=== PATIENT | male | born 1950 | race Caucasian/White ===

== ENCOUNTER 2018-05-26 14:29 | Inpatient (IN) | payer OTHER ==
[2018-05-26] VITALS (22 sets, daily range): BP systolic 69–114; BP diastolic 41–92; PULSE 39–124; RESP 13–34; Ht 180.3 cm; Wt 125.0 kg
[~2018-05-26] VITALS: Ht 180.3 cm; Wt 125.0 kg
[~2018-05-26 14:29] MED LIST: DEXTROSE 50% 50 ML SYRINGE ONE; DOPamine-D5W 1.6 MG/ML 250 ML ONE; EPINEPHrine 0.1 MG/ML SYG ONE; NA BICARBONATE 8.4% 50 ML SYG ONE; NALOXONE 2 MG SYG ONE
[2018-05-26] MEDS ORDERED: SOD CHLORIDE 0.9% 1,000 ML IV STA (15:15)
[2018-05-26] MEDS ORDERED: LIDOCAINE 1% (MDV) 20 ML INJ ONE (15:26)
[2018-05-26] MEDS ORDERED: MIDAZOLAM 1 MG/ML 2 ML INJ ONE ×2 (15:26→20:08)
[2018-05-26] MEDS ORDERED: IODIXANOL LOCM 100 ML BTL ONE ×2 (15:26→16:44)
[2018-05-26] MEDS ORDERED: IOHEXOL 350MG/ML 50 ML BTL ONE (15:26)
[2018-05-26] MEDS ORDERED: NITROGLYCERIN (IC) 100 MCG/ML INJ ONE (15:26)
[2018-05-26] MEDS ORDERED: FENTAnyl 50 MCG/ML VIAL ONE ×2 (15:26→20:08)
[2018-05-26] MEDS ORDERED: HEPARIN 1000 UNITS/ML 10 ML INJ ONE (15:28)
[2018-05-26] MEDS ORDERED: SOD CHLORIDE 0.9% 500 ML ONE (15:28)
[2018-05-26] MEDS ORDERED: NACL 0.9% 3 ML SYG IV SCH (15:30)
[2018-05-26] MEDS ORDERED: morphine 2 MG INJ IV PRN (15:30)
[2018-05-26] MEDS ORDERED: ASPIRIN 300 MG SUPP PR ONE ×2 (15:30→18:30)
[2018-05-26] MEDS ORDERED: POTASSIUM CHLORIDE 50 ML ONE (16:23)
--- NOTE | 2018-05-26 16:25 | ERD ---
ER Documentation Chief Complaint Chief Complaint BIB RA for cardiac arrest HPI This is a 68-year-old man brought in by EMS for initial respiratory arrest followed shortly by cardiac arrest after he laid down on EMSs gurney. EMS was called to his boarding care facility for not feeling well, patient initially stated he had some trouble breathing and when he laid down on the gurney he lost pulses. EMS began respiratory assistance with BVM and a high flow oxygen and began chest compressions. Further HPI could not be provided. ROS All systems reviewed and are negative except as per history of present illness. Allergies Allergies: Coded Allergies: Unknown: Unable to obtain (Unverified , 05/26/18) PMhx/Soc Obesity, COPD FmHx Family History: No diabetes Physical Exam Vitals Vital Signs Date Temp Pulse Resp B/P (MAP) Pulse Ox O2 O2 Flow FiO2 Time Delivery Rate 05/26/18 43 106/75 14:36 (85) 05/26/18 122 27 100 100 14:35 Physical Exam GENERAL: Elderly well-developed man, unresponsive, afebrile HEENT: Dry mucous membranes, pink conjunctival, full rey NEURO: Pupils minimally reactive bilaterally, patient nonverbal and unresponsive CARDIAC: Regular rate and rhythm, no murmurs rubs or gallops LUNGS: Clear bilaterally no wheezing crackles or stridor ABDOMEN: Soft nontender, no guarding, no rigidity, no masses, + umbilicoplasty SKIN: Cool to touch, no abrasions, contusions, or hematomas, no lacerations, no ecchymosis, no target lesions, and without ulcers EXTREMITIES: No clubbing cyanosis or edema, calves are bilaterally symmetrical, no Homans sign, no popliteal cord sign. Distal pulses equal and bilateral PSYCH: Unable to assess Result Diagram: 05/26/18 1531 05/26/18 1531 Results 24 hrs Laboratory Tests Test 05/26/18 14:39 05/26/18 15:31 Bedside Glucose 348 mg/dL White Blood Count 22.0 10^3/ul Red Blood Count 4.91 10^6/ul Hemoglobin 14.8 g/dl Hematocrit 45.7 % Mean Corpuscular Volume 93.1 fl Mean Corpuscular Hemoglobin 30.1 pg Mean Corpuscular Hemoglobin Concent 32.4 g/dl Red Cell Distribution Width 12.5 % Platelet Count 100 10^3/UL Mean Platelet Volume 10.9 fl Immature Granulocytes % 7.100 % Neutrophils % 51.4 % Segmented Neutrophils % (Manual) 45 % Band Neutrophils % (Manual) 7 % Lymphocytes % 36.3 % Lymphocytes % (Manual) 29 % Reactive Lymphocytes % (Manual) 12 % Monocytes % 3.7 % Monocytes % (Manual) 2 % Eosinophils % 0.6 % Eosinophils % (Manual) 2 % Basophils % 0.9 % Metamyelocytes % (manual) 3 % Nucleated Red Blood Cells % 0.1 /100WBC Immature Granulocytes # 1.560 10^3/ul Neutrophils # 11.3 10^3/ul Neutrophils # (Manual) 10.2 10^3/ul Band Neutrophils # 1.5 10^3/ul Lymphocytes (Manual) 6.3 10^3/ul Lymphocytes # 8.0 10^3/ul Reactive Lymphocytes # 2.6 10^3/ul Monocytes # 0.8 10^3/ul Monocytes # (Manual) 0.4 10^3/ul Eosinophils # 0.1 10^3/ul Basophils # 0.2 10^3/ul Metamyelocytes # 0.6 10^3/ul Nucleated Red Blood Cells # 0.0 10^3/ul Platelet Estimate DECREASED Polychromasia 1+ Poikilocytosis 1+ Anisocytosis 1+ Microcytosis 1+ Prothrombin Time 17.5 Sec Prothrombin Time Ratio 1.4 INR International Normalized Ratio 1.42 Activated Partial Thromboplast Time 49.6 Sec Sodium Level 139 mmol/L Potassium Level 3.3 mmol/L Chloride Level 99 mmol/L Carbon Dioxide Level 16 mmol/L Anion Gap 24 Blood Urea Nitrogen 7 mg/dl Creatinine 1.04 mg/dl Est Glomerular Filtrat Rate mL/min > 60 mL/min Glucose Level 559 mg/dl Calcium Level 10.6 mg/dl Total Bilirubin 0.2 mg/dl Direct Bilirubin 0.00 mg/dl Indirect Bilirubin 0.2 mg/dl Aspartate Amino Transf (AST/SGOT) 193 IU/L Alanine Aminotransferase (ALT/SGPT) 159 IU/L Alkaline Phosphatase 83 IU/L Troponin I 26.600 ng/ml Total Protein 5.7 g/dl Albumin 3.0 g/dl Globulin 2.70 g/dl Albumin/Globulin Ratio 1.11 Lipase 95 U/L Current Medications Medications Dose Sig/Benjamin Start Time Status Last (Trade) Ordered Route PRN Stop Time Admin Dose Reason Admin Sodium 1,000 ml @ Q1H STAT 05/26/18 DC Chloride 1,000 mls/hr IV 15:15 05/26/18 16:14 Aspirin 300 mg ONCE ONCE 05/26/18 DC (Aspirin) IA 15:30 05/26/18 15:31 Lidocaine 20 ml STK-MED 05/26/18 DC (Xylocaine ONCE .ROUTE 15:26 1% (Mdv) 20 05/26/18 15:27 ml) Iohexol 50 ml STK-MED 05/26/18 DC (Omnipaque ONCE .ROUTE 15:26 350mg/ ml) 05/26/18 15:27 Iodixanol 100 ml STK-MED 05/26/18 DC (Visipaque ONCE .ROUTE 15:26 Locm) 05/26/18 15:27 Fentanyl 100 mcg STK-MED 05/26/18 DC (Sublimaze) ONCE .ROUTE 15:26 05/26/18 15:27 Midazolam 2 mg STK-MED 05/26/18 DC HCl ONCE .ROUTE 15:26 (Versed) 05/26/18 15:27 1,000 mcg STK-MED 05/26/18 DC Nitroglycerin ONCE .ROUTE 15:26 05/26/18 15:27 (Nitroglyceri n (Intracoronar y)) Sodium 500 ml @ ud STK-MED 05/26/18 DC Chloride ONCE .ROUTE 15:28 05/26/18 15:29 Heparin 10,000 unit STK-MED 05/26/18 DC Sodium ONCE .ROUTE 15:28 (Porcine) 05/26/18 15:29 (Heparin (1000 Units/ml)) IV Flush 3 ml PER 05/26/18 (NS 3 ml) PROTOCOL IV 15:30 Morphine 2 mg Q4H PRN 05/26/18 Sulfate IV .SEVERE 15:30 (morphine) PAIN 7-10 Potassium 50 ml @ ud STK-MED 05/26/18 DC Chloride ONCE .ROUTE 16:23 05/26/18 16:24 Iodixanol 100 ml STK-MED 05/26/18 DC (Visipaque ONCE .ROUTE 16:44 Locm) 05/26/18 16:45 250 ml @ ud STK-MED 05/26/18 DC Phenylephrine ONCE .ROUTE 16:56 HCl 05/26/18 16:57 Propofol 100 ml @ ud STK-MED 05/26/18 DC ONCE .ROUTE 16:56 05/26/18 16:57 Eptifibatide 100 ml @ ud STK-MED 05/26/18 DC ONCE IV 16:57 05/26/18 16:58 Eptifibatide 20 ml @ ud STK-MED 05/26/18 DC ONCE .ROUTE 16:57 05/26/18 16:58 Sodium 1,000 ml @ STK-MED 05/26/18 DC Chloride ud ONCE .ROUTE 16:57 05/26/18 16:58 Nicardipine 25 mg STK-MED 05/26/18 DC HCl ONCE .ROUTE 17:09 (Cardene Iv) 05/26/18 17:10 Verapamil 5 mg STK-MED 05/26/18 DC HCl ONCE .ROUTE 17:09 (Verapamil) 05/26/18 17:10 Procedures/MDM IV line and intraosseous line were both immediately established. Endotracheal Intubation by me: Pre assessment performed. Pre-oxygenation performed with 100% oxygen RSI: Performed w/o complication or hypoxic events. Medications as ordered. Blade: 4.0 ET Tube: 7.5 cm Depth: 22 cm at the lip Intubation confirmed by colorimetric CO2, equal breath sounds, quiet over the stomach. Patient's initial rhythm in the emergency department was pulseless electrical activity so along with high quality chest compressions he was given multiple amps of IV epinephrine, sodium bicarbonate, and intravenous calcium. I also treated him with naloxone IV and dextrose. Advanced cardiac life support and chest compressions continued this way for about 40 minutes, patient did have multiple episodes of ventricular tachycardia and ventricular fibrillation requiring electrical defibrillation which we performed. Eventually the patient regained spontaneous circulation with palpable pulses and cardiac activity visualized on bedside ultrasound performed by me. I placed the patient on a dopamine drip Chest X-ray 1V Interpreted by me: 4.0 cm above the jo ET tube. Normal soft tissue, No pneumothorax. EKG performed, read by me revealed an atrial fibrillation rate controlled at 96 bpm, normal axis, narrow QRS complexes, ST elevations in inferior and lateral leads concerning for acute myocardial ischemia. Code STEMI was immediately called after we obtain the EKG and jewel sawyer agreed to take the patient for PCI emergently. Critical Care: Time: 55 minutes, this was time separate from other billable procedures. Treatments/Evaluations: Close monitoring and treatment of unstable vital signs, cardiorespiratory, and neurologic status, while maintaining tight balance of fluid, respiratory, and cardiac interventions. CBC revealed a leukocytosis of 22, electrolytes were fairly unremarkable given his current condition, liver function tests revealed transaminitis, troponin positive at 27. Patient admitted to the ICU under panel team Departure Diagnosis: Primary Impression: Cardiac arrest Additional Impressions: STEMI (ST elevation myocardial infarction) Involved coronary artery: left circumflex coronary artery Qualified Codes: I21.21 - ST elevation (STEMI) myocardial infarction involving left circumflex coronary artery Signs of return of spontaneous circulation Condition: Critical ALYSE KLEIN MD May 26, 2018 16:25
[2018-05-26] MEDS ORDERED: PROPOFOL 100 ML ONE (16:56)
[2018-05-26] MEDS ORDERED: PHENYLephrine 20MG IN 250 ML 250 ML ONE ×2 (16:56→18:36)
[2018-05-26] MEDS ORDERED: EPTIFIBATIDE 20 ML ONE (16:57)
[2018-05-26] MEDS ORDERED: SOD CHLORIDE 0.9% 1,000 ML ONE (16:57)
[2018-05-26] MEDS ORDERED: EPTIFIBATIDE 100 ML IV ONE (16:57)
[2018-05-26] MEDS ORDERED: VERAPAMIL 5 MG INJ ONE (17:09)
[2018-05-26] MEDS ORDERED: niCARdipine 25 MG INJ ONE (17:09)
[2018-05-26] MEDS ORDERED: EPTIFIBATIDE 100 ML IV SCH (18:04)
[2018-05-26] MEDS ORDERED: SOD CHLORIDE 0.9% 1,000 ML IV SCH (18:04)
--- NOTE | 2018-05-26 18:04 | CONS ---
Assessment/Plan Assessment/Plan Hospital Course (Demo Recall) 68 yo with witnessed cardiac arrest and STEMI inferior wall, with prolonged resuscitation, underwent angioplasty with stent to a codominant LCX with only CONNIE 2 flow at the end of the procedure. Patient is now on 3 pressors and an IABP. Impression: STEMI of the inferolateral wall, thrombus-filled codominant LCX, with angioplasty and only CONNIE 2 flow at the end of the procedure Cardiogenic shock Morbid obesity Recommendations: Integrilin and Cangrelor, no NG tube due to epistaxis. In spite of epistaxis, would continue Integrilin due to less than ideal flow at the end of the procedure Did not receive asa, will give rectal ASA as soon as arrives in the ICU Continue iabp, pressors Echo to be done Prognosis poor No family present at the current time to discuss care Consultation Date/Type/Reason Admit Date/Time May 26, 2018 at 15:31 Date of Consultation: May 26, 2018 Type of Consult Cardiology Reason for Consultation STEMI Requesting Provider: ALYSE KLEIN MD Date/Time of Note DATE: 05/26/18 TIME: 17:44 Hx of Present Illness 68 yo with unknown history, EMS summoned to his sober living facility due to c/o respiratory distress. Patient sustained cardiac arrest in ED, with prolonged resuscitation. Upon return of spontaneous circulation, EKG demonstrated afib at 96 bpm, ST elevations in II, III, AVF, V4-V6 with reciprocal depressions in V1- 2, consistent with inferolateral UT. Patient brought to cardiac catheterization laboratory, underwent a prolonged procedure with ultimate angioplasty of the left circumflex and resulting CONNIE 2 flow down a codominant LCX. Balloon pump placed at the end of the procedure, and patient left on integrilin and cangrelor, and three pressors. Subjective hx not possible: pt non-verbal, pt critical status Past Medical History Medical History: other (unknown ) Medications Current Medications IV Flush (NS 3 ml) 3 ml PER PROTOCOL IV ; Start 05/26/18 at 15:30 Morphine Sulfate (morphine) 2 mg Q4H PRN IV .SEVERE PAIN 7-10; Start 05/26/18 at 15:30 Allergies: Coded Allergies: Unknown: Unable to obtain (Unverified , 05/26/18) Past Surgical History Past Surgical Hx: other (unknown) Family History Significant Family History: other (unknown) Social History Alcohol Use: other (unknown) Smoking Status: Unknown if ever smoked Drug Use: other (unknown) Exam/Review of Systems Vital Signs Vitals Vital Signs Date Temp Pulse Resp B/P (MAP) Pulse Ox O2 O2 Flow FiO2 Time Delivery Rate 05/26/18 43 106/75 14:36 (85) 05/26/18 122 100 100 14:35 Exam Constitutional: non-verbal, other (intubated) Head: normocephalic, atraumatic ENMT: nl external ears & nose, intubated Neck: No jvd, No bruits Respiratory: clear to auscultation Cardiovascular: regular rate and rhythm; No jugular venous distention (JVD), No murmurs/extra sounds Gastrointestinal: soft, bowel sounds, other (obese) Genitourinary - Male: nl penis Extremities: No normal pulses (decreased but palpable femoral pulses), No edema Skin: nl turgor, other (discoloration of lower legs, overgrown darken toenails, dirt on bottom of feet) Labs Result Diagram: 05/26/18 1531 05/26/18 1531 Results 24hrs Laboratory Tests Test 05/26/18 14:39 05/26/18 15:31 Bedside Glucose 348 H White Blood Count 22.0 H Red Blood Count 4.91 Hemoglobin 14.8 Hematocrit 45.7 Mean Corpuscular Volume 93.1 Mean Corpuscular Hemoglobin 30.1 Mean Corpuscular Hemoglobin Concent 32.4 Red Cell Distribution Width 12.5 Platelet Count 100 L Mean Platelet Volume 10.9 H Immature Granulocytes % 7.100 H Neutrophils % 51.4 Segmented Neutrophils % (Manual) 45 Band Neutrophils % (Manual) 7 H Lymphocytes % 36.3 Lymphocytes % (Manual) 29 Reactive Lymphocytes % (Manual) 12 H Monocytes % 3.7 Monocytes % (Manual) 2 Eosinophils % 0.6 Eosinophils % (Manual) 2 Basophils % 0.9 Metamyelocytes % (manual) 3 H Nucleated Red Blood Cells % 0.1 H Immature Granulocytes # 1.560 H Neutrophils # 11.3 H Neutrophils # (Manual) 10.2 H Band Neutrophils # 1.5 H Lymphocytes (Manual) 6.3 H Lymphocytes # 8.0 H Reactive Lymphocytes # 2.6 H Monocytes # 0.8 Monocytes # (Manual) 0.4 Eosinophils # 0.1 Basophils # 0.2 H Metamyelocytes # 0.6 H Nucleated Red Blood Cells # 0.0 Platelet Estimate DECREASED Polychromasia 1+ Poikilocytosis 1+ Anisocytosis 1+ Microcytosis 1+ Prothrombin Time 17.5 H Prothrombin Time Ratio 1.4 INR International Normalized Ratio 1.42 Activated Partial Thromboplast Time 49.6 H Sodium Level 139 Potassium Level 3.3 L Chloride Level 99 Carbon Dioxide Level 16 L Anion Gap 24 H Blood Urea Nitrogen 7 Creatinine 1.04 Est Glomerular Filtrat Rate mL/min > 60 Glucose Level 559 *H Calcium Level 10.6 H Total Bilirubin 0.2 Direct Bilirubin 0.00 Indirect Bilirubin 0.2 Aspartate Amino Transf (AST/SGOT) 193 H Alanine Aminotransferase (ALT/SGPT) 159 H Alkaline Phosphatase 83 Troponin I 26.600 *H Total Protein 5.7 L Albumin 3.0 L Globulin 2.70 Albumin/Globulin Ratio 1.11 Lipase 95 Imaging Imaging EKG - afib at 96, ST elevations inferolateral with reciprocal changes Medications Medications Current Medications IV Flush (NS 3 ml) 3 ml PER PROTOCOL IV ; Start 05/26/18 at 15:30 Morphine Sulfate (morphine) 2 mg Q4H PRN IV .SEVERE PAIN 7-10; Start 05/26/18 at 15:30 MARIBEL MONTEZ May 26, 2018 17:55
--- NOTE | 2018-05-26 18:26 | OPR ---
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 Post arrest EKG consistent with STEMI of the inferolateral wall. Procedure Description No next of kin available, and patient critical, so we proceeded without consent. The right groin was prepped & draped, lidocaine used for local sedation, propofol for general, and fluoroscopy identified landmarks. Using micropuncture technique, the right common femoral artery and vein were accessed and 6 F sheath placed in both. A JL4 diagnostic catheter was advanced over wire and engaged the LM. Angiography revealed a completely occluded LCX which was felt to be the culprit, images performed in multiple projections Given critical status we did not immediately image the RCA. Heparin given and ACT checked. A JL3.5 guide engaged the LM, a Yang Blue wire advanced down the LCX. Several inflations performed with a 2.5x12 balloon, and two passes of a Pronto catheter, with minimal improvement of flow. Integrilin was started, two boluses and a drip. Due to lack of progress on the LCX, I felt it appropriate to assess the RCA. A JR4 guide was advanced over wire, engaged the RCA, angiography performed, confirming CONNIE 3 flow down the RCA and confirming that the LCX was culprit. The JR4 was removed over wire, and JL3.5 guide again engaged the LM. The vessel was re-wired, imaged and there was somewhat better flow. A larger Pronto catheter was advanced down the vessel and aspirated thrombus. Flow was improved. A 2.75x15 balloon was inflated in the vessel. At this point, there was CONNIE 2 flow and we decided to place a 2.5x32 mm Synergy stent in the vessel. Following this, IA nicardipine and verapamil were given. Angiography was performed in multiple projections, including a wire out demonstrating good apposition of the stent and CONNIE 2 flow distally. Given the need for pressors, an IABP was placed. The femoral sheath was changed to an IABP sheath, and the IABP advanced to the jo. There was some augmentation of pressures, but nonetheless, patient required three pressors in total. During the procedure, he sustained two arrests, shocked for one, and regained spontaneous circulation with the second, but nonetheless shocked. Patient did not receive aspirin due to critical situation and should receive rectal aspirin upon arrival in ICU. Further, as NGT could not be placed due to epistaxis, he was given cangrelor, which should be continued. Findings: LM - normal LAD - 70% proximal lesion, diffuse disease throughout the vessel LCX - 100% occlusion in mid portion, codominant vessel RCA - codominant vessel with moderate diffuse disease MARIBEL MONTEZ May 26, 2018 18:26
--- NOTE | 2018-05-26 19:09 | HP ---
Date/Time of Note Date/Time of Note DATE: 05/26/18 TIME: 18:54 Assessment/Plan VTE Prophylaxis SCD applied (from Nsg): Yes Pharmacological prophylaxis: NA/contraindicated Pharm contraindication: bleeding Lines/Catheters IV Catheter Type (from Nrsg): Saline Lock Assessment/Plan Assessment/Plan 68 yo man no known past medical history admitted with respiratory distress proceeding to cardiac arrest. #Cardiac arrest - Unknown etiology. - s/p cardiac cath with BELLA to circumflex. - Patient meets inclusion criteria for TTM. Will proceed with hypothermia protocol including sedation and neuromuscular blockade. - Continue balloon pump per cardiology. - Continue pressors to maintain MAP>65 - Antiplatelets per cardiology - Appreciate Dr. Gamboa's assistance #Respiratory failure - Post-intubation chest xray clear - Pulmonary consulted DVT: SCDs GI: protonix Result Diagram: 05/26/18 1531 05/26/18 1531 Results 24hrs Laboratory Tests Test 05/26/18 14:39 05/26/18 15:31 Bedside Glucose 348 H White Blood Count 22.0 H Red Blood Count 4.91 Hemoglobin 14.8 Hematocrit 45.7 Mean Corpuscular Volume 93.1 Mean Corpuscular Hemoglobin 30.1 Mean Corpuscular Hemoglobin Concent 32.4 Red Cell Distribution Width 12.5 Platelet Count 100 L Mean Platelet Volume 10.9 H Immature Granulocytes % 7.100 H Neutrophils % 51.4 Segmented Neutrophils % (Manual) 45 Band Neutrophils % (Manual) 7 H Lymphocytes % 36.3 Lymphocytes % (Manual) 29 Reactive Lymphocytes % (Manual) 12 H Monocytes % 3.7 Monocytes % (Manual) 2 Eosinophils % 0.6 Eosinophils % (Manual) 2 Basophils % 0.9 Metamyelocytes % (manual) 3 H Nucleated Red Blood Cells % 0.1 H Immature Granulocytes # 1.560 H Neutrophils # 11.3 H Neutrophils # (Manual) 10.2 H Band Neutrophils # 1.5 H Lymphocytes (Manual) 6.3 H Lymphocytes # 8.0 H Reactive Lymphocytes # 2.6 H Monocytes # 0.8 Monocytes # (Manual) 0.4 Eosinophils # 0.1 Basophils # 0.2 H Metamyelocytes # 0.6 H Nucleated Red Blood Cells # 0.0 Platelet Estimate DECREASED Polychromasia 1+ Poikilocytosis 1+ Anisocytosis 1+ Microcytosis 1+ Prothrombin Time 17.5 H Prothrombin Time Ratio 1.4 INR International Normalized Ratio 1.42 Activated Partial Thromboplast Time 49.6 H Sodium Level 139 Potassium Level 3.3 L Chloride Level 99 Carbon Dioxide Level 16 L Anion Gap 24 H Blood Urea Nitrogen 7 Creatinine 1.04 Est Glomerular Filtrat Rate mL/min > 60 Glucose Level 559 *H Calcium Level 10.6 H Total Bilirubin 0.2 Direct Bilirubin 0.00 Indirect Bilirubin 0.2 Aspartate Amino Transf (AST/SGOT) 193 H Alanine Aminotransferase (ALT/SGPT) 159 H Alkaline Phosphatase 83 Troponin I 26.600 *H Total Protein 5.7 L Albumin 3.0 L Globulin 2.70 Albumin/Globulin Ratio 1.11 Lipase 95 HPI/ROS Admit Date/Time Admit Date/Time May 26, 2018 at 15:31 Hx of Present Illness 68 yo man admitted after cardiac arrest. No collateral history, patient intubated and sedated. History per prior d ocumentation. Unknown past medical history. EMS summoned to his sober living facility due to c/o respiratory distress. Patient sustained cardiac arrest in ED, with prolonged resuscitation. Upon return of spontaneous circulation, EKG demonstrated afib at 96 bpm, ST elevations in II, III, AVF, V4-V6 with reciprocal depressions in V1-2, consistent with inferolateral [place]. Patient brought to cardiac catheterization laboratory, underwent a prolonged procedure with ultimate angioplasty of the left circumflex and resulting CONNIE 2 flow down a codominant LCX. Balloon pump placed at the end of the procedure, and patient left on integrilin and cangrelor, and three pressors. ROS Subjective hx not possible: pt critical PMH/Family/Social Past Medical History Unknown Medications Current Medications IV Flush (NS 3 ml) 3 ml PER PROTOCOL IV ; Start 05/26/18 at 15:30 Morphine Sulfate (morphine) 2 mg Q4H PRN IV .SEVERE PAIN 7-10; Start 05/26/18 at 15:30 Eptifibatide 100 ml @ 7.5 mls/hr [id number] IV ; Start 05/26/18 at 18:04; Stop 05/27/18 at 06:03 Atorvastatin Calcium (Lipitor) 80 mg DAILY@21 PO ; Start 05/26/18 at 21:00 Sodium Chloride 1,000 ml @ 75 mls/hr [id number] IV ; Start 05/26/18 at 18:04; Stop 05/27/18 at 07:23 Coded Allergies: Unknown: Unable to obtain (Unverified , 05/26/18) Past Surgical History Unknown Past Surgical Hx: other (unknown) Family History Significant Family History: other (unknown) Social History Alcohol Use: other (unknown) Smoking Status: Unknown if ever smoked Drug Use: other (unknown) Exam/Review of Systems Vital Signs Vitals Vital Signs Date Temp Pulse Resp B/P (MAP) Pulse Ox O2 O2 Flow FiO2 Time Delivery Rate 05/26/18 82 18:20 05/26/18 43 106/75 14:36 (85) 05/26/18 100 100 14:35 Exam Exam Gen: Obese man intubated, sedated. Eyes: Dilated nonreactive pupils bilaterally. HEENT: Mild epistaxis. ET tube in place. Card: Balloon pump audible. Cannot auscultate heart sounds. Pulm: Distant heart sounds bilaterally. Abd: Obese, soft, nondistended. no palpable hepatosplenomegaly. Ext: No cyanosis/clubbing/edema. R fem vascular sheath with balloon pump. Skin: cool, clammy. Neuro: No response to sternal rub. Pupil fixed and dilated. Periodic flailing myoclonic jerks. ELANA HARDWICK MD May 26, 2018 19:04
[2018-05-26] MEDS: DOPamine 1.6 MG/ML D5W 250 ML IV SCH (19:19)
[2018-05-26] MEDS: NORepinephrine 8MG/250 ML (PMX 250 ML IV SCH ×2 (19:23→23:17)
[2018-05-26] MEDS ORDERED: NORepinephrine 8MG/250 ML (PMX 250 ML IV SCH ×2 (19:30)
[2018-05-26] MEDS ORDERED: DOPamine-D5W 1.6 MG/ML 250 ML IV SCH (19:30)
[2018-05-26] MEDS: MIDAZOLAM (DRIP) 50 mg/50 mL 50 ML IV SCH ×2 (19:36→22:36)
[2018-05-26] MEDS ORDERED: VECURONIUM 100 MG in DEXTROSE 5% 100 ML IV SCH ×4 (20:00)
[2018-05-26] MEDS ORDERED: NA BICARBONATE 8.4% 50 ML SYG ONE (20:18)
[2018-05-26] MEDS ORDERED: NA BICARBONATE 8.4% 50 ML SYG IV STA ×2 (20:21)
[2018-05-26] MEDS ORDERED: DEXTROSE 50% 50 ML SYRINGE IV PRN ×2 (20:30)
[2018-05-26] MEDS: PROPOFOL 100 ML IV SCH (20:55)
[2018-05-26] MEDS ORDERED: LORAZEPAM 2 MG INJ IM PRN (21:00)
[2018-05-26] MEDS: ATORVASTATIN 80 MG TAB PO SCH (21:00)
[2018-05-26] MEDS: PHENYLephrine 20MG IN 250 ML 250 ML IV SCH ×2 (21:14→22:29)
[2018-05-26] MEDS: ACCU-CHEK XX SCH ×3 (21:51→23:00)
[2018-05-26] MEDS ORDERED: NA BICARBONATE 8.4% 50 ML SYG IV ONE ×2 (22:09→22:10)
[2018-05-26] MEDS: FENTAnyl (DRIP) 1000 mcg/100mL 100 ML IV SCH (22:34)
[2018-05-26] MEDS: VASOPRESSIN 60 UNIT in DEXTROSE 5% 57 ML IV SCH (23:20)
[2018-05-27] VITALS (92 sets, daily range): BP systolic 67–169; BP diastolic 27–106; PULSE 61–135; RESP 18–31
[2018-05-27] MEDS: NORepinephrine 32 MG in DEXTROSE 5% 218 ML IV SCH ×2 (00:04→15:55)
[2018-05-27] MEDS: PHENYLephrine 80 MG in DEXTROSE 5% 242 ML IV SCH ×4 (00:07→22:08)
[2018-05-27] MEDS ORDERED: SODIUM BICARBONATE (IV ADD) 150 MEQ in DEXTROSE 5% 850 ML IV SCH ×4 (00:30)
[2018-05-27] MEDS ORDERED: VANCOMYCIN IV PER PHARMACY XX SCH (00:30)
[2018-05-27] MEDS: ACCU-CHEK XX SCH ×24 (01:13→23:14)
--- NOTE | 2018-05-27 01:37 | EN ---
Date/Time of Note Date/Time of Note DATE: 05/27/18 TIME: 01:35 ER Progress Note I was called to the patient's bedside because of a CODE BLUE. In short: The patient is status post cardiac arrest on multiple pressors with balloon pump. Nursing is unsure if the patient actually lost pulses but noted low blood pressure started chest compressions and gave 1 mg of epinephrine. Upon my arrival the patient had pulses and a blood pressure. General: Unresponsive Head: Normocephalic, atraumatic ENT: ET tube in place Neck: Supple, no lymphadenopathy Respiratory: Mechanical breath sounds Cardiovascular: Limited exam, balloon pump active Abdominal: Soft, non-protuberant, no pulsatile mass : Deferred MSK: No spontaneous motor activity Neurologic: No spontaneous neurologic activity Skin: No evidence of trauma CODE BLUE events: The patient had pulses and her blood pressure upon my arrival I recommended possibly discontinuing propofol as the patient is on multiple pressors. Transition to fentanyl and Versed for sedation I recommended they contact the tint layer. It appears the patient has had multiple codes. Patient is critically ill with significant risk for mortality. Continue management per primary cardiology and primary managing team Disposition: The patient remains in the intensive care unit. Diagnostic impression: Status post cardiac arrest JULISA HALL MD May 27, 2018 01:37
[2018-05-27] MEDS ORDERED: VANCOMYCIN HCL 2 GM in SOD CHLORIDE 0.9% 500 ML IVPB ONE (02:00)
[2018-05-27] MEDS ORDERED: ARTIFICIAL TEARS 15 ML OPH BOTH EYES PRN (02:00)
[2018-05-27] MEDS ORDERED: MEPERIDINE 25 MG INJ IV PRN ×2 (02:30)
[2018-05-27] MEDS ORDERED: ACETAMINOPHEN 650 MG SUPP PR PRN (02:30)
[2018-05-27] MEDS ORDERED: ACETAMINOPHEN 650MG/20.3ML CUP PO PRN (02:30)
[2018-05-27] MEDS: INSULIN HUMAN REGULAR 100 UNIT in SOD CHLORIDE 0.9% 99 ML IV SCH ×3 (03:06→14:29)
[2018-05-27] MEDS: PIPER-TAZO 3.375 GM IV (PMX) 100 ML IVPB SCH ×4 (03:16→21:57)
[2018-05-27] MEDS: POTASSIUM CHLORIDE 50 ML IVPB SCH ×3 (04:02→08:49)
[2018-05-27] MEDS: MIDAZOLAM (DRIP) 50 mg/50 mL 50 ML IV SCH ×3 (04:07→20:12)
[2018-05-27] MEDS: DOPamine 1.6 MG/ML D5W 250 ML IV SCH ×2 (04:14→12:47)
[2018-05-27] MEDS: PANTOPRAZOLE 40 MG INJ IV SCH (05:43)
[2018-05-27] MEDS: OCULAR LUBRICANT 3.5 GM OPH OINT BOTH EYES SCH ×3 (05:43→18:07)
[2018-05-27] MEDS: ARTIFICIAL TEARS 15 ML OPH BOTH EYES SCH ×3 (05:43→18:07)
[2018-05-27] MEDS ORDERED: VECURONIUM 10 MG VIAL IV ONE (06:00)
[2018-05-27] MEDS ORDERED: OCULAR LUBRICANT 3.5 GM OPH OINT BOTH EYES SCH (06:00)
[2018-05-27] MEDS ORDERED: ALBUMIN HUMAN 25% 100 ML IV ONE (06:30)
[2018-05-27] MEDS: PROPOFOL 100 ML IV SCH ×3 (07:00→23:56)
[2018-05-27] MEDS: VASOPRESSIN 60 UNIT in DEXTROSE 5% 57 ML IV SCH ×2 (08:30→19:42)
--- NOTE | 2018-05-27 08:42 | CONS ---
Assessment/Plan Assessment/Plan Hospital Course (Demo Recall) 68 yo with witnessed cardiac arrest and STEMI inferior wall, with prolonged resuscitation, underwent angioplasty with stent to a codominant LCX with only CONNIE 2 flow at the end of the procedure. Patient remains on pressors and an IABP. Integrilin stopped prematurely for unclear reasons, and cangrelor was never started. Impression: STEMI of the inferolateral wall, thrombus-filled codominant LCX, with angioplasty and only CONNIE 2 flow at the end of the procedure Cardiogenic shock, on IABP and pressors Morbid obesity Acute respiratory failure, on ventilator Hypokalemia Recommendations: Cangrelor was never given, unfortunately, the order may have been lost during [employer] down time. It is being ordered from pharmacy STAT. Outside of the post pci orders there is no order for it and it has been phoned in to pharmacy. Once NGT can be placed can give ticagrelor 180 mg Continue IABP, wean pressors Needs daily asa, will order as rectal dose Echo pending Prognosis remains guarded Ventilator support Electrolyte repletion Consultation Date/Type/Reason Admit Date/Time May 26, 2018 at 15:31 Initial Consult Date 05/26/18 Type of Consult Cardiology Requesting Provider: ALYSE KLEIN MD Date/Time of Note DATE: 05/27/18 TIME: 08:33 24 HR Interval Summary Free Text/Dictation Overnight events noted, patient coded once. Patient remains on vasopressin, dopamine, phenylephrine, levophed, with dopamine running at 2 mcg/kg/min. IABP in place and augmenting. Cangrelor ordered, I told nursing as well last night just before 7 pm, but it does not appear on the JUN, and I do not see the order; [employer] was down for some time last night. Also, Integrilin was stopped at some point, unclear when, unclear ordered by whom, I was not notified. Exam/Review of Systems Vital Signs Vitals Vital Signs Date Temp Pulse Resp B/P (MAP) Pulse Ox O2 O2 Flow FiO2 Time Delivery Rate 05/27/18 92.7 22 100/69 100 06:00 (79) 05/27/18 95 Mechanical 05:45 Ventilator 05/27/18 60 05:40 Intake and Output 05/26/18 05/26/18 05/27/18 1515:00 23:00 07:00 IntakeIntake Total 1597.78 ml 1657.29 ml BalanceBalance 1597.78 ml 1657.29 ml Exam Constitutional: non-verbal Psych: other (sedated) Head: normocephalic ENMT: intubated, other (dried blood at nares) Neck: No jvd, No bruits Respiratory: clear to auscultation, normal air movement Cardiovascular: regular rate and rhythm; No murmurs/extra sounds Gastrointestinal: soft, non-tender, other (obese) Musculoskeletal: nl extremities to inspection Extremities: normal pulses (DP pulses palpable bilaterally) Neurological: other (sedated) Skin: nl turgor Labs Result Diagram: 05/27/18 0430 05/27/18 0220 Results 24hrs Laboratory Tests Test 05/26/18 14:39 05/26/18 15:31 05/26/18 19:50 05/26/18 20:11 Bedside Glucose 348 H White Blood 22.0 H 30.1 #H Count Red Blood Count 4.91 4.70 Hemoglobin 14.8 14.2 Hematocrit 45.7 43.1 Mean Corpuscular 93.1 91.7 Volume Mean Corpuscular 30.1 30.2 Hemoglobin Mean Corpuscular 32.4 32.9 Hemoglobin Meli nt Red Cell 12.5 12.6 Distribution Width Platelet Count 100 L 223 # Mean Platelet 10.9 H 11.1 H Volume Immature 7.100 H 1.700 H Granulocytes % Neutrophils % 51.4 Segmented 45 76 Neutrophils % (Manual) Band Neutrophils 7 H 16 H % (Manual) Lymphocytes % 36.3 Lymphocytes % 29 4 L (Manual) Reactive 12 H Lymphocytes % (Manual) Monocytes % 3.7 Monocytes % 2 4 (Manual) Eosinophils % 0.6 Eosinophils % 2 (Manual) Basophils % 0.9 Metamyelocytes % 3 H (manual) Nucleated Red 0.1 H 0.0 Blood Cells % Immature 1.560 H 0.500 H Granulocytes # Neutrophils # 11.3 H Neutrophils # 10.2 H 24.3 H (Manual) Band Neutrophils 1.5 H 4.8 H # Lymphocytes 6.3 H 1.2 (Manual) Lymphocytes # 8.0 H Reactive 2.6 H Lymphocytes # Monocytes # 0.8 Monocytes # 0.4 1.2 H (Manual) Eosinophils # 0.1 Basophils # 0.2 H Metamyelocytes # 0.6 H Nucleated Red 0.0 Blood Cells # Platelet DECREASED NORMAL Estimate Polychromasia 1+ Poikilocytosis 1+ 2+ Anisocytosis 1+ 2+ Microcytosis 1+ 2+ Prothrombin Time 17.5 H 19.6 H Prothrombin Time 1.4 1.5 Ratio INR 1.42 1.65 International Normalized Ratio Activated 49.6 H 120.2 *H Partial Thrombop last Time Sodium Level 139 134 L Potassium Level 3.3 L 4.2 Chloride Level 99 103 Carbon Dioxide 16 L 14 L Level Anion Gap 24 H 17 #H Blood Urea 7 11 Nitrogen Creatinine 1.04 1.37 H Est Glomerular > 60 52 L Filtrat Rate mL/min Glucose Level 559 *H 548 *H Calcium Level 10.6 H 9.1 Total Bilirubin 0.2 0.4 Direct Bilirubin 0.00 0.20 # Indirect 0.2 0.2 Bilirubin Aspartate Amino 193 H 283 H Transf (AST/SGOT ) Alanine 159 H 201 H Aminotransferase (ALT/SGPT) Alkaline 83 91 Phosphatase Troponin I 26.600 *H Total Protein 5.7 L 5.4 L Albumin 3.0 L 2.8 L Globulin 2.70 2.60 Albumin/Globulin 1.11 1.07 Ratio Lipase 95 119 Giant Platelets 1 H Platelet @See below Morphology Comment Fibrinogen 334.0 Amylase Level 367 H Blood Gas Blood arterial Specimen Source Arterial Blood 05/26/2018 9:40: Date Drawn 43 PM Arterial Blood 7.212 *L pH (Temp corrected) Arterial Blood 30.5 L pCO2 (Temp correct) Arterial Blood 259.6 H pO2 (Temp corrected) Arterial Blood 12.3 L HCO3 Arterial Blood -14.8 L Base Excess Arterial Blood 99.4 H Oxygen Saturatio n Srinivas Test N/A Arterial Blood A-Line Gas Puncture Site Arterial 0.2 Blood Carboxyhem oglobin Arterial Blood 0.4 Methemoglobin Blood Gas A-a O2 427.1 H Differential Oxyhemoglobin 98.8 Percent Blood Gas 35.3 Temperature Blood Gas 18.0 Respiration Rate Blood Gas Actual 21 Respiration Rate Blood Gas VENT - AC Modality FiO2 100.0 Blood Gas Tidal 600.0 Volume Blood Gas Low 5.0 PEEP Setting Blood Gas 23.0 Inspiratory Pressure Blood Gas Ruddy CESAR Critical Value Read Back Blood Gas S.H. Notified Whom Blood Gas 05/26/2018 9:51: Notified Time 23 PM Test 2/21/19 20:35 05/26/18 21:20 05/26/18 21:21 05/26/18 21:29 Bedside Glucose 552 *H 353 H Magnesium Level 2.2 Lactic Acid 9.7 *H Level Test 05/26/18 22:00 05/26/18 22:12 05/26/18 23:27 05/26/18 23:48 Blood Gas Blood arterial Specimen Source Arterial Blood 05/26/2018 7:46: Date Drawn 09 PM Arterial Blood 7.123 *L pH (Temp corrected) Arterial Blood 39.3 pCO2 (Temp correct) Arterial Blood 147.6 H pO2 (Temp corrected) Arterial Blood 12.6 L HCO3 Arterial Blood -16.1 L Base Excess Arterial Blood 98.3 H Oxygen Saturatio n Srinivas Test N/A Arterial Blood A-Line Gas Puncture Site Arterial 0.1 Blood Carboxyhem oglobin Arterial Blood 0.3 Methemoglobin Blood Gas A-a O2 526.1 H Differential Oxyhemoglobin 97.9 Percent Blood Gas 37.0 Temperature Blood Gas 18.0 Respiration Rate Blood Gas Actual 27 Respiration Rate Blood Gas VENT - AC Modality FiO2 100.0 Blood Gas Tidal 550.0 Volume Blood Gas Low 5.0 PEEP Setting Blood Gas 16.0 Inspiratory Pressure Blood Gas Ruddy CESAR Critical Value Read Back Blood Gas S.H> Notified Whom Blood Gas 05/26/2018 7:53: Notified Time 49 PM Bedside Glucose 426 *H 377 H 589 *H Test 05/26/18 23:50 05/27/18 00:36 05/27/18 02:20 05/27/18 03:00 Bedside Glucose 507 *H 371 H White Blood 27.4 H Count Red Blood Count 4.70 Hemoglobin 14.4 Hematocrit 42.5 Mean Corpuscular 90.4 Volume Mean Corpuscular 30.6 Hemoglobin Mean Corpuscular 33.9 Hemoglobin Meli nt Red Cell 12.7 Distribution Width Platelet Count 193 Mean Platelet 10.8 H Volume Immature 1.800 H Granulocytes % Neutrophils % 91.1 H Lymphocytes % 4.2 L Monocytes % 2.5 Eosinophils % 0.0 Basophils % 0.4 Nucleated Red 0.0 Blood Cells % Immature 0.480 H Granulocytes # Neutrophils # 24.9 H Lymphocytes # 1.2 Monocytes # 0.7 Eosinophils # 0.0 Basophils # 0.1 Nucleated Red 0.0 Blood Cells # Activated 36.6 H Partial Thrombop last Time Fibrinogen 353.0 Sodium Level 142 Potassium Level 2.4 *L Chloride Level 114 H Carbon Dioxide 16 L Level Anion Gap 12 Blood Urea 12 Nitrogen Creatinine 1.46 H Est Glomerular 48 L Filtrat Rate mL/min Glucose Level 360 #H Calcium Level 8.1 L Magnesium Level 2.2 Troponin I 39.400 *H Amylase Level 335 H Lipase 44 Blood Gas Blood arterial Specimen Source Arterial Blood 05/27/2018 3:15: Date Drawn 46 AM Arterial Blood 7.219 *L pH (Temp corrected) Arterial Blood 34.5 L pCO2 (Temp correct) Arterial Blood 100.4 H pO2 (Temp corrected) Arterial Blood 14.3 L HCO3 Arterial Blood -13.4 L Base Excess Arterial Blood 97.8 Oxygen Saturatio n Srinivas Test N/A Arterial Blood A-Line Gas Puncture Site Arterial 0.1 Blood Carboxyhem oglobin Arterial Blood 0.3 Methemoglobin Blood Gas A-a O2 330.2 H Differential Oxyhemoglobin 97.4 Percent Blood Gas 34.0 Temperature Blood Gas 18.0 Respiration Rate Blood Gas Actual 24 Respiration Rate Blood Gas VENT - AC Modality FiO2 65.0 Blood Gas Tidal 600.0 Volume Blood Gas Low 5.0 PEEP Setting Blood Gas 22.0 Inspiratory Pressure Blood Gas Ruddy CESAR Critical Value Read Back Blood Gas S.H. Notified Whom Blood Gas 05/27/2018 3:26: Notified Time 15 AM Test 05/27/18 03:23 05/27/18 04:19 05/27/18 04:30 05/27/18 04:32 Bedside Glucose 320 H 308 H Lactic Acid 7.5 *H Level White Blood 28.3 H Count Red Blood Count 4.68 L Hemoglobin 14.3 Hematocrit 42.5 Mean Corpuscular 90.8 Volume Mean Corpuscular 30.6 Hemoglobin Mean Corpuscular 33.6 Hemoglobin Meli nt Red Cell 12.7 Distribution Width Platelet Count 180 Mean Platelet 11.3 H Volume Immature 1.500 H Granulocytes % Neutrophils % Lymphocytes % Monocytes % Eosinophils % Basophils % Nucleated Red 0.0 Blood Cells % Immature 0.410 H Granulocytes # Neutrophils # Lymphocytes # Monocytes # Eosinophils # Basophils # Nucleated Red Blood Cells # Hemoglobin A1c 10.1 H Troponin I 26.100 *H Triglycerides Pending Level Cholesterol Pending Level LDL Cholesterol, Pending Calculated HDL Cholesterol Pending Cholesterol/HDL Pending Ratio Test 05/27/18 05:35 05/27/18 06:24 05/27/18 06:58 05/27/18 08:01 Bedside Glucose 280 H 291 H 258 H 280 H Imaging Imaging telemetry demonstrates NSR Medications Medications Current Medications IV Flush (NS 3 ml) 3 ml PER PROTOCOL IV ; Start 05/26/18 at 15:30 Morphine Sulfate (morphine) 2 mg Q4H PRN IV .SEVERE PAIN 7-10; Start 05/26/18 at 15:30 Atorvastatin Calcium (Lipitor) 80 mg DAILY@21 PO ; Start 05/26/18 at 21:00 Dopamine HCl/ Dextrose 250 ml @ 9.375 mls/ hr TITRATE IV Last administered on 05/27/18at 04:14; Admin Dose 23.4 MLS/HR; Start 05/26/18 at 19:30 Midazolam HCl 50 ml @ 1 mls/hr TITRATE IV Last administered on 05/27/18at 04:07; Admin Dose 10 MLS/HR; Start 05/26/18 at 19:30 Vecuronium [place] 100 mg/ Dextrose 100 ml @ 6.25 mls/hr TITRATE IV Last administered on 05/27/18 06:55; Admin Dose 6.25 MLS/HR; Start 05/26/18 at 20:00 Vasopressin 60 unit/Dextrose 60 ml @ 1.2 mls/hr Q12H IV Last administered on 05/26/18at 23:20; Admin Dose 1.2 MLS/HR; Start 05/26/18 at 20:30 Fentanyl 100 ml @ 2.5 mls/hr TITRATE IV Last administered on 05/26/18at 22:34; Admin Dose 5 MLS/HR; Start 05/26/18 at 21:00 Diagnostic Test (Pha) (Accu-Chek) 1 ea Q1H XX Last administered on 05/27/18 08:04; Admin Dose 1 EA; Start 05/26/18 at 21:00 Insulin Human Regular 100 unit/ Sodium Chloride 100 ml @ 0 mls/hr PER PROTOCOL IV Last administered on 05/27/18 07:09; Admin Dose 24 MLS/HR; Start 05/26/18 at 21:00 Miscellaneous Information (* Miscellaneous Pharmacy Order) Treatment of Hypoglycemia: 1.BG 51... Per protocol XX ; Start 05/26/18 at 20:30 Dextrose (D50w Syringe) 25 ml Q15M PRN IV .DECREASED GLUCOSE; Start 05/26/18 at 20:30 Dextrose (D50w Syringe) 50 ml Q15M PRN IV .DECREASED GLUCOSE; Start 05/26/18 at 20:30 Lorazepam (Ativan) 2 mg Q4 PRN IM SEIZURES; Start 05/26/18 at 21:00 Propofol 100 ml @ 3.75 mls/hr Q12H IV Last administered on 05/27/18at 07:00; Admin Dose 13.5 MLS/HR; Start 05/26/18 at 21:00 Phenylephrine HCl 80 mg/Dextrose 250 ml @ 18.75 mls/ hr TITRATE IV Last administered on 05/27/18at 00:07; Admin Dose 9.38 MLS/HR; Start 05/26/18 at 22:30 Norepinephrine 32 mg/Dextrose 250 ml @ 0.47 mls/hr TITRATE IV Last administered on 05/27/18at 00:04; Admin Dose 14.06 MLS/HR; Start 05/26/18 at 22:30 Vancomycin HCl (Vanco Iv Per Pharmacy) VANCOMYCIN PER PHARMACY PER PROTOCOL XX ; Start 05/27/18 at 00:30 Piperacillin Sod/ Tazobactam Sod 100 ml @ 200 mls/hr Q8 IVPB Last administered on 05/27/18at 05:43; Admin Dose 200 MLS/HR; Start 05/27/18 at 00:30 Sodium Bicarbonate 150 meq/Dextrose 1,000 ml @ 100 mls/hr Q10H IV Last administered on 05/27/18at 01:23; Admin Dose 100 MLS/HR; Start 05/27/18 at 00:30; Stop 05/27/18 at 10:29 Vancomycin HCl 1.5 gm/Sodium Chloride 250 ml @ 83.333 mls/ hr Q12H IVPB ; Sta rt 05/27/18 at 14:00 Acetaminophen (Tylenol Supp) 650 mg Q4H PRN [place] TEMP > 37C; Start 05/27/18 at 02 :30 Acetaminophen (Tylenol Liquid) 650 mg Q4H PRN PO TEMP > 37C; Start 05/27/18 at 02:30 Acetaminophen (Tylenol Supp) 500 mg Q6H [place] ; Start 05/28/18 at 02:30 Acetaminophen (Tylenol Liquid) 500 mg Q6H PO ; Start 05/28/18 at 02:30 Meperidine HCl (Demerol) 12.5 mg Q4H PRN IV POST OPERATIVE SHIVERING; Start 05/27/18 at 02:30 Meperidine HCl (Demerol) 25 mg Q4H PRN IV POST OPERATIVE SHIVERING Last ad ministered on 05/27/18at 03:09; Admin Dose 25 MG; Start 05/27/18 at 02:30 Eye Lubricant ([place] Oint) 1 applic Q6 BOTH EYES Last administered on 05/27/18at 05:43; Admin Dose 1 APPLIC; Start 05/27/18 at 06:00 Eye Lubricant (Artificial Tears Oph) 2 drop Q6 BOTH EYES Last administered on 05/27/18at 05:43; Admin Dose 2 DROP; Start 05/27/18 at 06:00 Potassium Chloride 50 ml @ 50 mls/hr K PROTOCOL PRN IVPB PENDING LAB VALUE; Start 05/27/18 at 04:00 Potassium Chloride 50 ml @ 25 mls/hr Q2H IVPB Last administered on 05/27/18at 06:20; Admin Dose 25 MLS/HR; Start 05/27/18 at 04:00; Stop 05/27/18 at 09:59 Pantoprazole (Protonix Iv) 40 mg DAILY@06 IV Last administered on 05/27/18at 05:43; Admin Dose 40 MG; Start 05/27/18 at 06:00 MARIBEL MONTEZ May 27, 2018 08:42
[2018-05-27] MEDS ORDERED: SODIUM CHLORIDE 0.9% IV SCH (09:00)
[2018-05-27] MEDS ORDERED: CANGRELOR 50MG / NS 250 BAG IV ONE ×2 (09:00)
[2018-05-27] MEDS ORDERED: [UNRECOGNIZED DRUG - OTHER] IV SCH (09:00)
[2018-05-27] MEDS ORDERED: TICAGRELOR 90 MG TABLET NGT SCH (10:15)
[2018-05-27] MEDS ORDERED: SOD CHLORIDE 0.9% 1,000 ML IV ONE (10:30)
[2018-05-27] MEDS ORDERED: SODIUM BICARBONATE (IV ADD) 100 MEQ in SOD CHLORIDE 0.45% 1,000 ML IV SCH (11:00)
[2018-05-27] MEDS: ASPIRIN 81 MG TAB NGT SCH (11:22)
[2018-05-27] MEDS: POTASSIUM CHLORIDE 50 ML IVPB PRN ×3 (12:02→15:25)
[2018-05-27] MEDS ORDERED: VANCOMYCIN HCL 1.5 GM in SOD CHLORIDE 0.9% 250 ML IVPB SCH (14:00)
--- NOTE | 2018-05-27 14:09 | PN ---
Date/Time of Note Date/Time of Note DATE: 05/27/18 TIME: 14:02 Assessment/Plan VTE Prophylaxis SCD applied (from Nsg): Yes Pharmacological prophylaxis: NA/contraindicated Pharm contraindication: bleeding Lines/Catheters IV Catheter Type (from Nrsg): Saline Lock Urinary Cath still in place: Yes (NEWLY INSERTED) Reason Cath still needed: other (indicate) (intubated) Assessment/Plan Assessment/Plan 68 yo man no known past medical history admitted with respiratory distress proceeding to cardiac arrest. #Cardiac arrest - Unknown etiology. - s/p cardiac cath with BELLA to circumflex 05/26. - On hypothermia protocol, currently cooled, with neuromuscular blockade and sedation. - BP maintained on 3 pressors. - Continue balloon pump per cardiology. - Continue pressors to maintain MAP>65 - Antiplatelets per cardiology - Appreciate Dr. Gamboa's assistance #Respiratory failure - Post-intubation chest xray clear - Pulmonary consulted #Renal failure - Patient is oliguric with rising creatinine. - However it sounds as if plan is to de-escalate care. Will not plan to consult renal for potential dialysis yet. DVT: SCDs GI: protonix Result Diagram: 05/27/18 0430 05/27/18 0844 Subjective 24 Hr Interval Summary Free Text/Dictation Patient started on hypothermia protocol and neuromuscular blockade yesterday ev ening. Around midnight bradyed down to 30s and went into PEA arrest. ROSC achieved after 5 minutes. This morning again bradyed down to 40s and went into brief PEA arrest, with rapid recovery of ROSC. Patient's friend spoke to Dr. Frederick today. Apprently the patient had a and daughter who are both , no living next of kin. According to friend he "wouldn't have wanted" aggressive measures. Made DNR with plans to discuss further de-escalation of care tomorrow. Exam/Review of Systems Exam Vitals Vital Signs Date Temp Pulse Resp B/P (MAP) Pulse Ox O2 O2 Flow FiO2 Time Delivery Rate 05/27/18 83 12:00 05/27/18 92.7 22 100/69 100 06:00 (79) 05/27/18 Mechanical 05:45 Ventilator 05/27/18 60 05:40 Intake and Output 05/26/18 05/26/18 05/27/18 1515:00 23:00 07:00 IntakeIntake Total 1597.78 ml 1657.29 ml BalanceBalance 1597.78 ml 1657.29 ml Exam Gen: Obese man intubated, sedated. Eyes: Normal pupils equal bilaterally nonreactive. HEENT: Mild epistaxis. ET tube in place, OG tube in place. Card: Balloon pump audible. Cannot auscultate heart sounds. Pulm: Distant mechanical breath sounds bilaterally. Abd: Obese, soft, nondistended. no palpable hepatosplenomegaly. Ext: No cyanosis/clubbing/edema. R fem vascular sheath with balloon pump. Skin: cool, dry. : Harrison in place with scant dark urine. Results Results 24hrs Laboratory Tests Test 05/26/18 14:39 05/26/18 15:31 05/26/18 19:50 05/26/18 20:11 Bedside Glucose 348 H White Blood 22.0 H 30.1 #H Count Red Blood Count 4.91 4.70 Hemoglobin 14.8 14.2 Hematocrit 45.7 43.1 Mean 93.1 91.7 Corpuscular Volume Mean 30.1 30.2 Corpuscular Hemoglobin Mean 32.4 32.9 Corpuscular Hemoglobin Conc ent Red Cell 12.5 12.6 Distribution Width Platelet Count 100 L 223 # Mean Platelet 10.9 H 11.1 H Volume Immature 7.100 H 1.700 H Granulocytes % Neutrophils % 51.4 Segmented 45 76 Neutrophils % (Manual) Band 7 H 16 H Neutrophils % (Manual) Lymphocytes % 36.3 Lymphocytes % 29 4 L (Manual) Reactive 12 H Lymphocytes % (Manual) Monocytes % 3.7 Monocytes % 2 4 (Manual) Eosinophils % 0.6 Eosinophils % 2 (Manual) Basophils % 0.9 Metamyelocytes 3 H % (manual) Nucleated Red 0.1 H 0.0 Blood Cells % Immature 1.560 H 0.500 H Granulocytes # Neutrophils # 11.3 H Neutrophils # 10.2 H 24.3 H (Manual) Band 1.5 H 4.8 H Neutrophils # Lymphocytes 6.3 H 1.2 (Manual) Lymphocytes # 8.0 H Reactive 2.6 H Lymphocytes # Monocytes # 0.8 Monocytes # 0.4 1.2 H (Manual) Eosinophils # 0.1 Basophils # 0.2 H Metamyelocytes 0.6 H # Nucleated Red 0.0 Blood Cells # Platelet DECREASED NORMAL Estimate Polychromasia 1+ Poikilocytosis 1+ 2+ Anisocytosis 1+ 2+ Microcytosis 1+ 2+ Prothrombin 17.5 H 19.6 H Time Prothrombin 1.4 1.5 Time Ratio INR 1.42 1.65 International Normalized Rati o Activated 49.6 H 120.2 *H Partial Thrombo plast Time Sodium Level 139 134 L Potassium Level 3.3 L 4.2 Chloride Level 99 103 Carbon Dioxide 16 L 14 L Level Anion Gap 24 H 17 #H Blood Urea 7 11 Nitrogen Creatinine 1.04 1.37 H Est Glomerular > 60 52 L Filtrat Rate mL/min Glucose Level 559 *H 548 *H Calcium Level 10.6 H 9.1 Total Bilirubin 0.2 0.4 Direct 0.00 0.20 # Bilirubin Indirect 0.2 0.2 Bilirubin Aspartate Amino 193 H 283 H Transf (AST/SGO T) Alanine 159 H 201 H Aminotransferas e (ALT/SGPT) Alkaline 83 91 Phosphatase Troponin I 26.600 *H Total Protein 5.7 L 5.4 L Albumin 3.0 L 2.8 L Globulin 2.70 2.60 Albumin/Globuli 1.11 1.07 n Ratio Lipase 95 119 Giant Platelets 1 H Platelet @See below Morphology Comment Fibrinogen 334.0 Amylase Level 367 H Blood Gas Blood Specimen arterial Source Arterial Blood 05/26/2018 9:40 Date Drawn :43 PM Arterial Blood 7.212 *L pH (Temp corrected ) Arterial Blood 30.5 L pCO2 (Temp correct) Arterial Blood 259.6 H pO2 (Temp corrected ) Arterial Blood 12.3 L HCO3 Arterial Blood -14.8 L Base Excess Arterial Blood 99.4 H Oxygen Saturati on Srinivas Test N/A Arterial Blood A-Line Gas Puncture Site Arterial 0.2 Blood Carboxyhe moglobin Arterial Blood 0.4 Methemoglobin Blood Gas A-a 427.1 H O2 Differential Oxyhemoglobin 98.8 Percent Blood Gas 35.3 Temperature Blood Gas 18.0 Respiration Rate Blood Gas 21 Actual Respiration Rat e Blood Gas VENT - AC Modality FiO2 100.0 Blood Gas Tidal 600.0 Volume Blood Gas Low 5.0 PEEP Setting Blood Gas 23.0 Inspiratory Pressure Blood Gas Ruddy CESAR Critical Value Read Back Blood Gas S.H. Notified Whom Blood Gas 05/26/2018 9:51 Notified Time :23 PM Test 05/26/18 20:35 05/26/18 21:20 05/26/18 21:21 05/26/18 21:29 Bedside Glucose 552 *H 353 H Magnesium Level 2.2 Lactic Acid 9.7 *H Level Test 05/26/18 22:00 05/26/18 22:12 05/26/18 23:27 05/26/18 23:48 Blood Gas Blood arterial Specimen Source Arterial Blood 05/26/2018 7:46: Date Drawn 09 PM Arterial Blood 7.123 *L pH (Temp corrected ) Arterial Blood 39.3 pCO2 (Temp correct) Arterial Blood 147.6 H pO2 (Temp corrected ) Arterial Blood 12.6 L HCO3 Arterial Blood -16.1 L Base Excess Arterial Blood 98.3 H Oxygen Saturati on Srinivas Test N/A Arterial Blood A-Line Gas Puncture Site Arterial 0.1 Blood Carboxyhe moglobin Arterial Blood 0.3 Methemoglobin Blood Gas A-a 526.1 H O2 Differential Oxyhemoglobin 97.9 Percent Blood Gas 37.0 Temperature Blood Gas 18.0 Respiration Rate Blood Gas 27 Actual Respiration Rat e Blood Gas VENT - AC Modality FiO2 100.0 Blood Gas Tidal 550.0 Volume Blood Gas Low 5.0 PEEP Setting Blood Gas 16.0 Inspiratory Pressure Blood Gas Ruddy CESAR Critical Value Read Back Blood Gas S.H> Notified Whom Blood Gas 05/26/2018 7:53: Notified Time 49 PM Bedside Glucose 426 *H 377 H 589 *H Test 05/26/18 23:50 05/27/18 00:36 05/27/18 02:20 05/27/18 03:00 Bedside Glucose 507 *H 371 H White Blood 27.4 H Count Red Blood Count 4.70 Hemoglobin 14.4 Hematocrit 42.5 Mean 90.4 Corpuscular Volume Mean 30.6 Corpuscular Hemoglobin Mean 33.9 Corpuscular Hemoglobin Conc ent Red Cell 12.7 Distribution Width Platelet Count 193 Mean Platelet 10.8 H Volume Immature 1.800 H Granulocytes % Neutrophils % 91.1 H Lymphocytes % 4.2 L Monocytes % 2.5 Eosinophils % 0.0 Basophils % 0.4 Nucleated Red 0.0 Blood Cells % Immature 0.480 H Granulocytes # Neutrophils # 24.9 H Lymphocytes # 1.2 Monocytes # 0.7 Eosinophils # 0.0 Basophils # 0.1 Nucleated Red 0.0 Blood Cells # Activated 36.6 H Partial Thrombo plast Time Fibrinogen 353.0 Sodium Level 142 Potassium Level 2.4 *L Chloride Level 114 H Carbon Dioxide 16 L Level Anion Gap 12 Blood Urea 12 Nitrogen Creatinine 1.46 H Est Glomerular 48 L Filtrat Rate mL/min Glucose Level 360 #H Calcium Level 8.1 L Magnesium Level 2.2 Troponin I 39.400 *H Amylase Level 335 H Lipase 44 Blood Gas Blood Specimen arterial Source Arterial Blood 05/27/2018 3:15 Date Drawn :46 AM Arterial Blood 7.219 *L pH (Temp corrected ) Arterial Blood 34.5 L pCO2 (Temp correct) Arterial Blood 100.4 H pO2 (Temp corrected ) Arterial Blood 14.3 L HCO3 Arterial Blood -13.4 L Base Excess Arterial Blood 97.8 Oxygen Saturati on Srinivas Test N/A Arterial Blood A-Line Gas Puncture Site Arterial 0.1 Blood Carboxyhe moglobin Arterial Blood 0.3 Methemoglobin Blood Gas A-a 330.2 H O2 Differential Oxyhemoglobin 97.4 Percent Blood Gas 34.0 Temperature Blood Gas 18.0 Respiration Rate Blood Gas 24 Actual Respiration Rat e Blood Gas VENT - AC Modality FiO2 65.0 Blood Gas Tidal 600.0 Volume Blood Gas Low 5.0 PEEP Setting Blood Gas 22.0 Inspiratory Pressure Blood Gas Ruddy CESAR Critical Value Read Back Blood Gas S.H. Notified Whom Blood Gas 05/27/2018 3:26 Notified Time :15 AM Test 05/27/18 03:23 05/27/18 04:19 05/27/18 04:30 05/27/18 04:32 Bedside Glucose 320 H 308 H Lactic Acid 7.5 *H Level White Blood 28.3 H Count Red Blood Count 4.68 L Hemoglobin 14.3 Hematocrit 42.5 Mean 90.8 Corpuscular Volume Mean 30.6 Corpuscular Hemoglobin Mean 33.6 Corpuscular Hemoglobin Conc ent Red Cell 12.7 Distribution Width Platelet Count 180 Mean Platelet 11.3 H Volume Immature 1.500 H Granulocytes % Neutrophils % Segmented 69 Neutrophils % (Manual) Band 22 H Neutrophils % (Manual) Lymphocytes % Lymphocytes % 4 L (Manual) Reactive 3 H Lymphocytes % (Manual) Monocytes % Monocytes % 2 (Manual) Eosinophils % Basophils % Nucleated Red 0.0 Blood Cells % Immature 0.410 H Granulocytes # Neutrophils # Neutrophils # 21.3 H (Manual) Band 6.2 H Neutrophils # Lymphocytes 1.1 (Manual) Lymphocytes # Reactive 0.8 H Lymphocytes # Monocytes # Monocytes # 0.5 (Manual) Eosinophils # Basophils # Nucleated Red Blood Cells # Platelet NORMAL Estimate Giant Platelets 2 H Spherocytes 1+ Hemoglobin A1c 10.1 H Troponin I 26.100 *H Triglycerides 105 Level Cholesterol < 50 L Level LDL Cholesterol, Calculated HDL Cholesterol 23 L Cholesterol/HDL Ratio Test 05/27/18 05:35 05/27/18 06:24 05/27/18 06:58 05/27/18 08:01 Bedside Glucose 280 H 291 H 258 H 280 H Test 05/27/18 08:06 05/27/18 08:44 05/27/18 08:47 05/27/18 08:49 Blood Gas Blood arterial Specimen Source Arterial Blood 05/27/2018 8:00: Date Drawn 00 AM Arterial Blood 7.209 *L pH (Temp corrected ) Arterial Blood 41.2 pCO2 (Temp correct) Arterial Blood 78.3 L pO2 (Temp corrected ) Arterial Blood 16.8 L HCO3 Arterial Blood -11.7 L Base Excess Arterial Blood 96.3 Oxygen Saturati on Srinivas Test N/A Arterial Blood A-Line Gas Puncture Site Arterial 0.3 Blood Carboxyhe moglobin Arterial Blood 0.2 Methemoglobin Blood Gas A-a 308.7 H O2 Differential Oxyhemoglobin 95.8 Percent Blood Gas 33.9 Temperature Blood Gas 18.0 Respiration Rate Blood Gas 18 Actual Respiration Rat e Blood Gas VENT - AC Modality FiO2 60.0 Blood Gas Tidal 600.0 Volume Blood Gas Low 5.0 PEEP Setting Blood Gas NAYLA CESAR Critical Value Read Back Blood Gas TM Notified Whom Blood Gas 05/27/2018 8:22: Notified Time 00 AM Sodium Level 142 Potassium Level 2.3 *L Chloride Level 113 H Carbon Dioxide 21 Level Anion Gap 8 Blood Urea 13 Nitrogen Creatinine 1.46 H Est Glomerular 48 L Filtrat Rate mL/min Glucose Level 282 H Calcium Level 8.1 L Phosphorus 1.8 L Level Magnesium Level 2.1 Total Bilirubin 0.0 L Direct 0.00 # Bilirubin Indirect 0.0 Bilirubin Aspartate Amino 257 H Transf (AST/SGO T) Alanine 202 H Aminotransferas e (ALT/SGPT) Alkaline 64 Phosphatase Total Protein 5.2 L Albumin 2.9 L Globulin 2.30 Albumin/Globuli 1.26 n Ratio Lactic Acid 5.1 *H Level Prothrombin 17.9 H Time Prothrombin 1.4 Time Ratio INR 1.47 International Normalized Rati o Activated 34.0 Partial Thrombo plast Time Test 05/27/18 08:51 05/27/18 10:12 05/27/18 10:25 05/27/18 11:10 Bedside Glucose 291 H 347 H 285 H Blood Gas Blood arterial Specimen Source Arterial Blood 05/27/2018 10:20 Date Drawn :23 AM Arterial Blood 7.279 *L pH (Temp corrected ) Arterial Blood 44.2 pCO2 (Temp correct) Arterial Blood 235.2 H pO2 (Temp corrected ) Arterial Blood 21.3 L HCO3 Arterial Blood -6.7 L Base Excess Arterial Blood 99.1 H Oxygen Saturati on Srinivas Test N/A Arterial Blood A-Line Gas Puncture Site Arterial 0.3 Blood Carboxyhe moglobin Arterial Blood 0.1 Methemoglobin Blood Gas A-a 443.4 H O2 Differential Oxyhemoglobin 98.7 Percent Blood Gas 32.8 Temperature Blood Gas 26.0 Respiration Rate Blood Gas 26 Actual Respiration Rat e Blood Gas VENT - AC Modality FiO2 100.0 Blood Gas Tidal 600.0 Volume Blood Gas Low 5.0 PEEP Setting Blood Gas IMACATANGAY RN Critical Value Read Back Blood Gas TM Notified Whom Blood Gas 05/27/2018 10:28 Notified Time :36 AM Test 05/27/18 12:10 05/27/18 13:24 Bedside Glucose 169 215 Medications Medication Current Medications IV Flush (NS 3 ml) 3 ml PER PROTOCOL IV ; Start 05/26/18 at 15:30 Morphine Sulfate (morphine) 2 mg Q4H PRN IV .SEVERE PAIN 7-10; Start 05/26/18 at 15:30 Atorvastatin Calcium (Lipitor) 80 mg DAILY@21 PO ; Start 05/26/18 at 21:00 Dopamine HCl/ Dextrose 250 ml @ 9.375 mls/ hr TITRATE IV Last administered on 05/27/18at 12:47; Admin Dose 70.313 MLS/HR; Start 05/26/18 at 19:30 Midazolam HCl 50 ml @ 1 mls/hr TITRATE IV Last administered on 05/27/18at 09:47; Admin Dose 10 MLS/HR; Start 05/26/18 at 19:30 Vecuronium [place] 100 mg/ Dextrose 100 ml @ 6.25 mls/hr TITRATE IV Last administered on 05/27/18 06:55; Admin Dose 6.25 MLS/HR; Start 05/26/18 at 20:00 Vasopressin 60 unit/Dextrose 60 ml @ 1.2 mls/hr Q12H IV Last administered on 05/26/18 23:20; Admin Dose 1.2 MLS/HR; Start 05/26/18 at 20:30 Fentanyl 100 ml @ 2.5 mls/hr TITRATE IV Last administered on 05/26/18 22:34; Admin Dose 5 MLS/HR; Start 05/26/18 at 21:00 Diagnostic Test (Pha) (Accu-Chek) 1 ea Q1H XX Last administered on 05/27/18 13:20; Admin Dose 1 EA; Start 05/26/18 at 21:00 Insulin Human Regular 100 unit/ Sodium Chloride 100 ml @ 0 mls/hr PER PROTOCOL IV Last administered on 05/27/18 07:09; Admin Dose 24 MLS/HR; Start 05/26/18 at 21:00 Miscellaneous Information (* Miscellaneous Pharmacy Order) Treatment of Hypoglycemia: 1.BG 51... Per protocol XX ; Start 05/26/18 at 20:30 Dextrose (D50w Syringe) 25 ml Q15M PRN IV .DECREASED GLUCOSE; Start 05/26/18 at 20:30 Dextrose (D50w Syringe) 50 ml Q15M PRN IV .DECREASED GLUCOSE; Start 05/26/18 at 20:30 Lorazepam (Ativan) 2 mg Q4 PRN IM SEIZURES; Start 05/26/18 at 21:00 Propofol 100 ml @ 3.75 mls/hr Q12H IV Last administered on 05/27/18at 07:00; Admin Dose 13.5 MLS/HR; Start 05/26/18 at 21:00 Phenylephrine HCl 80 mg/Dextrose 250 ml @ 18.75 mls/ hr TITRATE IV Last administered on 05/27/18at 11:35; Admin Dose 56.25 MLS/HR; Start 05/26/18 at 22:30 Norepinephrine 32 mg/Dextrose 250 ml @ 0.47 mls/hr TITRATE IV Last administered on 05/27/18 00:04; Admin Dose 14.06 MLS/HR; Start 05/26/18 at 22:30 Vancomycin HCl (Vanco Iv Per Pharmacy) VANCOMYCIN PER PHARMACY PER PROTOCOL XX ; Start 05/27/18 at 00:30 Piperacillin Sod/ Tazobactam Sod 100 ml @ 200 mls/hr Q8 IVPB Last administered on 05/27/18at 05:43; Admin Dose 200 MLS/HR; Start 05/27/18 at 00:30 Vancomycin HCl 1.5 gm/Sodium Chloride 250 ml @ 83.333 mls/ hr Q12H IVPB ; Star t 05/27/18 at 14:00; Status Hold Acetaminophen (Tylenol Supp) 650 mg Q4H PRN RI TEMP > 37C; Start 05/27/18 at 02:30 Acetaminophen (Tylenol Liquid) 650 mg Q4H PRN PO TEMP > 37C; Start 05/27/18 at 02:30 Acetaminophen (Tylenol Supp) 500 mg Q6H RI ; Start 05/28/18 at 02:30 Acetaminophen (Tylenol Liquid) 500 mg Q6H PO ; Start 05/28/18 at 02:30 Meperidine HCl (Demerol) 12.5 mg Q4H PRN IV POST OPERATIVE SHIVERING; Start 05/27/18 at 02:30 Meperidine HCl (Demerol) 25 mg Q4H PRN IV POST OPERATIVE SHIVERING Last administered on 05/27/18at 03:09; Admin Dose 25 MG; Start 05/27/18 at 02:30 Eye Lubricant (Akwa Oint) 1 applic Q6 BOTH EYES Last administered on 05/27/18at 12:12; Admin Dose 1 APPLIC; Start 05/27/18 at 06:00 Eye Lubricant (Artificial Tears Oph) 2 drop Q6 BOTH EYES Last administered on 05/27/18at 12:12; Admin Dose 2 DROP; Start 05/27/18 at 06:00 Potassium Chloride 50 ml @ 50 mls/hr K PROTOCOL PRN IVPB PENDING LAB VALUE Last administered on 05/27/18at 13:34; Admin Dose 50 MLS/HR; Start 05/27/18 at 04:00 Pantoprazole (Protonix Iv) 40 mg DAILY@06 IV Last administered on 05/27/18at 05:43; Admin Dose 40 MG; Start 05/27/18 at 06:00 Aspirin (Aspirin) 81 mg DAILY NGT Last administered on 05/27/18at 11:22; Admin Dose 81 MG; Start 05/27/18 at 10:00 Sodium Bicarbonate 100 meq/Sodium Chloride 1,100 ml @ 75 mls/hr [id number] IV Last administered on 05/27/18at 10:59; Admin Dose 75 MLS/HR; Start 05/27/18 at 11:00 Ticagrelor (Brilinta) 90 mg BID NGT ; Start 05/27/18 at 21:00 Miscellaneous Information (*Rx Drug Level Order Reminder*) RANDOM VANCO LEVEL... ONCE ONCE XX ; Start 05/28/18 at 05:00; Stop 05/28/18 at 05:01 ELANA HARDWICK MD May 27, 2018 14:09
[2018-05-27] MEDS: SOD CHLORIDE 0.9% 1,000 ML IV SCH (15:05)
--- NOTE | 2018-05-27 15:26 | CONS ---
DATE OF ADMISSION: 05/26/2018 DATE OF CONSULTATION: TYPE OF CONSULTATION: Pulmonary. REASON FOR CONSULTATION: Ventilator management. Thank you, Dr. Hardwick, for this consultation. HISTORY OF PRESENT ILLNESS: This is an unfortunate 68-year-old gentleman who is living [facility] complaining of respiratory distress, subsequently stopped breathing with cardiopulmonary arrest requiring resuscitation. He had ACLS protocol with return of circulation, brought to [facility] where he was taken emergently to clinical laboratory assistant secondary to ischemic changes on EKG. He was found to have significant coronary artery disease in the circumflex requiring stent placement, intra aortic balloon pump placement and vasopressor support. He was transferred to intensive care unit, so mnolent. In addition of note, the patient had cardiopulmonary arrest on cardiac catheterization tabl e and in the intensive care unit overnight. This morning, he had a further cardiopulmonary arrest re quiring ACLS protocol. He had subsequent return of circulation, now continues intraaortic balloon pu mp and vasopressor support on mechanical ventilation. PAST MEDICAL HISTORY: Unknown. MEDICATIONS: Per chart. ALLERGIES: NONE. SOCIAL HISTORY: Nonsmoker, no alcohol, no history of drug use. FAMILY HISTORY: Noncontributory. SYSTEMS REVIEW: A 12-point review of systems was negative other than that mentioned. PHYSICAL EXAMINATION: GENERAL: Chronically ill appearing gentleman on mechanical ventilation, orally intubated. VITAL SIGNS: Currently afebrile, temperature 98.2, pulse 96, blood pressure 100/69, O2 saturation 96 % on FiO2 of 60%, orally intubated. NECK: Supple. No JVD or lymphadenopathy. CARDIAC: S1, S2. No added sounds or murmurs. CHEST: Diminished air entry bilaterally. ABDOMEN: Soft, nontender. No guarding or rebound. EXTREMITIES: No cyanosis, clubbing. A 1+ edema. NEUROLOGIC: Unable to assess. LABORATORIES: White count 28.3, hemoglobin 14.3, platelets of 180. BUN 13, creatinine 1.46. Lactic acid 5.1. Potassium 2.3. DIAGNOSTIC STUDIES: Chest x-ray shows pulmonary edema. IMPRESSION: 1. Cardiopulmonary arrest. 2. Acute myocardial infarction with stent placement to circumflex. 3. Likely severe anoxic brain injury. 4. Acute renal failure. 5. Severe lactic acidosis. 6. Likely significant gastrointestinal bleed given coffee-ground nasogastric output. The patient continues all aggressive supportive measures including 3 vasopressors, intraaortic balloo n pump, bicarbonate drip and mechanical ventilation. His prognosis is very poor and he is unlikely t o survive this episode. I had an extensive discussion with the patient's friends as he has no family at bedside. He would not have wished aggressive measures and to be consistent with this, code statu s was changed to DNR. We will continue current supportive care; however not for escalation or CPR sh ould he coded or deteriorate more. Dictated By: MIGUEL CHOWDHURY MD SV/NTS Conf#: [id number] DID#: [id number] CC: ELANA HARDWICK MD; GUERO ISAAC DO;*End*
[2018-05-27] MEDS ORDERED: CANGRELOR TETRASODIUM/ NS 250 50 MG ONE (16:57)
[2018-05-27] MEDS ORDERED: POTASSIUM CHLORIDE 0 ML ONE (16:58)
[2018-05-27] MEDS ORDERED: POTASSIUM CHLORIDE 50 ML ONE (16:59)
[2018-05-27] MEDS: FENTAnyl (DRIP) 1000 mcg/100mL 100 ML IV SCH (17:17)
--- NOTE | 2018-05-27 17:20 | RADRPT ---
Echocardiogram Report Patient Name: JESSICA JIANG MPatient ID: [id number] : 1950 (68y 4m)Study Date: 05/27/2018 10:39:40 AM Gender: MAccession #: [id number] Tech: Benito Dsouza [facility] Location: [address] Ref.Physician: PATSY GAMBOA Height(Cm): BSA: Weight(Kg): Quality: AdequateAccount #: Procedures: Echocardiographic Report: Transthoracic echocardiogram with complete 2D, M-Mode, and doppler examination. Indications: MT. Measurements: 2D/M Mode Doppler Measurement Value Normal Range Measurement Value Normal Range LVIDd 2D 5.1 [ 4.2 - 5.8 ] cm AV Peak Luis Fernando 1.0 [ 100.0 - 170.0 ] cm/sec LVIDs 2D 3.2 [ 2.5 - 4.0 ] cm AV Peak PG 4.0 [ 2.0 - 9.0 ] mmHg LVPWd 2D 0.9 [ 0.6 - 1.0 ] cm LVOT Peak Luis Fernando 0.9 [ 70.0 - 110.0 ] cm/sec IVSd 2D 0.9 [ 0.6 - 1.0 ] cm LVOT Peak PG 3.0 [ 2.0 - 6.0 ] mmHg IVS/LVPW 2D 1.0 ratio MV E Peak Luis Fernando 0.6 [ 60.0 - 130.0 ] cm/sec AoR Diam 2D 3.2 [ 2.6 - 3.4 ] cm MV A Peak Luis Fernando 0.7 [ 100.0 - 120.0 ] cm/sec LA/Ao 2D 1 ratio MV E/A 0.8 [ 0.8 - 1.5 ] ratio LA Dimen 2D 3.2 [ 3.0 - 4.0 ] cm MV Decel Time 254 [ 104 - 258 ] msec Lat E` Luis Fernando 0.1 [ 10.0 - 15.0 ] cm/sec Med E` Luis Fernando 0.0 cm/sec MV E/A 0.8 [ 0.8 - 1.5 ] ratio TR Peak Luis Fernando 2.1 [ 100.0 - 280.0 ] cm/sec TR Peak PG 17.0 mmHg RVSP 32.0 [ 10.0 - 36.0 ] mmHg Findings: Left Ventricle: Normal left ventricular cavity size. Normal left ventricular wall thickness. Mild global left ventricular systolic dysfunction. Ejection fraction is visually estimated at 65 %. Tissue Doppler/Mitral Doppler indices are consistent with impaired relaxation (Stage I diastolic dysfunction). Right Ventricle: Normal right ventricular size. Normal right ventricular systolic function. Left Atrium: The left atrium is normal in size. Right Atrium: Not well visualized. Mitral Valve: Mitral valve is not well visualized. Aortic Valve: Aortic valve not well visualized. Tricuspid Valve: Tricuspid valve not well visualized. Estimated peak PA systolic pressure 32 mmHg. There is mild tricuspid regurgitation. Pulmonic Valve: Pulmonic valve not well visualized. Pericardium: There is an anterior echo free space consistent with epicardial fat pad. Aorta: Normal aortic root. IVC: Dilated IVC without respiratory collapse, however, patient on ventilator. Conclusions: Poor quality study due to patient condition and morbid obesity. Grossly normal left ventricular systolic function, unable to quantify wall motion. Grade 1 diastolic dysfunction. No obvious valvular abnormalities. Mild tricuspid regurgitation with mild estimated pulmonary hypertension. Epicardial fat pad. Recommend repeating the study when patient condition improves. Electronically Signed By: Patsy Gamboa 2018-05-27 17:19:39 PST
--- NOTE | 2018-05-27 20:12 | CONS ---
DATE OF ADMISSION: 05/26/2018 DATE OF CONSULTATION: REASON FOR CONSULTATION: Acute kidney injury. HISTORY OF PRESENT ILLNESS: This is a 68-year-old male with unknown past medical history who was bro ught in by EMS services to [facility] emergency Room after patient had a witnessed respirato ry arrest followed shortly after cardiac arrest. The patient was at his board and care facility, not feeling well. The patient initially stated he has uncontrolled breathing and had a cardiac arrest. The patient had chest compressions performed in the field. The patient was brought into the Emergen cy Room. The patient was then seen by computer science instructor and underwent cardiac catheterization with PCI to the ____ and placement of a drug-eluting stent. The patient had coded in the cardiac engineering laboratory technician. The patient eventually had spontaneous return of circulation. The patient had intraaortic balloon pump placed and was transferred to intensive care unit based on hypothermic protocol. In terms of patient's renal history, on admission, patient had a creatinine of 1.04 mg/dL. The patie nt's creatinine has increased to 1.5 mg/dL. The patient had a minimal urinary output during this francisco e. There have been no reports of any hemoptysis, hematemesis or hematochezia. PAST MEDICAL HISTORY: Unknown. ALLERGIES: UNKNOWN. FAMILY HISTORY: Unknown. SOCIAL HISTORY: Unable to obtain. The patient is intubated and obtunded. MEDICATIONS: The patient's current medications have been reviewed. REVIEW OF SYSTEMS: Unable to do adequate review of systems as patient is obtunded. Pertinent positi ves as obtained in the HPI, otherwise negative. PHYSICAL EXAMINATION: VITAL SIGNS: Blood pressure is 100/69, respiration 22, pulse 95, temperature is 92.7. HEENT: Head is normocephalic. Pupils are reactive to light. NECK: Supple. HEART: Regular rate. LUNGS: Show diminished breath sounds at the base. ABDOMEN: Soft, nontender to palpation. No rebound or guarding. EXTREMITIES: Negative for clubbing or cyanosis. No edema. DERMATOLOGIC: No rashes. MUSCULOSKELETAL: No joint effusions. NEUROLOGIC: Limited exam as patient is obtunded. LABORATORY DATA: Sodium 142, potassium 2.4, chloride 112, bicarbonate 20, BUN is 15, creatinine 1.52 , glucose 253. Lactic acid is 5.9, calcium 7.9. White count 23.1, hemoglobin 13.8, hematocrit of 40 .3, platelet count is 127. ABG shows pH 7.317, base excess is -6.6. IMAGING STUDIES: The patient's imaging studies have been reviewed. ASSESSMENT AND PLAN: This is a 68-year-old male who presents with: 1. Oligoanuric acute kidney injury with previously unknown baseline creatinine. Etiology of acute k idney injury is likely secondary to acute tubular necrosis due to ischemic hypoperfusion and shock. Plan at this point is to check UA with microanalysis and check urine electrolytes. We will check a r enal ultrasound to evaluate renal parenchyma. We will continue current medical management. Continue pressor support to maintain MAP of 65. Continue IV hydration. We will monitor renal function close ly. There is no immediate need for renal placement therapy; however, if renal function should not im prove or patient should develop dialysis criteria i.e. such as pulmonary congestion, volume overload or severe electrolyte abnormality, we would initiate renal replacement therapy. 2. Mixed acid base disorder. The patient has metabolic acidemia and respiratory acidosis. The ariana ent's ABG was reviewed. The patient is currently on bicarbonate drip, we will continue. Repeat an A BG, monitor closely. 3. Hyperkalemia. Etiology is multifactorial secondary to hypothermic protocol. Continue to monitor potassium levels. Continue repletion per protocol. 4. Anemia. Monitor hemoglobin and hematocrit levels. 5. Mineral bone disorder. Monitor calcium and phosphorus levels. 6. Atrial cardiac arrest secondary to [id number] myocardial infarction of the inferior lateral wall. The patient is status post cardiac catheterization with PCI to ____. Continue current medica l management. 7. Shock, etiology is cardiogenic. Continue pressor support. Continue Ensure aortic balloon pump. Monitor closely on IV fluids. 8. Ventilator-dependent respiratory failure. Vent settings and ABG were reviewed. Continue to scot tor. Follow up with pulmonary. 9. Morbid obesity. Continue dietary modification. 10. Leukocytosis systemic inflammatory response syndrome. We will continue to monitor. Consider em piric antibiotics. 11. Encephalopathy, etiology toxic metabolic, possible anoxic injury. Thank you, Dr. Scales, for this interesting consult. It will be a pleasure to follow the patient wi th you throughout the hospital course. Dictated By: GUERO NAVA/ARIELLE Conf#: [id number] DID#: [id number] CC: ELANA HARDWICK MD;*End*
[2018-05-27] MEDS: ATORVASTATIN 80 MG TAB PO SCH (21:15)
[2018-05-27] MEDS: TICAGRELOR 90 MG TABLET NGT SCH (21:16)
[2018-05-27] MEDS ORDERED: LORAZEPAM 2 MG INJ IV PRN (23:30)
[2018-05-28] VITALS (103 sets, daily range): BP systolic 76–139; BP diastolic 39–76; PULSE 68–112; RESP 13–31
[2018-05-28] MEDS: ACCU-CHEK XX SCH ×25 (00:04→23:59)
[2018-05-28] MEDS: ARTIFICIAL TEARS 15 ML OPH BOTH EYES SCH ×5 (01:09→23:46)
[2018-05-28] MEDS: OCULAR LUBRICANT 3.5 GM OPH OINT BOTH EYES SCH ×5 (01:09→23:46)
[2018-05-28] MEDS: LORAZEPAM 2 MG INJ IV PRN (01:33)
[2018-05-28] MEDS: MIDAZOLAM (DRIP) 50 mg/50 mL 50 ML IV SCH ×4 (02:20→19:02)
[2018-05-28] MEDS: DOPamine 1.6 MG/ML D5W 250 ML IV SCH (02:27)
[2018-05-28] MEDS ORDERED: ACETAMINOPHEN 650 MG SUPP PR SCH (02:30)
[2018-05-28] MEDS ORDERED: ACETAMINOPHEN 650MG/20.3ML CUP PO SCH (02:30)
[2018-05-28] MEDS: INSULIN HUMAN REGULAR 100 UNIT in SOD CHLORIDE 0.9% 99 ML IV SCH (02:53)
[2018-05-28] MEDS: ACETAMINOPHEN 650 MG SUPP PR SCH ×3 (03:00→15:00)
[2018-05-28] MEDS ORDERED: MAGNESIUM SULFATE 3 GM in SOD CHLORIDE 0.9% 100 ML IVPB ONE (03:00)
[2018-05-28] MEDS: ACETAMINOPHEN 650MG/20.3ML CUP NGT SCH ×3 (03:19→15:33)
[2018-05-28] MEDS: SOD CHLORIDE 0.9% 1,000 ML IV SCH ×2 (03:36→18:29)
[2018-05-28] MEDS: PROPOFOL 100 ML IV SCH ×7 (04:37→23:47)
[2018-05-28] MEDS: PANTOPRAZOLE 40 MG INJ IV SCH (05:42)
[2018-05-28] MEDS: PIPER-TAZO 3.375 GM IV (PMX) 100 ML IVPB SCH ×3 (05:43→22:10)
--- NOTE | 2018-05-28 08:18 | CONS ---
Assessment/Plan Assessment/Plan Hospital Course (Demo Recall) STEMI of the inferolateral wall, thrombus-filled codominant LCX, with angioplasty and only CONNIE 2 flow at the end of the procedure Cardiogenic shock, on IABP and pressors Morbid obesity Acute respiratory failure, on ventilator Hypokalemia Recommendations: Continue IABP, wean pressors continue cv meds Prognosis remains guarded Ventilator support Electrolyte repletion - hypokalemic, but rewarming underway Consultation Date/Type/Reason Admit Date/Time May 26, 2018 at 15:31 Initial Consult Date 05/26/18 Type of Consult Cardiology Requesting Provider: ALYSE KLEIN MD Date/Time of Note DATE: 05/28/18 TIME: 08:16 24 HR Interval Summary Free Text/Dictation The patint with no chage Exam/Review of Systems Vital Signs Vitals Vital Signs Date Temp Pulse Resp B/P (MAP) Pulse Ox O2 O2 Flow FiO2 Time Delivery Rate 05/28/18 71 24 120/52 100 Mechanical 07:15 (74) Ventilator 05/28/18 90.4 07:00 05/28/18 80 06:45 Intake and Output 05/27/18 05/27/18 05/28/18 1515:00 23:00 07:00 IntakeIntake Total 2657.681 ml 1322.739 ml 1361.394 ml OutputOutput Total 130 ml 86 ml 76 ml BalanceBalance 2527.681 ml 1236.739 ml 1285.394 ml Labs Result Diagram: 05/28/18 0557 05/28/18 0557 Results 24hrs Laboratory Tests Test 05/27/18 08:44 05/27/18 08:47 05/27/18 08:49 05/27/18 08:51 Sodium Level 142 Potassium Level 2.3 *L Chloride Level 113 H Carbon Dioxide 21 Level Anion Gap 8 Blood Urea 13 Nitrogen Creatinine 1.46 H Est Glomerular 48 L Filtrat Rate mL/min Glucose Level 282 H Calcium Level 8.1 L Phosphorus 1.8 L Level Magnesium Level 2.1 Total Bilirubin 0.0 L Direct 0.00 # Bilirubin Indirect 0.0 Bilirubin Aspartate Amino 257 H Transf (AST/SGO T) Alanine 202 H Aminotransferas e (ALT/SGPT) Alkaline 64 Phosphatase Total Protein 5.2 L Albumin 2.9 L Globulin 2.30 Albumin/Globuli 1.26 n Ratio Lactic Acid 5.1 *H Level Prothrombin 17.9 H Time Prothrombin 1.4 Time Ratio INR 1.47 International Normalized Rati o Activated 34.0 Partial Thrombo plast Time Bedside Glucose 291 H Test 05/27/18 10:12 05/27/18 10:25 05/27/18 11:10 05/27/18 12:10 Bedside Glucose 347 H 285 H 169 Blood Gas Blood Specimen arterial Source Arterial Blood 05/27/2018 10:2 Date Drawn 0:23 AM Arterial Blood 7.279 *L pH (Temp corrected ) Arterial Blood 44.2 pCO2 (Temp correct) Arterial Blood 235.2 H pO2 (Temp corrected ) Arterial Blood 21.3 L HCO3 Arterial Blood -6.7 L Base Excess Arterial Blood 99.1 H Oxygen Saturati on Srinivas Test N/A Arterial Blood A-Line Gas Puncture Site Arterial 0.3 Blood Carboxyhe moglobin Arterial Blood 0.1 Methemoglobin Blood Gas A-a 443.4 H O2 Differential Oxyhemoglobin 98.7 Percent Blood Gas 32.8 Temperature Blood Gas 26.0 Respiration Rate Blood Gas 26 Actual Respiration Rat e Blood Gas VENT - AC Modality FiO2 100.0 Blood Gas Tidal 600.0 Volume Blood Gas Low 5.0 PEEP Setting Blood Gas IMACATANGAY Critical Value RN Read Back Blood Gas TM Notified Whom Blood Gas 05/27/2018 10:2 Notified Time 8:36 AM Test 05/27/18 13:24 05/27/18 14:00 05/27/18 14:08 05/27/18 14:11 Bedside Glucose 215 268 H Blood Gas Blood Specimen arterial Source Arterial Blood 05/27/2018 2:10 Date Drawn :08 PM Arterial Blood 7.317 L pH (Temp corrected ) Arterial Blood 38.8 pCO2 (Temp correct) Arterial Blood 69.0 L pO2 (Temp corrected ) Arterial Blood 20.2 L HCO3 Arterial Blood -6.6 L Base Excess Arterial Blood 96.6 Oxygen Saturati on Srinivas Test N/A Arterial Blood A-Line Gas Puncture Site Arterial 0.1 Blood Carboxyhe moglobin Arterial Blood 0.1 Methemoglobin Blood Gas A-a 248.0 H O2 Differential Oxyhemoglobin 96.4 Percent Blood Gas 33.6 Temperature Blood Gas 26.0 Respiration Rate Blood Gas 26 Actual Respiration Rat e Blood Gas VENT - AC Modality FiO2 50.0 Blood Gas Tidal 600.0 Volume Blood Gas Low 5.0 PEEP Setting Blood Gas IMACANTANGAY R Critical Value N Read Back Blood Gas TM Notified Whom Blood Gas 05/27/2018 2:20 Notified Time :36 PM White Blood 23.1 H Count Red Blood Count 4.52 L Hemoglobin 13.8 L Hematocrit 40.3 L Mean 89.2 Corpuscular Volume Mean 30.5 Corpuscular Hemoglobin Mean 34.2 Corpuscular Hemoglobin Conc ent Red Cell 12.9 Distribution Width Platelet Count 127 #L Mean Platelet 10.7 H Volume Immature 0.800 H Granulocytes % Neutrophils % 84.5 H Lymphocytes % 7.8 L Monocytes % 6.5 Eosinophils % 0.0 Basophils % 0.4 Nucleated Red 0.0 Blood Cells % Immature 0.180 H Granulocytes # Neutrophils # 19.5 H Lymphocytes # 1.8 Monocytes # 1.5 H Eosinophils # 0.0 Basophils # 0.1 Nucleated Red 0.0 Blood Cells # Sodium Level 142 Potassium Level 2.4 *L Chloride Level 112 H Carbon Dioxide 20 L Level Anion Gap 10 Blood Urea 15 Nitrogen Creatinine 1.52 H Est Glomerular 46 L Filtrat Rate mL/min Glucose Level 253 H Lactic Acid 5.9 *H Level Calcium Level 7.9 L Phosphorus 1.8 L Level Magnesium Level 2.0 Troponin I 30.500 *H Amylase Level 238 H Lipase 24 Test 05/27/18 14:12 05/27/18 15:26 05/27/18 16:14 05/27/18 17:06 Prothrombin 17.5 H Time Prothrombin 1.4 Time Ratio INR 1.42 International Normalized Rati o Activated 32.5 Partial Thrombo plast Time Fibrinogen 391.0 # Bedside Glucose 173 96 216 Test 05/27/18 18:02 05/27/18 18:03 05/27/18 19:04 05/27/18 20:00 Bedside Glucose 180 164 191 White Blood 20.5 H Count Red Blood Count 4.60 L Hemoglobin 13.8 L Hematocrit 40.0 L Mean 87.0 Corpuscular Volume Mean 30.0 Corpuscular Hemoglobin Mean 34.5 Corpuscular Hemoglobin Conc ent Red Cell 13.0 Distribution Width Platelet Count 114 L Mean Platelet 11.2 H Volume Immature 0.600 H Granulocytes % Neutrophils % 86.3 H Lymphocytes % 8.4 L Monocytes % 4.4 Eosinophils % 0.0 Basophils % 0.3 Nucleated Red 0.0 Blood Cells % Immature 0.130 H Granulocytes # Neutrophils # 17.6 H Lymphocytes # 1.7 Monocytes # 0.9 Eosinophils # 0.0 Basophils # 0.1 Nucleated Red 0.0 Blood Cells # Sodium Level 145 H Potassium Level 2.8 *L Chloride Level 117 H Carbon Dioxide 16 L Level Anion Gap 12 Blood Urea 16 Nitrogen Creatinine 1.57 H Est Glomerular 44 L Filtrat Rate mL/min Glucose Level 236 H Lactic Acid 4.8 *H Level Calcium Level 8.2 L Phosphorus 2.0 L Level Magnesium Level 1.8 Troponin I 30.200 *H Test 05/27/18 20:20 05/27/18 20:30 05/27/18 21:22 05/27/18 22:00 Potassium Level 2.3 *L Urine Color RED Urine Clarity CLOUDY A Urine pH 6.0 Urine Specific > 1.060 H [place] Urine Ketones TRACE A Urine Nitrite NEGATIVE Urine Bilirubin NEGATIVE Urine NEGATIVE Urobilinogen Urine Leukocyte NEGATIVE Esterase Urine > 182 H Microscopic RBC Urine 2 Microscopic WBC Urine 3+ H Hemoglobin Urine Random 78.18 Creatinine Urine Random 16 L Sodium Urine Glucose 3+ H Urine Total 106.0 H Protein Bedside Glucose 177 Blood Gas Blood Specimen arterial Source Arterial Blood 05/27/2018 6:03 Date Drawn :29 PM Arterial Blood 7.391 pH (Temp corrected ) Arterial Blood 26.2 L pCO2 (Temp correct) Arterial Blood 93.5 pO2 (Temp corrected ) Arterial Blood 16.2 L HCO3 Arterial Blood -8.3 L Base Excess Arterial Blood 98.1 H Oxygen Saturati on Srinivas Test N/A Arterial Blood A-Line Gas Puncture Site Arterial 0.3 Blood Carboxyhe moglobin Arterial Blood 0.1 Methemoglobin Blood Gas A-a 311.0 H O2 Differential Oxyhemoglobin 97.7 Percent Blood Gas 33.1 Temperature Blood Gas 30.0 Respiration Rate Blood Gas 30 Actual Respiration Rat e Blood Gas VENT - AC Modality FiO2 60.0 Blood Gas Tidal 600.0 Volume Blood Gas Low 5.0 PEEP Setting Blood Gas [facility] Notified Whom Blood Gas 05/27/2018 6:13 Notified Time :31 PM Test 05/27/18 22:05 05/27/18 23:12 05/28/18 00:00 05/28/18 00:02 Bedside Glucose 151 138 126 Blood Gas Blood Specimen arterial Source Arterial Blood 05/28/2018 12:1 Date Drawn 5:40 AM Arterial Blood 7.417 pH (Temp corrected ) Arterial Blood 28.6 L pCO2 (Temp correct) Arterial Blood 143.3 H pO2 (Temp corrected ) Arterial Blood 18.6 L HCO3 Arterial Blood -5.6 L Base Excess Arterial Blood 98.7 H Oxygen Saturati on Srinivas Test N/A Arterial Blood A-Line Gas Puncture Site Arterial 0 Blood Carboxyhe moglobin Arterial Blood 0.1 Methemoglobin Blood Gas A-a 257.4 H O2 Differential Oxyhemoglobin 98.6 Percent Blood Gas 33.9 Temperature Blood Gas 30.0 Respiration Rate Blood Gas 30 Actual Respiration Rat e Blood Gas VENT - AC Modality FiO2 60.0 Blood Gas Tidal 600.0 Volume Blood Gas Low 5.0 PEEP Setting Blood Gas Notified Whom Blood Gas 05/28/2018 12:2 Notified Time 6:27 AM Test 05/28/18 00:25 05/28/18 02:00 05/28/18 03:57 05/28/18 05:57 White Blood 20.8 H 18.5 H Count Red Blood Count 4.38 L 4.19 L Hemoglobin 13.3 L 12.9 L Hematocrit 38.0 L 36.2 L Mean 86.8 86.4 Corpuscular Volume Mean 30.4 30.8 Corpuscular Hemoglobin Mean 35.0 35.6 Corpuscular Hemoglobin Conc ent Red Cell 13.0 12.7 Distribution Width Platelet Count 119 L 96 L Mean Platelet 11.3 H 11.3 H Volume Immature 0.400 0.700 H Granulocytes % Neutrophils % 84.4 H Lymphocytes % 9.4 L Monocytes % 5.3 Eosinophils % 0.2 Basophils % 0.3 Nucleated Red 0.0 0.0 Blood Cells % Immature 0.080 H 0.130 H Granulocytes # Neutrophils # 17.6 H Lymphocytes # 2.0 Monocytes # 1.1 H Eosinophils # 0.1 Basophils # 0.1 Nucleated Red 0.0 Blood Cells # Prothrombin 17.0 H Time Prothrombin 1.3 Time Ratio INR 1.37 International Normalized Rati o Activated 32.6 Partial Thrombo plast Time Fibrinogen 380.0 Sodium Level 139 140 Potassium Level 2.7 *L 2.6 *L Chloride Level 111 H 111 H Carbon Dioxide 21 20 L Level Anion Gap 7 9 Blood Urea 16 17 Nitrogen Creatinine 1.68 H 1.74 H Est Glomerular 41 L 39 L Filtrat Rate mL/min Glucose Level 141 # 137 Lactic Acid 3.4 *H 2.8 *H Level Calcium Level 7.8 L 7.8 L Phosphorus 3.1 3.0 Level Magnesium Level 1.7 2.9 #H Troponin I 27.200 *H 29.300 *H Amylase Level 182 H Lipase 26 Bedside Glucose 122 119 Random 9.5 Vancomycin Level Test 05/28/18 06:00 05/28/18 06:08 05/28/18 08:08 Blood Gas Blood arterial Specimen Source Arterial Blood 05/28/2018 5:55: Date Drawn 31 AM Arterial Blood 7.425 pH (Temp corrected ) Arterial Blood 27.2 L pCO2 (Temp correct) Arterial Blood 67.9 L pO2 (Temp corrected ) Arterial Blood 17.8 L HCO3 Arterial Blood -5.7 L Base Excess Arterial Blood 95.8 Oxygen Saturati on Srinivas Test N/A Arterial Blood A-Line Gas Puncture Site Arterial 0.2 Blood Carboxyhe moglobin Arterial Blood 0.1 Methemoglobin Blood Gas A-a 333.3 H O2 Differential Oxyhemoglobin 95.5 Percent Blood Gas 34.8 Temperature Blood Gas 30.0 Respiration Rate Blood Gas 30 Actual Respiration Rat e Blood Gas VENT - AC Modality FiO2 60.0 Blood Gas Tidal 600.0 Volume Blood Gas Low 5.0 PEEP Setting Blood Gas 36.0 Inspiratory Pressure Blood Gas [facility] Notified Whom Blood Gas 05/28/2018 6:16: Notified Time 33 AM Bedside Glucose 129 145 Medications Medications Current Medications IV Flush (NS 3 ml) 3 ml PER PROTOCOL IV ; Start 05/26/18 at 15:30 Morphine Sulfate (morphine) 2 mg Q4H PRN IV .SEVERE PAIN 7-10; Start 05/26/18 at 15:30 Atorvastatin Calcium (Lipitor) 80 mg DAILY@21 PO Last administered on 05/27/18at 21:15; Admin Dose 80 MG; Start 05/26/18 at 21:00 Dopamine HCl/ Dextrose 250 ml @ 9.375 mls/ hr TITRATE IV Last administered on 05/28/18at 02:27; Admin Dose 9.375 MLS/HR; Start 05/26/18 at 19:30 Midazolam HCl 50 ml @ 1 mls/hr TITRATE IV Last administered on 05/28/18at 02:20; Admin Dose 10 MLS/HR; Start 05/26/18 at 19:30 Vecuronium [place] 100 mg/ Dextrose 100 ml @ 6.25 mls/hr TITRATE IV Last administered on 05/27/18 06:55; Admin Dose 6.25 MLS/HR; Start 05/26/18 at 20:00 Vasopressin 60 unit/Dextrose 60 ml @ 1.2 mls/hr Q12H IV Last administered on 05/27/18 19:42; Admin Dose 2.4 MLS/HR; Start 05/26/18 at 20:30 Fentanyl 100 ml @ 2.5 mls/hr TITRATE IV Last administered on 05/27/18 17:17; Admin Dose 2.5 MLS/HR; Start 05/26/18 at 21:00 Diagnostic Test (Pha) (Accu-Chek) 1 ea Q1H XX Last administered on 05/28/18 08:05; Admin Dose 1 EA; Start 05/26/18 at 21:00 Insulin Human Regular 100 unit/ Sodium Chloride 100 ml @ 0 mls/hr PER PROTOCOL IV Last administered on 05/28/18 02:53; Admin Dose 5 MLS/HR; Start 05/26/18 at 21:00 Miscellaneous Information (* Miscellaneous Pharmacy Order) Treatment of Hypoglycemia: 1.BG 51... Per protocol XX ; Start 05/26/18 at 20:30 Dextrose (D50w Syringe) 25 ml Q15M PRN IV .DECREASED GLUCOSE; Start 05/26/18 at 20:30 Dextrose (D50w Syringe) 50 ml Q15M PRN IV .DECREASED GLUCOSE; Start 05/26/18 at 20:30 Propofol 100 ml @ 3.75 mls/hr Q12H IV Last administered on 05/28/18 07:59; Admin Dose 37.5 MLS/HR; Start 05/26/18 at 21:00 Phenylephrine HCl 80 mg/Dextrose 250 ml @ 18.75 mls/ hr TITRATE IV Last administered on 05/27/18 22:08; Admin Dose 18.75 MLS/HR; Start 05/26/18 at 22:30 Norepinephrine 32 mg/Dextrose 250 ml @ 0.47 mls/hr TITRATE IV Last administered on 05/27/18 15:55; Admin Dose 14.06 MLS/HR; Start 05/26/18 at 22:30 Vancomycin HCl (Vanco Iv Per Pharmacy) VANCOMYCIN PER PHARMACY PER PROTOCOL XX ; Start 05/27/18 at 00:30 Piperacillin Sod/ Tazobactam Sod 100 ml @ 200 mls/hr Q8 IVPB Last administered on 05/28/18 05:43; Admin Dose 200 MLS/HR; Start 05/27/18 at 00:30 Vancomycin HCl 1.5 gm/Sodium Chloride 250 ml @ 83.333 mls/ hr Q12H IVPB ; Start 05/27/18 at 14:00; Status Hold Acetaminophen (Tylenol Supp) 650 mg Q4H PRN NM TEMP > 37C; Start 05/27/18 at 02:30 Acetaminophen (Tylenol Liquid) 650 mg Q4H PRN PO TEMP > 37C; Start 05/27/18 at 02:30 Meperidine HCl (Demerol) 12.5 mg Q4H PRN IV POST OPERATIVE SHIVERING Last administered on 05/27/18at 22:49; Admin Dose 12.5 MG; Start 05/27/18 at 02:30 Meperidine HCl (Demerol) 25 mg Q4H PRN IV POST OPERATIVE SHIVERING Last administered on 05/27/18 03:09; Admin Dose 25 MG; Start 05/27/18 at 02:30 Eye Lubricant (Akwa Oint) 1 applic Q6 BOTH EYES Last administered on 05/28/18 05:42; Admin Dose 1 APPLIC; Start 05/27/18 at 06:00 Eye Lubricant (Artificial Tears Oph) 2 drop Q6 BOTH EYES Last administered on 05/28/18 05:42; Admin Dose 2 DROP; Start 05/27/18 at 06:00 Potassium Chloride 50 ml @ 50 mls/hr K PROTOCOL PRN IVPB PENDING LAB VALUE Last administered on 05/27/18 15:25; Admin Dose 50 MLS/HR; Start 05/27/18 at 04:00 Pantoprazole (Protonix Iv) 40 mg DAILY@06 IV Last administered on 05/28/18 05:42; Admin Dose 40 MG; Start 05/27/18 at 06:00 Aspirin (Aspirin) 81 mg DAILY NGT Last administered on 05/27/18 11:22; Admin Dose 81 MG; Start 05/27/18 at 10:00 Ticagrelor (Brilinta) 90 mg BID NGT Last administered on 05/27/18at 21:16; Admin Dose 90 MG; Start 05/27/18 at 21:00 Sodium Chloride 1,000 ml @ 75 mls/hr [id number] IV Last administered on 05/28/18at 03:36; Admin Dose 75 MLS/HR; Start 05/27/18 at 15:30 Lorazepam (Ativan) 2 mg Q2H PRN IV SEIZURES Last administered on 05/28/18at 01:33; Admin Dose 2 MG; Start 05/28/18 at 01:30 Acetaminophen (Tylenol Liquid) 650 mg Q6H PRN NGT MILD PAIN(1-3)OR ELEVATED TEMP; Start 05/28/18 at 03:00 Acetaminophen (Tylenol Supp) 650 mg Q6H NM ; Start 05/28/18 at 03:00 Acetaminophen (Tylenol Liquid) 650 mg Q6H NGT Last administered on 05/28/18at 03:19; Admin Dose 650 MG; Start 05/28/18 at 03:00 JEREMI RAMOS MD May 28, 2018 08:18
[2018-05-28] MEDS: VASOPRESSIN 60 UNIT in DEXTROSE 5% 57 ML IV SCH ×3 (08:30→20:30)
[2018-05-28] MEDS ORDERED: POTASSIUM CHLORIDE 20 MEQ POWDER FOR ORAL SOLN NGT ONE (09:30)
[2018-05-28] MEDS ORDERED: POTASSIUM CHLORIDE 50 ML IVPB SCH (09:30)
[2018-05-28] MEDS: FENTAnyl (DRIP) 1000 mcg/100mL 100 ML IV SCH ×2 (09:33→19:55)
[2018-05-28] MEDS: PHENYLephrine 80 MG in DEXTROSE 5% 242 ML IV SCH ×3 (09:38→19:05)
--- NOTE | 2018-05-28 09:50 | PN ---
Date/Time of Note Date/Time of Note DATE: 05/28/18 TIME: 09:43 Assessment/Plan VTE Prophylaxis Risk score (from [facility])>0 risk: 10 SCD applied (from [facility]): No SCD contraindicated: other (no) Pharmacological prophylaxis: NA/contraindicated Pharm contraindication: bleeding Lines/Catheters IV Catheter Type (from [facility]): A Line Urinary Cath still in place: Yes Reason Cath still needed: other (indicate) (intubated) Assessment/Plan Assessment/Plan 68 yo man no known past medical history admitted with respiratory distress proc eeding to cardiac arrest. #Cardiac arrest - Likely from NSTEMI - s/p cardiac cath with BELLA to circumflex 05/26. - On hypothermia protocol, starting rewarming phase, with neuromuscular blockade and sedation. - BP maintained on 3 pressors. - Continue balloon pump per cardiology. - Continue pressors to maintain MAP>65 - Antiplatelets per cardiology - Appreciate Dr. Gamboa's assistance #Hypokalemia - Will hold off on replacement; rewarming causes extracellular potassium shift. #Respiratory failure - Pulmonary following - Hypoxic, currently requiring 80% FiO2 - Pulmonary following. #Renal failure - Patient is oliguric with rising creatinine. - Dr. Esparza consulted from renal. DVT: SCDs GI: protonix Result Diagram: 05/28/18 0557 05/28/18 0557 Subjective 24 Hr Interval Summary Free Text/Dictation Patient's friend Sb at bedside today. He was updated and agreed with DNR status. He says patient did complain of chest pain earlier in the day prior to arrest. The patient was previously a heavy alcoholic, sober >20 years. No living next of kin. Also he was a heavy smoker, 1-2 packs per day. Exam/Review of Systems Exam Vitals Vital Signs Date Temp Pulse Resp B/P (MAP) Pulse Ox O2 O2 Flow FiO2 Time Delivery Rate 05/28/18 95 09:07 05/28/18 24 120/52 100 Mechanical 07:15 (74) Ventilator 05/28/18 90.4 07:00 05/28/18 80 06:45 Intake and Output 05/27/18 05/27/18 05/28/18 1515:00 23:00 07:00 IntakeIntake Total 2657.681 ml 1322.739 ml 1361.394 ml OutputOutput Total 130 ml 386 ml 76 ml BalanceBalance 2527.681 ml 936.739 ml 1285.394 ml Exam Gen: Obese man intubated, sedated. Eyes: Normal pupils equal bilaterally nonreactive. HEENT: Mild epistaxis. ET tube in place, OG tube in place clamped Card: Balloon pump audible. Cannot auscultate heart sounds. Pulm: Distant mechanical breath sounds bilaterally. Abd: Obese, soft, nondistended. Ext: No cyanosis/clubbing/edema. R fem vascular sheath with balloon pump. : Harrison in place with scant dark urine. Results Results 24hrs Laboratory Tests Test 05/27/18 10:12 05/27/18 10:25 05/27/18 11:10 05/27/18 12:10 Bedside Glucose 347 H 285 H 169 Blood Gas Blood Specimen arterial Source Arterial Blood 05/27/2018 10:2 Date Drawn 0:23 AM Arterial Blood 7.279 *L pH (Temp corrected ) Arterial Blood 44.2 pCO2 (Temp correct) Arterial Blood 235.2 H pO2 (Temp corrected ) Arterial Blood 21.3 L HCO3 Arterial Blood -6.7 L Base Excess Arterial Blood 99.1 H Oxygen Saturati on Srinivas Test N/A Arterial Blood A-Line Gas Puncture Site Arterial 0.3 Blood Carboxyhe moglobin Arterial Blood 0.1 Methemoglobin Blood Gas A-a 443.4 H O2 Differential Oxyhemoglobin 98.7 Percent Blood Gas 32.8 Temperature Blood Gas 26.0 Respiration Rate Blood Gas 26 Actual Respiration Rat e Blood Gas VENT - AC Modality FiO2 100.0 Blood Gas Tidal 600.0 Volume Blood Gas Low 5.0 PEEP Setting Blood Gas IMACATANGAY Critical Value RN Read Back Blood Gas TM Notified Whom Blood Gas 05/27/2018 10:2 Notified Time 8:36 AM Test 05/27/18 13:24 05/27/18 14:00 05/27/18 14:08 05/27/18 14:11 Bedside Glucose 215 268 H Blood Gas Blood Specimen arterial Source Arterial Blood 05/27/2018 2:10 Date Drawn :08 PM Arterial Blood 7.317 L pH (Temp corrected ) Arterial Blood 38.8 pCO2 (Temp correct) Arterial Blood 69.0 L pO2 (Temp corrected ) Arterial Blood 20.2 L HCO3 Arterial Blood -6.6 L Base Excess Arterial Blood 96.6 Oxygen Saturati on Srinivas Test N/A Arterial Blood A-Line Gas Puncture Site Arterial 0.1 Blood Carboxyhe moglobin Arterial Blood 0.1 Methemoglobin Blood Gas A-a 248.0 H O2 Differential Oxyhemoglobin 96.4 Percent Blood Gas 33.6 Temperature Blood Gas 26.0 Respiration Rate Blood Gas 26 Actual Respiration Rat e Blood Gas VENT - AC Modality FiO2 50.0 Blood Gas Tidal 600.0 Volume Blood Gas Low 5.0 PEEP Setting Blood Gas IMACANTANGAY R Critical Value N Read Back Blood Gas TM Notified Whom Blood Gas 05/27/2018 2:20 Notified Time :36 PM White Blood 23.1 H Count Red Blood Count 4.52 L Hemoglobin 13.8 L Hematocrit 40.3 L Mean 89.2 Corpuscular Volume Mean 30.5 Corpuscular Hemoglobin Mean 34.2 Corpuscular Hemoglobin Conc ent Red Cell 12.9 Distribution Width Platelet Count 127 #L Mean Platelet 10.7 H Volume Immature 0.800 H Granulocytes % Neutrophils % 84.5 H Lymphocytes % 7.8 L Monocytes % 6.5 Eosinophils % 0.0 Basophils % 0.4 Nucleated Red 0.0 Blood Cells % Immature 0.180 H Granulocytes # Neutrophils # 19.5 H Lymphocytes # 1.8 Monocytes # 1.5 H Eosinophils # 0.0 Basophils # 0.1 Nucleated Red 0.0 Blood Cells # Sodium Level 142 Potassium Level 2.4 *L Chloride Level 112 H Carbon Dioxide 20 L Level Anion Gap 10 Blood Urea 15 Nitrogen Creatinine 1.52 H Est Glomerular 46 L Filtrat Rate mL/min Glucose Level 253 H Lactic Acid 5.9 *H Level Calcium Level 7.9 L Phosphorus 1.8 L Level Magnesium Level 2.0 Troponin I 30.500 *H Amylase Level 238 H Lipase 24 Test 05/27/18 14:12 05/27/18 15:26 05/27/18 16:14 05/27/18 17:06 Prothrombin 17.5 H Time Prothrombin 1.4 Time Ratio INR 1.42 International Normalized Rati o Activated 32.5 Partial Thrombo plast Time Fibrinogen 391.0 # Bedside Glucose 173 96 216 Test 05/27/18 18:02 05/27/18 18:03 05/27/18 19:04 05/27/18 20:00 Bedside Glucose 180 164 191 White Blood 20.5 H Count Red Blood Count 4.60 L Hemoglobin 13.8 L Hematocrit 40.0 L Mean 87.0 Corpuscular Volume Mean 30.0 Corpuscular Hemoglobin Mean 34.5 Corpuscular Hemoglobin Conc ent Red Cell 13.0 Distribution Width Platelet Count 114 L Mean Platelet 11.2 H Volume Immature 0.600 H Granulocytes % Neutrophils % 86.3 H Lymphocytes % 8.4 L Monocytes % 4.4 Eosinophils % 0.0 Basophils % 0.3 Nucleated Red 0.0 Blood Cells % Immature 0.130 H Granulocytes # Neutrophils # 17.6 H Lymphocytes # 1.7 Monocytes # 0.9 Eosinophils # 0.0 Basophils # 0.1 Nucleated Red 0.0 Blood Cells # Sodium Level 145 H Potassium Level 2.8 *L Chloride Level 117 H Carbon Dioxide 16 L Level Anion Gap 12 Blood Urea 16 Nitrogen Creatinine 1.57 H Est Glomerular 44 L Filtrat Rate mL/min Glucose Level 236 H Lactic Acid 4.8 *H Level Calcium Level 8.2 L Phosphorus 2.0 L Level Magnesium Level 1.8 Troponin I 30.200 *H Test 05/27/18 20:20 05/27/18 20:30 05/27/18 21:22 05/27/18 22:00 Potassium Level 2.3 *L Urine Color RED Urine Clarity CLOUDY A Urine pH 6.0 Urine Specific > 1.060 H Lookout Urine Ketones TRACE A Urine Nitrite NEGATIVE Urine Bilirubin NEGATIVE Urine NEGATIVE Urobilinogen Urine Leukocyte NEGATIVE Esterase Urine > 182 H Microscopic RBC Urine 2 Microscopic WBC Urine 3+ H Hemoglobin Urine Random 78.18 Creatinine Urine Random 16 L Sodium Urine Glucose 3+ H Urine Total 106.0 H Protein Bedside Glucose 177 Blood Gas Blood Specimen arterial Source Arterial Blood 05/27/2018 6:03 Date Drawn :29 PM Arterial Blood 7.391 pH (Temp corrected ) Arterial Blood 26.2 L pCO2 (Temp correct) Arterial Blood 93.5 pO2 (Temp corrected ) Arterial Blood 16.2 L HCO3 Arterial Blood -8.3 L Base Excess Arterial Blood 98.1 H Oxygen Saturati on Srinivas Test N/A Arterial Blood A-Line Gas Puncture Site Arterial 0.3 Blood Carboxyhe moglobin Arterial Blood 0.1 Methemoglobin Blood Gas A-a 311.0 H O2 Differential Oxyhemoglobin 97.7 Percent Blood Gas 33.1 Temperature Blood Gas 30.0 Respiration Rate Blood Gas 30 Actual Respiration Rat e Blood Gas VENT - AC Modality FiO2 60.0 Blood Gas Tidal 600.0 Volume Blood Gas Low 5.0 PEEP Setting Blood Gas LCassi Lewis [facility] Notified Whom Blood Gas 05/27/2018 6:13 Notified Time :31 PM Test 05/27/18 22:05 05/27/18 23:12 05/28/18 00:00 05/28/18 00:02 Bedside Glucose 151 138 126 Blood Gas Blood Specimen arterial Source Arterial Blood 05/28/2018 12:1 Date Drawn 5:40 AM Arterial Blood 7.417 pH (Temp corrected ) Arterial Blood 28.6 L pCO2 (Temp correct) Arterial Blood 143.3 H pO2 (Temp corrected ) Arterial Blood 18.6 L HCO3 Arterial Blood -5.6 L Base Excess Arterial Blood 98.7 H Oxygen Saturati on Srinivas Test N/A Arterial Blood A-Line Gas Puncture Site Arterial 0 Blood Carboxyhe moglobin Arterial Blood 0.1 Methemoglobin Blood Gas A-a 257.4 H O2 Differential Oxyhemoglobin 98.6 Percent Blood Gas 33.9 Temperature Blood Gas 30.0 Respiration Rate Blood Gas 30 Actual Respiration Rat e Blood Gas VENT - AC Modality FiO2 60.0 Blood Gas Tidal 600.0 Volume Blood Gas Low 5.0 PEEP Setting Blood Gas Notified Whom Blood Gas 05/28/2018 12:2 Notified Time 6:27 AM Test 05/28/18 00:25 05/28/18 02:00 05/28/18 03:57 05/28/18 05:57 White Blood 20.8 H 18.5 H Count Red Blood Count 4.38 L 4.19 L Hemoglobin 13.3 L 12.9 L Hematocrit 38.0 L 36.2 L Mean 86.8 86.4 Corpuscular Volume Mean 30.4 30.8 Corpuscular Hemoglobin Mean 35.0 35.6 Corpuscular Hemoglobin Conc ent Red Cell 13.0 12.7 Distribution Width Platelet Count 119 L 96 L Mean Platelet 11.3 H 11.3 H Volume Immature 0.400 0.700 H Granulocytes % Neutrophils % 84.4 H Lymphocytes % 9.4 L Monocytes % 5.3 Eosinophils % 0.2 Basophils % 0.3 Nucleated Red 0.0 0.0 Blood Cells % Immature 0.080 H 0.130 H Granulocytes # Neutrophils # 17.6 H Lymphocytes # 2.0 Monocytes # 1.1 H Eosinophils # 0.1 Basophils # 0.1 Nucleated Red 0.0 Blood Cells # Prothrombin 17.0 H Time Prothrombin 1.3 Time Ratio INR 1.37 International Normalized Rati o Activated 32.6 Partial Thrombo plast Time Fibrinogen 380.0 Sodium Level 139 140 Potassium Level 2.7 *L 2.6 *L Chloride Level 111 H 111 H Carbon Dioxide 21 20 L Level Anion Gap 7 9 Blood Urea 16 17 Nitrogen Creatinine 1.68 H 1.74 H Est Glomerular 41 L 39 L Filtrat Rate mL/min Glucose Level 141 # 137 Lactic Acid 3.4 *H 2.8 *H Level Calcium Level 7.8 L 7.8 L Phosphorus 3.1 3.0 Level Magnesium Level 1.7 2.9 #H Troponin I 27.200 *H 29.300 *H Amylase Level 182 H Lipase 26 Bedside Glucose 122 119 Random 9.5 Vancomycin Level Test 05/28/18 06:00 05/28/18 06:08 05/28/18 08:06 05/28/18 08:08 Blood Gas Blood arterial Blood Specimen arterial Source Arterial Blood 05/28/2018 5:55: 05/28/2018 8:20 Date Drawn 31 AM :11 AM Arterial Blood 7.425 7.427 pH (Temp corrected ) Arterial Blood 27.2 L 28.0 L pCO2 (Temp correct) Arterial Blood 67.9 L 73.9 L pO2 (Temp corrected ) Arterial Blood 17.8 L 18.9 L HCO3 Arterial Blood -5.7 L -5.5 L Base Excess Arterial Blood 95.8 97.3 Oxygen Saturati on Srinivas Test N/A N/A Arterial Blood A-Line A-Line Gas Puncture Site Arterial 0.2 0.2 Blood Carboxyhe moglobin Arterial Blood 0.1 0.1 Methemoglobin Blood Gas A-a 333.3 H 475.1 H O2 Differential Oxyhemoglobin 95.5 97.0 Percent Blood Gas 34.8 32.7 Temperature Blood Gas 30.0 24.0 Respiration Rate Blood Gas 30 24 Actual Respiration Rat e Blood Gas VENT - AC VENT - AC Modality FiO2 60.0 80.0 Blood Gas Tidal 600.0 600.0 Volume Blood Gas Low 5.0 5.0 PEEP Setting Blood Gas 36.0 Inspiratory Pressure Blood Gas S.H. DT Notified Whom Blood Gas 05/28/2018 6:16: 05/28/2018 8:32 Notified Time 33 AM :08 AM Bedside Glucose 129 145 Medications Medication Current Medications IV Flush (NS 3 ml) 3 ml PER PROTOCOL IV ; Start 05/26/18 at 15:30 Morphine Sulfate (morphine) 2 mg Q4H PRN IV .SEVERE PAIN 7-10; Start 05/26/18 at 15:30 Atorvastatin Calcium (Lipitor) 80 mg DAILY@21 PO Last administered on 05/27/18 21:15; Admin Dose 80 MG; Start 05/26/18 at 21:00 Dopamine HCl/ Dextrose 250 ml @ 9.375 mls/ hr TITRATE IV Last administered on 05/28/18 02:27; Admin Dose 9.375 MLS/HR; Start 05/26/18 at 19:30 Midazolam HCl 50 ml @ 1 mls/hr TITRATE IV Last administered on 05/28/18 08:30; Admin Dose 10 MLS/HR; Start 05/26/18 at 19:30 Vecuronium [place] 100 mg/ Dextrose 100 ml @ 6.25 mls/hr TITRATE IV Last administered on 05/27/18 06:55; Admin Dose 6.25 MLS/HR; Start 05/26/18 at 20:00 Vasopressin 60 unit/Dextrose 60 ml @ 1.2 mls/hr Q12H IV Last administered on 05/27/18 19:42; Admin Dose 2.4 MLS/HR; Start 05/26/18 at 20:30 Fentanyl 100 ml @ 2.5 mls/hr TITRATE IV Last administered on 05/28/18 09:33; Admin Dose 10 MLS/HR; Start 05/26/18 at 21:00 Diagnostic Test (Pha) (Accu-Chek) 1 ea Q1H XX Last administered on 05/28/18 08:05; Admin Dose 1 EA; Start 05/26/18 at 21:00 Insulin Human Regular 100 unit/ Sodium Chloride 100 ml @ 0 mls/hr PER PROTOCOL IV Last administered on 05/28/18 02:53; Admin Dose 5 MLS/HR; Start 05/26/18 at 21:00 Miscellaneous Information (* Miscellaneous Pharmacy Order) Treatment of H ypoglycemia: 1.BG 51... Per protocol XX ; Start 05/26/18 at 20:30 Dextrose (D50w Syringe) 25 ml Q15M PRN IV .DECREASED GLUCOSE; Start 05/26/18 at 20:30 Dextrose (D50w Syringe) 50 ml Q15M PRN IV .DECREASED GLUCOSE; Start 05/26/18 at 20:30 Propofol 100 ml @ 3.75 mls/hr Q12H IV Last administered on 05/28/18 07:59; Admin Dose 37.5 MLS/HR; Start 05/26/18 at 21:00 Phenylephrine HCl 80 mg/Dextrose 250 ml @ 18.75 mls/ hr TITRATE IV Last administered on 05/28/18 09:38; Admin Dose 56.25 MLS/HR; Start 05/26/18 at 22:30 Norepinephrine 32 mg/Dextrose 250 ml @ 0.47 mls/hr TITRATE IV Last administe red on 05/27/18at 15:55; Admin Dose 14.06 MLS/HR; Start 05/26/18 at 22:30 Vancomycin HCl (Vanco Iv Per Pharmacy) VANCOMYCIN PER PHARMACY PER PROTOCOL XX ; Start 05/27/18 at 00:30 Piperacillin Sod/ Tazobactam Sod 100 ml @ 200 mls/hr Q8 IVPB Last administered on 05/28/18 05:43; Admin Dose 200 MLS/HR; Start 05/27/18 at 00:30 Acetaminophen (Tylenol Supp) 650 mg Q4H PRN NC TEMP > 37C; Start 05/27/18 at 02:30 Acetaminophen (Tylenol Liquid) 650 mg Q4H PRN PO TEMP > 37C; Start 05/27/18 at 02:30 Meperidine HCl (Demerol) 12.5 mg Q4H PRN IV POST OPERATIVE SHIVERING Last administered on 05/27/18at 22:49; Admin Dose 12.5 MG; Start 05/27/18 at 02:30 Meperidine HCl (Demerol) 25 mg Q4H PRN IV POST OPERATIVE SHIVERING Last administered on 05/27/18 03:09; Admin Dose 25 MG; Start 05/27/18 at 02:30 Eye Lubricant (Akwa Oint) 1 applic Q6 BOTH EYES Last administered on 05/28/18 05:42; Admin Dose 1 APPLIC; Start 05/27/18 at 06:00 Eye Lubricant (Artificial Tears Oph) 2 drop Q6 BOTH EYES Last administered on 05/28/18 05:42; Admin Dose 2 DROP; Start 05/27/18 at 06:00 Potassium Chloride 50 ml @ 50 mls/hr K PROTOCOL PRN IVPB PENDING LAB VALUE Last administered on 05/27/18 15:25; Admin Dose 50 MLS/HR; Start 05/27/18 at 04:00 Pantoprazole (Protonix Iv) 40 mg DAILY@06 IV Last administered on 05/28/18 05:42; Admin Dose 40 MG; Start 05/27/18 at 06:00 Aspirin (Aspirin) 81 mg DAILY NGT Last administered on 05/27/18 11:22; Admin Dose 81 MG; Start 05/27/18 at 10:00 Ticagrelor (Brilinta) 90 mg BID NGT Last administered on 05/27/18 21:16; Admin Dose 90 MG; Start 05/27/18 at 21:00 Sodium Chloride 1,000 ml @ 75 mls/hr [id number] IV Last administered on 05/28/18 03:36; Admin Dose 75 MLS/HR; Start 05/27/18 at 15:30 Lorazepam (Ativan) 2 mg Q2H PRN IV SEIZURES Last administered on 05/28/18 01:33; Admin Dose 2 MG; Start 05/28/18 at 01:30 Acetaminophen (Tylenol Liquid) 650 mg Q6H PRN NGT MILD PAIN(1-3)OR ELEVATED TEMP; Start 05/28/18 at 03:00 Acetaminophen (Tylenol Supp) 650 mg Q6H NC ; Start 05/28/18 at 03:00 Acetaminophen (Tylenol Liquid) 650 mg Q6H NGT Last administered on 05/28/18 03:19; Admin Dose 650 MG; Start 05/28/18 at 03:00 Potassium Chloride 50 ml @ 50 mls/hr Q1H IVPB ; Start 05/28/18 at 09:30; Stop 05/28/18 at 12:29 Vancomycin HCl 1.5 gm/Sodium Chloride 250 ml @ 83.333 mls/ hr Q24H IVPB ; Start 05/28/18 at 11:00 ELANA HARDWICK MD May 28, 2018 09:50
[2018-05-28] MEDS: ASPIRIN 81 MG TAB NGT SCH (09:51)
[2018-05-28] MEDS: TICAGRELOR 90 MG TABLET NGT SCH ×2 (09:51→21:18)
--- NOTE | 2018-05-28 10:11 | CONS ---
Consult Date/Type/Reason Admit Date/Time May 26, 2018 at 15:31 Initial Consult Date 05/26/18 Requesting Provider: ALYSE KLEIN MD Date/Time of Note DATE: 05/28/18 TIME: 09:58 Subjective 68-year-old male with unknown past medical history who was brought in by EMS services to [facility] emergency Room after patient had a witnessed respiratory arrest followed shortly after cardiac arrest. The patient was at his board and care facility, not feeling well. The patient initially stated he has uncontrolled breathing and had a cardiac arrest. The patient had chest comp ressions performed in the field. The patient was brought into the Emergency Room. The patient was then seen by refurbish technician and underwent cardiac catheterization with PCI. The patient had coded in the cardiac clinical genetics laboratory chief. The patient eventually had spontaneous return of circulation. The patient had intraaortic balloon pump placed and was transferred to intensive care unit based on hypothermic protocol. on multiple pressors In terms of patient's renal history, on admission, patient had a creatinine of 1.04 mg/dL. The patient's creatinine has increased. There have been no reports of any hemoptysis, hematemesis or hematochezia. has become oliguric. josefina yee and nurse josefina fitzpatrick reviewed with family at bedside PHYSICAL EXAMINATION: HEENT: Head is normocephalic. Pupils are reactive to light. NECK: Supple. HEART: Regular rate. LUNGS: Show diminished breath sounds at the base. ABDOMEN: Soft, nontender to palpation. No rebound or guarding. EXTREMITIES: Negative for clubbing or cyanosis. No edema. DERMATOLOGIC: No rashes. MUSCULOSKELETAL: No joint effusions. NEUROLOGIC: Limited exam as patient is obtunded. Objective Vitals Vital Signs Date Temp Pulse Resp B/P (MAP) Pulse Ox O2 O2 Flow FiO2 Time Delivery Rate 05/28/18 92.8 09:49 05/28/18 95 09:07 05/28/18 24 120/52 100 Mechanical 07:15 (74) Ventilator 05/28/18 80 06:45 Intake and Output 05/27/18 05/27/18 05/28/18 1515:00 23:00 07:00 IntakeIntake Total 2657.681 ml 1322.739 ml 1361.394 ml OutputOutput Total 130 ml 386 ml 76 ml BalanceBalance 2527.681 ml 936.739 ml 1285.394 ml Results/Medications Result Diagram: 05/28/18 0557 05/28/18 0557 Results 24 hrs Laboratory Tests Test 05/27/18 10:12 05/27/18 10:25 05/27/18 11:10 05/27/18 12:10 Bedside Glucose 347 H 285 H 169 Blood Gas Blood Specimen arterial Source Arterial Blood 05/27/2018 10:2 Date Drawn 0:23 AM Arterial Blood 7.279 *L pH (Temp corrected ) Arterial Blood 44.2 pCO2 (Temp correct) Arterial Blood 235.2 H pO2 (Temp corrected ) Arterial Blood 21.3 L HCO3 Arterial Blood -6.7 L Base Excess Arterial Blood 99.1 H Oxygen Saturati on Srinivas Test N/A Arterial Blood A-Line Gas Puncture Site Arterial 0.3 Blood Carboxyhe moglobin Arterial Blood 0.1 Methemoglobin Blood Gas A-a 443.4 H O2 Differential Oxyhemoglobin 98.7 Percent Blood Gas 32.8 Temperature Blood Gas 26.0 Respiration Rate Blood Gas 26 Actual Respiration Rat e Blood Gas VENT - AC Modality FiO2 100.0 Blood Gas Tidal 600.0 Volume Blood Gas Low 5.0 PEEP Setting Blood Gas IMACATANGAY Critical Value RN Read Back Blood Gas TM Notified Whom Blood Gas 05/27/2018 10:2 Notified Time 8:36 AM Test 05/27/18 13:24 05/27/18 14:00 05/27/18 14:08 05/27/18 14:11 Bedside Glucose 215 268 H Blood Gas Blood Specimen arterial Source Arterial Blood 05/27/2018 2:10 Date Drawn :08 PM Arterial Blood 7.317 L pH (Temp corrected ) Arterial Blood 38.8 pCO2 (Temp correct) Arterial Blood 69.0 L pO2 (Temp corrected ) Arterial Blood 20.2 L HCO3 Arterial Blood -6.6 L Base Excess Arterial Blood 96.6 Oxygen Saturati on Srinivas Test N/A Arterial Blood A-Line Gas Puncture Site Arterial 0.1 Blood Carboxyhe moglobin Arterial Blood 0.1 Methemoglobin Blood Gas A-a 248.0 H O2 Differential Oxyhemoglobin 96.4 Percent Blood Gas 33.6 Temperature Blood Gas 26.0 Respiration Rate Blood Gas 26 Actual Respiration Rat e Blood Gas VENT - AC Modality FiO2 50.0 Blood Gas Tidal 600.0 Volume Blood Gas Low 5.0 PEEP Setting Blood Gas IMACANTANGAY R Critical Value N Read Back Blood Gas TM Notified Whom Blood Gas 05/27/2018 2:20 Notified Time :36 PM White Blood 23.1 H Count Red Blood Count 4.52 L Hemoglobin 13.8 L Hematocrit 40.3 L Mean 89.2 Corpuscular Volume Mean 30.5 Corpuscular Hemoglobin Mean 34.2 Corpuscular Hemoglobin Conc ent Red Cell 12.9 Distribution Width Platelet Count 127 #L Mean Platelet 10.7 H Volume Immature 0.800 H Granulocytes % Neutrophils % 84.5 H Lymphocytes % 7.8 L Monocytes % 6.5 Eosinophils % 0.0 Basophils % 0.4 Nucleated Red 0.0 Blood Cells % Immature 0.180 H Granulocytes # Neutrophils # 19.5 H Lymphocytes # 1.8 Monocytes # 1.5 H Eosinophils # 0.0 Basophils # 0.1 Nucleated Red 0.0 Blood Cells # Sodium Level 142 Potassium Level 2.4 *L Chloride Level 112 H Carbon Dioxide 20 L Level Anion Gap 10 Blood Urea 15 Nitrogen Creatinine 1.52 H Est Glomerular 46 L Filtrat Rate mL/min Glucose Level 253 H Lactic Acid 5.9 *H Level Calcium Level 7.9 L Phosphorus 1.8 L Level Magnesium Level 2.0 Troponin I 30.500 *H Amylase Level 238 H Lipase 24 Test 05/27/18 14:12 05/27/18 15:26 05/27/18 16:14 05/27/18 17:06 Prothrombin 17.5 H Time Prothrombin 1.4 Time Ratio INR 1.42 International Normalized Rati o Activated 32.5 Partial Thrombo plast Time Fibrinogen 391.0 # Bedside Glucose 173 96 216 Test 05/27/18 18:02 05/27/18 18:03 05/27/18 19:04 05/27/18 20:00 Bedside Glucose 180 164 191 White Blood 20.5 H Count Red Blood Count 4.60 L Hemoglobin 13.8 L Hematocrit 40.0 L Mean 87.0 Corpuscular Volume Mean 30.0 Corpuscular Hemoglobin Mean 34.5 Corpuscular Hemoglobin Conc ent Red Cell 13.0 Distribution Width Platelet Count 114 L Mean Platelet 11.2 H Volume Immature 0.600 H Granulocytes % Neutrophils % 86.3 H Lymphocytes % 8.4 L Monocytes % 4.4 Eosinophils % 0.0 Basophils % 0.3 Nucleated Red 0.0 Blood Cells % Immature 0.130 H Granulocytes # Neutrophils # 17.6 H Lymphocytes # 1.7 Monocytes # 0.9 Eosinophils # 0.0 Basophils # 0.1 Nucleated Red 0.0 Blood Cells # Sodium Level 145 H Potassium Level 2.8 *L Chloride Level 117 H Carbon Dioxide 16 L Level Anion Gap 12 Blood Urea 16 Nitrogen Creatinine 1.57 H Est Glomerular 44 L Filtrat Rate mL/min Glucose Level 236 H Lactic Acid 4.8 *H Level Calcium Level 8.2 L Phosphorus 2.0 L Level Magnesium Level 1.8 Troponin I 30.200 *H Test 05/27/18 20:20 05/27/18 20:30 05/27/18 21:22 05/27/18 22:00 Potassium Level 2.3 *L Urine Color RED Urine Clarity CLOUDY A Urine pH 6.0 Urine Specific > 1.060 H [place] Urine Ketones TRACE A Urine Nitrite NEGATIVE Urine Bilirubin NEGATIVE Urine NEGATIVE Urobilinogen Urine Leukocyte NEGATIVE Esterase Urine > 182 H Microscopic RBC Urine 2 Microscopic WBC Urine 3+ H Hemoglobin Urine Random 78.18 Creatinine Urine Random 16 L Sodium Urine Glucose 3+ H Urine Total 106.0 H Protein Bedside Glucose 177 Blood Gas Blood Specimen arterial Source Arterial Blood 05/27/2018 6:03 Date Drawn :29 PM Arterial Blood 7.391 pH (Temp corrected ) Arterial Blood 26.2 L pCO2 (Temp correct) Arterial Blood 93.5 pO2 (Temp corrected ) Arterial Blood 16.2 L HCO3 Arterial Blood -8.3 L Base Excess Arterial Blood 98.1 H Oxygen Saturati on Srinivas Test N/A Arterial Blood A-Line Gas Puncture Site Arterial 0.3 Blood Carboxyhe moglobin Arterial Blood 0.1 Methemoglobin Blood Gas A-a 311.0 H O2 Differential Oxyhemoglobin 97.7 Percent Blood Gas 33.1 Temperature Blood Gas 30.0 Respiration Rate Blood Gas 30 Actual Respiration Rat e Blood Gas VENT - AC Modality FiO2 60.0 Blood Gas Tidal 600.0 Volume Blood Gas Low 5.0 PEEP Setting Blood Gas LCassi Lewis [facility] Notified Whom Blood Gas 05/27/2018 6:13 Notified Time :31 PM Test 05/27/18 22:05 05/27/18 23:12 05/28/18 00:00 05/28/18 00:02 Bedside Glucose 151 138 126 Blood Gas Blood Specimen arterial Source Arterial Blood 05/28/2018 12:1 Date Drawn 5:40 AM Arterial Blood 7.417 pH (Temp corrected ) Arterial Blood 28.6 L pCO2 (Temp correct) Arterial Blood 143.3 H pO2 (Temp corrected ) Arterial Blood 18.6 L HCO3 Arterial Blood -5.6 L Base Excess Arterial Blood 98.7 H Oxygen Saturati on Srinivas Test N/A Arterial Blood A-Line Gas Puncture Site Arterial 0 Blood Carboxyhe moglobin Arterial Blood 0.1 Methemoglobin Blood Gas A-a 257.4 H O2 Differential Oxyhemoglobin 98.6 Percent Blood Gas 33.9 Temperature Blood Gas 30.0 Respiration Rate Blood Gas 30 Actual Respiration Rat e Blood Gas VENT - AC Modality FiO2 60.0 Blood Gas Tidal 600.0 Volume Blood Gas Low 5.0 PEEP Setting Blood Gas Notified Whom Blood Gas 05/28/2018 12:2 Notified Time 6:27 AM Test 05/28/18 00:25 05/28/18 02:00 05/28/18 03:57 05/28/18 05:57 White Blood 20.8 H 18.5 H Count Red Blood Count 4.38 L 4.19 L Hemoglobin 13.3 L 12.9 L Hematocrit 38.0 L 36.2 L Mean 86.8 86.4 Corpuscular Volume Mean 30.4 30.8 Corpuscular Hemoglobin Mean 35.0 35.6 Corpuscular Hemoglobin Conc ent Red Cell 13.0 12.7 Distribution Width Platelet Count 119 L 96 L Mean Platelet 11.3 H 11.3 H Volume Immature 0.400 0.700 H Granulocytes % Neutrophils % 84.4 H Lymphocytes % 9.4 L Monocytes % 5.3 Eosinophils % 0.2 Basophils % 0.3 Nucleated Red 0.0 0.0 Blood Cells % Immature 0.080 H 0.130 H Granulocytes # Neutrophils # 17.6 H Lymphocytes # 2.0 Monocytes # 1.1 H Eosinophils # 0.1 Basophils # 0.1 Nucleated Red 0.0 Blood Cells # Prothrombin 17.0 H Time Prothrombin 1.3 Time Ratio INR 1.37 International Normalized Rati o Activated 32.6 Partial Thrombo plast Time Fibrinogen 380.0 Sodium Level 139 140 Potassium Level 2.7 *L 2.6 *L Chloride Level 111 H 111 H Carbon Dioxide 21 20 L Level Anion Gap 7 9 Blood Urea 16 17 Nitrogen Creatinine 1.68 H 1.74 H Est Glomerular 41 L 39 L Filtrat Rate mL/min Glucose Level 141 # 137 Lactic Acid 3.4 *H 2.8 *H Level Calcium Level 7.8 L 7.8 L Phosphorus 3.1 3.0 Level Magnesium Level 1.7 2.9 #H Troponin I 27.200 *H 29.300 *H Amylase Level 182 H Lipase 26 Bedside Glucose 122 119 Segmented 70 Neutrophils % (Manual) Band 13 H Neutrophils % (Manual) Lymphocytes % 10 L (Manual) Reactive 4 H Lymphocytes % (Manual) Monocytes % 2 (Manual) Basophils % 1 (Manual) Neutrophils # 13.4 H (Manual) Band 2.4 H Neutrophils # Lymphocytes 1.8 (Manual) Reactive 0.7 H Lymphocytes # Monocytes # 0.3 (Manual) Basophils # 0.1 H (Manual) Platelet INCREASED Estimate Giant Platelets 2 H Poikilocytosis 2+ Anisocytosis 1+ Ovalocytes 1+ Random 9.5 Vancomycin Level Test 05/28/18 06:00 05/28/18 06:08 05/28/18 08:06 05/28/18 08:08 Blood Gas Blood arterial Blood Specimen arterial Source Arterial Blood 05/28/2018 5:55: 05/28/2018 8:20 Date Drawn 31 AM :11 AM Arterial Blood 7.425 7.427 pH (Temp corrected ) Arterial Blood 27.2 L 28.0 L pCO2 (Temp correct) Arterial Blood 67.9 L 73.9 L pO2 (Temp corrected ) Arterial Blood 17.8 L 18.9 L HCO3 Arterial Blood -5.7 L -5.5 L Base Excess Arterial Blood 95.8 97.3 Oxygen Saturati on Srinivas Test N/A N/A Arterial Blood A-Line A-Line Gas Puncture Site Arterial 0.2 0.2 Blood Carboxyhe moglobin Arterial Blood 0.1 0.1 Methemoglobin Blood Gas A-a 333.3 H 475.1 H O2 Differential Oxyhemoglobin 95.5 97.0 Percent Blood Gas 34.8 32.7 Temperature Blood Gas 30.0 24.0 Respiration Rate Blood Gas 30 24 Actual Respiration Rat e Blood Gas VENT - AC VENT - AC Modality FiO2 60.0 80.0 Blood Gas Tidal 600.0 600.0 Volume Blood Gas Low 5.0 5.0 PEEP Setting Blood Gas 36.0 Inspiratory Pressure Blood Gas S.H. DT Notified Whom Blood Gas 05/28/2018 6:16: 05/28/2018 8:32 Notified Time 33 AM :08 AM Bedside Glucose 129 145 Medications Current Medications IV Flush (NS 3 ml) 3 ml PER PROTOCOL IV ; Start 05/26/18 at 15:30 Morphine Sulfate (morphine) 2 mg Q4H PRN IV .SEVERE PAIN 7-10; Start 05/26/18 at 15:30 Atorvastatin Calcium (Lipitor) 80 mg DAILY@21 PO Last administered on 05/27/18 21:15; Admin Dose 80 MG; Start 05/26/18 at 21:00 Dopamine HCl/ Dextrose 250 ml @ 9.375 mls/ hr TITRATE IV Last administered on 05/28/18 02:27; Admin Dose 9.375 MLS/HR; Start 05/26/18 at 19:30 Midazolam HCl 50 ml @ 1 mls/hr TITRATE IV Last administered on 05/28/18 08:30; Admin Dose 10 MLS/HR; Start 05/26/18 at 19:30 Vecuronium [place] 100 mg/ Dextrose 100 ml @ 6.25 mls/hr TITRATE IV Last a dministered on 05/27/18 06:55; Admin Dose 6.25 MLS/HR; Start 05/26/18 at 20:00 Vasopressin 60 unit/Dextrose 60 ml @ 1.2 mls/hr Q12H IV Last administered on 05/27/18 19:42; Admin Dose 2.4 MLS/HR; Start 05/26/18 at 20:30 Fentanyl 100 ml @ 2.5 mls/hr TITRATE IV Last administered on 05/28/18 09:33; Admin Dose 10 MLS/HR; Start 05/26/18 at 21:00 Diagnostic Test (Pha) (Accu-Chek) 1 ea Q1H XX Last administered on 05/28/18 08:05; Admin Dose 1 EA; Start 05/26/18 at 21:00 Insulin Human Regular 100 unit/ Sodium Chloride 100 ml @ 0 mls/hr PER PROTOCOL IV Last administered on 05/28/18 02:53; Admin Dose 5 MLS/HR; Start 05/26/18 at 21:00 Miscellaneous Information (* Miscellaneous Pharmacy Order) Treatment of Hypoglycemia: 1.BG 51... Per protocol XX ; Start 05/26/18 at 20:30 Dextrose (D50w Syringe) 25 ml Q15M PRN IV .DECREASED GLUCOSE; Start 05/26/18 at 20:30 Dextrose (D50w Syringe) 50 ml Q15M PRN IV .DECREASED GLUCOSE; Start 05/26/18 at 20:30 Propofol 100 ml @ 3.75 mls/hr Q12H IV Last administered on 05/28/18at 07:59; Admin Dose 37.5 MLS/HR; Start 05/26/18 at 21:00 Phenylephrine HCl 80 mg/Dextrose 250 ml @ 18.75 mls/ hr TITRATE IV Last administered on 05/28/18at 09:38; Admin Dose 56.25 MLS/HR; Start 05/26/18 at 22:30 Norepinephrine 32 mg/Dextrose 250 ml @ 0.47 mls/hr TITRATE IV Last administered on 05/27/18at 15:55; Admin Dose 14.06 MLS/HR; Start 05/26/18 at 22:30 Vancomycin HCl (Vanco Iv Per Pharmacy) VANCOMYCIN PER PHARMACY PER PROTOCOL XX ; Start 05/27/18 at 00:30 Piperacillin Sod/ Tazobactam Sod 100 ml @ 200 mls/hr Q8 IVPB Last administered on 05/28/18at 05:43; Admin Dose 200 MLS/HR; Start 05/27/18 at 00:30 Acetaminophen (Tylenol Supp) 650 mg Q4H PRN [place] TEMP > 37C; Start 05/27/18 at 02:30 Acetaminophen (Tylenol Liquid) 650 mg Q4H PRN PO TEMP > 37C; Start 05/27/18 at 02:30 Meperidine HCl (Demerol) 12.5 mg Q4H PRN IV POST OPERATIVE SHIVERING Last administered on 05/27/18at 22:49; Admin Dose 12.5 MG; Start 05/27/18 at 02:30 Meperidine HCl (Demerol) 25 mg Q4H PRN IV POST OPERATIVE SHIVERING Last administered on 05/27/18at 03:09; Admin Dose 25 MG; Start 05/27/18 at 02:30 Eye Lubricant (Akwa Oint) 1 applic Q6 BOTH EYES Last administered on 05/28/18at 05:42; Admin Dose 1 APPLIC; Start 05/27/18 at 06:00 Eye Lubricant (Artificial Tears Oph) 2 drop Q6 BOTH EYES Last administered on 05/28/18 05:42; Admin Dose 2 DROP; Start 05/27/18 at 06:00 Potassium Chloride 50 ml @ 50 mls/hr K PROTOCOL PRN IVPB PENDING LAB VALUE Last administered on 05/27/18 15:25; Admin Dose 50 MLS/HR; Start 05/27/18 at 04:00 Pantoprazole (Protonix Iv) 40 mg DAILY@06 IV Last administered on 05/28/18 05:42; Admin Dose 40 MG; Start 05/27/18 at 06:00 Aspirin (Aspirin) 81 mg DAILY NGT Last administered on 05/28/18 09:51; Admin Dose 81 MG; Start 05/27/18 at 10:00 Ticagrelor (Brilinta) 90 mg BID NGT Last administered on 05/28/18 09:51; Admin Dose 90 MG; Start 05/27/18 at 21:00 Sodium Chloride 1,000 ml @ 75 mls/hr [id number] IV Last administered on 05/28/18 03:36; Admin Dose 75 MLS/HR; Start 05/27/18 at 15:30 Lorazepam (Ativan) 2 mg Q2H PRN IV SEIZURES Last administered on 05/28/18 01:33; Admin Dose 2 MG; Start 05/28/18 at 01:30 Acetaminophen (Tylenol Liquid) 650 mg Q6H PRN NGT MILD PAIN(1-3)OR ELEVATED TEMP; Start 05/28/18 at 03:00 Acetaminophen (Tylenol Supp) 650 mg Q6H [place] ; Start 05/28/18 at 03:00 Acetaminophen (Tylenol Liquid) 650 mg Q6H NGT Last administered on 05/28/18 09:49; Admin Dose 650 MG; Start 05/28/18 at 03:00 Vancomycin HCl 1.5 gm/Sodium Chloride 250 ml @ 83.333 mls/ hr Q24H IVPB ; Start 05/28/18 at 11:00 Assessment/Plan Hospital Course (Demo Recall) 1. Oligoanuric acute kidney injury with previously unknown baseline creatinine. Etiology of acute kidney injury is likely secondary to acute tubular necrosis due to ischemic hypoperfusion and shock. -We will continue current medical management. Continue pressor support to maintain MAP of 65. Continue IV hydration at 75. - We will monitor renal function closely. There is no immediate need for renal placement therapy; however, if renal function should not improve or patient should develop dialysis criteria i.e. such as pulmonary congestion, volume ove rload or severe electrolyte abnormality, we would initiate renal replacement therapy. - careful replacement of potassium 2. Mixed acid base disorder. The patient has metabolic acidemia and respirato ry acidosis. The patient's ABG was reviewed. The patient is currently on bicarbonate drip, we will continue. Repeat an ABG, monitor closely. 3. Hypokalemia. Etiology is multifactorial secondary to hypothermic protocol. Continue to monitor potassium levels. Continue repletion per protocol. dw. dr. boyce 4. Anemia. Monitor hemoglobin and hematocrit levels. 5. Mineral bone disorder. Monitor calcium and phosphorus levels. 6. Atrial cardiac arrest secondary to [id number] myocardial infarction of the inferior lateral wall. The patient is status post cardiac catheterization with PCI. Continue current medical management. 7. Shock, etiology is cardiogenic. Continue pressor support. Continue Ensure aortic balloon pump. Monitor closely on IV fluids. 8. Ventilator-dependent respiratory failure. Vent settings and ABG were reviewed. Continue to monitor. Follow up with pulmonary. 9. Morbid obesity. Continue dietary modification. 10. Leukocytosis systemic inflammatory response syndrome. We will continue to monitor. Consider empiric antibiotics. 11. Encephalopathy, etiology toxic metabolic, possible anoxic injury. critical care time >40 min JOE TALBERT MD May 28, 2018 10:09
--- NOTE | 2018-05-28 10:37 | CONS ---
Consult Date/Type/Reason Admit Date/Time May 26, 2018 at 15:31 Initial Consult Date 05/26/18 Type of Consult Pulmonary Requesting Provider: ALYSE KLEIN MD Date/Time of Note DATE: 05/28/18 TIME: 10:34 Subjective Continues multiple pressors, IABP vent Currently in rewarming process. Objective Vital Signs Date Temp Pulse Resp B/P (MAP) Pulse Ox O2 O2 Flow FiO2 Time Delivery Rate 05/28/18 92.8 09:49 05/28/18 95 09:07 05/28/18 24 120/52 100 Mechanical 07:15 (74) Ventilator 05/28/18 80 06:45 Intake and Output 05/27/18 05/27/18 05/28/18 1515:00 23:00 07:00 IntakeIntake Total 2657.681 ml 1322.739 ml 1361.394 ml OutputOutput Total 130 ml 386 ml 76 ml BalanceBalance 2527.681 ml 936.739 ml 1285.394 ml Exam PHYSICAL EXAMINATION: GENERAL: Chronically ill appearing gentleman on mechanical ventilation, orally intubated. VITAL SIGNS: NECK: Supple. No JVD or lymphadenopathy. CARDIAC: S1, S2. No added sounds or murmurs. CHEST: Diminished air entry bilaterally. ABDOMEN: Soft, nontender. No guarding or rebound. EXTREMITIES: No cyanosis, clubbing. A 1+ edema. NEUROLOGIC: Unable to assess. Vent Setting Ventilator Support Mode: AC Fraction of Inspired Oxygen pe: 80 Positive End Expiratory Pressu: 5.0 Results/Medications Result Diagram: 05/28/18 0557 05/28/18 0557 Results 24 hrs Laboratory Tests Test 05/27/18 11:10 05/27/18 12:10 05/27/18 13:24 05/27/18 14:00 Bedside Glucose 285 H 169 215 Blood Gas Blood Specimen arterial Source Arterial Blood 05/27/2018 2:10 Date Drawn :08 PM Arterial Blood 7.317 L pH (Temp corrected ) Arterial Blood 38.8 pCO2 (Temp correct) Arterial Blood 69.0 L pO2 (Temp corrected ) Arterial Blood 20.2 L HCO3 Arterial Blood -6.6 L Base Excess Arterial Blood 96.6 Oxygen Saturati on Srinivas Test N/A Arterial Blood A-Line Gas Puncture Site Arterial 0.1 Blood Carboxyhe moglobin Arterial Blood 0.1 Methemoglobin Blood Gas A-a 248.0 H O2 Differential Oxyhemoglobin 96.4 Percent Blood Gas 33.6 Temperature Blood Gas 26.0 Respiration Rate Blood Gas 26 Actual Respiration Rat e Blood Gas VENT - AC Modality FiO2 50.0 Blood Gas Tidal 600.0 Volume Blood Gas Low 5.0 PEEP Setting Blood Gas IMACANTANGAY R Critical Value N Read Back Blood Gas TM Notified Whom Blood Gas 05/27/2018 2:20 Notified Time :36 PM Test 05/27/18 14:08 05/27/18 14:11 05/27/18 14:12 05/27/18 15:26 Bedside Glucose 268 H 173 White Blood 23.1 H Count Red Blood Count 4.52 L Hemoglobin 13.8 L Hematocrit 40.3 L Mean 89.2 Corpuscular Volume Mean 30.5 Corpuscular Hemoglobin Mean 34.2 Corpuscular Hemoglobin Conc ent Red Cell 12.9 Distribution Width Platelet Count 127 #L Mean Platelet 10.7 H Volume Immature 0.800 H Granulocytes % Neutrophils % 84.5 H Lymphocytes % 7.8 L Monocytes % 6.5 Eosinophils % 0.0 Basophils % 0.4 Nucleated Red 0.0 Blood Cells % Immature 0.180 H Granulocytes # Neutrophils # 19.5 H Lymphocytes # 1.8 Monocytes # 1.5 H Eosinophils # 0.0 Basophils # 0.1 Nucleated Red 0.0 Blood Cells # Sodium Level 142 Potassium Level 2.4 *L Chloride Level 112 H Carbon Dioxide 20 L Level Anion Gap 10 Blood Urea 15 Nitrogen Creatinine 1.52 H Est Glomerular 46 L Filtrat Rate mL/min Glucose Level 253 H Lactic Acid 5.9 *H Level Calcium Level 7.9 L Phosphorus 1.8 L Level Magnesium Level 2.0 Troponin I 30.500 *H Amylase Level 238 H Lipase 24 Prothrombin 17.5 H Time Prothrombin 1.4 Time Ratio INR 1.42 International Normalized Rati o Activated 32.5 Partial Thrombo plast Time Fibrinogen 391.0 # Test 05/27/18 16:14 05/27/18 17:06 05/27/18 18:02 05/27/18 18:03 Bedside Glucose 96 216 180 White Blood 20.5 H Count Red Blood Count 4.60 L Hemoglobin 13.8 L Hematocrit 40.0 L Mean 87.0 Corpuscular Volume Mean 30.0 Corpuscular Hemoglobin Mean 34.5 Corpuscular Hemoglobin Conc ent Red Cell 13.0 Distribution Width Platelet Count 114 L Mean Platelet 11.2 H Volume Immature 0.600 H Granulocytes % Neutrophils % 86.3 H Lymphocytes % 8.4 L Monocytes % 4.4 Eosinophils % 0.0 Basophils % 0.3 Nucleated Red 0.0 Blood Cells % Immature 0.130 H Granulocytes # Neutrophils # 17.6 H Lymphocytes # 1.7 Monocytes # 0.9 Eosinophils # 0.0 Basophils # 0.1 Nucleated Red 0.0 Blood Cells # Sodium Level 145 H Potassium Level 2.8 *L Chloride Level 117 H Carbon Dioxide 16 L Level Anion Gap 12 Blood Urea 16 Nitrogen Creatinine 1.57 H Est Glomerular 44 L Filtrat Rate mL/min Glucose Level 236 H Lactic Acid 4.8 *H Level Calcium Level 8.2 L Phosphorus 2.0 L Level Magnesium Level 1.8 Troponin I 30.200 *H Test 05/27/18 19:04 05/27/18 20:00 05/27/18 20:20 05/27/18 20:30 Bedside Glucose 164 191 Potassium Level 2.3 *L Urine Color RED Urine Clarity CLOUDY A Urine pH 6.0 Urine Specific > 1.060 H [place] Urine Ketones TRACE A Urine Nitrite NEGATIVE Urine Bilirubin NEGATIVE Urine NEGATIVE Urobilinogen Urine Leukocyte NEGATIVE Esterase Urine > 182 H Microscopic RBC Urine 2 Microscopic WBC Urine 3+ H Hemoglobin Urine Random 78.18 Creatinine Urine Random 16 L Sodium Urine Glucose 3+ H Urine Total 106.0 H Protein Test 05/27/18 21:22 05/27/18 22:00 05/27/18 22:05 05/27/18 23:12 Bedside Glucose 177 151 138 Blood Gas Blood Specimen arterial Source Arterial Blood 05/27/2018 6:03 Date Drawn :29 PM Arterial Blood 7.391 pH (Temp corrected ) Arterial Blood 26.2 L pCO2 (Temp correct) Arterial Blood 93.5 pO2 (Temp corrected ) Arterial Blood 16.2 L HCO3 Arterial Blood -8.3 L Base Excess Arterial Blood 98.1 H Oxygen Saturati on Srinivas Test N/A Arterial Blood A-Line Gas Puncture Site Arterial 0.3 Blood Carboxyhe moglobin Arterial Blood 0.1 Methemoglobin Blood Gas A-a 311.0 H O2 Differential Oxyhemoglobin 97.7 Percent Blood Gas 33.1 Temperature Blood Gas 30.0 Respiration Rate Blood Gas 30 Actual Respiration Rat e Blood Gas VENT - AC Modality FiO2 60.0 Blood Gas Tidal 600.0 Volume Blood Gas Low 5.0 PEEP Setting Blood Gas LCassi Lewis [facility] Notified Whom Blood Gas 05/27/2018 6:13 Notified Time :31 PM Test 05/28/18 00:00 05/28/18 00:02 05/28/18 00:25 05/28/18 02:00 Blood Gas Blood arterial Specimen Source Arterial Blood 05/28/2018 12:15 Date Drawn :40 AM Arterial Blood 7.417 pH (Temp corrected ) Arterial Blood 28.6 L pCO2 (Temp correct) Arterial Blood 143.3 H pO2 (Temp corrected ) Arterial Blood 18.6 L HCO3 Arterial Blood -5.6 L Base Excess Arterial Blood 98.7 H Oxygen Saturati on Srinvias Test N/A Arterial Blood A-Line Gas Puncture Site Arterial 0 Blood Carboxyhe moglobin Arterial Blood 0.1 Methemoglobin Blood Gas A-a 257.4 H O2 Differential Oxyhemoglobin 98.6 Percent Blood Gas 33.9 Temperature Blood Gas 30.0 Respiration Rate Blood Gas 30 Actual Respiration Rat e Blood Gas VENT - AC Modality FiO2 60.0 Blood Gas Tidal 600.0 Volume Blood Gas Low 5.0 PEEP Setting Blood Gas Notified Whom Blood Gas 05/28/2018 12:26 Notified Time :27 AM Bedside Glucose 126 122 White Blood 20.8 H Count Red Blood Count 4.38 L Hemoglobin 13.3 L Hematocrit 38.0 L Mean 86.8 Corpuscular Volume Mean 30.4 Corpuscular Hemoglobin Mean 35.0 Corpuscular Hemoglobin Conc ent Red Cell 13.0 Distribution Width Platelet Count 119 L Mean Platelet 11.3 H Volume Immature 0.400 Granulocytes % Neutrophils % 84.4 H Lymphocytes % 9.4 L Monocytes % 5.3 Eosinophils % 0.2 Basophils % 0.3 Nucleated Red 0.0 Blood Cells % Immature 0.080 H Granulocytes # Neutrophils # 17.6 H Lymphocytes # 2.0 Monocytes # 1.1 H Eosinophils # 0.1 Basophils # 0.1 Nucleated Red 0.0 Blood Cells # Prothrombin 17.0 H Time Prothrombin 1.3 Time Ratio INR 1.37 International Normalized Rati o Activated 32.6 Partial Thrombo plast Time Fibrinogen 380.0 Sodium Level 139 Potassium Level 2.7 *L Chloride Level 111 H Carbon Dioxide 21 Level Anion Gap 7 Blood Urea 16 Nitrogen Creatinine 1.68 H Est Glomerular 41 L Filtrat Rate mL/min Glucose Level 141 # Lactic Acid 3.4 *H Level Calcium Level 7.8 L Phosphorus 3.1 Level Magnesium Level 1.7 Troponin I 27.200 *H Amylase Level 182 H Lipase 26 Test 05/28/18 03:57 05/28/18 05:57 05/28/18 06:00 05/28/18 06:08 Bedside Glucose 119 129 White Blood 18.5 H Count Red Blood Count 4.19 L Hemoglobin 12.9 L Hematocrit 36.2 L Mean 86.4 Corpuscular Volume Mean 30.8 Corpuscular Hemoglobin Mean 35.6 Corpuscular Hemoglobin Conc ent Red Cell 12.7 Distribution Width Platelet Count 96 L Mean Platelet 11.3 H Volume Immature 0.700 H Granulocytes % Neutrophils % Segmented 70 Neutrophils % (Manual) Band 13 H Neutrophils % (Manual) Lymphocytes % Lymphocytes % 10 L (Manual) Reactive 4 H Lymphocytes % (Manual) Monocytes % Monocytes % 2 (Manual) Eosinophils % Basophils % Basophils % 1 (Manual) Nucleated Red 0.0 Blood Cells % Immature 0.130 H Granulocytes # Neutrophils # Neutrophils # 13.4 H (Manual) Band 2.4 H Neutrophils # Lymphocytes 1.8 (Manual) Lymphocytes # Reactive 0.7 H Lymphocytes # Monocytes # Monocytes # 0.3 (Manual) Eosinophils # Basophils # Basophils # 0.1 H (Manual) Nucleated Red Blood Cells # Platelet INCREASED Estimate Giant Platelets 2 H Poikilocytosis 2+ Anisocytosis 1+ Ovalocytes 1+ Sodium Level 140 Potassium Level 2.6 *L Chloride Level 111 H Carbon Dioxide 20 L Level Anion Gap 9 Blood Urea 17 Nitrogen Creatinine 1.74 H Est Glomerular 39 L Filtrat Rate mL/min Glucose Level 137 Lactic Acid 2.8 *H Level Calcium Level 7.8 L Phosphorus 3.0 Level Magnesium Level 2.9 #H Troponin I 29.300 *H Random 9.5 Vancomycin Level Blood Gas Blood Specimen arterial Source Arterial Blood 05/28/2018 5:55 Date Drawn :31 AM Arterial Blood 7.425 pH (Temp corrected ) Arterial Blood 27.2 L pCO2 (Temp correct) Arterial Blood 67.9 L pO2 (Temp corrected ) Arterial Blood 17.8 L HCO3 Arterial Blood -5.7 L Base Excess Arterial Blood 95.8 Oxygen Saturati on Srinivas Test N/A Arterial Blood A-Line Gas Puncture Site Arterial 0.2 Blood Carboxyhe moglobin Arterial Blood 0.1 Methemoglobin Blood Gas A-a 333.3 H O2 Differential Oxyhemoglobin 95.5 Percent Blood Gas 34.8 Temperature Blood Gas 30.0 Respiration Rate Blood Gas 30 Actual Respiration Rat e Blood Gas VENT - AC Modality FiO2 60.0 Blood Gas Tidal 600.0 Volume Blood Gas Low 5.0 PEEP Setting Blood Gas 36.0 Inspiratory Pressure Blood Gas S.H. Notified Whom Blood Gas 05/28/2018 6:16 Notified Time :33 AM Test 05/28/18 08:06 05/28/18 08:08 05/28/18 10:24 Blood Gas Blood arterial Specimen Source Arterial Blood 05/28/2018 8:20: Date Drawn 11 AM Arterial Blood 7.427 pH (Temp corrected ) Arterial Blood 28.0 L pCO2 (Temp correct) Arterial Blood 73.9 L pO2 (Temp corrected ) Arterial Blood 18.9 L HCO3 Arterial Blood -5.5 L Base Excess Arterial Blood 97.3 Oxygen Saturati on Srinivas Test N/A Arterial Blood A-Line Gas Puncture Site Arterial 0.2 Blood Carboxyhe moglobin Arterial Blood 0.1 Methemoglobin Blood Gas A-a 475.1 H O2 Differential Oxyhemoglobin 97.0 Percent Blood Gas 32.7 Temperature Blood Gas 24.0 Respiration Rate Blood Gas 24 Actual Respiration Rat e Blood Gas VENT - AC Modality FiO2 80.0 Blood Gas Tidal 600.0 Volume Blood Gas Low 5.0 PEEP Setting Blood Gas DT Notified Whom Blood Gas 05/28/2018 8:32: Notified Time 08 AM Bedside Glucose 145 154 Medications Current Medications IV Flush (NS 3 ml) 3 ml PER PROTOCOL IV ; Start 05/26/18 at 15:30 Morphine Sulfate (morphine) 2 mg Q4H PRN IV .SEVERE PAIN 7-10; Start 05/26/18 at 15:30 Atorvastatin Calcium (Lipitor) 80 mg DAILY@21 PO Last administered on 05/27/18at 21:15; Admin Dose 80 MG; Start 05/26/18 at 21:00 Dopamine HCl/ Dextrose 250 ml @ 9.375 mls/ hr TITRATE IV Last administered on 05/28/18at 02:27; Admin Dose 9.375 MLS/HR; Start 05/26/18 at 19:30 Midazolam HCl 50 ml @ 1 mls/hr TITRATE IV Last administered on 05/28/18 08:30; Admin Dose 10 MLS/HR; Start 05/26/18 at 19:30 Vecuronium [place] 100 mg/ Dextrose 100 ml @ 6.25 mls/hr TITRATE IV Last administered on 05/27/18 06:55; Admin Dose 6.25 MLS/HR; Start 05/26/18 at 20:00 Vasopressin 60 unit/Dextrose 60 ml @ 1.2 mls/hr Q12H IV Last administered on 05/27/18 19:42; Admin Dose 2.4 MLS/HR; Start 05/26/18 at 20:30 Fentanyl 100 ml @ 2.5 mls/hr TITRATE IV Last administered on 05/28/18 09:33; Admin Dose 10 MLS/HR; Start 05/26/18 at 21:00 Diagnostic Test (Pha) (Accu-Chek) 1 ea Q1H XX Last administered on 05/28/18 08:05; Admin Dose 1 EA; Start 05/26/18 at 21:00 Insulin Human Regular 100 unit/ Sodium Chloride 100 ml @ 0 mls/hr PER PROTOCOL IV Last administered on 05/28/18 02:53; Admin Dose 5 MLS/HR; Start 05/26/18 at 21:00 Miscellaneous Information (* Miscellaneous Pharmacy Order) Treatment of Hypoglycemia: 1.BG 51... Per protocol XX ; Start 05/26/18 at 20:30 Dextrose (D50w Syringe) 25 ml Q15M PRN IV .DECREASED GLUCOSE; Start 05/26/18 at 20:30 Dextrose (D50w Syringe) 50 ml Q15M PRN IV .DECREASED GLUCOSE; Start 05/26/18 at 20:30 Propofol 100 ml @ 3.75 mls/hr Q12H IV Last administered on 05/28/18 07:59; Admin Dose 37.5 MLS/HR; Start 05/26/18 at 21:00 Phenylephrine HCl 80 mg/Dextrose 250 ml @ 18.75 mls/ hr TITRATE IV Last administered on 05/28/18 09:38; Admin Dose 56.25 MLS/HR; Start 05/26/18 at 22:30 Norepinephrine 32 mg/Dextrose 250 ml @ 0.47 mls/hr TITRATE IV Last administered on 05/27/18 15:55; Admin Dose 14.06 MLS/HR; Start 05/26/18 at 22:30 Vancomycin HCl (Vanco Iv Per Pharmacy) VANCOMYCIN PER PHARMACY PER PROTOCOL XX ; Start 05/27/18 at 00:30 Piperacillin Sod/ Tazobactam Sod 100 ml @ 200 mls/hr Q8 IVPB Last administered on 05/28/18 05:43; Admin Dose 200 MLS/HR; Start 05/27/18 at 00:30 Acetaminophen (Tylenol Supp) 650 mg Q4H PRN MA TEMP > 37C; Start 05/27/18 at 02:30 Acetaminophen (Tylenol Liquid) 650 mg Q4H PRN PO TEMP > 37C; Start 05/27/18 at 02:30 Meperidine HCl (Demerol) 12.5 mg Q4H PRN IV POST OPERATIVE SHIVERING Last administered on 05/27/18 22:49; Admin Dose 12.5 MG; Start 05/27/18 at 02:30 Meperidine HCl (Demerol) 25 mg Q4H PRN IV POST OPERATIVE SHIVERING Last administered on 05/27/18 03:09; Admin Dose 25 MG; Start 05/27/18 at 02:30 Eye Lubricant (Akwa Oint) 1 applic Q6 BOTH EYES Last administered on 05/28/18 05:42; Admin Dose 1 APPLIC; Start 05/27/18 at 06:00 Eye Lubricant (Artificial Tears Oph) 2 drop Q6 BOTH EYES Last administered on 05/28/18 05:42; Admin Dose 2 DROP; Start 05/27/18 at 06:00 Potassium Chloride 50 ml @ 50 mls/hr K PROTOCOL PRN IVPB PENDING LAB VALUE Last administered on 05/27/18 15:25; Admin Dose 50 MLS/HR; Start 05/27/18 at 04:00 Pantoprazole (Protonix Iv) 40 mg DAILY@06 IV Last administered on 05/28/18 05:42; Admin Dose 40 MG; Start 05/27/18 at 06:00 Aspirin (Aspirin) 81 mg DAILY NGT Last administered on 05/28/18 09:51; Admin Dose 81 MG; Start 05/27/18 at 10:00 Ticagrelor (Brilinta) 90 mg BID NGT Last administered on 2/23/19at 09:51; Admin Dose 90 MG; Start 05/27/18 at 21:00 Sodium Chloride 1,000 ml @ 75 mls/hr [id number] IV Last administered on 05/28/18at 03:36; Admin Dose 75 MLS/HR; Start 05/27/18 at 15:30 Lorazepam (Ativan) 2 mg Q2H PRN IV SEIZURES Last administered on 05/28/18at 01:33; Admin Dose 2 MG; Start 05/28/18 at 01:30 Acetaminophen (Tylenol Liquid) 650 mg Q6H PRN NGT MILD PAIN(1-3)OR ELEVATED TEMP; Start 05/28/18 at 03:00 Acetaminophen (Tylenol Supp) 650 mg Q6H MA ; Start 05/28/18 at 03:00 Acetaminophen (Tylenol Liquid) 650 mg Q6H NGT Last administered on 05/28/18at 09:49; Admin Dose 650 MG; Start 05/28/18 at 03:00 Vancomycin HCl 1.5 gm/Sodium Chloride 250 ml @ 83.333 mls/ hr Q24H IVPB ; Start 05/28/18 at 11:00 Assessment/Plan Hospital Course (Demo Recall) IMPRESSION: 1. Cardiopulmonary arrest. 2. Acute myocardial infarction with stent placement to circumflex. 3. Likely severe anoxic brain injury. 4. Acute renal failure. 5. Severe lactic acidosis. 6. Likely significant gastrointestinal bleed given coffee-ground nasogastric output. Plan: Continue vent continue pressors and IABP Abx Renal recs Long discussion with DPOA, will continue current supportive care. No CPR and not for prolonged life support as c/w patient's wishes. cc 40 mins MIGUEL CHOWDHURY MD, [facility] May 28, 2018 10:37
[2018-05-28] MEDS ORDERED: VANCOMYCIN HCL 1.5 GM in SOD CHLORIDE 0.9% 250 ML IVPB SCH (11:00)
[2018-05-28] MEDS: POTASSIUM CHLORIDE 50 ML IVPB SCH ×4 (11:02→15:24)
[2018-05-28] MEDS: DOPamine 1,600 MG in DEXTROSE 5% 210 ML IV SCH (16:19)
[2018-05-28] MEDS: ATORVASTATIN 80 MG TAB PO SCH (21:17)
[2018-05-29] VITALS (105 sets, daily range): BP systolic 83–125; BP diastolic 43–86; PULSE 62–104; RESP 15–28
[2018-05-29] MEDS: PHENYLephrine 80 MG in DEXTROSE 5% 242 ML IV SCH ×5 (00:09→23:39)
[2018-05-29] MEDS: ACCU-CHEK XX SCH ×23 (01:04→23:03)
[2018-05-29] MEDS: DOPamine 1,600 MG in DEXTROSE 5% 210 ML IV SCH (01:48)
[2018-05-29] MEDS ORDERED: EPINEPHrine 4 MG in SOD CHLORIDE 0.9% 246 ML IV SCH (03:30)
[2018-05-29] MEDS: INSULIN HUMAN REGULAR 100 UNIT in SOD CHLORIDE 0.9% 99 ML IV SCH (04:43)
[2018-05-29] MEDS: ARTIFICIAL TEARS 15 ML OPH BOTH EYES SCH ×3 (05:27→17:11)
[2018-05-29] MEDS: OCULAR LUBRICANT 3.5 GM OPH OINT BOTH EYES SCH ×3 (05:27→17:11)
[2018-05-29] MEDS: PIPER-TAZO 3.375 GM IV (PMX) 100 ML IVPB SCH ×3 (05:27→22:16)
[2018-05-29] MEDS: NORepinephrine 32 MG in DEXTROSE 5% 218 ML IV SCH ×2 (05:29→22:36)
[2018-05-29] MEDS: PANTOPRAZOLE IV 80 MG in SOD CHLORIDE 0.9% 100 ML IV SCH ×4 (05:41→22:55)
[2018-05-29] MEDS: SOD CHLORIDE 0.9% 1,000 ML IV SCH ×2 (07:31→20:58)
[2018-05-29] MEDS: ASPIRIN 81 MG TAB NGT SCH (08:11)
[2018-05-29] MEDS: TICAGRELOR 90 MG TABLET NGT SCH ×2 (08:13→21:04)
[2018-05-29] MEDS: VASOPRESSIN 60 UNIT in DEXTROSE 5% 57 ML IV SCH ×3 (08:30→20:30)
--- NOTE | 2018-05-29 08:35 | CONS ---
Consult Date/Type/Reason Admit Date/Time May 26, 2018 at 15:31 Initial Consult Date 05/26/18 Requesting Provider: ALYSE KLEIN MD Date/Time of Note DATE: 05/29/18 TIME: 08:31 Subjective 68-year-old male with unknown past medical history who was brought in by EMS services to [facility] emergency Room after patient had a witnessed respiratory arrest followed shortly after cardiac arrest. The patient was at his board and care facility, not feeling well. The patient initially stated he has uncontrolled breathing and had a cardiac arrest. The patient had chest comp ressions performed in the field. The patient was brought into the Emergency Room. The patient was then seen by call center consultant and underwent cardiac catheterization with PCI. The patient had coded in the cardiac engineering laboratory technician. The patient eventually had spontaneous return of circulation. The patient had intraaortic balloon pump placed and was transferred to intensive care unit based on hypothermic protocol. remains on multiple pressors and iabp. remains oligoanuric. In terms of patient's renal history, on admission, patient had a creatinine of 1.04 mg/dL. The patient's creatinine has increased. There have been no reports of any hemoptysis, hematemesis or hematochezia. has become oliguric. dw dr. yee and nurse josefina boyce Objective Vitals Vital Signs Date Temp Pulse Resp B/P (MAP) Pulse Ox O2 O2 Flow FiO2 Time Delivery Rate 05/29/18 97 24 103/51 100 Mechanical 08:15 (68) Ventilator 05/29/18 80 08:00 05/29/18 98.6 07:00 Intake and Output 05/28/18 05/28/18 05/29/18 1515:00 23:00 07:00 IntakeIntake Total 1953.776 ml 2075.4193 ml 1559.44 ml OutputOutput Total 1 ml 306 ml 15 ml BalanceBalance 1952.776 ml 1769.4193 ml 1544.44 ml Results/Medications Result Diagram: 05/29/18 0448 05/29/18 0448 Results 24 hrs Laboratory Tests Test 05/28/18 10:24 05/28/18 12:00 05/28/18 12:13 05/28/18 12:16 Bedside Glucose 154 141 Blood Gas Blood arterial Specimen Source Arterial Blood 05/28/2018 12:25 Date Drawn :29 PM Arterial Blood 7.348 L pH (Temp corrected ) Arterial Blood 37.2 pCO2 (Temp correct) Arterial Blood 72.7 L pO2 (Temp corrected ) Arterial Blood 20.5 L HCO3 Arterial Blood -5.3 L Base Excess Arterial Blood 96.1 Oxygen Saturati on Srinivas Test N/A Arterial Blood A-Line Gas Puncture Site Arterial 0.3 Blood Carboxyhe moglobin Arterial Blood 0.2 Methemoglobin Blood Gas A-a 463.0 H O2 Differential Oxyhemoglobin 95.6 Percent Blood Gas 34.8 Temperature Blood Gas 24.0 Respiration Rate Blood Gas 24 Actual Respiration Rat e Blood Gas VENT - AC Modality FiO2 80.0 Blood Gas Tidal 600.0 Volume Blood Gas Low 5.0 PEEP Setting Blood Gas AT Notified Whom Blood Gas 05/28/2018 12:49 Notified Time :56 PM White Blood 19.8 H Count Red Blood Count 4.12 L Hemoglobin 12.7 L Hematocrit 35.6 L Mean 86.4 Corpuscular Volume Mean 30.8 Corpuscular Hemoglobin Mean 35.7 Corpuscular Hemoglobin Conc ent Red Cell 13.2 Distribution Width Platelet Count 96 L Mean Platelet 11.7 H Volume Immature 0.700 H Granulocytes % Neutrophils % 79.3 H Lymphocytes % 13.9 L Monocytes % 3.9 Eosinophils % 1.7 Basophils % 0.5 Nucleated Red 0.0 Blood Cells % Immature 0.140 H Granulocytes # Neutrophils # 15.8 H Lymphocytes # 2.8 Monocytes # 0.8 Eosinophils # 0.3 Basophils # 0.1 Nucleated Red 0.0 Blood Cells # Sodium Level 142 Potassium Level 3.1 L Chloride Level 112 H Carbon Dioxide 22 Level Anion Gap 8 Blood Urea 18 Nitrogen Creatinine 1.87 H Est Glomerular 36 L Filtrat Rate mL/min Glucose Level 134 Lactic Acid 2.3 *H Level Calcium Level 7.4 L Phosphorus 4.2 Level Magnesium Level 2.3 Troponin I 33.400 *H Test 05/28/18 13:59 05/28/18 15:53 05/28/18 17:58 05/28/18 17:59 Bedside Glucose 133 137 129 White Blood 20.0 H Count Red Blood Count 4.09 L Hemoglobin 12.5 L Hematocrit 36.2 L Mean 88.5 Corpuscular Volume Mean 30.6 Corpuscular Hemoglobin Mean 34.5 Corpuscular Hemoglobin Conc ent Red Cell 13.5 Distribution Width Platelet Count 99 L Mean Platelet 11.9 H Volume Immature 1.200 H Granulocytes % Neutrophils % 82.3 H Lymphocytes % 9.9 L Monocytes % 3.9 Eosinophils % 2.1 Basophils % 0.6 Nucleated Red 0.1 H Blood Cells % Immature 0.240 H Granulocytes # Neutrophils # 16.5 H Lymphocytes # 2.0 Monocytes # 0.8 Eosinophils # 0.4 Basophils # 0.1 Nucleated Red 0.0 Blood Cells # Prothrombin 16.8 H Time Prothrombin 1.3 Time Ratio INR 1.35 International Normalized Rati o Activated 33.6 Partial Thrombo plast Time Fibrinogen 436.0 # Sodium Level 137 Potassium Level 4.0 Chloride Level 107 Carbon Dioxide 22 Level Anion Gap 8 Blood Urea 18 Nitrogen Creatinine 2.08 H Est Glomerular 32 L Filtrat Rate mL/min Glucose Level 124 Lactic Acid 2.2 *H Level Calcium Level 7.4 L Phosphorus 4.4 Level Magnesium Level 2.2 Troponin I 31.200 *H Amylase Level 172 H Lipase 29 Test 05/28/18 18:00 05/28/18 20:04 05/28/18 21:03 05/28/18 22:09 Blood Gas Blood arterial Specimen Source Arterial Blood 05/28/2018 6:00: Date Drawn 25 PM Arterial Blood 7.331 L pH (Temp corrected ) Arterial Blood 38.7 pCO2 (Temp correct) Arterial Blood 66.7 L pO2 (Temp corrected ) Arterial Blood 20.1 L HCO3 Arterial Blood -5.5 L Base Excess Arterial Blood 93.5 L Oxygen Saturati on Srinivas Test N/A Arterial Blood A-Line Gas Puncture Site Arterial 0.2 Blood Carboxyhe moglobin Arterial Blood 0.3 Methemoglobin Blood Gas A-a 464.1 H O2 Differential Oxyhemoglobin 93.0 Percent Blood Gas 36.5 Temperature Blood Gas 24.0 Respiration Rate Blood Gas 24 Actual Respiration Rat e Blood Gas VENT - AC Modality FiO2 80.0 Blood Gas Tidal 600.0 Volume Blood Gas Low 5.0 PEEP Setting Blood Gas AT Notified Whom Blood Gas 05/28/2018 6:12: Notified Time 26 PM Bedside Glucose 94 103 101 Test 05/28/18 23:01 05/28/18 23:59 05/29/18 01:03 05/29/18 02:00 Bedside Glucose 111 135 165 133 Test 05/29/18 03:01 05/29/18 04:00 05/29/18 04:48 05/29/18 05:00 Bedside Glucose 165 163 White Blood 22.8 H Count Red Blood Count 4.01 L Hemoglobin 12.3 L Hematocrit 35.6 L Mean 88.8 Corpuscular Volume Mean 30.7 Corpuscular Hemoglobin Mean 34.6 Corpuscular Hemoglobin Conc ent Red Cell 13.6 Distribution Width Platelet Count 122 #L Mean Platelet 12.6 H Volume Immature 2.200 H Granulocytes % Neutrophils % Segmented 67 Neutrophils % (Manual) Band 14 H Neutrophils % (Manual) Lymphocytes % Lymphocytes % 11 L (Manual) Reactive 2 H Lymphocytes % (Manual) Monocytes % Monocytes % 5 (Manual) Eosinophils % Eosinophils % 1 (Manual) Basophils % Nucleated Red 0.2 H Blood Cells % Immature 0.490 H Granulocytes # Neutrophils # Neutrophils # 16.0 H (Manual) Band 3.1 H Neutrophils # Lymphocytes 2.5 (Manual) Lymphocytes # Reactive 0.4 H Lymphocytes # Monocytes # Monocytes # 1.1 H (Manual) Eosinophils # Basophils # Nucleated Red Blood Cells # Platelet DECREASED Estimate Giant Platelets 1 H Polychromasia 3+ Poikilocytosis 2+ Anisocytosis 2+ Microcytosis 1+ Sodium Level 138 Potassium Level 5.6 H Chloride Level 109 Carbon Dioxide 18 L Level Anion Gap 11 Blood Urea 22 H Nitrogen Creatinine 2.62 H Est Glomerular 25 L Filtrat Rate mL/min Glucose Level 182 Calcium Level 7.1 L Phosphorus 5.2 H Level Magnesium Level 2.2 Blood Gas Blood Specimen arterial Source Arterial Blood 05/29/2018 4:35 Date Drawn :23 AM Arterial Blood 7.296 *L pH (Temp corrected ) Arterial Blood 38.5 pCO2 (Temp correct) Arterial Blood 68.0 L pO2 (Temp corrected ) Arterial Blood 18.3 L HCO3 Arterial Blood -7.5 L Base Excess Arterial Blood 92.9 L Oxygen Saturati on Srinivas Test N/A Arterial Blood A-Line Gas Puncture Site Arterial 0.3 Blood Carboxyhe moglobin Arterial Blood 0.2 Methemoglobin Blood Gas A-a 389.7 H O2 Differential Oxyhemoglobin 92.4 L Percent Blood Gas 37.0 Temperature Blood Gas 24.0 Respiration Rate Blood Gas 24 Actual Respiration Rat e Blood Gas VENT - AC Modality FiO2 70.0 Blood Gas Tidal 600.0 Volume Blood Gas Low 5.0 PEEP Setting Blood Gas C Critical Value KOUYOUMDJIAN R Read Back N Blood Gas D [facility] Notified Whom Blood Gas 05/29/2018 4:41 Notified Time :07 AM Test 05/29/18 05:06 05/29/18 06:11 05/29/18 06:56 05/29/18 08:02 Bedside Glucose 195 179 160 229 H Medications Current Medications IV Flush (NS 3 ml) 3 ml PER PROTOCOL IV ; Start 05/26/18 at 15:30 Morphine Sulfate (morphine) 2 mg Q4H PRN IV .SEVERE PAIN 7-10; Start 05/26/18 at 15:30 Atorvastatin Calcium (Lipitor) 80 mg DAILY@21 PO Last administered on 05/28/18 21:17; Admin Dose 80 MG; Start 05/26/18 at 21:00 Midazolam HCl 50 ml @ 1 mls/hr TITRATE IV Last administered on 05/28/18 19:02; Admin Dose 10 MLS/HR; Start 05/26/18 at 19:30 Vecuronium [place] 100 mg/ Dextrose 100 ml @ 6.25 mls/hr TITRATE IV Last administered on 05/27/18 06:55; Admin Dose 6.25 MLS/HR; Start 05/26/18 at 20:00 Vasopressin 60 unit/Dextrose 60 ml @ 1.2 mls/hr Q12H IV Last administered on 05/28/18at 18:33; Admin Dose 2.4 MLS/HR; Start 05/26/18 at 20:30 Fentanyl 100 ml @ 2.5 mls/hr TITRATE IV Last administered on 05/28/18 19:55; Admin Dose 10 MLS/HR; Start 05/26/18 at 21:00 Diagnostic Test (Pha) (Accu-Chek) 1 ea Q1H XX Last administered on 05/29/18 08:15; Admin Dose 1 EA; Start 05/26/18 at 21:00 Insulin Human Regular 100 unit/ Sodium Chloride 100 ml @ 0 mls/hr PER PROTOCOL IV Last administered on 05/29/18 04:43; Admin Dose 4 MLS/HR; Start 05/26/18 at 21:00 Miscellaneous Information (* Miscellaneous Pharmacy Order) Treatment of Hypoglycemia: 1.BG 51... Per protocol XX ; Start 05/26/18 at 20:30 Dextrose (D50w Syringe) 25 ml Q15M PRN IV .DECREASED GLUCOSE; Start 05/26/18 at 20:30 Dextrose (D50w Syringe) 50 ml Q15M PRN IV .DECREASED GLUCOSE; Start 05/26/18 at 20:30 Propofol 100 ml @ 3.75 mls/hr Q12H IV Last administered on 05/28/18at 23:47; Admin Dose 22.5 MLS/HR; Start 05/26/18 at 21:00 Phenylephrine HCl 80 mg/Dextrose 250 ml @ 18.75 mls/ hr TITRATE IV Last administered on 05/29/18at 04:17; Admin Dose 56.25 MLS/HR; Start 05/26/18 at 22:30 Norepinephrine 32 mg/Dextrose 250 ml @ 0.47 mls/hr TITRATE IV Last administered on 05/29/18at 05:29; Admin Dose 14.06 MLS/HR; Start 05/26/18 at 22:30 Vancomycin HCl (Vanco Iv Per Pharmacy) VANCOMYCIN PER PHARMACY PER PROTOCOL XX ; Start 05/27/18 at 00:30 Piperacillin Sod/ Tazobactam Sod 100 ml @ 200 mls/hr Q8 IVPB Last administered on 05/29/18at 05:27; Admin Dose 200 MLS/HR; Start 05/27/18 at 00:30 Acetaminophen (Tylenol Supp) 650 mg Q4H PRN [place] TEMP > 37C; Start 05/27/18 at 02:30 Acetaminophen (Tylenol Liquid) 650 mg Q4H PRN PO TEMP > 37C; Start 05/27/18 at 02:30 Meperidine HCl (Demerol) 12.5 mg Q4H PRN IV POST OPERATIVE SHIVERING Last administered on 05/27/18at 22:49; Admin Dose 12.5 MG; Start 05/27/18 at 02:30 Meperidine HCl (Demerol) 25 mg Q4H PRN IV POST OPERATIVE SHIVERING Last administered on 05/27/18at 03:09; Admin Dose 25 MG; Start 05/27/18 at 02:30 Eye Lubricant (Akwa Oint) 1 applic Q6 BOTH EYES Last administered on 05/29/18at 05:27; Admin Dose 1 APPLIC; Start 05/27/18 at 06:00 Eye Lubricant (Artificial Tears Oph) 2 drop Q6 BOTH EYES Last administered on 05/29/18 05:27; Admin Dose 2 DROP; Start 05/27/18 at 06:00 Potassium Chloride 50 ml @ 50 mls/hr K PROTOCOL PRN IVPB PENDING LAB VALUE Last administered on 05/27/18 15:25; Admin Dose 50 MLS/HR; Start 05/27/18 at 04:00 Aspirin (Aspirin) 81 mg DAILY NGT Last administered on 05/29/18 08:11; Admin Dose 81 MG; Start 05/27/18 at 10:00 Ticagrelor (Brilinta) 90 mg BID NGT Last administered on 05/29/18 08:13; Admin Dose 90 MG; Start 05/27/18 at 21:00 Sodium Chloride 1,000 ml @ 75 mls/hr [id number] IV Last administered on 05/29/18 07:31; Admin Dose 75 MLS/HR; Start 05/27/18 at 15:30 Lorazepam (Ativan) 2 mg Q2H PRN IV SEIZURES Last administered on 05/28/18 01:33; Admin Dose 2 MG; Start 05/28/18 at 01:30 Acetaminophen (Tylenol Liquid) 650 mg Q6H PRN NGT MILD PAIN(1-3)OR ELEVATED TEMP; Start 05/28/18 at 03:00 Vancomycin HCl 1.5 gm/Sodium Chloride 250 ml @ 83.333 mls/ hr Q24H IVPB Last administered on 05/28/18 11:29; Admin Dose 83.333 MLS/HR; Start 05/28/18 at 11:00; Status Hold Epinephrine 4 mg/ Sodium Chloride 250 ml @ 3.75 mls/hr TITRATE IV Last administered on 05/29/18 03:52; Admin Dose 3.75 MLS/HR; Start 05/29/18 at 03:30 Pantoprazole 80 mg/Sodium Chloride 100 ml @ 10 mls/hr Q10H IV Last administered on 05/29/18 05:41; Admin Dose 10 MLS/HR; Start 05/29/18 at 05:00 Dopamine HCl 800 mg/Dextrose 250 ml @ 4.69 mls/hr TITRATE IV ; Start 05/29/18 at 07:00 Assessment/Plan Hospital Course (Demo Recall) 1. Oligoanuric acute kidney injury with previously unknown baseline creatinine. Etiology of acute kidney injury is likely secondary to acute tubular necrosis due to ischemic hypoperfusion and shock. -We will continue current medical management. Continue pressor support to maintain MAP of 65. Continue IV hydration at 75. - We will monitor renal function closely. There is no immediate need for renal placement therapy; however, if renal function should not improve or patient sh ould develop dialysis criteria i.e. such as pulmonary congestion, volume overload or severe electrolyte abnormality, we would initiate renal replacement therapy. - complicated by hyperkalemia. repeat labs. - will dw dr. cope re placing hd catheter. 2. Mixed acid base disorder. The patient has metabolic acidemia and respiratory acidosis. The patient's ABG was reviewed. The patient is currently on bicarbonate drip, we will continue. Repeat an ABG, monitor closely. 3. Hypokalemia. Etiology is multifactorial secondary to hypothermic protocol. Continue to monitor potassium levels. Continue repletion per protocol. dw. dr. boyce 4. Anemia. Monitor hemoglobin and hematocrit levels. 5. Mineral bone disorder. Monitor calcium and phosphorus levels. 6. Atrial cardiac arrest secondary to [id number] myocardial infarction of the inferior lateral wall. The patient is status post cardiac catheterization with PCI. Continue current medical management. 7. Shock, etiology is cardiogenic. Continue pressor support. Continue Ensure aortic balloon pump. Monitor closely on IV fluids. 8. Ventilator-dependent respiratory failure. Vent settings and ABG were reviewed. Continue to monitor. Follow up with pulmonary. 9. Morbid obesity. Continue dietary modification. 10. Leukocytosis systemic inflammatory response syndrome. We will continue to monitor. Consider empiric antibiotics. 11. Encephalopathy, etiology toxic metabolic, possible anoxic injury. critical care time >40 min JOE TALBERT MD May 29, 2018 08:35
--- NOTE | 2018-05-29 10:48 | CONS ---
Consult Date/Type/Reason Admit Date/Time May 26, 2018 at 15:31 Initial Consult Date 05/26/18 Type of Consult Pulmonary Requesting Provider: ALYSE KLEIN MD Date/Time of Note DATE: 05/29/18 TIME: 10:44 Subjective No significant changes. Continues multiple vasopressors and intra-aortic balloon pump. Decreased coffee-ground output from nasogastric tube. Objective Vital Signs Date Temp Pulse Resp B/P (MAP) Pulse Ox O2 O2 Flow FiO2 Time Delivery Rate 05/29/18 97 21 111/60 100 Mechanical 10:15 (77) Ventilator 05/29/18 80 08:00 05/29/18 98.6 07:00 Intake and Output 05/28/18 05/28/18 05/29/18 1515:00 23:00 07:00 IntakeIntake Total 1953.776 ml 2075.4193 ml 1559.44 ml OutputOutput Total 1 ml 306 ml 15 ml BalanceBalance 1952.776 ml 1769.4193 ml 1544.44 ml Exam PHYSICAL EXAMINATION: GENERAL: Chronically ill appearing gentleman on mechanical ventilation, orally intubated. VITAL SIGNS: NECK: Supple. No JVD or lymphadenopathy. CARDIAC: S1, S2. No added sounds or murmurs. CHEST: Diminished air entry bilaterally. ABDOMEN: Soft, nontender. No guarding or rebound. EXTREMITIES: No cyanosis, clubbing. A 1+ edema. NEUROLOGIC: Unable to assess. Vent Setting Ventilator Support Mode: AC Fraction of Inspired Oxygen pe: 80 Positive End Expiratory Pressu: 5.0 Results/Medications Result Diagram: 05/29/18 0448 05/29/18 0448 Results 24 hrs Laboratory Tests Test 05/28/18 12:00 05/28/18 12:13 05/28/18 12:16 05/28/18 13:59 Blood Gas Blood arterial Specimen Source Arterial Blood 05/28/2018 12:25 Date Drawn :29 PM Arterial Blood 7.348 L pH (Temp corrected ) Arterial Blood 37.2 pCO2 (Temp correct) Arterial Blood 72.7 L pO2 (Temp corrected ) Arterial Blood 20.5 L HCO3 Arterial Blood -5.3 L Base Excess Arterial Blood 96.1 Oxygen Saturati on Srinivas Test N/A Arterial Blood A-Line Gas Puncture Site Arterial 0.3 Blood Carboxyhe moglobin Arterial Blood 0.2 Methemoglobin Blood Gas A-a 463.0 H O2 Differential Oxyhemoglobin 95.6 Percent Blood Gas 34.8 Temperature Blood Gas 24.0 Respiration Rate Blood Gas 24 Actual Respiration Rat e Blood Gas VENT - AC Modality FiO2 80.0 Blood Gas Tidal 600.0 Volume Blood Gas Low 5.0 PEEP Setting Blood Gas AT Notified Whom Blood Gas 05/28/2018 12:49 Notified Time :56 PM White Blood 19.8 H Count Red Blood Count 4.12 L Hemoglobin 12.7 L Hematocrit 35.6 L Mean 86.4 Corpuscular Volume Mean 30.8 Corpuscular Hemoglobin Mean 35.7 Corpuscular Hemoglobin Conc ent Red Cell 13.2 Distribution Width Platelet Count 96 L Mean Platelet 11.7 H Volume Immature 0.700 H Granulocytes % Neutrophils % 79.3 H Lymphocytes % 13.9 L Monocytes % 3.9 Eosinophils % 1.7 Basophils % 0.5 Nucleated Red 0.0 Blood Cells % Immature 0.140 H Granulocytes # Neutrophils # 15.8 H Lymphocytes # 2.8 Monocytes # 0.8 Eosinophils # 0.3 Basophils # 0.1 Nucleated Red 0.0 Blood Cells # Sodium Level 142 Potassium Level 3.1 L Chloride Level 112 H Carbon Dioxide 22 Level Anion Gap 8 Blood Urea 18 Nitrogen Creatinine 1.87 H Est Glomerular 36 L Filtrat Rate mL/min Glucose Level 134 Lactic Acid 2.3 *H Level Calcium Level 7.4 L Phosphorus 4.2 Level Magnesium Level 2.3 Troponin I 33.400 *H Bedside Glucose 141 133 Test 05/28/18 15:53 05/28/18 17:58 05/28/18 17:59 05/28/18 18:00 Bedside Glucose 137 129 White Blood 20.0 H Count Red Blood Count 4.09 L Hemoglobin 12.5 L Hematocrit 36.2 L Mean 88.5 Corpuscular Volume Mean 30.6 Corpuscular Hemoglobin Mean 34.5 Corpuscular Hemoglobin Conc ent Red Cell 13.5 Distribution Width Platelet Count 99 L Mean Platelet 11.9 H Volume Immature 1.200 H Granulocytes % Neutrophils % 82.3 H Lymphocytes % 9.9 L Monocytes % 3.9 Eosinophils % 2.1 Basophils % 0.6 Nucleated Red 0.1 H Blood Cells % Immature 0.240 H Granulocytes # Neutrophils # 16.5 H Lymphocytes # 2.0 Monocytes # 0.8 Eosinophils # 0.4 Basophils # 0.1 Nucleated Red 0.0 Blood Cells # Prothrombin 16.8 H Time Prothrombin 1.3 Time Ratio INR 1.35 International Normalized Rati o Activated 33.6 Partial Thrombo plast Time Fibrinogen 436.0 # Sodium Level 137 Potassium Level 4.0 Chloride Level 107 Carbon Dioxide 22 Level Anion Gap 8 Blood Urea 18 Nitrogen Creatinine 2.08 H Est Glomerular 32 L Filtrat Rate mL/min Glucose Level 124 Lactic Acid 2.2 *H Level Calcium Level 7.4 L Phosphorus 4.4 Level Magnesium Level 2.2 Troponin I 31.200 *H Amylase Level 172 H Lipase 29 Blood Gas Blood Specimen arterial Source Arterial Blood 05/28/2018 6:00 Date Drawn :25 PM Arterial Blood 7.331 L pH (Temp corrected ) Arterial Blood 38.7 pCO2 (Temp correct) Arterial Blood 66.7 L pO2 (Temp corrected ) Arterial Blood 20.1 L HCO3 Arterial Blood -5.5 L Base Excess Arterial Blood 93.5 L Oxygen Saturati on Srinivas Test N/A Arterial Blood A-Line Gas Puncture Site Arterial 0.2 Blood Carboxyhe moglobin Arterial Blood 0.3 Methemoglobin Blood Gas A-a 464.1 H O2 Differential Oxyhemoglobin 93.0 Percent Blood Gas 36.5 Temperature Blood Gas 24.0 Respiration Rate Blood Gas 24 Actual Respiration Rat e Blood Gas VENT - AC Modality FiO2 80.0 Blood Gas Tidal 600.0 Volume Blood Gas Low 5.0 PEEP Setting Blood Gas AT Notified Whom Blood Gas 05/28/2018 6:12 Notified Time :26 PM Test 05/28/18 20:04 05/28/18 21:03 05/28/18 22:09 05/28/18 23:01 Bedside Glucose 94 103 101 111 Test 05/28/18 23:59 05/29/18 01:03 05/29/18 02:00 05/29/18 03:01 Bedside Glucose 135 165 133 165 Test 05/29/18 04:00 05/29/18 04:48 05/29/18 05:00 05/29/18 05:06 Bedside Glucose 163 195 White Blood 22.8 H Count Red Blood Count 4.01 L Hemoglobin 12.3 L Hematocrit 35.6 L Mean 88.8 Corpuscular Volume Mean 30.7 Corpuscular Hemoglobin Mean 34.6 Corpuscular Hemoglobin Conc ent Red Cell 13.6 Distribution Width Platelet Count 122 #L Mean Platelet 12.6 H Volume Immature 2.200 H Granulocytes % Neutrophils % Segmented 67 Neutrophils % (Manual) Band 14 H Neutrophils % (Manual) Lymphocytes % Lymphocytes % 11 L (Manual) Reactive 2 H Lymphocytes % (Manual) Monocytes % Monocytes % 5 (Manual) Eosinophils % Eosinophils % 1 (Manual) Basophils % Nucleated Red 0.2 H Blood Cells % Immature 0.490 H Granulocytes # Neutrophils # Neutrophils # 16.0 H (Manual) Band 3.1 H Neutrophils # Lymphocytes 2.5 (Manual) Lymphocytes # Reactive 0.4 H Lymphocytes # Monocytes # Monocytes # 1.1 H (Manual) Eosinophils # Basophils # Nucleated Red Blood Cells # Platelet DECREASED Estimate Giant Platelets 1 H Polychromasia 3+ Poikilocytosis 2+ Anisocytosis 2+ Microcytosis 1+ Sodium Level 138 Potassium Level 5.6 H Chloride Level 109 Carbon Dioxide 18 L Level Anion Gap 11 Blood Urea 22 H Nitrogen Creatinine 2.62 H Est Glomerular 25 L Filtrat Rate mL/min Glucose Level 182 Calcium Level 7.1 L Phosphorus 5.2 H Level Magnesium Level 2.2 Blood Gas Blood arterial Specimen Source Arterial Blood 05/29/2018 4:35: Date Drawn 23 AM Arterial Blood 7.296 *L pH (Temp corrected ) Arterial Blood 38.5 pCO2 (Temp correct) Arterial Blood 68.0 L pO2 (Temp corrected ) Arterial Blood 18.3 L HCO3 Arterial Blood -7.5 L Base Excess Arterial Blood 92.9 L Oxygen Saturati on Srinivas Test N/A Arterial Blood A-Line Gas Puncture Site Arterial 0.3 Blood Carboxyhe moglobin Arterial Blood 0.2 Methemoglobin Blood Gas A-a 389.7 H O2 Differential Oxyhemoglobin 92.4 L Percent Blood Gas 37.0 Temperature Blood Gas 24.0 Respiration Rate Blood Gas 24 Actual Respiration Rat e Blood Gas VENT - AC Modality FiO2 70.0 Blood Gas Tidal 600.0 Volume Blood Gas Low 5.0 PEEP Setting Blood Gas C Critical Value NEY CESAR Read Back Blood Gas Alana RODRIGUEZ RCP Notified Whom Blood Gas 05/29/2018 4:41: Notified Time 07 AM Test 05/29/18 06:11 05/29/18 06:56 05/29/18 08:02 05/29/18 08:51 Bedside Glucose 179 160 229 H 156 Test 05/29/18 10:03 Bedside Glucose 138 Medications Current Medications IV Flush (NS 3 ml) 3 ml PER PROTOCOL IV ; Start 05/26/18 at 15:30 Morphine Sulfate (morphine) 2 mg Q4H PRN IV .SEVERE PAIN 7-10; Start 05/26/18 at 15:30 Atorvastatin Calcium (Lipitor) 80 mg DAILY@21 PO Last administered on 05/28/18 21:17; Admin Dose 80 MG; Start 05/26/18 at 21:00 Midazolam HCl 50 ml @ 1 mls/hr TITRATE IV Last administered on 05/28/18 19:02; Admin Dose 10 MLS/HR; Start 05/26/18 at 19:30 Vecuronium [facility] 100 mg/ Dextrose 100 ml @ 6.25 mls/hr TITRATE IV Last administered on 05/27/18 06:55; Admin Dose 6.25 MLS/HR; Start 05/26/18 at 20:00 Vasopressin 60 unit/Dextrose 60 ml @ 1.2 mls/hr Q12H IV Last administered on 05/28/18 18:33; Admin Dose 2.4 MLS/HR; Start 05/26/18 at 20:30 Fentanyl 100 ml @ 2.5 mls/hr TITRATE IV Last administered on 05/28/18 19:55; Admin Dose 10 MLS/HR; Start 05/26/18 at 21:00 Diagnostic Test (Pha) (Accu-Chek) 1 ea Q1H XX Last administered on 05/29/18 10:04; Admin Dose 1 EA; Start 05/26/18 at 21:00 Insulin Human Regular 100 unit/ Sodium Chloride 100 ml @ 0 mls/hr PER PROTOCOL IV Last administered on 05/29/18 04:43; Admin Dose 4 MLS/HR; Start 05/26/18 at 21:00 Miscellaneous Information (* Miscellaneous Pharmacy Order) Treatment of Hypoglycemia: 1.BG 51... Per protocol XX ; Start 05/26/18 at 20:30 Dextrose (D50w Syringe) 25 ml Q15M PRN IV .DECREASED GLUCOSE; Start 05/26/18 at 20:30 Dextrose (D50w Syringe) 50 ml Q15M PRN IV .DECREASED GLUCOSE; Start 05/26/18 at 20:30 Propofol 100 ml @ 3.75 mls/hr Q12H IV Last administered on 05/28/18 23:47; Admin Dose 22.5 MLS/HR; Start 05/26/18 at 21:00 Phenylephrine HCl 80 mg/Dextrose 250 ml @ 18.75 mls/ hr TITRATE IV Last administered on 05/29/18 10:21; Admin Dose 31.88 MLS/HR; Start 05/26/18 at 22:30 Norepinephrine 32 mg/Dextrose 250 ml @ 0.47 mls/hr TITRATE IV Last administered on 05/29/18 05:29; Admin Dose 14.06 MLS/HR; Start 05/26/18 at 22:30 Vancomycin HCl (Vanco Iv Per Pharmacy) VANCOMYCIN PER PHARMACY PER PROTOCOL XX ; Start 05/27/18 at 00:30 Piperacillin Sod/ Tazobactam Sod 100 ml @ 200 mls/hr Q8 IVPB Last administered on 05/29/18 05:27; Admin Dose 200 MLS/HR; Start 05/27/18 at 00:30 Acetaminophen (Tylenol Supp) 650 mg Q4H PRN DC TEMP > 37C; Start 05/27/18 at 02:30 Acetaminophen (Tylenol Liquid) 650 mg Q4H PRN PO TEMP > 37C; Start 05/27/18 at 02:30 Meperidine HCl (Demerol) 12.5 mg Q4H PRN IV POST OPERATIVE SHIVERING Last administered on 05/27/18 22:49; Admin Dose 12.5 MG; Start 05/27/18 at 02:30 Meperidine HCl (Demerol) 25 mg Q4H PRN IV POST OPERATIVE SHIVERING Last administered on 05/27/18at 03:09; Admin Dose 25 MG; Start 05/27/18 at 02:30 Eye Lubricant (Akwa Oint) 1 applic Q6 BOTH EYES Last administered on 05/29/18 05:27; Admin Dose 1 APPLIC; Start 05/27/18 at 06:00 Eye Lubricant (Artificial Tears Oph) 2 drop Q6 BOTH EYES Last administered on 05/29/18 05:27; Admin Dose 2 DROP; Start 05/27/18 at 06:00 Potassium Chloride 50 ml @ 50 mls/hr K PROTOCOL PRN IVPB PENDING LAB VALUE Last administered on 05/27/18 15:25; Admin Dose 50 MLS/HR; Start 05/27/18 at 04:00 Aspirin (Aspirin) 81 mg DAILY NGT Last administered on 05/29/18 08:11; Admin Dose 81 MG; Start 05/27/18 at 10:00 Ticagrelor (Brilinta) 90 mg BID NGT Last administered on 05/29/18 08:13; Admin Dose 90 MG; Start 05/27/18 at 21:00 Sodium Chloride 1,000 ml @ 75 mls/hr [id number] IV Last administered on 05/29/18 07:31; Admin Dose 75 MLS/HR; Start 05/27/18 at 15:30 Lorazepam (Ativan) 2 mg Q2H PRN IV SEIZURES Last administered on 05/28/18 01:33; Admin Dose 2 MG; Start 05/28/18 at 01:30 Acetaminophen (Tylenol Liquid) 650 mg Q6H PRN NGT MILD PAIN(1-3)OR ELEVATED TEMP; Start 05/28/18 at 03:00 Vancomycin HCl 1.5 gm/Sodium Chloride 250 ml @ 83.333 mls/ hr Q24H IVPB Last administered on 05/28/18 11:29; Admin Dose 83.333 MLS/HR; Start 05/28/18 at 11:00; Status Hold Epinephrine 4 mg/ Sodium Chloride 250 ml @ 3.75 mls/hr TITRATE IV Last administered on 05/29/18 03:52; Admin Dose 3.75 MLS/HR; Start 05/29/18 at 03:30 Pantoprazole 80 mg/Sodium Chloride 100 ml @ 10 mls/hr Q10H IV Last administered on 05/29/18 05:41; Admin Dose 10 MLS/HR; Start 05/29/18 at 05:00 Dopamine HCl 800 mg/Dextrose 250 ml @ 4.69 mls/hr TITRATE IV ; Start 05/29/18 at 07:00 Assessment/Plan Hospital Course (Demo Recall) IMPRESSION: 1. Cardiopulmonary arrest. 2. Acute myocardial infarction with stent placement to circumflex. 3. Likely severe anoxic brain injury. 4. Acute renal failure. 5. Severe lactic acidosis. 6. Likely significant gastrointestinal bleed given coffee-ground nasogastric output. Plan: Continue vent continue pressors and IABP Abx Renal recs Prognosis extremely poor D POA do not want prolonged life support if patient is not going to recover his functional status. Critical care time 40 minutes. MIGUEL CHOWDHURY MD, [id number] May 29, 2018 10:48
[2018-05-29] MEDS: DOPamine 800 MG in DEXTROSE 5% 230 ML IV SCH ×3 (11:38→22:58)
--- NOTE | 2018-05-29 12:06 | CONS ---
Assessment/Plan Assessment/Plan Hospital Course (Demo Recall) ST elevation myocardial infarction status post PCI to circumflex Cardiogenic shock Vent dependent respiratory failure Acute kidney injury Encephalopathy -Patient currently on four IV pressors, titrate to maintain SBP greater than 90 and/or map above 60 -Vent management as per our pulmonary colleagues -Continue intra-aortic balloon pump at the current time given patient requires multiple IV pressors in the setting of myocardial infarction and shock -Continue dual antiplatelet therapy -Continue statin therapy -No beta-ambar given hypotension -No KIERAN inhibitor given acute kidney injury and hypotension -Dr. Gamboa to resume care 05/30/2018 -Greater than 33 minutes of critical care time taken in the care of this patient. Consultation Date/Type/Reason Admit Date/Time May 26, 2018 at 15:31 Initial Consult Date 05/26/18 Type of Consult Cardiology Requesting Provider: ALYSE KLEIN MD Date/Time of Note DATE: 05/29/18 TIME: 12:01 24 HR Interval Summary Free Text/Dictation Patient remains intubated. Off sedation and no purposeful movements. Discussion with nursing staff, was on 5 IV pressors, down to for IV pressors. Possible jerking-like movements observed by nurse Exam/Review of Systems Vital Signs Vitals Vital Signs Date Temp Pulse Resp B/P (MAP) Pulse Ox O2 O2 Flow FiO2 Time Delivery Rate 05/29/18 97 24 102/53 100 Mechanical 10:30 (69) Ventilator 05/29/18 80 09:10 05/29/18 98.6 07:00 Intake and Output 05/28/18 05/28/18 05/29/18 1515:00 23:00 07:00 IntakeIntake Total 1953.776 ml 2075.4193 ml 1559.44 ml OutputOutput Total 1 ml 306 ml 15 ml BalanceBalance 1952.776 ml 1769.4193 ml 1544.44 ml Exam Exam No response to verbal stimuli, movement with noxious stimuli but does not appear purposeful, intubated Head: normocephalic ENMT: intubated Respiratory: other (Coarse breath sounds bilaterally, no wheezing, mild scattered crackles) Cardiovascular: regular rate and rhythm (S1-S2 heard) Gastrointestinal: soft, bowel sounds (Decreased), other (No grimacing with palpation) Genitourinary - Male: other (Harrison present) Extremities: other (No significant edema) Neurological: other (No response to verbal stimuli, does move with noxious stimuli) Additional Comments Right groin sheath present, no bleeding seen around sheath site Labs Result Diagram: 05/29/188 05/29/18 0448 Results 24hrs Laboratory Tests Test 05/28/18 12:13 05/28/18 12:16 05/28/18 13:59 05/28/18 15:53 White Blood 19.8 H Count Red Blood Count 4.12 L Hemoglobin 12.7 L Hematocrit 35.6 L Mean Corpuscular 86.4 Volume Mean Corpuscular 30.8 Hemoglobin Mean Corpuscular 35.7 Hemoglobin Meli nt Red Cell 13.2 Distribution Width Platelet Count 96 L Mean Platelet 11.7 H Volume Immature 0.700 H Granulocytes % Neutrophils % 79.3 H Lymphocytes % 13.9 L Monocytes % 3.9 Eosinophils % 1.7 Basophils % 0.5 Nucleated Red 0.0 Blood Cells % Immature 0.140 H Granulocytes # Neutrophils # 15.8 H Lymphocytes # 2.8 Monocytes # 0.8 Eosinophils # 0.3 Basophils # 0.1 Nucleated Red 0.0 Blood Cells # Sodium Level 142 Potassium Level 3.1 L Chloride Level 112 H Carbon Dioxide 22 Level Anion Gap 8 Blood Urea 18 Nitrogen Creatinine 1.87 H Est Glomerular 36 L Filtrat Rate mL/min Glucose Level 134 Lactic Acid 2.3 *H Level Calcium Level 7.4 L Phosphorus Level 4.2 Magnesium Level 2.3 Troponin I 33.400 *H Bedside Glucose 141 133 137 Test 05/28/18 17:58 05/28/18 17:59 05/28/18 18:00 05/28/18 20:04 Bedside Glucose 129 94 White Blood 20.0 H Count Red Blood Count 4.09 L Hemoglobin 12.5 L Hematocrit 36.2 L Mean Corpuscular 88.5 Volume Mean Corpuscular 30.6 Hemoglobin Mean Corpuscular 34.5 Hemoglobin Meli nt Red Cell 13.5 Distribution Width Platelet Count 99 L Mean Platelet 11.9 H Volume Immature 1.200 H Granulocytes % Neutrophils % 82.3 H Lymphocytes % 9.9 L Monocytes % 3.9 Eosinophils % 2.1 Basophils % 0.6 Nucleated Red 0.1 H Blood Cells % Immature 0.240 H Granulocytes # Neutrophils # 16.5 H Lymphocytes # 2.0 Monocytes # 0.8 Eosinophils # 0.4 Basophils # 0.1 Nucleated Red 0.0 Blood Cells # Prothrombin Time 16.8 H Prothrombin Time 1.3 Ratio INR 1.35 International Normalized Ratio Activated 33.6 Partial Thrombop last Time Fibrinogen 436.0 # Sodium Level 137 Potassium Level 4.0 Chloride Level 107 Carbon Dioxide 22 Level Anion Gap 8 Blood Urea 18 Nitrogen Creatinine 2.08 H Est Glomerular 32 L Filtrat Rate mL/min Glucose Level 124 Lactic Acid 2.2 *H Level Calcium Level 7.4 L Phosphorus Level 4.4 Magnesium Level 2.2 Troponin I 31.200 *H Amylase Level 172 H Lipase 29 Blood Gas Blood arterial Specimen Source Arterial Blood 05/28/2018 6:00: Date Drawn 25 PM Arterial Blood 7.331 L pH (Temp corrected) Arterial Blood 38.7 pCO2 (Temp correct) Arterial Blood 66.7 L pO2 (Temp corrected) Arterial Blood 20.1 L HCO3 Arterial Blood -5.5 L Base Excess Arterial Blood 93.5 L Oxygen Saturatio n Srinivas Test N/A Arterial Blood A-Line Gas Puncture Site Arterial 0.2 Blood Carboxyhem oglobin Arterial Blood 0.3 Methemoglobin Blood Gas A-a O2 464.1 H Differential Oxyhemoglobin 93.0 Percent Blood Gas 36.5 Temperature Blood Gas 24.0 Respiration Rate Blood Gas Actual 24 Respiration Rate Blood Gas VENT - AC Modality FiO2 80.0 Blood Gas Tidal 600.0 Volume Blood Gas Low 5.0 PEEP Setting Blood Gas AT Notified Whom Blood Gas 05/28/2018 6:12: Notified Time 26 PM Test 05/28/18 21:03 05/28/18 22:09 05/28/18 23:01 05/28/18 23:59 Bedside Glucose 103 101 111 135 Test 05/29/18 01:03 05/29/18 02:00 05/29/18 03:01 05/29/18 04:00 Bedside Glucose 165 133 165 163 Test 05/29/18 04:48 05/29/18 05:00 05/29/18 05:06 05/29/18 06:11 White Blood 22.8 H Count Red Blood Count 4.01 L Hemoglobin 12.3 L Hematocrit 35.6 L Mean Corpuscular 88.8 Volume Mean Corpuscular 30.7 Hemoglobin Mean Corpuscular 34.6 Hemoglobin Meli nt Red Cell 13.6 Distribution Width Platelet Count 122 #L Mean Platelet 12.6 H Volume Immature 2.200 H Granulocytes % Neutrophils % Segmented 67 Neutrophils % (Manual) Band Neutrophils 14 H % (Manual) Lymphocytes % Lymphocytes % 11 L (Manual) Reactive 2 H Lymphocytes % (Manual) Monocytes % Monocytes % 5 (Manual) Eosinophils % Eosinophils % 1 (Manual) Basophils % Nucleated Red 0.2 H Blood Cells % Immature 0.490 H Granulocytes # Neutrophils # Neutrophils # 16.0 H (Manual) Band Neutrophils 3.1 H # Lymphocytes 2.5 (Manual) Lymphocytes # Reactive 0.4 H Lymphocytes # Monocytes # Monocytes # 1.1 H (Manual) Eosinophils # Basophils # Nucleated Red Blood Cells # Platelet DECREASED Estimate Giant Platelets 1 H Polychromasia 3+ Poikilocytosis 2+ Anisocytosis 2+ Microcytosis 1+ Sodium Level 138 Potassium Level 5.6 H Chloride Level 109 Carbon Dioxide 18 L Level Anion Gap 11 Blood Urea 22 H Nitrogen Creatinine 2.62 H Est Glomerular 25 L Filtrat Rate mL/min Glucose Level 182 Calcium Level 7.1 L Phosphorus Level 5.2 H Magnesium Level 2.2 Blood Gas Blood arterial Specimen Source Arterial Blood 05/29/2018 4:35: Date Drawn 23 AM Arterial Blood 7.296 *L pH (Temp corrected) Arterial Blood 38.5 pCO2 (Temp correct) Arterial Blood 68.0 L pO2 (Temp corrected) Arterial Blood 18.3 L HCO3 Arterial Blood -7.5 L Base Excess Arterial Blood 92.9 L Oxygen Saturatio n Srinivas Test N/A Arterial Blood A-Line Gas Puncture Site Arterial 0.3 Blood Carboxyhem oglobin Arterial Blood 0.2 Methemoglobin Blood Gas A-a O2 389.7 H Differential Oxyhemoglobin 92.4 L Percent Blood Gas 37.0 Temperature Blood Gas 24.0 Respiration Rate Blood Gas Actual 24 Respiration Rate Blood Gas VENT - AC Modality FiO2 70.0 Blood Gas Tidal 600.0 Volume Blood Gas Low 5.0 PEEP Setting Blood Gas C Critical Value NEY CESAR Read Back Blood Gas D JENNIFER PISANO Notified Whom Blood Gas 05/29/2018 4:41: Notified Time 07 AM Bedside Glucose 195 179 Test 05/29/18 06:56 05/29/18 08:02 05/29/18 08:51 05/29/18 10:03 Bedside Glucose 160 229 H 156 138 Test 05/29/18 10:56 Bedside Glucose 144 Medications Medications Current Medications IV Flush (NS 3 ml) 3 ml PER PROTOCOL IV ; Start 05/26/18 at 15:30 Morphine Sulfate (morphine) 2 mg Q4H PRN IV .SEVERE PAIN 7-10; Start 05/26/18 at 15:30 Atorvastatin Calcium (Lipitor) 80 mg DAILY@21 PO Last administered on 05/28/18at 21:17; Admin Dose 80 MG; Start 05/26/18 at 21:00 Midazolam HCl 50 ml @ 1 mls/hr TITRATE IV Last administered on 05/28/18at 19:02; Admin Dose 10 MLS/HR; Start 05/26/18 at 19:30 Vecuronium [place] 100 mg/ Dextrose 100 ml @ 6.25 mls/hr TITRATE IV Last administered on 05/27/18 06:55; Admin Dose 6.25 MLS/HR; Start 05/26/18 at 20:00 Vasopressin 60 unit/Dextrose 60 ml @ 1.2 mls/hr Q12H IV Last administered on 05/28/18at 18:33; Admin Dose 2.4 MLS/HR; Start 05/26/18 at 20:30 Fentanyl 100 ml @ 2.5 mls/hr TITRATE IV Last administered on 05/28/18 19:55; Admin Dose 10 MLS/HR; Start 05/26/18 at 21:00 Diagnostic Test (Pha) (Accu-Chek) 1 ea Q1H XX Last administered on 05/29/18at 11:58; Admin Dose 1 EA; Start 05/26/18 at 21:00 Insulin Human Regular 100 unit/ Sodium Chloride 100 ml @ 0 mls/hr PER PROTOCOL IV Last administered on 05/29/18at 04:43; Admin Dose 4 MLS/HR; Start 05/26/18 at 21:00 Miscellaneous Information (* Miscellaneous Pharmacy Order) Treatment of Hypoglycemia: 1.BG 51... Per protocol XX ; Start 05/26/18 at 20:30 Dextrose (D50w Syringe) 25 ml Q15M PRN IV .DECREASED GLUCOSE; Start 05/26/18 at 20:30 Dextrose (D50w Syringe) 50 ml Q15M PRN IV .DECREASED GLUCOSE; Start 05/26/18 at 20:30 Propofol 100 ml @ 3.75 mls/hr Q12H IV Last administered on 05/28/18 23:47; Admin Dose 22.5 MLS/HR; Start 05/26/18 at 21:00 Phenylephrine HCl 80 mg/Dextrose 250 ml @ 18.75 mls/ hr TITRATE IV Last ad ministered on 05/29/18 10:21; Admin Dose 31.88 MLS/HR; Start 05/26/18 at 22:30 Norepinephrine 32 mg/Dextrose 250 ml @ 0.47 mls/hr TITRATE IV Last administered on 05/29/18 05:29; Admin Dose 14.06 MLS/HR; Start 05/26/18 at 22:30 Vancomycin HCl (Vanco Iv Per Pharmacy) VANCOMYCIN PER PHARMACY PER PROTOCOL XX ; Start 05/27/18 at 00:30 Piperacillin Sod/ Tazobactam Sod 100 ml @ 200 mls/hr Q8 IVPB Last administered on 05/29/18 05:27; Admin Dose 200 MLS/HR; Start 05/27/18 at 00:30 Acetaminophen (Tylenol Supp) 650 mg Q4H PRN MS TEMP > 37C; Start 05/27/18 at 02:30 Acetaminophen (Tylenol Liquid) 650 mg Q4H PRN PO TEMP > 37C; Start 05/27/18 at 02:30 Meperidine HCl (Demerol) 12.5 mg Q4H PRN IV POST OPERATIVE SHIVERING Last administered on 05/27/18 22:49; Admin Dose 12.5 MG; Start 05/27/18 at 02:30 Meperidine HCl (Demerol) 25 mg Q4H PRN IV POST OPERATIVE SHIVERING Last administered on 05/27/18 03:09; Admin Dose 25 MG; Start 05/27/18 at 02:30 Eye Lubricant (Akwa Oint) 1 applic Q6 BOTH EYES Last administered on 05/29/18 11:34; Admin Dose 1 APPLIC; Start 05/27/18 at 06:00 Eye Lubricant (Artificial Tears Oph) 2 drop Q6 BOTH EYES Last administered on 05/29/18 11:34; Admin Dose 2 DROP; Start 05/27/18 at 06:00 Potassium Chloride 50 ml @ 50 mls/hr K PROTOCOL PRN IVPB PENDING LAB VALUE Last administered on 05/27/18 15:25; Admin Dose 50 MLS/HR; Start 05/27/18 at 04:00 Aspirin (Aspirin) 81 mg DAILY NGT Last administered on 05/29/18 08:11; Admin Dose 81 MG; Start 05/27/18 at 10:00 Ticagrelor (Brilinta) 90 mg BID NGT Last administered on 05/29/18 08:13; Admin Dose 90 MG; Start 05/27/18 at 21:00 Sodium Chloride 1,000 ml @ 75 mls/hr [id number] IV Last administered on 05/29/18 07:31; Admin Dose 75 MLS/HR; Start 05/27/18 at 15:30 Lorazepam (Ativan) 2 mg Q2H PRN IV SEIZURES Last administered on 05/28/18 01:33; Admin Dose 2 MG; Start 05/28/18 at 01:30 Acetaminophen (Tylenol Liquid) 650 mg Q6H PRN NGT MILD PAIN(1-3)OR ELEVATED TEMP; Start 05/28/18 at 03:00 Vancomycin HCl 1.5 gm/Sodium Chloride 250 ml @ 83.333 mls/ hr Q24H IVPB Last administered on 05/28/18 11:29; Admin Dose 83.333 MLS/HR; Start 05/28/18 at 11:00; Status Hold Epinephrine 4 mg/ Sodium Chloride 250 ml @ 3.75 mls/hr TITRATE IV Last administered on 05/29/18 03:52; Admin Dose 3.75 MLS/HR; Start 05/29/18 at 03:30 Pantoprazole 80 mg/Sodium Chloride 100 ml @ 10 mls/hr Q10H IV Last administered on 05/29/18 05:41; Admin Dose 10 MLS/HR; Start 05/29/18 at 05:00 Dopamine HCl 800 mg/Dextrose 250 ml @ 4.69 mls/hr TITRATE IV Last administered on 05/29/18 11:38; Admin Dose 46.88 MLS/HR; Start 05/29/18 at 07:00 Miscellaneous Information (*Rx Drug Level Order Reminder*) RANDOM VANCO LEVEL... ONCE ONCE XX ; Start 05/30/18 at 05:00; Stop 05/30/18 at 05:01 Jovani Marin DO May 29, 2018 12:06
[2018-05-29] MEDS ORDERED: HEPARIN 1000 UNITS/ML 10 ML INJ ONE (13:48)
--- NOTE | 2018-05-29 14:05 | CONS ---
Assessment/Plan Assessment/Plan Assessment/Plan (Daily) 68 yo with witnessed cardiac arrest and STEMI inferior wall, with prolonged resuscitation, underwent successful angioplasty with stent to a codominant LCX with only CONNIE 2 flow at the end of the procedure. Patient is now on 4 pressors and an IABP. Patient's creatinine has increased to 2.6 he is being treated for renal failure and will need dialysis We will proceed with dialysis catheter placement discussed with nephrology Consultation Date/Type/Reason Admit Date/Time May 26, 2018 at 15:31 Date of Consultation: May 29, 2018 Type of Consult Renal failure Reason for Consultation Evaluation for the dialysis catheter placement Date/Time of Note DATE: 05/29/18 TIME: 14:02 Past Medical History Medications Current Medications IV Flush (NS 3 ml) 3 ml PER PROTOCOL IV ; Start 05/26/18 at 15:30 Morphine Sulfate (morphine) 2 mg Q4H PRN IV .SEVERE PAIN 7-10; Start 05/26/18 at 15:30 Atorvastatin Calcium (Lipitor) 80 mg DAILY@21 PO Last administered on 05/28/18at 21:17; Admin Dose 80 MG; Start 05/26/18 at 21:00 Midazolam HCl 50 ml @ 1 mls/hr TITRATE IV Last administered on 05/28/18 19:02; Admin Dose 10 MLS/HR; Start 05/26/18 at 19:30 Vecuronium [place] 100 mg/ Dextrose 100 ml @ 6.25 mls/hr TITRATE IV Last administered on 05/27/18at 06:55; Admin Dose 6.25 MLS/HR; Start 05/26/18 at 20:00 Vasopressin 60 unit/Dextrose 60 ml @ 1.2 mls/hr Q12H IV Last administered on 05/28/18at 18:33; Admin Dose 2.4 MLS/HR; Start 05/26/18 at 20:30 Fentanyl 100 ml @ 2.5 mls/hr TITRATE IV Last administered on 05/28/18at 19:55; Admin Dose 10 MLS/HR; Start 05/26/18 at 21:00 Diagnostic Test (Pha) (Accu-Chek) 1 ea Q1H XX Last administered on 05/29/18at 12:56; Admin Dose 1 EA; Start 05/26/18 at 21:00 Insulin Human Regular 100 unit/ Sodium Chloride 100 ml @ 0 mls/hr PER PROTOCOL IV Last administered on 05/29/18at 04:43; Admin Dose 4 MLS/HR; Start 05/26/18 at 21:00 Miscellaneous Information (* Miscellaneous Pharmacy Order) Treatment of Hypoglycemia: 1.BG 51... Per protocol XX ; Start 05/26/18 at 20:30 Dextrose (D50w Syringe) 25 ml Q15M PRN IV .DECREASED GLUCOSE; Start 05/26/18 at 20:30 Dextrose (D50w Syringe) 50 ml Q15M PRN IV .DECREASED GLUCOSE; Start 05/26/18 at 20:30 Propofol 100 ml @ 3.75 mls/hr Q12H IV Last administered on 05/28/18at 23:47; Admin Dose 22.5 MLS/HR; Start 05/26/18 at 21:00 Phenylephrine HCl 80 mg/Dextrose 250 ml @ 18.75 mls/ hr TITRATE IV Last administered on 05/29/18at 10:21; Admin Dose 31.88 MLS/HR; Start 05/26/18 at 22:30 Norepinephrine 32 mg/Dextrose 250 ml @ 0.47 mls/hr TITRATE IV Last adm inistered on 05/29/18at 05:29; Admin Dose 14.06 MLS/HR; Start 05/26/18 at 22:30 Vancomycin HCl (Vanco Iv Per Pharmacy) VANCOMYCIN PER PHARMACY PER PROTOCOL XX ; Start 05/27/18 at 00:30 Piperacillin Sod/ Tazobactam Sod 100 ml @ 200 mls/hr Q8 IVPB Last administered on 05/29/18at 13:51; Admin Dose 200 MLS/HR; Start 05/27/18 at 00:30 Acetaminophen (Tylenol Supp) 650 mg Q4H PRN IN TEMP > 37C; Start 05/27/18 at 02:30 Acetaminophen (Tylenol Liquid) 650 mg Q4H PRN PO TEMP > 37C; Start 05/27/18 at 02:30 Meperidine HCl (Demerol) 12.5 mg Q4H PRN IV POST OPERATIVE SHIVERING Last administered on 05/27/18at 22:49; Admin Dose 12.5 MG; Start 05/27/18 at 02:30 Meperidine HCl (Demerol) 25 mg Q4H PRN IV POST OPERATIVE SHIVERING Last administered on 05/27/18 03:09; Admin Dose 25 MG; Start 05/27/18 at 02:30 Eye Lubricant (Akwa Oint) 1 applic Q6 BOTH EYES Last administered on 05/29/18 11:34; Admin Dose 1 APPLIC; Start 05/27/18 at 06:00 Eye Lubricant (Artificial Tears Oph) 2 drop Q6 BOTH EYES Last administered on 05/29/18 11:34; Admin Dose 2 DROP; Start 05/27/18 at 06:00 Potassium Chloride 50 ml @ 50 mls/hr K PROTOCOL PRN IVPB PENDING LAB VALUE Last administered on 05/27/18 15:25; Admin Dose 50 MLS/HR; Start 05/27/18 at 04:00 Aspirin (Aspirin) 81 mg DAILY NGT Last administered on 05/29/18 08:11; Admin Dose 81 MG; Start 05/27/18 at 10:00 Ticagrelor (Brilinta) 90 mg BID NGT Last administered on 05/29/18 08:13; Admin Dose 90 MG; Start 05/27/18 at 21:00 Sodium Chloride 1,000 ml @ 75 mls/hr [id number] IV Last administered on 05/29/18 07:31; Admin Dose 75 MLS/HR; Start 05/27/18 at 15:30 Lorazepam (Ativan) 2 mg Q2H PRN IV SEIZURES Last administered on 05/28/18 01:33; Admin Dose 2 MG; Start 05/28/18 at 01:30 Acetaminophen (Tylenol Liquid) 650 mg Q6H PRN NGT MILD PAIN(1-3)OR ELEVATED T EMP; Start 05/28/18 at 03:00 Vancomycin HCl 1.5 gm/Sodium Chloride 250 ml @ 83.333 mls/ hr Q24H IVPB Last administered on 05/28/18 11:29; Admin Dose 83.333 MLS/HR; Start 05/28/18 at 11:00; Status Hold Epinephrine 4 mg/ Sodium Chloride 250 ml @ 3.75 mls/hr TITRATE IV Last administered on 05/29/18 03:52; Admin Dose 3.75 MLS/HR; Start 05/29/18 at 03:30 Pantoprazole 80 mg/Sodium Chloride 100 ml @ 10 mls/hr Q10H IV Last administered on 05/29/18at 12:40; Admin Dose 10 MLS/HR; Start 05/29/18 at 05:00 Dopamine HCl 800 mg/Dextrose 250 ml @ 4.69 mls/hr TITRATE IV Last administered on 05/29/18at 11:38; Admin Dose 46.88 MLS/HR; Start 05/29/18 at 07:00 Miscellaneous Information (*Rx Drug Level Order Reminder*) RANDOM VANCO LEVEL... ONCE ONCE XX ; Start 05/30/18 at 05:00; Stop 05/30/18 at 05:01 Allergies: Coded Allergies: Unknown: Unable to obtain (Unverified , 05/26/18) Past Surgical History Past Surgical Hx: other (unknown) Social History Alcohol Use: other (unknown) Smoking Status: Unknown if ever smoked Drug Use: other (unknown) Exam/Review of Systems Exam Vitals Vital Signs Date Temp Pulse Resp B/P (MAP) Pulse Ox O2 O2 Flow FiO2 Time Delivery Rate 05/29/18 99 21 96/55 (69) 92 Mechanical 13:15 Ventilator 05/29/18 98.5 12:00 05/29/18 80 11:59 Intake and Output 05/28/18 05/28/18 05/29/18 1515:00 23:00 07:00 IntakeIntake Total 1953.776 ml 2075.4193 ml 1559.44 ml OutputOutput Total 1 ml 306 ml 15 ml BalanceBalance 1952.776 ml 1769.4193 ml 1544.44 ml Eyes: nl conjunctiva, EOMI, nl lids, nl sclera, PERRL ENMT: nl external ears & nose, nl lips & teeth, nl nasal mucosa & septum Neck: supple, non-tender Respiratory: clear to auscultation, normal air movement Cardiovascular: regular rate and rhythm, nl pulses Gastrointestinal: soft, nl liver, spleen, non-tender Musculoskeletal: nl extremities to inspection, nl gait and stance Extremities: normal pulses Results Result Diagram: 05/29/18 0448 05/29/188 Results 24hrs Laboratory Tests Test 05/28/18 15:53 05/28/18 17:58 05/28/18 17:59 05/28/18 18:00 Bedside Glucose 137 129 White Blood 20.0 H Count Red Blood Count 4.09 L Hemoglobin 12.5 L Hematocrit 36.2 L Mean Corpuscular 88.5 Volume Mean Corpuscular 30.6 Hemoglobin Mean Corpuscular 34.5 Hemoglobin Meli nt Red Cell 13.5 Distribution Width Platelet Count 99 L Mean Platelet 11.9 H Volume Immature 1.200 H Granulocytes % Neutrophils % 82.3 H Lymphocytes % 9.9 L Monocytes % 3.9 Eosinophils % 2.1 Basophils % 0.6 Nucleated Red 0.1 H Blood Cells % Immature 0.240 H Granulocytes # Neutrophils # 16.5 H Lymphocytes # 2.0 Monocytes # 0.8 Eosinophils # 0.4 Basophils # 0.1 Nucleated Red 0.0 Blood Cells # Prothrombin Time 16.8 H Prothrombin Time 1.3 Ratio INR 1.35 International Normalized Ratio Activated 33.6 Partial Thrombop last Time Fibrinogen 436.0 # Sodium Level 137 Potassium Level 4.0 Chloride Level 107 Carbon Dioxide 22 Level Anion Gap 8 Blood Urea 18 Nitrogen Creatinine 2.08 H Est Glomerular 32 L Filtrat Rate mL/min Glucose Level 124 Lactic Acid 2.2 *H Level Calcium Level 7.4 L Phosphorus Level 4.4 Magnesium Level 2.2 Troponin I 31.200 *H Amylase Level 172 H Lipase 29 Blood Gas Blood arterial Specimen Source Arterial Blood 05/28/2018 6:00: Date Drawn 25 PM Arterial Blood 7.331 L pH (Temp corrected) Arterial Blood 38.7 pCO2 (Temp correct) Arterial Blood 66.7 L pO2 (Temp corrected) Arterial Blood 20.1 L HCO3 Arterial Blood -5.5 L Base Excess Arterial Blood 93.5 L Oxygen Saturatio n Srinivas Test N/A Arterial Blood A-Line Gas Puncture Site Arterial 0.2 Blood Carboxyhem oglobin Arterial Blood 0.3 Methemoglobin Blood Gas A-a O2 464.1 H Differential Oxyhemoglobin 93.0 Percent Blood Gas 36.5 Temperature Blood Gas 24.0 Respiration Rate Blood Gas Actual 24 Respiration Rate Blood Gas VENT - AC Modality FiO2 80.0 Blood Gas Tidal 600.0 Volume Blood Gas Low 5.0 PEEP Setting Blood Gas AT Notified Whom Blood Gas 05/28/2018 6:12: Notified Time 26 PM Test 05/28/18 20:04 05/28/18 21:03 05/28/18 22:09 05/28/18 23:01 Bedside Glucose 94 103 101 111 Test 05/28/18 23:59 2/24/19 01:03 05/29/18 02:00 05/29/18 03:01 Bedside Glucose 135 165 133 165 Test 05/29/18 04:00 05/29/18 04:48 05/29/18 05:00 05/29/18 05:06 Bedside Glucose 163 195 White Blood 22.8 H Count Red Blood Count 4.01 L Hemoglobin 12.3 L Hematocrit 35.6 L Mean Corpuscular 88.8 Volume Mean Corpuscular 30.7 Hemoglobin Mean Corpuscular 34.6 Hemoglobin Meli nt Red Cell 13.6 Distribution Width Platelet Count 122 #L Mean Platelet 12.6 H Volume Immature 2.200 H Granulocytes % Neutrophils % Segmented 67 Neutrophils % (Manual) Band Neutrophils 14 H % (Manual) Lymphocytes % Lymphocytes % 11 L (Manual) Reactive 2 H Lymphocytes % (Manual) Monocytes % Monocytes % 5 (Manual) Eosinophils % Eosinophils % 1 (Manual) Basophils % Nucleated Red 0.2 H Blood Cells % Immature 0.490 H Granulocytes # Neutrophils # Neutrophils # 16.0 H (Manual) Band Neutrophils 3.1 H # Lymphocytes 2.5 (Manual) Lymphocytes # Reactive 0.4 H Lymphocytes # Monocytes # Monocytes # 1.1 H (Manual) Eosinophils # Basophils # Nucleated Red Blood Cells # Platelet DECREASED Estimate Giant Platelets 1 H Polychromasia 3+ Poikilocytosis 2+ Anisocytosis 2+ Microcytosis 1+ Sodium Level 138 Potassium Level 5.6 H Chloride Level 109 Carbon Dioxide 18 L Level Anion Gap 11 Blood Urea 22 H Nitrogen Creatinine 2.62 H Est Glomerular 25 L Filtrat Rate mL/min Glucose Level 182 Calcium Level 7.1 L Phosphorus Level 5.2 H Magnesium Level 2.2 Blood Gas Blood arterial Specimen Source Arterial Blood 05/29/2018 4:35: Date Drawn 23 AM Arterial Blood 7.296 *L pH (Temp corrected) Arterial Blood 38.5 pCO2 (Temp correct) Arterial Blood 68.0 L pO2 (Temp corrected) Arterial Blood 18.3 L HCO3 Arterial Blood -7.5 L Base Excess Arterial Blood 92.9 L Oxygen Saturatio n Srinivas Test N/A Arterial Blood A-Line Gas Puncture Site Arterial 0.3 Blood Carboxyhem oglobin Arterial Blood 0.2 Methemoglobin Blood Gas A-a O2 389.7 H Differential Oxyhemoglobin 92.4 L Percent Blood Gas 37.0 Temperature Blood Gas 24.0 Respiration Rate Blood Gas Actual 24 Respiration Rate Blood Gas VENT - AC Modality FiO2 70.0 Blood Gas Tidal 600.0 Volume Blood Gas Low 5.0 PEEP Setting Blood Gas C Critical Value NEY CESAR Read Back Blood Gas D JENNIFER [employer] Notified Whom Blood Gas 05/29/2018 4:41: Notified Time 07 AM Test 05/29/18 06:11 05/29/18 06:56 05/29/18 08:02 05/29/18 08:51 Bedside Glucose 179 160 229 H 156 Test 05/29/18 10:03 05/29/18 10:56 05/29/18 11:58 05/29/18 12:55 Bedside Glucose 138 144 146 138 Medications Medication Current Medications IV Flush (NS 3 ml) 3 ml PER PROTOCOL IV ; Start 05/26/18 at 15:30 Morphine Sulfate (morphine) 2 mg Q4H PRN IV .SEVERE PAIN 7-10; Start 05/26/18 at 15:30 Atorvastatin Calcium (Lipitor) 80 mg DAILY@21 PO Last administered on 05/28/18at 21:17; Admin Dose 80 MG; Start 05/26/18 at 21:00 Midazolam HCl 50 ml @ 1 mls/hr TITRATE IV Last administered on 05/28/18 19:02; Admin Dose 10 MLS/HR; Start 05/26/18 at 19:30 Vecuronium [place] 100 mg/ Dextrose 100 ml @ 6.25 mls/hr TITRATE IV Last administered on 05/27/18 06:55; Admin Dose 6.25 MLS/HR; Start 05/26/18 at 20:00 Vasopressin 60 unit/Dextrose 60 ml @ 1.2 mls/hr Q12H IV Last administered on 05/28/18 18:33; Admin Dose 2.4 MLS/HR; Start 05/26/18 at 20:30 Fentanyl 100 ml @ 2.5 mls/hr TITRATE IV Last administered on 05/28/18 19:55; Admin Dose 10 MLS/HR; Start 05/26/18 at 21:00 Diagnostic Test (Pha) (Accu-Chek) 1 ea Q1H XX Last administered on 05/29/18at 12:56; Admin Dose 1 EA; Start 05/26/18 at 21:00 Insulin Human Regular 100 unit/ Sodium Chloride 100 ml @ 0 mls/hr PER PROTOCOL IV Last administered on 05/29/18at 04:43; Admin Dose 4 MLS/HR; Start 05/26/18 at 21:00 Miscellaneous Information (* Miscellaneous Pharmacy Order) Treatment of Hypoglycemia: 1.BG 51... Per protocol XX ; Start 05/26/18 at 20:30 Dextrose (D50w Syringe) 25 ml Q15M PRN IV .DECREASED GLUCOSE; Start 05/26/18 at 20:30 Dextrose (D50w Syringe) 50 ml Q15M PRN IV .DECREASED GLUCOSE; Start 05/26/18 at 20:30 Propofol 100 ml @ 3.75 mls/hr Q12H IV Last administered on 05/28/18at 23:47; Admin Dose 22.5 MLS/HR; Start 05/26/18 at 21:00 Phenylephrine HCl 80 mg/Dextrose 250 ml @ 18.75 mls/ hr TITRATE IV Last administered on 05/29/18at 10:21; Admin Dose 31.88 MLS/HR; Start 05/26/18 at 22:30 Norepinephrine 32 mg/Dextrose 250 ml @ 0.47 mls/hr TITRATE IV Last administered on 05/29/18at 05:29; Admin Dose 14.06 MLS/HR; Start 05/26/18 at 22:30 Vancomycin HCl (Vanco Iv Per Pharmacy) VANCOMYCIN PER PHARMACY PER PROTOCOL XX ; Start 05/27/18 at 00:30 Piperacillin Sod/ Tazobactam Sod 100 ml @ 200 mls/hr Q8 IVPB Last administered on 05/29/18at 13:51; Admin Dose 200 MLS/HR; Start 05/27/18 at 00:30 Acetaminophen (Tylenol Supp) 650 mg Q4H PRN IN TEMP > 37C; Start 05/27/18 at 02:30 Acetaminophen (Tylenol Liquid) 650 mg Q4H PRN PO TEMP > 37C; Start 05/27/18 at 02:30 Meperidine HCl (Demerol) 12.5 mg Q4H PRN IV POST OPERATIVE SHIVERING Last administered on 05/27/18at 22:49; Admin Dose 12.5 MG; Start 05/27/18 at 02:30 Meperidine HCl (Demerol) 25 mg Q4H PRN IV POST OPERATIVE SHIVERING Last administered on 05/27/18 03:09; Admin Dose 25 MG; Start 05/27/18 at 02:30 Eye Lubricant (Akwa Oint) 1 applic Q6 BOTH EYES Last administered on 05/29/18 11:34; Admin Dose 1 APPLIC; Start 05/27/18 at 06:00 Eye Lubricant (Artificial Tears Oph) 2 drop Q6 BOTH EYES Last administered on 05/29/18 11:34; Admin Dose 2 DROP; Start 05/27/18 at 06:00 Potassium Chloride 50 ml @ 50 mls/hr K PROTOCOL PRN IVPB PENDING LAB VALUE Last administered on 05/27/18 15:25; Admin Dose 50 MLS/HR; Start 05/27/18 at 04:00 Aspirin (Aspirin) 81 mg DAILY NGT Last administered on 05/29/18 08:11; Admin Dose 81 MG; Start 05/27/18 at 10:00 Ticagrelor (Brilinta) 90 mg BID NGT Last administered on 05/29/18 08:13; Admin Dose 90 MG; Start 05/27/18 at 21:00 Sodium Chloride 1,000 ml @ 75 mls/hr [id number] IV Last administered on 05/29/18 07:31; Admin Dose 75 MLS/HR; Start 05/27/18 at 15:30 Lorazepam (Ativan) 2 mg Q2H PRN IV SEIZURES Last administered on 05/28/18 01:33; Admin Dose 2 MG; Start 05/28/18 at 01:30 Acetaminophen (Tylenol Liquid) 650 mg Q6H PRN NGT MILD PAIN(1-3)OR ELEVATED TEMP; Start 05/28/18 at 03:00 Vancomycin HCl 1.5 gm/Sodium Chloride 250 ml @ 83.333 mls/ hr Q24H IVPB Last administered on 05/28/18 11:29; Admin Dose 83.333 MLS/HR; Start 05/28/18 at 11:00; Status Hold Epinephrine 4 mg/ Sodium Chloride 250 ml @ 3.75 mls/hr TITRATE IV Last admin istered on 05/29/18 03:52; Admin Dose 3.75 MLS/HR; Start 05/29/18 at 03:30 Pantoprazole 80 mg/Sodium Chloride 100 ml @ 10 mls/hr Q10H IV Last administered on 05/29/18at 12:40; Admin Dose 10 MLS/HR; Start 05/29/18 at 05:00 Dopamine HCl 800 mg/Dextrose 250 ml @ 4.69 mls/hr TITRATE IV Last administered on 05/29/18at 11:38; Admin Dose 46.88 MLS/HR; Start 05/29/18 at 07:00 Miscellaneous Information (*Rx Drug Level Order Reminder*) RANDOM VANCO LEVEL... ONCE ONCE XX ; Start 05/30/18 at 05:00; Stop 05/30/18 at 05:01 MARICARMEN BUENO MD May 29, 2018 14:05
--- NOTE | 2018-05-29 14:12 | PN ---
Date/Time of Note Date/Time of Note DATE: 05/29/18 TIME: 14:08 Assessment/Plan VTE Prophylaxis Risk score (from Ns)>0 risk: 10 SCD applied (from [facility] [place]): Yes Pharmacological prophylaxis: NA/contraindicated Pharm contraindication: bleeding Lines/Catheters IV Catheter Type (from [facility] A Line Urinary Cath still in place: Yes Reason Cath still needed: other (indicate) (intubated) Assessment/Plan Assessment/Plan 68 yo man no known past medical history admitted with respiratory distress proceeding to cardiac arrest. #Cardiac arrest - Likely from NSTEMI - s/p cardiac cath with BELLA to circumflex 05/26. - On hypothermia protocol, starting rewarming phase, with neuromuscular blockade and sedation. - BP maintained on 3 pressors. - Continue balloon pump per cardiology. - Continue pressors to maintain MAP>65 - Antiplatelets per cardiology - Appreciate Dr. Gamboa's assistance #Hypoxia - Increasing pulmonary vascular congestion - Pulmonary to manage vent - May require dialysis for fluid #Respiratory failure - Pulmonary following - Hypoxic, currently requiring 80% FiO2 - Pulmonary following. #hyperkalemia #Renal failure - Patient is oliguric with rising creatinine. - Dr. Esparza consulted from renal. DVT: SCDs GI: protonix Result Diagram: 05/29/1844705/29/18447 Subjective 24 Hr Interval Summary Free Text/Dictation Patient rewarmed; reached normothermia this morning. Now maxed on norepi, vasopressin, and dopamine. Also on phenylephrine. Not requiring epi. Worsening hypoxia, FiO2 70% this AM now up to 100%. Continues to have myoclonic jerks off sedation. Exam/Review of Systems Exam Vitals Vital Signs Date Temp Pulse Resp B/P (MAP) Pulse Ox O2 O2 Flow FiO2 Time Delivery Rate 05/29/18 99 21 96/55 (69) 92 Mechanical 13:15 Ventilator 05/29/18 98.5 12:00 05/29/18 80 11:59 Intake and Output 05/28/18 05/28/18 05/29/18 1515:00 23:00 07:00 IntakeIntake Total 1953.776 ml 2075.4193 ml 1559.44 ml OutputOutput Total 1 ml 306 ml 15 ml BalanceBalance 1952.776 ml 1769.4193 ml 1544.44 ml Exam Gen: Obese man intubated, sedated. Eyes: Normal pupils equal bilaterally nonreactive. HEENT: Mild epistaxis. ET tube in place, OG tube in place clamped Card: Balloon pump audible. Cannot auscultate heart sounds. Pulm: Distant mechanical breath sounds bilaterally. Abd: Obese, soft, nondistended. Ext: No cyanosis/clubbing/edema. R fem vascular sheath with balloon pump. : Harrison in place with no urine Medications Medication Current Medications IV Flush (NS 3 ml) 3 ml PER PROTOCOL IV ; Start 05/26/18 at 15:30 Morphine Sulfate (morphine) 2 mg Q4H PRN IV .SEVERE PAIN 7-10; Start 05/26/18 at 15:30 Atorvastatin Calcium (Lipitor) 80 mg DAILY@21 PO Last administered on 05/28/18 21:17; Admin Dose 80 MG; Start 05/26/18 at 21:00 Midazolam HCl 50 ml @ 1 mls/hr TITRATE IV Last administered on 05/28/18 19:02; Admin Dose 10 MLS/HR; Start 05/26/18 at 19:30 Vecuronium [place] 100 mg/ Dextrose 100 ml @ 6.25 mls/hr TITRATE IV Last administered on 05/27/18 06:55; Admin Dose 6.25 MLS/HR; Start 05/26/18 at 20:00 Vasopressin 60 unit/Dextrose 60 ml @ 1.2 mls/hr Q12H IV Last administered on 05/28/18 18:33; Admin Dose 2.4 MLS/HR; Start 05/26/18 at 20:30 Fentanyl 100 ml @ 2.5 mls/hr TITRATE IV Last administered on 05/28/18 19:55; Admin Dose 10 MLS/HR; Start 05/26/18 at 21:00 Diagnostic Test (Pha) (Accu-Chek) 1 ea Q1H XX Last administered on 05/29/18 12:56; Admin Dose 1 EA; Start 05/26/18 at 21:00 Insulin Human Regular 100 unit/ Sodium Chloride 100 ml @ 0 mls/hr PER PROTOCOL I V Last administered on 05/29/18 04:43; Admin Dose 4 MLS/HR; Start 05/26/18 at 21:00 Miscellaneous Information (* Miscellaneous Pharmacy Order) Treatment of Hypoglycemia: 1.BG 51... Per protocol XX ; Start 05/26/18 at 20:30 Dextrose (D50w Syringe) 25 ml Q15M PRN IV .DECREASED GLUCOSE; Start 05/26/18 at 20:30 Dextrose (D50w Syringe) 50 ml Q15M PRN IV .DECREASED GLUCOSE; Start 05/26/18 at 20:30 Propofol 100 ml @ 3.75 mls/hr Q12H IV Last administered on 05/28/18at 23:47; Admin Dose 22.5 MLS/HR; Start 05/26/18 at 21:00 Phenylephrine HCl 80 mg/Dextrose 250 ml @ 18.75 mls/ hr TITRATE IV Last a dministered on 05/29/18at 10:21; Admin Dose 31.88 MLS/HR; Start 05/26/18 at 22:30 Norepinephrine 32 mg/Dextrose 250 ml @ 0.47 mls/hr TITRATE IV Last administered on 05/29/18 05:29; Admin Dose 14.06 MLS/HR; Start 05/26/18 at 22:30 Vancomycin HCl (Vanco Iv Per Pharmacy) VANCOMYCIN PER PHARMACY PER PROTOCOL XX ; Start 05/27/18 at 00:30 Piperacillin Sod/ Tazobactam Sod 100 ml @ 200 mls/hr Q8 IVPB Last administered on 05/29/18at 13:51; Admin Dose 200 MLS/HR; Start 05/27/18 at 00:30 Acetaminophen (Tylenol Supp) 650 mg Q4H PRN IN TEMP > 37C; Start 05/27/18 at 02:30 Acetaminophen (Tylenol Liquid) 650 mg Q4H PRN PO TEMP > 37C; Start 05/27/18 at 02:30 Meperidine HCl (Demerol) 12.5 mg Q4H PRN IV POST OPERATIVE SHIVERING Last administered on 05/27/18at 22:49; Admin Dose 12.5 MG; Start 05/27/18 at 02:30 Meperidine HCl (Demerol) 25 mg Q4H PRN IV POST OPERATIVE SHIVERING Last administered on 05/27/18 03:09; Admin Dose 25 MG; Start 05/27/18 at 02:30 Eye Lubricant (Akwa Oint) 1 applic Q6 BOTH EYES Last administered on 2/24/19at 11:34; Admin Dose 1 APPLIC; Start 05/27/18 at 06:00 Eye Lubricant (Artificial Tears Oph) 2 drop Q6 BOTH EYES Last administered on 05/29/18 11:34; Admin Dose 2 DROP; Start 05/27/18 at 06:00 Potassium Chloride 50 ml @ 50 mls/hr K PROTOCOL PRN IVPB PENDING LAB VALUE Last administered on 05/27/18 15:25; Admin Dose 50 MLS/HR; Start 05/27/18 at 04:00 Aspirin (Aspirin) 81 mg DAILY NGT Last administered on 05/29/18 08:11; Admin Dose 81 MG; Start 05/27/18 at 10:00 Ticagrelor (Brilinta) 90 mg BID NGT Last administered on 05/29/18 08:13; Admin Dose 90 MG; Start 05/27/18 at 21:00 Sodium Chloride 1,000 ml @ 75 mls/hr [id number] IV Last administered on 05/29/18 07:31; Admin Dose 75 MLS/HR; Start 05/27/18 at 15:30 Lorazepam (Ativan) 2 mg Q2H PRN IV SEIZURES Last administered on 05/28/18 01:33; Admin Dose 2 MG; Start 05/28/18 at 01:30 Acetaminophen (Tylenol Liquid) 650 mg Q6H PRN NGT MILD PAIN(1-3)OR ELEVATED TEMP; Start 05/28/18 at 03:00 Vancomycin HCl 1.5 gm/Sodium Chloride 250 ml @ 83.333 mls/ hr Q24H IVPB Last administered on 05/28/18 11:29; Admin Dose 83.333 MLS/HR; Start 05/28/18 at 11:00; Status Hold Epinephrine 4 mg/ Sodium Chloride 250 ml @ 3.75 mls/hr TITRATE IV Last administered on 05/29/18 03:52; Admin Dose 3.75 MLS/HR; Start 05/29/18 at 03:30 Pantoprazole 80 mg/Sodium Chloride 100 ml @ 10 mls/hr Q10H IV Last administered on 05/29/18 12:40; Admin Dose 10 MLS/HR; Start 05/29/18 at 05:00 Dopamine HCl 800 mg/Dextrose 250 ml @ 4.69 mls/hr TITRATE IV Last administered on 05/29/18at 11:38; Admin Dose 46.88 MLS/HR; Start 05/29/18 at 07:00 Miscellaneous Information (*Rx Drug Level Order Reminder*) RANDOM VANCO LEVEL... ONCE ONCE XX ; Start 05/30/18 at 05:00; Stop 05/30/18 at 05:01 ELANA HARDWICK MD May 29, 2018 14:12
--- NOTE | 2018-05-29 14:55 | OPR ---
DATE OF OPERATION: 05/29/2018 PREOPERATIVE DIAGNOSIS: Renal failure. POSTOPERATIVE DIAGNOSIS: Renal failure. OPERATION PERFORMED: Left femoral hemodialysis catheter placement. SURGEON: Darryl Donald MD ANESTHESIA: Local. CONSENT: Risks, benefits, complications, alternative therapies, risks and benefits could not be expl ained to the patient as this is an emergency procedure. The patient discussed with the nephrology se shae. The patient was admitted because of cardiac arrest, is now being treated for renal failure. We will need dialysis access emergently. Access was gained in the left common femoral vein. Guidewi re was advanced through without any difficulty. Subcutaneous tissues dilated; 20 cm dialysis cathete r advanced over guidewire, secured to skin using silk sutures. Both ports of the catheter were aspir ated and injected using saline solution. Patient tolerated procedure well. Dictated By: DARRYL DONALD MD FM/NTS Conf#: [id number] DID#: [id number] CC: ELANA HARDWICK MD;*EndCC*
[2018-05-29] MEDS: ATORVASTATIN 80 MG TAB PO SCH (21:01)
[2018-05-30] VITALS (106 sets, daily range): BP systolic 76–123; BP diastolic 30–86; PULSE 84–103; RESP 21–33
[2018-05-30] MEDS: ARTIFICIAL TEARS 15 ML OPH BOTH EYES SCH ×4 (00:15→18:19)
[2018-05-30] MEDS: OCULAR LUBRICANT 3.5 GM OPH OINT BOTH EYES SCH ×4 (00:15→18:19)
[2018-05-30] MEDS: ACCU-CHEK XX SCH ×24 (01:08→23:00)
[2018-05-30] MEDS: FENTAnyl (DRIP) 1000 mcg/100mL 100 ML IV SCH (01:27)
[2018-05-30] MEDS ORDERED: NA BICARBONATE 8.4% 50 ML SYG IV STA (03:43)
[2018-05-30] MEDS ORDERED: NA BICARBONATE 8.4% 50 ML SYG ONE (03:44)
[2018-05-30] MEDS: DOPamine 800 MG in DEXTROSE 5% 230 ML IV SCH ×4 (04:39→21:28)
[2018-05-30] MEDS: PIPER-TAZO 3.375 GM IV (PMX) 100 ML IVPB SCH ×3 (05:22→22:10)
[2018-05-30] MEDS: PHENYLephrine 80 MG in DEXTROSE 5% 242 ML IV SCH (05:36)
--- NOTE | 2018-05-30 07:39 | CONS ---
Assessment/Plan Assessment/Plan Hospital Course (Demo Recall) 68 yo with witnessed cardiac arrest and STEMI inferolateral wall, with PCI to a codominant LCX. Course significant for multi organ system failure including anoxic encephalopathy. Impression: STEMI of the inferolateral wall, thrombus-filled codominant LCX, with angioplasty and only CONNIE 2 flow at the end of the procedure Septic shock on multiple pressors and IABP Morbid obesity Acute respiratory failure, on ventilator Severe acidosis Anoxic encephalopathy Acute renal failure, due to shock and contrast-induced nephropathy, now making urine, but with dialysis catheter in place GI bleeding Recommendations: Continue ASA, ticagrelor Continue atorvastatin No beta blockade due to need for multiple pressors IABP to remain in place due to need for multiple pressors to maintain blood pressure, and possible need for dialysis which would further lower blood pressure Very poor prognosis given multi organ failure Supportive care as per nephrology and pulmonary, antibiotics Consultation Date/Type/Reason Admit Date/Time May 26, 2018 at 15:31 Initial Consult Date 05/26/18 Type of Consult Cardiology Requesting Provider: ALYSE KLEIN MD Date/Time of Note DATE: 05/30/18 TIME: 07:31 24 HR Interval Summary Free Text/Dictation Chart reviewed, events of weekend noted. He remains intubated and on 4 pressors, with some weaning of the neosynephrine, and the IABP is in place augmenting appropriately. Patient not responsive off sedation, is on fentanyl only for sedation due to twitching and possible seizure activity. He has just started making urine. Subjective hx not possible: pt non-verbal, pt critical status Exam/Review of Systems Vital Signs Vitals Vital Signs Date Temp Pulse Resp B/P (MAP) Pulse Ox O2 O2 Flow FiO2 Time Delivery Rate 05/30/18 87 23 115/56 98 Mechanical 06:30 (75) Ventilator 05/30/18 100 05:00 05/30/18 98.1 04:00 Intake and Output 05/29/18 05/29/18 05/30/18 1515:00 23:00 07:00 IntakeIntake Total 1663.68 ml 1571.74 ml 1556.51 ml OutputOutput Total 145 ml 359 ml 993 ml BalanceBalance 1518.68 ml 1212.74 ml 563.51 ml Exam Constitutional: non-verbal Head: normocephalic Eyes: other (pupils fixed, no blink reflex) ENMT: intubated Neck: No jvd, No bruits Respiratory: crackles/rales Cardiovascular: regular rate and rhythm; No nl pulses (DP pulses not palpable, but right DP pulse is detected via doppler), No murmurs/extra sounds Gastrointestinal: soft, non-tender, bowel sounds Extremities: edema (mild swelling of both arms and legs), other (right groin without hematoma or bleeding, triple lumen venous catheter and IABP remain in place) Neurological: unresponsive Skin: nl turgor Labs Result Diagram: 05/29/18 0448 05/30/18 0433 Results 24hrs Laboratory Tests Test 05/29/18 08:02 05/29/18 08:51 05/29/18 10:03 05/29/18 10:56 Bedside Glucose 229 H 156 138 144 Test 05/29/18 11:58 05/29/18 12:55 05/29/18 14:27 05/29/18 14:59 Bedside Glucose 146 138 196 166 Test 05/29/18 16:05 05/29/18 17:00 05/29/18 18:07 05/29/18 18:56 Bedside Glucose 138 148 205 135 Test 05/29/18 19:55 05/29/18 21:05 05/29/18 22:03 05/29/18 23:01 Bedside Glucose 144 146 156 173 Test 05/30/18 00:11 05/30/18 01:05 05/30/18 02:06 05/30/18 02:15 Bedside Glucose 155 125 183 Blood Gas Blood arterial Specimen Source Arterial Blood 05/30/2018 2:15:5 Date Drawn 8 AM Arterial Blood pH 7.042 *L (Temp corrected) Arterial Blood 80.5 *H pCO2 (Temp correct) Arterial Blood 53.7 *L pO2 (Temp corrected) Arterial Blood 21.4 L HCO3 Arterial Blood -10.5 L Base Excess Arterial Blood 77.2 L Oxygen Saturation Srinivas Test N/A Arterial Blood A-Line Gas Puncture Site Arterial 0.3 Blood Carboxyhemo globin Arterial Blood 0.3 Methemoglobin Blood Gas A-a O2 578.8 H Differential Oxyhemoglobin 76.7 L Percent Blood Gas 37.0 Temperature Blood Gas 24.0 Respiration Rate Blood Gas Actual 26 Respiration Rate Blood Gas VENT - PC Modality FiO2 100.0 Blood Gas High 38.0 PEEP Setting Blood Gas Low 8.0 PEEP Setting Blood Gas STEMPLE RN Critical Value Read Back Blood Gas MA Notified Whom Blood Gas 05/30/2018 2:27:5 Notified Time 7 AM Test 05/30/18 03:03 05/30/18 03:06 05/30/18 04:33 05/30/18 04:35 Bedside Glucose 132 148 Prothrombin Time 17.4 H Prothrombin Time 1.4 Ratio INR International 1.41 Normalized Ratio Sodium Level 137 Potassium Level 5.6 H Chloride Level 103 Carbon Dioxide 23 Level Anion Gap 11 Blood Urea 30 H Nitrogen Creatinine 2.99 H Est Glomerular 21 L Filtrat Rate mL/min Glucose Level 152 Calcium Level 6.8 L Phosphorus Level 7.8 #H Magnesium Level 2.3 Random Vancomycin 10.1 Level Test 05/30/18 04:59 05/30/18 06:11 05/30/18 06:59 Bedside Glucose 167 146 136 Imaging Imaging telemetry reveals NSR Medications Medications Current Medications IV Flush (NS 3 ml) 3 ml PER PROTOCOL IV ; Start 05/26/18 at 15:30 Morphine Sulfate (morphine) 2 mg Q4H PRN IV .SEVERE PAIN 7-10; Start 05/26/18 at 15:30 Atorvastatin Calcium (Lipitor) 80 mg DAILY@21 PO Last administered on 05/29/18at 21:01; Admin Dose 80 MG; Start 05/26/18 at 21:00 Midazolam HCl 50 ml @ 1 mls/hr TITRATE IV Last administered on 05/28/18at 19:02; Admin Dose 10 MLS/HR; Start 05/26/18 at 19:30 Vecuronium [place] 100 mg/ Dextrose 100 ml @ 6.25 mls/hr TITRATE IV Last adm inistered on 05/27/18at 06:55; Admin Dose 6.25 MLS/HR; Start 05/26/18 at 20:00 Vasopressin 60 unit/Dextrose 60 ml @ 1.2 mls/hr Q12H IV Last administered on 05/29/18at 20:30; Admin Dose 2.4 MLS/HR; Start 05/26/18 at 20:30 Fentanyl 100 ml @ 2.5 mls/hr TITRATE IV Last administered on 05/30/18at 01:27; Admin Dose 2.5 MLS/HR; Start 05/26/18 at 21:00 Diagnostic Test (Pha) (Accu-Chek) 1 ea Q1H XX Last administered on 05/30/18at 06:28; Admin Dose 1 EA; Start 05/26/18 at 21:00 Insulin Human Regular 100 unit/ Sodium Chloride 100 ml @ 0 mls/hr PER PROTOCOL IV Last administered on 05/29/18at 04:43; Admin Dose 4 MLS/HR; Start 05/26/18 at 21:00 Miscellaneous Information (* Miscellaneous Pharmacy Order) Treatment of Hypoglycemia: 1.BG 51... Per protocol XX ; Start 05/26/18 at 20:30 Dextrose (D50w Syringe) 25 ml Q15M PRN IV .DECREASED GLUCOSE; Start 05/26/18 at 20:30 Dextrose (D50w Syringe) 50 ml Q15M PRN IV .DECREASED GLUCOSE; Start 05/26/18 at 20:30 Propofol 100 ml @ 3.75 mls/hr Q12H IV Last administered on 05/28/18at 23:47; Admin Dose 22.5 MLS/HR; Start 05/26/18 at 21:00 Phenylephrine HCl 80 mg/Dextrose 250 ml @ 18.75 mls/ hr TITRATE IV Last administered on 05/30/18at 05:36; Admin Dose 28.13 MLS/HR; Start 05/26/18 at 22:30 Norepinephrine 32 mg/Dextrose 250 ml @ 0.47 mls/hr TITRATE IV Last administered on 05/29/18at 22:36; Admin Dose 14.06 MLS/HR; Start 05/26/18 at 22:30 Vancomycin HCl (Vanco Iv Per Pharmacy) VANCOMYCIN PER PHARMACY PER PROTOCOL XX ; Start 05/27/18 at 00:30 Piperacillin Sod/ Tazobactam Sod 100 ml @ 200 mls/hr Q8 IVPB Last administered on 05/30/18at 05:22; Admin Dose 200 MLS/HR; Start 05/27/18 at 00:30 Acetaminophen (Tylenol Supp) 650 mg Q4H PRN [place] TEMP > 37C; Start 05/27/18 at 02:30 Acetaminophen (Tylenol Liquid) 650 mg Q4H PRN PO TEMP > 37C; Start 05/27/18 at 02:30 Meperidine HCl (Demerol) 12.5 mg Q4H PRN IV POST OPERATIVE SHIVERING Last administered on 05/27/18 22:49; Admin Dose 12.5 MG; Start 05/27/18 at 02:30 Meperidine HCl (Demerol) 25 mg Q4H PRN IV POST OPERATIVE SHIVERING Last administered on 05/27/18 03:09; Admin Dose 25 MG; Start 05/27/18 at 02:30 Eye Lubricant (Akwa Oint) 1 applic Q6 BOTH EYES Last administered on 05/30/18 05:17; Admin Dose 1 APPLIC; Start 05/27/18 at 06:00 Eye Lubricant (Artificial Tears Oph) 2 drop Q6 BOTH EYES Last administered on 05/30/18 05:17; Admin Dose 2 DROP; Start 05/27/18 at 06:00 Potassium Chloride 50 ml @ 50 mls/hr K PROTOCOL PRN IVPB PENDING LAB VALUE Last administered on 05/27/18 15:25; Admin Dose 50 MLS/HR; Start 05/27/18 at 04:00 Aspirin (Aspirin) 81 mg DAILY NGT Last administered on 05/29/18 08:11; Admin Dose 81 MG; Start 05/27/18 at 10:00 Ticagrelor (Brilinta) 90 mg BID NGT Last administered on 05/29/18 21:04; Admin Dose 90 MG; Start 05/27/18 at 21:00 Sodium Chloride 1,000 ml @ 75 mls/hr [id number] IV Last administered on 05/29/18 20:58; Admin Dose 75 MLS/HR; Start 05/27/18 at 15:30 Lorazepam (Ativan) 2 mg Q2H PRN IV SEIZURES Last administered on 05/28/18 01:33; Admin Dose 2 MG; Start 05/28/18 at 01:30 Acetaminophen (Tylenol Liquid) 650 mg Q6H PRN NGT MILD PAIN(1-3)OR ELEVATED TEMP; Start 05/28/18 at 03:00 Vancomycin HCl 1.5 gm/Sodium Chloride 250 ml @ 83.333 mls/ hr Q24H IVPB Last administered on 05/28/18 11:29; Admin Dose 83.333 MLS/HR; Start 05/28/18 at 11:00; Status Hold Epinephrine 4 mg/ Sodium Chloride 250 ml @ 3.75 mls/hr TITRATE IV Last administered on 05/29/18at 03:52; Admin Dose 3.75 MLS/HR; Start 05/29/18 at 03:30 Pantoprazole 80 mg/Sodium Chloride 100 ml @ 10 mls/hr Q10H IV Last administered on 05/29/18at 22:55; Admin Dose 10 MLS/HR; Start 05/29/18 at 05:00 Dopamine HCl 800 mg/Dextrose 250 ml @ 4.69 mls/hr TITRATE IV Last administered on 05/30/18at 04:39; Admin Dose 46.88 MLS/HR; Start 05/29/18 at 07:00 MARIBLE MONTEZ May 30, 2018 07:39
[2018-05-30] MEDS: PROPOFOL 100 ML IV SCH ×2 (08:12→21:00)
[2018-05-30] MEDS: ASPIRIN 81 MG TAB NGT SCH (08:13)
[2018-05-30] MEDS: TICAGRELOR 90 MG TABLET NGT SCH ×2 (08:14→21:09)
[2018-05-30] MEDS: VASOPRESSIN 60 UNIT in DEXTROSE 5% 57 ML IV SCH ×2 (08:30→16:58)
[2018-05-30] MEDS: PANTOPRAZOLE IV 80 MG in SOD CHLORIDE 0.9% 100 ML IV SCH ×2 (08:32→18:24)
[2018-05-30] MEDS: INSULIN HUMAN REGULAR 100 UNIT in SOD CHLORIDE 0.9% 99 ML IV SCH (08:35)
--- NOTE | 2018-05-30 10:09 | PN ---
Date/Time of Note Date/Time of Note DATE: 05/30/18 TIME: 09:47 Assessment/Plan VTE Prophylaxis Risk score (from Ns)>0 risk: 11 SCD applied (from Ns): Yes Pharmacological prophylaxis: other Lines/Catheters IV [facility]ter [facility]from [facility]): SRIRAM CATH Urinary Cath still in place: Yes Reason Cath still needed: urinary retention Assessment/Plan Hospital Course S: Patient still intubated, still on intra-aortic balloon pump, and pressors. Seen by cardiology team this morning. O: VS - see below PE: Gen: Obese man intubated, sedated. Eyes: Normal pupils equal bilaterally nonreactive. HEENT: Mild epistaxis. ET tube in place, OG tube in place clamped Card: Balloon pump audible. Cannot auscultate heart sounds. Pulm: Distant mechanical breath sounds bilaterally. Abd: Obese, soft, nondistended. Ext: No cyanosis/clubbing/edema. R fem vascular sheath with balloon pump. : Harrison in place with no urine Date/Time of Note Date/Time of Note DATE: 05/26/18 TIME: 18:10 Operative Report Procedure Date: May 26, 2018 Preoperative Diagnosis Cardiac arrest, STEMI inferolateral wall Postoperative Diagnosis Same Operation/Procedure Performed Coronary angiography Percutaneous coronary intervention to the lcx, with placement of a drug-eluting stent IABP insertion Assessment/Plan: 68 yo man no known past medical history admitted with respiratory distress proceeding to cardiac arrest. #Cardiac arrest- Likely from STEMI- s/p cardiac cath with BELLA to circumflex 05/26- Was on hypothermia protocol, with neuromuscular blockade and sedation- BP still only maintained on multiple pressors. Patient appears nonresponsive. - Continue balloon pump per cardiology. - Continue pressors to maintain MAP>65 - Antiplatelets per cardiology Dr. Gamboa - Consider EEG and neurology consult given the possibility of anoxic encephalopathy #Respiratory failurew/Hypoxia-patient still intubated - Pulmonary managing vent -Monitor pulmonary vascular congestion, if worsens patient may require dialysis for fluid #hyperkalemia - was present on BMP yesterday - monitor, follow-up BMP from today #Renal failure- Patient is oliguric with rising creatinine. - Dr. Esparza consulted from renal, follow-up their recommendations, including possible need for dialysis Dispo: Very poor prognosis given multi organ failure, pt DNR DVT: SCDs GI: protonix Critical care time spent in patient care today equals 45 minutes. Result Diagram: 05/29/18 0448 05/30/18 0433 Results 24hrs Laboratory Tests Test 05/29/18 10:03 05/29/18 10:56 05/29/18 11:58 05/29/18 12:55 Bedside Glucose 138 144 146 138 Test 05/29/18 14:27 05/29/18 14:59 05/29/18 16:05 05/29/18 17:00 Bedside Glucose 196 166 138 148 Test 05/29/18 18:07 05/29/18 18:56 05/29/18 19:55 05/29/18 21:05 Bedside Glucose 205 135 144 146 Test 05/29/18 22:03 05/29/18 23:01 05/30/18 00:11 05/30/18 01:05 Bedside Glucose 156 173 155 125 Test 05/30/18 02:06 05/30/18 02:15 05/30/18 03:03 05/30/18 03:06 Bedside Glucose 183 132 148 Blood Gas Blood arterial Specimen Source Arterial Blood 05/30/2018 2:15:5 Date Drawn 8 AM Arterial Blood pH 7.042 *L (Temp corrected) Arterial Blood 80.5 *H pCO2 (Temp correct) Arterial Blood 53.7 *L pO2 (Temp corrected) Arterial Blood 21.4 L HCO3 Arterial Blood -10.5 L Base Excess Arterial Blood 77.2 L Oxygen Saturation Srinivas Test N/A Arterial Blood A-Line Gas Puncture Site Arterial 0.3 Blood Carboxyhemo globin Arterial Blood 0.3 Methemoglobin Blood Gas A-a O2 578.8 H Differential Oxyhemoglobin 76.7 L Percent Blood Gas 37.0 Temperature Blood Gas 24.0 Respiration Rate Blood Gas Actual 26 Respiration Rate Blood Gas VENT - PC Modality FiO2 100.0 Blood Gas High 38.0 PEEP Setting Blood Gas Low 8.0 PEEP Setting Blood Gas STEMPLE RN Critical Value Read Back Blood Gas LAURA Notified Whom Blood Gas 05/30/2018 2:27:5 Notified Time 7 AM Test 05/30/18 04:33 05/30/18 04:35 05/30/18 04:59 05/30/18 06:11 Prothrombin Time 17.4 H Prothrombin Time 1.4 Ratio INR International 1.41 Normalized Ratio Sodium Level 137 Potassium Level 5.6 H Chloride Level 103 Carbon Dioxide 23 Level Anion Gap 11 Blood Urea 30 H Nitrogen Creatinine 2.99 H Est Glomerular 21 L Filtrat Rate mL/min Glucose Level 152 Calcium Level 6.8 L Ionized Calcium 0.9 L (Measured) Phosphorus Level 7.8 #H Magnesium Level 2.3 Random Vancomycin 10.1 Level Bedside Glucose 167 146 Test 05/30/18 06:59 05/30/18 07:00 05/30/18 08:06 05/30/18 09:20 Bedside Glucose 136 157 136 Blood Gas Blood arterial Specimen Source Arterial Blood 05/30/2018 8:00:2 Date Drawn 2 AM Arterial Blood pH 7.181 *L (Temp corrected) Arterial Blood 47.4 H pCO2 (Temp correct) Arterial Blood 83.1 pO2 (Temp corrected) Arterial Blood 17.3 L HCO3 Arterial Blood -10.8 L Base Excess Arterial Blood 95.2 Oxygen Saturation Srinivas Test N/A Arterial Blood A-Line Gas Puncture Site Arterial 0.2 Blood Carboxyhemo globin Arterial Blood 0.2 Methemoglobin Blood Gas A-a O2 582.5 H Differential Oxyhemoglobin 94.8 Percent Blood Gas 37.0 Temperature Blood Gas 30.0 Respiration Rate Blood Gas Actual 30 Respiration Rate Blood Gas VENT - PC Modality FiO2 100.0 Blood Gas Low 8.0 PEEP Setting Blood Gas MNGO RN Critical Value Read Back Blood Gas TM Notified Whom Blood Gas 05/30/2018 8:18:3 Notified Time 3 AM Exam/Review of Systems Exam Vitals Vital Signs Date Temp Pulse Resp B/P (MAP) Pulse Ox O2 O2 Flow FiO2 Time Delivery Rate 05/30/18 90 30 110/53 98 Mechanical 09:00 (72) Ventilator 05/30/18 96.9 08:00 05/30/18 100 08:00 Intake and Output 05/29/18 05/29/18 05/30/18 1414:59 22:59 06:59 IntakeIntake Total 1620.55 ml 1577.37 ml 1742.60 ml OutputOutput Total 23 ml 378 ml 1055 ml BalanceBalance 1597.55 ml 1199.37 ml 687.60 ml Results Results 24hrs Laboratory Tests Test 05/29/18 10:03 05/29/18 10:56 05/29/18 11:58 05/29/18 12:55 Bedside Glucose 138 144 146 138 Test 05/29/18 14:27 05/29/18 14:59 05/29/18 16:05 05/29/18 17:00 Bedside Glucose 196 166 138 148 Test 05/29/18 18:07 05/29/18 18:56 05/29/18 19:55 05/29/18 21:05 Bedside Glucose 205 135 144 146 Test 05/29/18 22:03 05/29/18 23:01 05/30/18 00:11 05/30/18 01:05 Bedside Glucose 156 173 155 125 Test 05/30/18 02:06 05/30/18 02:15 05/30/18 03:03 05/30/18 03:06 Bedside Glucose 183 132 148 Blood Gas Blood arterial Specimen Source Arterial Blood 05/30/2018 2:15:5 Date Drawn 8 AM Arterial Blood pH 7.042 *L (Temp corrected) Arterial Blood 80.5 *H pCO2 (Temp correct) Arterial Blood 53.7 *L pO2 (Temp corrected) Arterial Blood 21.4 L HCO3 Arterial Blood -10.5 L Base Excess Arterial Blood 77.2 L Oxygen Saturation Srinivas Test N/A Arterial Blood A-Line Gas Puncture Site Arterial 0.3 Blood Carboxyhemo globin Arterial Blood 0.3 Methemoglobin Blood Gas A-a O2 578.8 H Differential Oxyhemoglobin 76.7 L Percent Blood Gas 37.0 Temperature Blood Gas 24.0 Respiration Rate Blood Gas Actual 26 Respiration Rate Blood Gas VENT - PC Modality FiO2 100.0 Blood Gas High 38.0 PEEP Setting Blood Gas Low 8.0 PEEP Setting Blood Gas STEMPLE RN Critical Value Read Back Blood Gas MA Notified Whom Blood Gas 05/30/2018 2:27:5 Notified Time 7 AM Test 05/30/18 04:33 05/30/18 04:35 05/30/18 04:59 05/30/18 06:11 Prothrombin Time 17.4 H Prothrombin Time 1.4 Ratio INR International 1.41 Normalized Ratio Sodium Level 137 Potassium Level 5.6 H Chloride Level 103 Carbon Dioxide 23 Level Anion Gap 11 Blood Urea 30 H Nitrogen Creatinine 2.99 H Est Glomerular 21 L Filtrat Rate mL/min Glucose Level 152 Calcium Level 6.8 L Ionized Calcium 0.9 L (Measured) Phosphorus Level 7.8 #H Magnesium Level 2.3 Random Vancomycin 10.1 Level Bedside Glucose 167 146 Test 05/30/18 06:59 05/30/18 07:00 05/30/18 08:06 05/30/18 09:20 Bedside Glucose 136 157 136 Blood Gas Blood arterial Specimen Source Arterial Blood 05/30/2018 8:00:2 Date Drawn 2 AM Arterial Blood pH 7.181 *L (Temp corrected) Arterial Blood 47.4 H pCO2 (Temp correct) Arterial Blood 83.1 pO2 (Temp corrected) Arterial Blood 17.3 L HCO3 Arterial Blood -10.8 L Base Excess Arterial Blood 95.2 Oxygen Saturation Srinivas Test N/A Arterial Blood A-Line Gas Puncture Site Arterial 0.2 Blood Carboxyhemo globin Arterial Blood 0.2 Methemoglobin Blood Gas A-a O2 582.5 H Differential Oxyhemoglobin 94.8 Percent Blood Gas 37.0 Temperature Blood Gas 30.0 Respiration Rate Blood Gas Actual 30 Respiration Rate Blood Gas VENT - PC Modality FiO2 100.0 Blood Gas Low 8.0 PEEP Setting Blood Gas MNGO RN Critical Value Read Back Blood Gas TM Notified Whom Blood Gas 05/30/2018 8:18:3 Notified Time 3 AM Medications Medication Current Medications IV Flush (NS 3 ml) 3 ml PER PROTOCOL IV ; Start 05/26/18 at 15:30 Morphine Sulfate (morphine) 2 mg Q4H PRN IV .SEVERE PAIN 7-10; Start 05/26/18 at 15:30 Atorvastatin Calcium (Lipitor) 80 mg DAILY@21 PO Last administered on 05/29/18at 21:01; Admin Dose 80 MG; Start 05/26/18 at 21:00 Midazolam HCl 50 ml @ 1 mls/hr TITRATE IV Last administered on 05/28/18 19:02; Admin Dose 10 MLS/HR; Start 05/26/18 at 19:30 Vecuronium [place] 100 mg/ Dextrose 100 ml @ 6.25 mls/hr TITRATE IV Last administered on 05/27/18 06:55; Admin Dose 6.25 MLS/HR; Start 05/26/18 at 20:00 Vasopressin 60 unit/Dextrose 60 ml @ 1.2 mls/hr Q12H IV Last administered on 05/29/18 20:30; Admin Dose 2.4 MLS/HR; Start 05/26/18 at 20:30 Fentanyl 100 ml @ 2.5 mls/hr TITRATE IV Last administered on 05/30/18 01:27; Admin Dose 2.5 MLS/HR; Start 05/26/18 at 21:00 Diagnostic Test (Pha) (Accu-Chek) 1 ea Q1H XX Last administered on 05/30/18 09:21; Admin Dose 1 EA; Start 05/26/18 at 21:00 Insulin Human Regular 100 unit/ Sodium Chloride 100 ml @ 0 mls/hr PER PROTOCOL IV Last administered on 05/30/18 08:35; Admin Dose 4 MLS/HR; Start 05/26/18 at 21:00 Miscellaneous Information (* Miscellaneous Pharmacy Order) Treatment of Hypoglycemia: 1.BG 51... Per protocol XX ; Start 05/26/18 at 20:30 Dextrose (D50w Syringe) 25 ml Q15M PRN IV .DECREASED GLUCOSE; Start 05/26/18 at 20:30 Dextrose (D50w Syringe) 50 ml Q15M PRN IV .DECREASED GLUCOSE; Start 05/26/18 at 20:30 Propofol 100 ml @ 3.75 mls/hr Q12H IV Last administered on 05/28/18at 23:47; Admin Dose 22.5 MLS/HR; Start 05/26/18 at 21:00 Phenylephrine HCl 80 mg/Dextrose 250 ml @ 18.75 mls/ hr TITRATE IV Last administered on 05/30/18 05:36; Admin Dose 28.13 MLS/HR; Start 05/26/18 at 22:30 Norepinephrine 32 mg/Dextrose 250 ml @ 0.47 mls/hr TITRATE IV Last administered on 05/29/18 22:36; Admin Dose 14.06 MLS/HR; Start 05/26/18 at 22:30 Vancomycin HCl (Vanco Iv Per Pharmacy) VANCOMYCIN PER PHARMACY PER PROTOCOL XX ; Start 05/27/18 at 00:30 Piperacillin Sod/ Tazobactam Sod 100 ml @ 200 mls/hr Q8 IVPB Last administered on 05/30/18 05:22; Admin Dose 200 MLS/HR; Start 05/27/18 at 00:30 Acetaminophen (Tylenol Supp) 650 mg Q4H PRN [place] TEMP > 37C; Start 05/27/18 at 02:30 Acetaminophen (Tylenol Liquid) 650 mg Q4H PRN PO TEMP > 37C; Start 05/27/18 at 02:30 Meperidine HCl (Demerol) 12.5 mg Q4H PRN IV POST OPERATIVE SHIVERING Last administered on 05/27/18 22:49; Admin Dose 12.5 MG; Start 05/27/18 at 02:30 Meperidine HCl (Demerol) 25 mg Q4H PRN IV POST OPERATIVE SHIVERING Last administered on 05/27/18 03:09; Admin Dose 25 MG; Start 05/27/18 at 02:30 Eye Lubricant (Akwa Oint) 1 applic Q6 BOTH EYES Last administered on 05/30/18 05:17; Admin Dose 1 APPLIC; Start 05/27/18 at 06:00 Eye Lubricant (Artificial Tears Oph) 2 drop Q6 BOTH EYES Last administered on 05/30/18 05:17; Admin Dose 2 DROP; Start 05/27/18 at 06:00 Potassium Chloride 50 ml @ 50 mls/hr K PROTOCOL PRN IVPB PENDING LAB VALUE Last administered on 05/27/18 15:25; Admin Dose 50 MLS/HR; Start 05/27/18 at 04:00 Aspirin (Aspirin) 81 mg DAILY NGT Last administered on 05/30/18 08:13; Admin Dose 81 MG; Start 05/27/18 at 10:00 Ticagrelor (Brilinta) 90 mg BID NGT Last administered on 05/30/18 08:14; Admin Dose 90 MG; Start 05/27/18 at 21:00 Sodium Chloride 1,000 ml @ 75 mls/hr [id number] IV Last administered on 05/29/18 20:58; Admin Dose 75 MLS/HR; Start 05/27/18 at 15:30 Lorazepam (Ativan) 2 mg Q2H PRN IV SEIZURES Last administered on 05/28/18 01:33; Admin Dose 2 MG; Start 05/28/18 at 01:30 Acetaminophen (Tylenol Liquid) 650 mg Q6H PRN NGT MILD PAIN(1-3)OR ELEVATED TEMP; Start 05/28/18 at 03:00 Vancomycin HCl 1.5 gm/Sodium Chloride 250 ml @ 83.333 mls/ hr Q24H IVPB Last administered on 05/28/18 11:29; Admin Dose 83.333 MLS/HR; Start 05/28/18 at 11:00; Status Hold Epinephrine 4 mg/ Sodium Chloride 250 ml @ 3.75 mls/hr TITRATE IV Last administered on 05/29/18at 03:52; Admin Dose 3.75 MLS/HR; Start 05/29/18 at 03:30 Pantoprazole 80 mg/Sodium Chloride 100 ml @ 10 mls/hr Q10H IV Last administered on 05/30/18at 08:32; Admin Dose 10 MLS/HR; Start 05/29/18 at 05:00 Dopamine HCl 800 mg/Dextrose 250 ml @ 4.69 mls/hr TITRATE IV Last administered on 05/30/18at 04:39; Admin Dose 46.88 MLS/HR; Start 05/29/18 at 07:00 VANDA EARL May 30, 2018 09:57
[2018-05-30] MEDS: SOD CHLORIDE 0.9% 1,000 ML IV SCH ×2 (10:33→23:30)
--- NOTE | 2018-05-30 11:33 | CONS ---
Consult Date/Type/Reason Admit Date/Time May 26, 2018 at 15:31 Initial Consult Date 05/26/18 Type of Consult Pulmonary Requesting Provider: ALYSE KLEIN MD Date/Time of Note DATE: 05/30/18 TIME: 11:32 Subjective Patient remains intubated on mechanical ventilation, continues multiple vasopressors and intra-aortic balloon pump one-to-one. Objective Vital Signs Date Temp Pulse Resp B/P (MAP) Pulse Ox O2 O2 Flow FiO2 Time Delivery Rate 05/30/18 90 30 110/53 98 Mechanical 09:00 (72) Ventilator 05/30/18 100 08:45 05/30/18 96.9 08:00 Intake and Output 05/29/18 05/29/18 05/30/18 1414:59 22:59 06:59 IntakeIntake Total 1620.55 ml 1577.37 ml 1742.60 ml OutputOutput Total 23 ml 378 ml 1055 ml BalanceBalance 1597.55 ml 1199.37 ml 687.60 ml Exam PHYSICAL EXAMINATION: GENERAL: Chronically ill appearing gentleman on mechanical ventilation, orally intubated. VITAL SIGNS: NECK: Supple. No JVD or lymphadenopathy. CARDIAC: S1, S2. No added sounds or murmurs. CHEST: Diminished air entry bilaterally. ABDOMEN: Soft, nontender. No guarding or rebound. EXTREMITIES: No cyanosis, clubbing. A 1+ edema. NEUROLOGIC: Unable to assess. Vent Setting Ventilator Support Mode: PC Fraction of Inspired Oxygen pe: 100 Positive End Expiratory Pressu: 8.0 Results/Medications Result Diagram: 05/30/18 1023 05/30/18 1023 Results 24 hrs Laboratory Tests Test 05/29/18 11:58 05/29/18 12:55 05/29/18 14:27 05/29/18 14:59 Bedside Glucose 146 138 196 166 Test 05/29/18 16:05 05/29/18 17:00 05/29/18 18:07 05/29/18 18:56 Bedside Glucose 138 148 205 135 Test 05/29/18 19:55 05/29/18 21:05 05/29/18 22:03 05/29/18 23:01 Bedside Glucose 144 146 156 173 Test 05/30/18 00:11 05/30/18 01:05 05/30/18 02:06 05/30/18 02:15 Bedside Glucose 155 125 183 Blood Gas Blood arterial Specimen Source Arterial Blood 05/30/2018 2:15:5 Date Drawn 8 AM Arterial Blood pH 7.042 *L (Temp corrected) Arterial Blood 80.5 *H pCO2 (Temp correct) Arterial Blood 53.7 *L pO2 (Temp corrected) Arterial Blood 21.4 L HCO3 Arterial Blood -10.5 L Base Excess Arterial Blood 77.2 L Oxygen Saturation Srinivas Test N/A Arterial Blood A-Line Gas Puncture Site Arterial 0.3 Blood Carboxyhemo globin Arterial Blood 0.3 Methemoglobin Blood Gas A-a O2 578.8 H Differential Oxyhemoglobin 76.7 L Percent Blood Gas 37.0 Temperature Blood Gas 24.0 Respiration Rate Blood Gas Actual 26 Respiration Rate Blood Gas VENT - PC Modality FiO2 100.0 Blood Gas High 38.0 PEEP Setting Blood Gas Low 8.0 PEEP Setting Blood Gas STEMPLE RN Critical Value Read Back Blood Gas MA Notified Whom Blood Gas 05/30/2018 2:27:5 Notified Time 7 AM Test 05/30/18 03:03 05/30/18 03:06 05/30/18 04:33 05/30/18 04:35 Bedside Glucose 132 148 Prothrombin Time 17.4 H Prothrombin Time 1.4 Ratio INR International 1.41 Normalized Ratio Sodium Level 137 Potassium Level 5.6 H Chloride Level 103 Carbon Dioxide 23 Level Anion Gap 11 Blood Urea 30 H Nitrogen Creatinine 2.99 H Est Glomerular 21 L Filtrat Rate mL/min Glucose Level 152 Calcium Level 6.8 L Ionized Calcium 0.9 L (Measured) Phosphorus Level 7.8 #H Magnesium Level 2.3 Random Vancomycin 10.1 Level Test 05/30/18 04:59 05/30/18 06:11 05/30/18 06:59 05/30/18 07:00 Bedside Glucose 167 146 136 Blood Gas Blood arterial Specimen Source Arterial Blood 05/30/2018 8:00:2 Date Drawn 2 AM Arterial Blood pH 7.181 *L (Temp corrected) Arterial Blood 47.4 H pCO2 (Temp correct) Arterial Blood 83.1 pO2 (Temp corrected) Arterial Blood 17.3 L HCO3 Arterial Blood -10.8 L Base Excess Arterial Blood 95.2 Oxygen Saturation Srinivas Test N/A Arterial Blood A-Line Gas Puncture Site Arterial 0.2 Blood Carboxyhemo globin Arterial Blood 0.2 Methemoglobin Blood Gas A-a O2 582.5 H Differential Oxyhemoglobin 94.8 Percent Blood Gas 37.0 Temperature Blood Gas 30.0 Respiration Rate Blood Gas Actual 30 Respiration Rate Blood Gas VENT - PC Modality FiO2 100.0 Blood Gas Low 8.0 PEEP Setting Blood Gas MNGO RN Critical Value Read Back Blood Gas TM Notified Whom Blood Gas 05/30/2018 8:18:3 Notified Time 3 AM Test 05/30/18 08:06 05/30/18 09:20 05/30/18 10:23 05/30/18 10:57 Bedside Glucose 157 136 112 White Blood Count 18.4 H Red Blood Count 3.83 L Hemoglobin 11.5 L Hematocrit 35.0 L Mean Corpuscular 91.4 Volume Mean Corpuscular 30.0 Hemoglobin Mean Corpuscular 32.9 Hemoglobin Concen t Red Cell 14.0 Distribution Width Platelet Count 90 #L Mean Platelet 11.3 H Volume Immature 1.000 H Granulocytes % Neutrophils % Segmented 69 Neutrophils % (Manual) Band Neutrophils 22 H % (Manual) Lymphocytes % Lymphocytes % 4 L (Manual) Monocytes % Monocytes % 1 (Manual) Eosinophils % Eosinophils % 1 (Manual) Basophils % Metamyelocytes % 1 H (manual) Myelocytes % 1 H (Manual) Promyelocytes % 1 H (Manual) Nucleated Red 1 H Blood Cells % Immature 0.180 H Granulocytes # Neutrophils # Neutrophils # 13.4 H (Manual) Band Neutrophils 4.0 H # Lymphocytes 0.7 L (Manual) Lymphocytes # Monocytes # Monocytes # 0.1 L (Manual) Eosinophils # Basophils # Metamyelocytes # 0.1 H Myelocytes # 0.1 H Promyelocytes # 0.1 H Nucleated Red Blood Cells # Platelet Estimate DECREASED Giant Platelets 1 H Polychromasia 1+ Poikilocytosis 1+ Anisocytosis 2+ Microcytosis 2+ Macrocytosis 1+ Sodium Level 135 Potassium Level 5.9 H Chloride Level 107 Carbon Dioxide 19 L Level Anion Gap 9 Blood Urea 34 H Nitrogen Creatinine 3.02 H Est Glomerular 21 L Filtrat Rate mL/min Glucose Level 139 Calcium Level 6.7 L Medications Current Medications IV Flush (NS 3 ml) 3 ml PER PROTOCOL IV ; Start 05/26/18 at 15:30 Morphine Sulfate (morphine) 2 mg Q4H PRN IV .SEVERE PAIN 7-10; Start 05/26/18 at 15:30 Atorvastatin Calcium (Lipitor) 80 mg DAILY@21 PO Last administered on 05/29/18at 21:01; Admin Dose 80 MG; Start 05/26/18 at 21:00 Midazolam HCl 50 ml @ 1 mls/hr TITRATE IV Last administered on 05/28/18at 19:02; Admin Dose 10 MLS/HR; Start 05/26/18 at 19:30 Vecuronium Refugio 100 mg/ Dextrose 100 ml @ 6.25 mls/hr TITRATE IV Last administered on 05/27/18 06:55; Admin Dose 6.25 MLS/HR; Start 05/26/18 at 20:00 Vasopressin 60 unit/Dextrose 60 ml @ 1.2 mls/hr Q12H IV Last administered on 05/29/18 20:30; Admin Dose 2.4 MLS/HR; Start 05/26/18 at 20:30 Fentanyl 100 ml @ 2.5 mls/hr TITRATE IV Last administered on 05/30/18 01:27; Admin Dose 2.5 MLS/HR; Start 05/26/18 at 21:00 Diagnostic Test (Pha) (Accu-Chek) 1 ea Q1H XX Last administered on 05/30/18 10:59; Admin Dose 1 EA; Start 05/26/18 at 21:00 Insulin Human Regular 100 unit/ Sodium Chloride 100 ml @ 0 mls/hr PER PROTOCOL IV Last administered on 05/30/18 08:35; Admin Dose 4 MLS/HR; Start 05/26/18 at 21:00 Miscellaneous Information (* Miscellaneous Pharmacy Order) Treatment of Hypoglycemia: 1.BG 51... Per protocol XX ; Start 05/26/18 at 20:30 Dextrose (D50w Syringe) 25 ml Q15M PRN IV .DECREASED GLUCOSE; Start 05/26/18 at 20:30 Dextrose (D50w Syringe) 50 ml Q15M PRN IV .DECREASED GLUCOSE; Start 05/26/18 at 20:30 Propofol 100 ml @ 3.75 mls/hr Q12H IV Last administered on 05/28/18at 23:47; Admin Dose 22.5 MLS/HR; Start 05/26/18 at 21:00 Phenylephrine HCl 80 mg/Dextrose 250 ml @ 18.75 mls/ hr TITRATE IV Last administered on 05/30/18 05:36; Admin Dose 28.13 MLS/HR; Start 05/26/18 at 22:30 Norepinephrine 32 mg/Dextrose 250 ml @ 0.47 mls/hr TITRATE IV Last administered on 05/29/18 22:36; Admin Dose 14.06 MLS/HR; Start 05/26/18 at 22:30 Vancomycin HCl (Vanco Iv Per Pharmacy) VANCOMYCIN PER PHARMACY PER PROTOCOL XX ; Start 05/27/18 at 00:30 Piperacillin Sod/ Tazobactam Sod 100 ml @ 200 mls/hr Q8 IVPB Last administered on 05/30/18 05:22; Admin Dose 200 MLS/HR; Start 05/27/18 at 00:30 Acetaminophen (Tylenol Supp) 650 mg Q4H PRN OK TEMP > 37C; Start 05/27/18 at 02:30 Acetaminophen (Tylenol Liquid) 650 mg Q4H PRN PO TEMP > 37C; Start 05/27/18 at 02:30 Meperidine HCl (Demerol) 12.5 mg Q4H PRN IV POST OPERATIVE SHIVERING Last administered on 05/27/18 22:49; Admin Dose 12.5 MG; Start 05/27/18 at 02:30 Meperidine HCl (Demerol) 25 mg Q4H PRN IV POST OPERATIVE SHIVERING Last administered on 05/27/18 03:09; Admin Dose 25 MG; Start 05/27/18 at 02:30 Eye Lubricant (Akwa Oint) 1 applic Q6 BOTH EYES Last administered on 05/30/18 05:17; Admin Dose 1 APPLIC; Start 05/27/18 at 06:00 Eye Lubricant (Artificial Tears Oph) 2 drop Q6 BOTH EYES Last administered on 05/30/18 05:17; Admin Dose 2 DROP; Start 05/27/18 at 06:00 Potassium Chloride 50 ml @ 50 mls/hr K PROTOCOL PRN IVPB PENDING LAB VALUE Last administered on 05/27/18 15:25; Admin Dose 50 MLS/HR; Start 05/27/18 at 04:00 Aspirin (Aspirin) 81 mg DAILY NGT Last administered on 05/30/18 08:13; Admin Dose 81 MG; Start 05/27/18 at 10:00 Ticagrelor (Brilinta) 90 mg BID NGT Last administered on 05/30/18 08:14; Admin Dose 90 MG; Start 05/27/18 at 21:00 Sodium Chloride 1,000 ml @ 75 mls/hr [id number] IV Last administered on 05/30/18 10:33; Admin Dose 75 MLS/HR; Start 05/27/18 at 15:30 Lorazepam (Ativan) 2 mg Q2H PRN IV SEIZURES Last administered on 05/28/18 01:33; Admin Dose 2 MG; Start 05/28/18 at 01:30 Acetaminophen (Tylenol Liquid) 650 mg Q6H PRN NGT MILD PAIN(1-3)OR ELEVATED TEMP; Start 05/28/18 at 03:00 Vancomycin HCl 1.5 gm/Sodium Chloride 250 ml @ 83.333 mls/ hr Q24H IVPB Last administered on 05/28/18 11:29; Admin Dose 83.333 MLS/HR; Start 05/28/18 at 11:00; Status Hold Epinephrine 4 mg/ Sodium Chloride 250 ml @ 3.75 mls/hr TITRATE IV Last administered on 05/29/18 03:52; Admin Dose 3.75 MLS/HR; Start 05/29/18 at 03:30 Pantoprazole 80 mg/Sodium Chloride 100 ml @ 10 mls/hr Q10H IV Last administered on 05/30/18 08:32; Admin Dose 10 MLS/HR; Start 05/29/18 at 05:00 Dopamine HCl 800 mg/Dextrose 250 ml @ 4.69 mls/hr TITRATE IV Last administered on 05/30/18 09:54; Admin Dose 46.88 MLS/HR; Start 05/29/18 at 07:00 Assessment/Plan Hospital Course (Demo Recall) IMPRESSION: 1. Cardiopulmonary arrest. 2. Acute myocardial infarction with stent placement to circumflex. 3. Likely severe anoxic brain injury. 4. Acute renal failure. 5. Severe lactic acidosis. 6. Likely significant gastrointestinal bleed given coffee-ground nasogastric output. Plan: Continue vent continue pressors and IABP Abx Renal recs neurology evaluation tomorrow. EEG and apnea testing if indicated. Prognosis extremely poor not for extended life support if patient is not improving. Critical care time 40 minutes. MIGUEL CHOWDHURY MD, [facility] May 30, 2018 11:33
--- NOTE | 2018-05-30 12:25 | PN ---
Date/Time of Note Date/Time of Note DATE: 05/30/18 TIME: 12:24 Assessment/Plan Lines/Catheters IV Catheter Type (from Nrsg): SRIRAM CATH [place] in Place (from Nrsg): Yes Assessment/Plan Assessment/Plan Renal failure Status post cardiopulmonary arrest Status post placement of dialysis catheter We will continue dialysis May need a permacath if renal failure does not improve Subjective 24 Hr Interval Summary Constitutional: improved Pain Control: mild Exam/Review of Systems Vital Signs Vitals Vital Signs Date Temp Pulse Resp B/P (MAP) Pulse Ox O2 O2 Flow FiO2 Time Delivery Rate 05/30/18 90 30 110/53 98 Mechanical 09:00 (72) Ventilator 05/30/18 100 08:45 05/30/18 96.9 08:00 Intake and Output 05/29/18 05/29/18 05/30/18 1515:00 23:00 07:00 IntakeIntake Total 1663.68 ml 1571.74 ml 1730.41 ml OutputOutput Total 145 ml 359 ml 993 ml BalanceBalance 1518.68 ml 1212.74 ml 737.41 ml Exam Eyes: nl conjunctiva, EOMI, nl lids, nl sclera ENMT: nl external ears & nose, nl lips & teeth, nl nasal mucosa & septum, mucosa pink and moist Neck: supple, non-tender Respiratory: clear to auscultation, normal air movement Cardiovascular: regular rate and rhythm, nl pulses Gastrointestinal: soft, nl liver, spleen, non-tender Musculoskeletal: nl extremities to inspection, nl gait and stance Results Result Diagram: 05/30/18 1023 05/30/18 1023 MARICARMEN BUENO MD May 30, 2018 12:25
[2018-05-30] MEDS ORDERED: VANCOMYCIN HCL 1.5 GM in SOD CHLORIDE 0.9% 250 ML IVPB SCH (13:00)
[2018-05-30] MEDS: SODIUM BICARBONATE (IV ADD) 100 MEQ in DEXTROSE 5%-0.45% NACL 1,000 ML IV SCH (14:27)
--- NOTE | 2018-05-30 14:41 | CONS ---
Assessment/Plan Assessment/Plan Hospital Course 68 M c/ uncertain PMHx, who initially presented w/ respiratory Sx... His hospital course is c/b cardiac arrest...with eventual ROSC.. s/p cardiac cath... s/p targeted temperature therapy The patient is persistently unresponsive, for which neurology is consulted. Of note, he is noted to have rhythmic twitching concerning for seizure.. P: Head CT for further characterization when medically able Start Keppra 1g, then 500mg bid for now Await EEG to evaluate for status Limit sedating medications Other management per primary Consultation Date/Type/Reason Admit Date/Time May 26, 2018 at 15:31 Type of Consult Neurology Reason for Consultation coma s/p cardiac arrest Requesting Provider: ALYSE KLEIN MD Date/Time of Note DATE: 05/30/18 TIME: 14:41 Hx of Present Illness 68 yo man admitted after cardiac arrest. No collateral history, patient intubated and sedated. History per prior documentation. Unknown past medical history. EMS summoned to his sober living facility due to c/o respiratory distress. Patient sustained cardiac arrest in ED, with prolo nged resuscitation. Upon return of spontaneous circulation, EKG demonstrated afib at 96 bpm, ST elevations in II, III, AVF, V4-V6 with reciprocal depressions in V1-2, consistent with inferolateral DE. Patient brought to cardiac catheterization laboratory, underwent a prolonged procedure with ultimate angioplasty of the left circumflex and resulting CONNIE 2 flow down a codominant LCX. Balloon pump placed at the end of the procedure, and patient left on integrilin and cangrelor, and three pressors. Subjective hx not possible: pt non-verbal, pt critical Exam/Review of Systems Exam Vitals Vital Signs Date Temp Pulse Resp B/P (MAP) Pulse Ox O2 O2 Flow FiO2 Time Delivery Rate 05/30/18 94 30 96 100 12:40 05/30/18 110/53 Mechanical 09:00 (72) Ventilator 05/30/18 96.9 08:00 Intake and Output 05/29/18 05/29/18 05/30/18 1515:00 23:00 07:00 IntakeIntake Total 1663.68 ml 1571.74 ml 1730.41 ml OutputOutput Total 145 ml 359 ml 993 ml BalanceBalance 1518.68 ml 1212.74 ml 737.41 ml Results Result Diagram: 05/30/18 1023 05/30/18 1023 Results 24hrs Laboratory Tests Test 05/29/18 14:59 05/29/18 16:05 05/29/18 17:00 05/29/18 18:07 Bedside Glucose 166 138 148 205 Test 05/29/18 18:56 05/29/18 19:55 05/29/18 21:05 05/29/18 22:03 Bedside Glucose 135 144 146 156 Test 05/29/18 23:01 05/30/18 00:11 05/30/18 01:05 05/30/18 02:06 Bedside Glucose 173 155 125 183 Test 05/30/18 02:15 05/30/18 03:03 05/30/18 03:06 05/30/18 04:33 Blood Gas Blood arterial Specimen Source Arterial Blood 05/30/2018 2:15:5 Date Drawn 8 AM Arterial Blood pH 7.042 *L (Temp corrected) Arterial Blood 80.5 *H pCO2 (Temp correct) Arterial Blood 53.7 *L pO2 (Temp corrected) Arterial Blood 21.4 L HCO3 Arterial Blood -10.5 L Base Excess Arterial Blood 77.2 L Oxygen Saturation Srinivas Test N/A Arterial Blood A-Line Gas Puncture Site Arterial 0.3 Blood Carboxyhemo globin Arterial Blood 0.3 Methemoglobin Blood Gas A-a O2 578.8 H Differential Oxyhemoglobin 76.7 L Percent Blood Gas 37.0 Temperature Blood Gas 24.0 Respiration Rate Blood Gas Actual 26 Respiration Rate Blood Gas VENT - PC Modality FiO2 100.0 Blood Gas High 38.0 PEEP Setting Blood Gas Low 8.0 PEEP Setting Blood Gas STEMPLE RN Critical Value Read Back Blood Gas MA Notified Whom Blood Gas 05/30/2018 2:27:5 Notified Time 7 AM Bedside Glucose 132 148 Prothrombin Time 17.4 H Prothrombin Time 1.4 Ratio INR International 1.41 Normalized Ratio Sodium Level 137 Potassium Level 5.6 H Chloride Level 103 Carbon Dioxide 23 Level Anion Gap 11 Blood Urea 30 H Nitrogen Creatinine 2.99 H Est Glomerular 21 L Filtrat Rate mL/min Glucose Level 152 Calcium Level 6.8 L Ionized Calcium 0.9 L (Measured) Phosphorus Level 7.8 #H Magnesium Level 2.3 Test 05/30/18 04:35 2/25/19 04:59 05/30/18 06:11 05/30/18 06:59 Random Vancomycin 10.1 Level Bedside Glucose 167 146 136 Test 05/30/18 07:00 05/30/18 08:06 05/30/18 09:20 05/30/18 10:23 Blood Gas Blood arterial Specimen Source Arterial Blood 05/30/2018 8:00:2 Date Drawn 2 AM Arterial Blood pH 7.181 *L (Temp corrected) Arterial Blood 47.4 H pCO2 (Temp correct) Arterial Blood 83.1 pO2 (Temp corrected) Arterial Blood 17.3 L HCO3 Arterial Blood -10.8 L Base Excess Arterial Blood 95.2 Oxygen Saturation Srinivas Test N/A Arterial Blood A-Line Gas Puncture Site Arterial 0.2 Blood Carboxyhemo globin Arterial Blood 0.2 Methemoglobin Blood Gas A-a O2 582.5 H Differential Oxyhemoglobin 94.8 Percent Blood Gas 37.0 Temperature Blood Gas 30.0 Respiration Rate Blood Gas Actual 30 Respiration Rate Blood Gas VENT - PC Modality FiO2 100.0 Blood Gas Low 8.0 PEEP Setting Blood Gas MNGO RN Critical Value Read Back Blood Gas TM Notified Whom Blood Gas 05/30/2018 8:18:3 Notified Time 3 AM Bedside Glucose 157 136 White Blood Count 18.4 H Red Blood Count 3.83 L Hemoglobin 11.5 L Hematocrit 35.0 L Mean Corpuscular 91.4 Volume Mean Corpuscular 30.0 Hemoglobin Mean Corpuscular 32.9 Hemoglobin Concen t Red Cell 14.0 Distribution Width Platelet Count 90 #L Mean Platelet 11.3 H Volume Immature 1.000 H Granulocytes % Neutrophils % Segmented 69 Neutrophils % (Manual) Band Neutrophils 22 H % (Manual) Lymphocytes % Lymphocytes % 4 L (Manual) Monocytes % Monocytes % 1 (Manual) Eosinophils % Eosinophils % 1 (Manual) Basophils % Metamyelocytes % 1 H (manual) Myelocytes % 1 H (Manual) Promyelocytes % 1 H (Manual) Nucleated Red 1 H Blood Cells % Immature 0.180 H Granulocytes # Neutrophils # Neutrophils # 13.4 H (Manual) Band Neutrophils 4.0 H # Lymphocytes 0.7 L (Manual) Lymphocytes # Monocytes # Monocytes # 0.1 L (Manual) Eosinophils # Basophils # Metamyelocytes # 0.1 H Myelocytes # 0.1 H Promyelocytes # 0.1 H Nucleated Red Blood Cells # Platelet Estimate DECREASED Giant Platelets 1 H Polychromasia 1+ Poikilocytosis 1+ Anisocytosis 2+ Microcytosis 2+ Macrocytosis 1+ Sodium Level 135 Potassium Level 5.9 H Chloride Level 107 Carbon Dioxide 19 L Level Anion Gap 9 Blood Urea 34 H Nitrogen Creatinine 3.02 H Est Glomerular 21 L Filtrat Rate mL/min Glucose Level 139 Calcium Level 6.7 L Test 05/30/18 10:57 05/30/18 12:25 Bedside Glucose 112 124 Medications Medication Current Medications IV Flush (NS 3 ml) 3 ml PER PROTOCOL IV ; Start 05/26/18 at 15:30 Morphine Sulfate (morphine) 2 mg Q4H PRN IV .SEVERE PAIN 7-10; Start 05/26/18 at 15:30 Atorvastatin Calcium (Lipitor) 80 mg DAILY@21 PO Last administered on 05/29/18at 21:01; Admin Dose 80 MG; Start 05/26/18 at 21:00 Midazolam HCl 50 ml @ 1 mls/hr TITRATE IV Last administered on 05/28/18 19:02; Admin Dose 10 MLS/HR; Start 05/26/18 at 19:30 Vecuronium [place] 100 mg/ Dextrose 100 ml @ 6.25 mls/hr TITRATE IV Last administered on 05/27/18 06:55; Admin Dose 6.25 MLS/HR; Start 05/26/18 at 20:00 Vasopressin 60 unit/Dextrose 60 ml @ 1.2 mls/hr Q12H IV Last administered on 05/29/18 20:30; Admin Dose 2.4 MLS/HR; Start 05/26/18 at 20:30 Fentanyl 100 ml @ 2.5 mls/hr TITRATE IV Last administered on 05/30/18 01:27; Admin Dose 2.5 MLS/HR; Start 05/26/18 at 21:00 Diagnostic Test (Pha) (Accu-Chek) 1 ea Q1H XX Last administered on 05/30/18 12:58; Admin Dose 1 EA; Start 05/26/18 at 21:00 Insulin Human Regular 100 unit/ Sodium Chloride 100 ml @ 0 mls/hr PER PROTOCOL IV Last administered on 05/30/18 08:35; Admin Dose 4 MLS/HR; Start 05/26/18 at 21:00 Miscellaneous Information (* Miscellaneous Pharmacy Order) Treatment of Hypoglycemia: 1.BG 51... Per protocol XX ; Start 05/26/18 at 20:30 Dextrose (D50w Syringe) 25 ml Q15M PRN IV .DECREASED GLUCOSE; Start 05/26/18 at 20:30 Dextrose (D50w Syringe) 50 ml Q15M PRN IV .DECREASED GLUCOSE; Start 05/26/18 at 20:30 Propofol 100 ml @ 3.75 mls/hr Q12H IV Last administered on 05/28/18at 23:47; Admin Dose 22.5 MLS/HR; Start 05/26/18 at 21:00 Phenylephrine HCl 80 mg/Dextrose 250 ml @ 18.75 mls/ hr TITRATE IV Last administered on 05/30/18at 05:36; Admin Dose 28.13 MLS/HR; Start 05/26/18 at 22:30 Norepinephrine 32 mg/Dextrose 250 ml @ 0.47 mls/hr TITRATE IV Last administered on 05/29/18at 22:36; Admin Dose 14.06 MLS/HR; Start 05/26/18 at 22:30 Vancomycin HCl (Vanco Iv Per Pharmacy) VANCOMYCIN PER PHARMACY PER PROTOCOL XX ; Start 05/27/18 at 00:30 Piperacillin Sod/ Tazobactam Sod 100 ml @ 200 mls/hr Q8 IVPB Last administered on 05/30/18at 14:27; Admin Dose 200 MLS/HR; Start 05/27/18 at 00:30 Acetaminophen (Tylenol Supp) 650 mg Q4H PRN [place] TEMP > 37C; Start 05/27/18 at 02:30 Acetaminophen (Tylenol Liquid) 650 mg Q4H PRN PO TEMP > 37C; Start 05/27/18 at 02:30 Meperidine HCl (Demerol) 12.5 mg Q4H PRN IV POST OPERATIVE SHIVERING Last administered on 05/27/18at 22:49; Admin Dose 12.5 MG; Start 05/27/18 at 02:30 Meperidine HCl (Demerol) 25 mg Q4H PRN IV POST OPERATIVE SHIVERING Last administered on 05/27/18 03:09; Admin Dose 25 MG; Start 05/27/18 at 02:30 Eye Lubricant (Akwa Oint) 1 applic Q6 BOTH EYES Last administered on 05/30/18 12:30; Admin Dose 1 APPLIC; Start 05/27/18 at 06:00 Eye Lubricant (Artificial Tears Oph) 2 drop Q6 BOTH EYES Last administered on 05/30/18 12:30; Admin Dose 2 DROP; Start 05/27/18 at 06:00 Potassium Chloride 50 ml @ 50 mls/hr K PROTOCOL PRN IVPB PENDING LAB VALUE Last administered on 05/27/18 15:25; Admin Dose 50 MLS/HR; Start 05/27/18 at 04:00 Aspirin (Aspirin) 81 mg DAILY NGT Last administered on 05/30/18 08:13; Admin Dose 81 MG; Start 05/27/18 at 10:00 Ticagrelor (Brilinta) 90 mg BID NGT Last administered on 05/30/18 08:14; Admin Dose 90 MG; Start 05/27/18 at 21:00 Sodium Chloride 1,000 ml @ 75 mls/hr [id number] IV Last administered on 05/30/18 10:33; Admin Dose 75 MLS/HR; Start 05/27/18 at 15:30 Lorazepam (Ativan) 2 mg Q2H PRN IV SEIZURES Last administered on 05/28/18 01:33; Admin Dose 2 MG; Start 05/28/18 at 01:30 Acetaminophen (Tylenol Liquid) 650 mg Q6H PRN NGT MILD PAIN(1-3)OR ELEVATED TEMP; Start 05/28/18 at 03:00 Epinephrine 4 mg/ Sodium Chloride 250 ml @ 3.75 mls/hr TITRATE IV Last administered on 05/29/18 03:52; Admin Dose 3.75 MLS/HR; Start 05/29/18 at 03:30 Pantoprazole 80 mg/Sodium Chloride 100 ml @ 10 mls/hr Q10H IV Last adm inistered on 05/30/18 08:32; Admin Dose 10 MLS/HR; Start 05/29/18 at 05:00 Dopamine HCl 800 mg/Dextrose 250 ml @ 4.69 mls/hr TITRATE IV Last administered on 05/30/18 09:54; Admin Dose 46.88 MLS/HR; Start 05/29/18 at 07:00 Vancomycin HCl 1.5 gm/Sodium Chloride 250 ml @ 83.333 mls/ hr ONCE IVPB Last administered on 05/30/18 14:27; Admin Dose 83.333 MLS/HR; Start 05/30/18 at 13:00; Stop 05/30/18 at 18:00 Sodium Bicarbonate 100 meq/Dextrose/ Sodium Chloride 1,100 ml @ 100 mls/hr Q11H IV Last administered on 05/30/18 14:27; Admin Dose 100 MLS/HR; Start 05/30/18 at 12:30 Past Medical History reviewed Medications Current Medications IV Flush (NS 3 ml) 3 ml PER PROTOCOL IV ; Start 05/26/18 at 15:30 Morphine Sulfate (morphine) 2 mg Q4H PRN IV .SEVERE PAIN 7-10; Start 05/26/18 at 15:30 Atorvastatin Calcium (Lipitor) 80 mg DAILY@21 PO Last administered on 05/29/18 21:01; Admin Dose 80 MG; Start 05/26/18 at 21:00 Midazolam HCl 50 ml @ 1 mls/hr TITRATE IV Last administered on 05/28/18 19:02; Admin Dose 10 MLS/HR; Start 05/26/18 at 19:30 Vecuronium [place] 100 mg/ Dextrose 100 ml @ 6.25 mls/hr TITRATE IV Last admin istered on 05/27/18 06:55; Admin Dose 6.25 MLS/HR; Start 05/26/18 at 20:00 Vasopressin 60 unit/Dextrose 60 ml @ 1.2 mls/hr Q12H IV Last administered on 05/29/18 20:30; Admin Dose 2.4 MLS/HR; Start 05/26/18 at 20:30 Fentanyl 100 ml @ 2.5 mls/hr TITRATE IV Last administered on 05/30/18 01:27; Admin Dose 2.5 MLS/HR; Start 05/26/18 at 21:00 Diagnostic Test (Pha) (Accu-Chek) 1 ea Q1H XX Last administered on 05/30/18 12:58; Admin Dose 1 EA; Start 05/26/18 at 21:00 Insulin Human Regular 100 unit/ Sodium Chloride 100 ml @ 0 mls/hr PER PROTOCOL IV Last administered on 05/30/18 08:35; Admin Dose 4 MLS/HR; Start 05/26/18 at 21:00 Miscellaneous Information (* Miscellaneous Pharmacy Order) Treatment of Hypoglycemia: 1.BG 51... Per protocol XX ; Start 05/26/18 at 20:30 Dextrose (D50w Syringe) 25 ml Q15M PRN IV .DECREASED GLUCOSE; Start 05/26/18 at 20:30 Dextrose (D50w Syringe) 50 ml Q15M PRN IV .DECREASED GLUCOSE; Start 05/26/18 at 20:30 Propofol 100 ml @ 3.75 mls/hr Q12H IV Last administered on 05/28/18at 23:47; Admin Dose 22.5 MLS/HR; Start 05/26/18 at 21:00 Phenylephrine HCl 80 mg/Dextrose 250 ml @ 18.75 mls/ hr TITRATE IV Last administered on 05/30/18at 05:36; Admin Dose 28.13 MLS/HR; Start 05/26/18 at 22:30 Norepinephrine 32 mg/Dextrose 250 ml @ 0.47 mls/hr TITRATE IV Last administered on 05/29/18at 22:36; Admin Dose 14.06 MLS/HR; Start 05/26/18 at 22:30 Vancomycin HCl (Vanco Iv Per Pharmacy) VANCOMYCIN PER PHARMACY PER PROTOCOL XX ; Start 05/27/18 at 00:30 Piperacillin Sod/ Tazobactam Sod 100 ml @ 200 mls/hr Q8 IVPB Last administered on 05/30/18at 14:27; Admin Dose 200 MLS/HR; Start 05/27/18 at 00:30 Acetaminophen (Tylenol Supp) 650 mg Q4H PRN [place] TEMP > 37C; Start 05/27/18 at 02:30 Acetaminophen (Tylenol Liquid) 650 mg Q4H PRN PO TEMP > 37C; Start 05/27/18 at 02:30 Meperidine HCl (Demerol) 12.5 mg Q4H PRN IV POST OPERATIVE SHIVERING Last administered on 05/27/18at 22:49; Admin Dose 12.5 MG; Start 05/27/18 at 02:30 Meperidine HCl (Demerol) 25 mg Q4H PRN IV POST OPERATIVE SHIVERING Last administered on 05/27/18at 03:09; Admin Dose 25 MG; Start 05/27/18 at 02:30 Eye Lubricant (Akwa Oint) 1 applic Q6 BOTH EYES Last administered on 05/30/18 12:30; Admin Dose 1 APPLIC; Start 05/27/18 at 06:00 Eye Lubricant (Artificial Tears Oph) 2 drop Q6 BOTH EYES Last administered on 05/30/18 12:30; Admin Dose 2 DROP; Start 05/27/18 at 06:00 Potassium Chloride 50 ml @ 50 mls/hr K PROTOCOL PRN IVPB PENDING LAB VALUE Last administered on 05/27/18 15:25; Admin Dose 50 MLS/HR; Start 05/27/18 at 04:00 Aspirin (Aspirin) 81 mg DAILY NGT Last administered on 05/30/18 08:13; Admin Dose 81 MG; Start 05/27/18 at 10:00 Ticagrelor (Brilinta) 90 mg BID NGT Last administered on 05/30/18 08:14; Admin Dose 90 MG; Start 05/27/18 at 21:00 Sodium Chloride 1,000 ml @ 75 mls/hr [id number] IV Last administered on 05/30/18 10:33; Admin Dose 75 MLS/HR; Start 05/27/18 at 15:30 Lorazepam (Ativan) 2 mg Q2H PRN IV SEIZURES Last administered on 05/28/18 01:33; Admin Dose 2 MG; Start 05/28/18 at 01:30 Acetaminophen (Tylenol Liquid) 650 mg Q6H PRN NGT MILD PAIN(1-3)OR ELEVATED TEMP; Start 05/28/18 at 03:00 Epinephrine 4 mg/ Sodium Chloride 250 ml @ 3.75 mls/hr TITRATE IV Last administered on 05/29/18 03:52; Admin Dose 3.75 MLS/HR; Start 05/29/18 at 03:30 Pantoprazole 80 mg/Sodium Chloride 100 ml @ 10 mls/hr Q10H IV Last administered on 05/30/18 08:32; Admin Dose 10 MLS/HR; Start 05/29/18 at 05:00 Dopamine HCl 800 mg/Dextrose 250 ml @ 4.69 mls/hr TITRATE IV Last administered on 05/30/18 09:54; Admin Dose 46.88 MLS/HR; Start 05/29/18 at 07:00 Vancomycin HCl 1.5 gm/Sodium Chloride 250 ml @ 83.333 mls/ hr ONCE IVPB Last administered on 05/30/18at 14:27; Admin Dose 83.333 MLS/HR; Start 05/30/18 at 13:00; Stop 05/30/18 at 18:00 Sodium Bicarbonate 100 meq/Dextrose/ Sodium Chloride 1,100 ml @ 100 mls/hr Q11H IV Last administered on 05/30/18at 14:27; Admin Dose 100 MLS/HR; Start 05/30/18 at 12:30 Allergies: Coded Allergies: Unknown: Unable to obtain (Unverified , 05/26/18) Past Surgical History reviewed Past Surgical Hx: other (unknown) Social History Alcohol Use: other (unknown) Smoking Status: Unknown if ever smoked Drug Use: other (unknown) BALDEV SALAZAR NP May 30, 2018 14:41 JESSICA WILLOUGHBY May 30, 2018 16:37
--- NOTE | 2018-05-30 15:24 | PN ---
DATE: 05/30/2018 SUBJECTIVE: The patient remains critically ill, on multiple pressors. The patient's urinary output has marginally increased approximately 20 to 30 mL per hour. The patient remains on intraaortic ball oon pump. No other events noted. OBJECTIVE: VITAL SIGNS: Blood pressure is 115/54, respiration 26, pulse 88, temperature 98.6. HEENT: Head is normocephalic. NECK: Supple. HEART: Regular rate. LUNGS: Show diminished breath sounds at base. ABDOMEN: Soft, nontender to palpation without rebound or guarding. EXTREMITIES: Negative for clubbing, cyanosis. No edema. DERMATOLOGIC: No rashes. MUSCULOSKELETAL: No joint effusion. NEUROLOGIC: No change in exam. MEDICATIONS: Have been reviewed. LABORATORY DATA: Show sodium 137, potassium 5.6, BUN 30, creatinine 2.99. Ionized calcium , ph osphorus 7.8. White count 22.8, hemoglobin 12.3, platelet count is 122. The patient's ABG showed pH 7.042, pCO2 of 80, base excess of -10. Lactic acid level on 05/28/2018 was 2.2. IMAGING STUDIES: Reviewed. ASSESSMENT AND PLAN: 1. Nonoliguric acute kidney injury with previously unknown baseline creatinine. Etiology of acute k idney injury is secondary to acute tubular necrosis due to ischemic hypoperfusion and shock. The jaydon ieteddy remains in injury phase of acute tubular necrosis as renal function continues to decline. Potas sium levels are elevated but stable. Urinary output has improved. At this point, we will continue c urrent treatment plan. Continue pressor support to maintain MAP of 65. Continue to renally dose med s, avoid nephrotoxins. We will continue to monitor renal function closely. No immediate need for re nal placement therapy; however if potassium levels should continue to elevate and pulmonary congestio n should worsen, we would consider initiating renal replacement therapy. 2. Mixed acid base disorder. The patient has a respiratory acidosis and metabolic acidosis. The kenrick mcdonald's ABG was reviewed. I recommend to increase FiO2 or respiratory rate. We will repeat an ABG a nd monitor. 3. Hyperkalemia secondary to acute kidney injury. The patient's potassium levels are elevated but s table. Continue to monitor closely. Correct underlying acidemia by adjusting ventilatory rate. The patient is status post bicarbonate. 4. Anemia. Monitor hemoglobin and hematocrit levels. 5. Mineral bone disorder. The patient is hyperphosphatemic secondary to acute kidney injury and hyp ocalcemic. We will continue to monitor. Consider giving calcium gluconate. 6. Status post cardiac arrest secondary to ST elevated myocardial infarction. The patient is status post cardiac catheterization with PCI. Continue medical management. 7. Shock. Etiology is likely cardiogenic, questionable component of sepsis. Continue pressor suppo rt. Continue balloon pump. Follow up with cardiology. 8. Ventilatory dependent respiratory failure. Vent settings and ABG was reviewed. Continue to [place]. Follow up with pulmonary. 9. Morbid obesity. Continue dietary modification. 10. Systemic inflammatory response syndrome and leukocytosis. Continue empiric antibiotics. 11. Encephalopathy with possible anoxic injury. Continue to monitor. Please note, I spent over 35 minutes of critical care time with this patient. Dictated By: GUERO ISAAC DO NR/NTS Conf#: [id number] DID#: [id number] CC: ELANA HARDWICK MD; VANDA EARL;*EndCC*
[2018-05-30] MEDS: NORepinephrine 32 MG in DEXTROSE 5% 218 ML IV SCH (16:57)
[2018-05-30] MEDS ORDERED: LEVETIRACETAM 1000 MG (PMX) 100 ML IVPB ONE (17:30)
[2018-05-30] MEDS: ATORVASTATIN 80 MG TAB PO SCH (21:06)
[2018-05-30] MEDS: LORAZEPAM 2 MG INJ IV PRN (22:28)
[2018-05-31] VITALS (108 sets, daily range): BP systolic 86–125; BP diastolic 46–97; PULSE 82–103; RESP 19–34
[2018-05-31] MEDS: OCULAR LUBRICANT 3.5 GM OPH OINT BOTH EYES SCH ×4 (00:05→18:13)
[2018-05-31] MEDS: SODIUM BICARBONATE (IV ADD) 100 MEQ in DEXTROSE 5%-0.45% NACL 1,000 ML IV SCH ×2 (00:05→11:57)
[2018-05-31] MEDS: ARTIFICIAL TEARS 15 ML OPH BOTH EYES SCH ×4 (00:05→18:12)
[2018-05-31] MEDS: ACCU-CHEK XX SCH ×23 (00:20→23:00)
[2018-05-31] MEDS: LORAZEPAM 2 MG INJ IV PRN (02:51)
[2018-05-31] MEDS: FENTAnyl (DRIP) 1000 mcg/100mL 100 ML IV SCH (04:34)
[2018-05-31] MEDS: PANTOPRAZOLE IV 80 MG in SOD CHLORIDE 0.9% 100 ML IV SCH ×2 (04:36→16:07)
[2018-05-31] MEDS: PIPER-TAZO 3.375 GM IV (PMX) 100 ML IVPB SCH ×3 (05:34→22:09)
--- NOTE | 2018-05-31 07:01 | EEG ---
EEG NOTE Report Details DATE OF TEST: 05/30/18 HISTORY: The patient is a 68-year-old M who presents with altered mental status s/p cardiac arrest. This EEG is requested to rule out nonconvulsive status epilepticus. SEDATION: None. CONDITIONS OF RECORDING: This EEG was recorded digitally on the [employer] machine, using the International 10-20 System of electrodes plus anterior temporals and [place]. STATES SAMPLED: Comatose. FINDINGS: The background is discontinuous. Active intervals are brief, and consist entirely of epileptiform activity. The normal vgiuhcri-ol-vvlfsqjrj frequency-amplitude gradient was absent. Photic stimulation does not elicit any definite driving responses or epileptiform discharges. Hyperventilation was not performed. IMPRESSION: Abnormal electroencephalogram due to: discontinuity and epileptiform activity. 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 JESSICA WILLOUGHBY May 31, 2018 07:01
[2018-05-31] MEDS ORDERED: PHENYTOIN 1,500 MG in SOD CHLORIDE 0.9% 150 ML IV ONE (07:30)
--- NOTE | 2018-05-31 08:19 | PN ---
DATE: 05/31/2018 SUBJECTIVE: The patient remains critically ill on pressor support, although being weaned down. Urin domi output has been intermittent. The patient remains on full ventilatory support. No other acute e vents noted. OBJECTIVE: VITAL SIGNS: Blood pressure is 117/71, respiration 30, pulse 100, temperature 98.6. HEENT: Head is normocephalic. LUNGS: Show diminished breath sounds at base. ABDOMEN: Soft, nontender to palpation without rebound or guarding. EXTREMITIES: Negative for clubbing, cyanosis. Trace edema. DERMATOLOGIC: No rashes. MUSCULOSKELETAL: No joint effusion. NEUROLOGIC: No change in exam. MEDICATIONS: Reviewed. LABORATORY DATA: Shows white count 15.1, hemoglobin 10.5, platelet count is 76. Sodium 135, potassi um 4.3, chloride 106, BUN 41, creatinine 3.17. Patient's ABG showed pH 7.18, pCO2 of 47, base exces s of -10.8. A urinalysis was reviewed. I's and O's were reviewed. ASSESSMENT AND PLAN: 1. Oliguric acute kidney injury. Previously unknown baseline creatinine. Etiology of IRA is seconda ry to acute tubular necrosis due to ischemic hypoperfusion and shock. The patient remains in injury phase of acute tubular necrosis as renal function continues to decline. Urinary output has marginall y improved in the last 24 hours. The patient's potassium levels have normalized. At this point, wou ld continue current treatment plan. Continue pressor support to maintain MAP of 65. Continue antibi otic therapy. Would continue supportive care, renally dose all meds. No immediate need for renal re placement therapy at this time. 2. Mixed acid base disorder. The patient has a respiratory acidosis and metabolic acidosis. Curren tly on bicarbonate drip. Will continue. ABG was reviewed. 3. Hyperkalemia secondary to acute kidney injury, improved. Continue to monitor. Continue bicarbon ate drip. 3. Anemia. Monitor hemoglobin and hematocrit levels. 4. Mineral bone disorder. The patient is hyperphosphatemic secondary to acute kidney injury. Dm nue to monitor calcium levels. Will give calcium gluconate as needed. 5. Status post cardiac arrest secondary to ST elevated myocardial infarction. Status post cardiac c atheterization, PCI. Continue medical management. 6. Ventilator dependent respiratory failure. Vent settings and ABG was reviewed. Continue to monit or. 7. Shock, etiology is likely cardiogenic, possible sepsis. The patient has an intraaortic bal loon pump. Will continue. Continue present support. Follow up with Cardiology. 8. Morbid obesity. 9. SIRs, leukocytosis, continue antibiotic therapy. 10. Acute encephalopathy, toxic metabolic. Please note I spent 35 minutes critical care time with this patient. Dictated By: GUERO ISAAC DO NR/NTS Conf#: [id number] DID#: [id number] CC: VANDA EARL; ELANA HARDWICK MD;*EndCC*
[2018-05-31] MEDS: ASPIRIN 81 MG TAB NGT SCH (08:25)
[2018-05-31] MEDS: LEVETIRACETAM 500 MG (PMX) 100 ML IVPB SCH ×2 (08:27→21:20)
[2018-05-31] MEDS: TICAGRELOR 90 MG TABLET NGT SCH ×2 (08:30→21:29)
[2018-05-31] MEDS: PROPOFOL 100 ML IV SCH ×2 (08:31→21:00)
[2018-05-31] MEDS: VASOPRESSIN 60 UNIT in DEXTROSE 5% 57 ML IV SCH ×2 (08:37→21:32)
[2018-05-31] MEDS: NORepinephrine 32 MG in DEXTROSE 5% 218 ML IV SCH (09:08)
--- NOTE | 2018-05-31 10:43 | PN ---
Date/Time of Note Date/Time of Note DATE: 05/31/18 TIME: 10:32 Assessment/Plan VTE Prophylaxis Risk score (from Ns)>0 risk: 11 SCD applied (from Ns): Yes Pharmacological prophylaxis: other Lines/Catheters IV [facility]from [facility] SRIRAM CATH Urinary Cath still in place: Yes Reason Cath still needed: urinary retention Assessment/Plan Hospital Course S: Patient still intubated, seen by neurology team yesterday and had EEG performed. Still on pressor support x3 now (1 less than yesterday); still on intra-aortic balloon pump. O: VS - see below PE: Gen: Obese man intubated, sedated. Eyes: Normal pupils equal bilaterally nonreactive. HEENT: Mild epistaxis. ET tube in place, OG tube in place clamped Card: Balloon pump audible. Cannot auscultate heart sounds. Pulm: Distant mechanical breath sounds bilaterally. Abd: Obese, soft, nondistended. Ext: No cyanosis/clubbing/edema. R fem vascular sheath with balloon pump. : Harrison in place with no urine Date/Time of Note Date/Time of Note DATE: 05/26/18 TIME: 18:10 Operative Report Procedure Date: May 26, 2018 Preoperative Diagnosis Cardiac arrest, STEMI inferolateral wall Postoperative Diagnosis Same Operation/Procedure Performed Coronary angiography Percutaneous coronary intervention to the lcx, with placement of a drug-eluting stent IABP insertion EEG: IMPRESSION: Abnormal electroencephalogram due to: discontinuity and epileptiform activity. 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 Assessment/Plan: 68 yo man no known past medical history admitted with respiratory distress proceeding to cardiac arrest. #Cardiac arrest- Likely from STEMI- s/p cardiac cath with BELLA to circumflex 05/26- Was on hypothermia protocol, with neuromuscular blockade and sedation- BP still maintained on multiple pressors. Patient appears nonresponsive-appreciate - Continue balloon pump per cardiology. - Continue pressors to maintain MAP>65 - Antiplatelets per cardiology Dr. Gamboa -EEG results noted, continue antiseizure medication as recommended by neurology team, follow-up their further recommendations -Still on insulin drip (A1c was 10.1) #Respiratory failurew/Hypoxia-patient still intubated - Pulmonary managing vent, for now continue current antibiotics -Monitor pulmonary vascular congestion #hyperkalemia -appears resolved today - monitor, follow-up BMP daily, and renal recommendations #Renal failure- Patient is oliguric with rising creatinine. Appreciate renal recommendations - Dr. Esparza consulted from renal, follow-up their recommendations, including possible need for dialysis - Continue D5 half-normal saline IV fluids with bicarb for now Dispo: Very poor prognosis given multi organ failure, pt DNR-there is strong concern of anoxic brain injury; bioethics is also being considered since there is no family or friends available at this point. Awaiting full neurologic workup first to determine the presence of anoxic brain injury first. DVT: SCDs GI: protonix Critical care time spent in patient care today equals 40 minutes. Result Diagram: 05/31/18 0415 05/31/18 0415 Results 24hrs Laboratory Tests Test 05/30/18 10:57 05/30/18 12:25 05/30/18 14:40 05/30/18 16:33 Bedside Glucose 112 124 143 144 Test 05/30/18 18:17 05/30/18 20:02 05/30/18 22:03 05/30/18 23:58 Bedside Glucose 109 126 109 118 Test 05/31/18 02:09 05/31/18 04:15 05/31/18 04:16 05/31/18 06:01 Bedside Glucose 135 131 116 White Blood Count 15.5 H Red Blood Count 3.51 L Hemoglobin 10.5 L Hematocrit 30.9 L Mean Corpuscular 88.0 Volume Mean Corpuscular 29.9 Hemoglobin Mean Corpuscular 34.0 Hemoglobin Concen t Red Cell 14.0 Distribution Width Platelet Count 76 L Mean Platelet 11.6 H Volume Immature 0.900 H Granulocytes % Neutrophils % 84.8 H Segmented 81 H Neutrophils % (Manual) Band Neutrophils 6 H % (Manual) Lymphocytes % 7.9 L Lymphocytes % 8 L (Manual) Monocytes % 5.0 Monocytes % 3 (Manual) Eosinophils % 1.0 Eosinophils % 1 (Manual) Basophils % 0.4 Basophils % 1 (Manual) Nucleated Red 0.3 H Blood Cells % Immature 0.140 H Granulocytes # Neutrophils # 13.2 H Neutrophils # 12.7 H (Manual) Band Neutrophils 0.9 H # Lymphocytes 1.2 (Manual) Lymphocytes # 1.2 Monocytes # 0.8 Monocytes # 0.4 (Manual) Eosinophils # 0.2 Basophils # 0.1 Basophils # 0.1 H (Manual) Nucleated Red 0.0 Blood Cells # Platelet Estimate DECREASED Anisocytosis 1+ Sodium Level 135 Potassium Level 4.3 Chloride Level 106 Carbon Dioxide 20 L Level Anion Gap 9 Blood Urea 41 H Nitrogen Creatinine 3.17 H Est Glomerular 20 L Filtrat Rate mL/min Glucose Level 123 Calcium Level 7.0 L Phosphorus Level 4.5 # Magnesium Level 2.3 Test 05/31/18 08:05 05/31/18 10:03 05/31/18 10:11 Bedside Glucose 114 169 Blood Gas Blood arterial Specimen Source Arterial Blood 05/31/2018 10:13: Date Drawn 31 AM Arterial Blood pH 7.499 H (Temp corrected) Arterial Blood 22.3 L pCO2 (Temp correct) Arterial Blood 66.0 L pO2 (Temp corrected) Arterial Blood 17.0 L HCO3 Arterial Blood -4.7 L Base Excess Arterial Blood 93.4 L Oxygen Saturation Srinivas Test N/A Arterial Blood A-Line Gas Puncture Site Arterial 0.3 Blood Carboxyhemo globin Arterial Blood 0.2 Methemoglobin Blood Gas A-a O2 624.7 H Differential Oxyhemoglobin 92.9 L Percent Blood Gas 37.0 Temperature Blood Gas 30.0 Respiration Rate Blood Gas Actual 30 Respiration Rate Blood Gas VENT - PC Modality FiO2 100.0 Blood Gas Low 8.0 PEEP Setting Blood Gas TM Notified Whom Blood Gas 05/31/2018 10:23: Notified Time 10 AM Exam/Review of Systems Exam Vitals Vital Signs Date Temp Pulse Resp B/P (MAP) Pulse Ox O2 O2 Flow FiO2 Time Delivery Rate 05/31/18 93 30 98 Mechanical 09:30 Ventilator 05/31/18 100 09:17 05/31/18 99.8 08:00 Intake and Output 05/30/18 05/30/18 05/31/18 1515:00 23:00 07:00 IntakeIntake Total 1282.2 ml 1282.82 ml 926.84 ml OutputOutput Total 224 ml 295 ml 350 ml BalanceBalance 1058.2 ml 987.82 ml 576.84 ml Results Results 24hrs Laboratory Tests Test 05/30/18 10:57 05/30/18 12:25 05/30/18 14:40 05/30/18 16:33 Bedside Glucose 112 124 143 144 Test 05/30/18 18:17 05/30/18 20:02 05/30/18 22:03 05/30/18 23:58 Bedside Glucose 109 126 109 118 Test 05/31/18 02:09 05/31/18 04:15 05/31/18 04:16 05/31/18 06:01 Bedside Glucose 135 131 116 White Blood Count 15.5 H Red Blood Count 3.51 L Hemoglobin 10.5 L Hematocrit 30.9 L Mean Corpuscular 88.0 Volume Mean Corpuscular 29.9 Hemoglobin Mean Corpuscular 34.0 Hemoglobin Concen t Red Cell 14.0 Distribution Width Platelet Count 76 L Mean Platelet 11.6 H Volume Immature 0.900 H Granulocytes % Neutrophils % 84.8 H Segmented 81 H Neutrophils % (Manual) Band Neutrophils 6 H % (Manual) Lymphocytes % 7.9 L Lymphocytes % 8 L (Manual) Monocytes % 5.0 Monocytes % 3 (Manual) Eosinophils % 1.0 Eosinophils % 1 (Manual) Basophils % 0.4 Basophils % 1 (Manual) Nucleated Red 0.3 H Blood Cells % Immature 0.140 H Granulocytes # Neutrophils # 13.2 H Neutrophils # 12.7 H (Manual) Band Neutrophils 0.9 H # Lymphocytes 1.2 (Manual) Lymphocytes # 1.2 Monocytes # 0.8 Monocytes # 0.4 (Manual) Eosinophils # 0.2 Basophils # 0.1 Basophils # 0.1 H (Manual) Nucleated Red 0.0 Blood Cells # Platelet Estimate DECREASED Anisocytosis 1+ Sodium Level 135 Potassium Level 4.3 Chloride Level 106 Carbon Dioxide 20 L Level Anion Gap 9 Blood Urea 41 H Nitrogen Creatinine 3.17 H Est Glomerular 20 L Filtrat Rate mL/min Glucose Level 123 Calcium Level 7.0 L Phosphorus Level 4.5 # Magnesium Level 2.3 Test 05/31/18 08:05 05/31/18 10:03 05/31/18 10:11 Bedside Glucose 114 169 Blood Gas Blood arterial Specimen Source Arterial Blood 05/31/2018 10:13: Date Drawn 31 AM Arterial Blood pH 7.499 H (Temp corrected) Arterial Blood 22.3 L pCO2 (Temp correct) Arterial Blood 66.0 L pO2 (Temp corrected) Arterial Blood 17.0 L HCO3 Arterial Blood -4.7 L Base Excess Arterial Blood 93.4 L Oxygen Saturation Srinivas Test N/A Arterial Blood A-Line Gas Puncture Site Arterial 0.3 Blood Carboxyhemo globin Arterial Blood 0.2 Methemoglobin Blood Gas A-a O2 624.7 H Differential Oxyhemoglobin 92.9 L Percent Blood Gas 37.0 Temperature Blood Gas 30.0 Respiration Rate Blood Gas Actual 30 Respiration Rate Blood Gas VENT - PC Modality FiO2 100.0 Blood Gas Low 8.0 PEEP Setting Blood Gas TM Notified Whom Blood Gas 05/31/2018 10:23: Notified Time 10 AM Medications Medication Current Medications IV Flush (NS 3 ml) 3 ml PER PROTOCOL IV ; Start 05/26/18 at 15:30 Morphine Sulfate (morphine) 2 mg Q4H PRN IV .SEVERE PAIN 7-10; Start 05/26/18 at 15:30 Atorvastatin Calcium (Lipitor) 80 mg DAILY@21 PO Last administered on 05/30/18 21:06; Admin Dose 80 MG; Start 05/26/18 at 21:00 Midazolam HCl 50 ml @ 1 mls/hr TITRATE IV Last administered on 05/28/18 19:02; Admin Dose 10 MLS/HR; Start 05/26/18 at 19:30 Vecuronium [place] 100 mg/ Dextrose 100 ml @ 6.25 mls/hr TITRATE IV Last administered on 05/27/18 06:55; Admin Dose 6.25 MLS/HR; Start 05/26/18 at 20:00 Vasopressin 60 unit/Dextrose 60 ml @ 1.2 mls/hr Q12H IV Last administered on 05/31/18 08:37; Admin Dose 1.8 MLS/HR; Start 05/26/18 at 20:30 Fentanyl 100 ml @ 2.5 mls/hr TITRATE IV Last administered on 05/31/18 04:34; Admin Dose 2.5 MLS/HR; Start 05/26/18 at 21:00 Diagnostic Test (Pha) (Accu-Chek) 1 ea Q1H XX Last administered on 05/31/18 09:02; Admin Dose 1 EA; Start 05/26/18 at 21:00 Insulin Human Regular 100 unit/ Sodium Chloride 100 ml @ 0 mls/hr PER PROTOCOL IV Last administered on 05/30/18 08:35; Admin Dose 4 MLS/HR; Start 05/26/18 at 21:00 Miscellaneous Information (* Miscellaneous Pharmacy Order) Treatment of Hypoglycemia: 1.BG 51... Per protocol XX ; Start 05/26/18 at 20:30 Dextrose (D50w Syringe) 25 ml Q15M PRN IV .DECREASED GLUCOSE; Start 05/26/18 at 20:30 Dextrose (D50w Syringe) 50 ml Q15M PRN IV .DECREASED GLUCOSE; Start 05/26/18 at 20:30 Propofol 100 ml @ 3.75 mls/hr Q12H IV Last administered on 05/28/18at 23:47; Admin Dose 22.5 MLS/HR; Start 05/26/18 at 21:00 Phenylephrine HCl 80 mg/Dextrose 250 ml @ 18.75 mls/ hr TITRATE IV Last administered on 05/30/18at 05:36; Admin Dose 28.13 MLS/HR; Start 05/26/18 at 22:30 Norepinephrine 32 mg/Dextrose 250 ml @ 0.47 mls/hr TITRATE IV Last administered on 05/31/18at 09:08; Admin Dose 14.06 MLS/HR; Start 05/26/18 at 22:30 Vancomycin HCl (Vanco Iv Per Pharmacy) VANCOMYCIN PER PHARMACY PER PROTOCOL XX ; Start 05/27/18 at 00:30 Piperacillin Sod/ Tazobactam Sod 100 ml @ 200 mls/hr Q8 IVPB Last administered on 05/31/18at 05:34; Admin Dose 200 MLS/HR; Start 05/27/18 at 00:30 Acetaminophen (Tylenol Supp) 650 mg Q4H PRN ME TEMP > 37C; Start 05/27/18 at 02:30 Acetaminophen (Tylenol Liquid) 650 mg Q4H PRN PO TEMP > 37C; Start 05/27/18 at 02:30 Meperidine HCl (Demerol) 12.5 mg Q4H PRN IV POST OPERATIVE SHIVERING Last administered on 05/27/18at 22:49; Admin Dose 12.5 MG; Start 05/27/18 at 02:30 Meperidine HCl (Demerol) 25 mg Q4H PRN IV POST OPERATIVE SHIVERING Last admin istered on 05/27/18at 03:09; Admin Dose 25 MG; Start 05/27/18 at 02:30 Eye Lubricant (Akwa Oint) 1 applic Q6 BOTH EYES Last administered on 05/31/18at 06:11; Admin Dose 1 APPLIC; Start 05/27/18 at 06:00 Eye Lubricant (Artificial Tears Oph) 2 drop Q6 BOTH EYES Last administered on 05/31/18 06:11; Admin Dose 2 DROP; Start 05/27/18 at 06:00 Potassium Chloride 50 ml @ 50 mls/hr K PROTOCOL PRN IVPB PENDING LAB VALUE Last administered on 05/27/18 15:25; Admin Dose 50 MLS/HR; Start 05/27/18 at 04:00 Aspirin (Aspirin) 81 mg DAILY NGT Last administered on 05/31/18 08:25; Admin Dose 81 MG; Start 05/27/18 at 10:00 Ticagrelor (Brilinta) 90 mg BID NGT Last administered on 05/31/18 08:30; Admin Dose 90 MG; Start 05/27/18 at 21:00 Sodium Chloride 1,000 ml @ 75 mls/hr [id number] IV Last administered on 05/30/18 10:33; Admin Dose 75 MLS/HR; Start 05/27/18 at 15:30 Lorazepam (Ativan) 2 mg Q2H PRN IV SEIZURES Last administered on 05/31/18 02:51; Admin Dose 2 MG; Start 05/28/18 at 01:30 Acetaminophen (Tylenol Liquid) 650 mg Q6H PRN NGT MILD PAIN(1-3)OR ELEVATED TEMP; Start 05/28/18 at 03:00 Epinephrine 4 mg/ Sodium Chloride 250 ml @ 3.75 mls/hr TITRATE IV Last administered on 05/29/18 03:52; Admin Dose 3.75 MLS/HR; Start 05/29/18 at 03:30 Pantoprazole 80 mg/Sodium Chloride 100 ml @ 10 mls/hr Q10H IV Last administered on 05/31/18 04:36; Admin Dose 10 MLS/HR; Start 05/29/18 at 05:00 Dopamine HCl 800 mg/Dextrose 250 ml @ 4.69 mls/hr TITRATE IV Last administered on 05/30/18 21:28; Admin Dose 35.16 MLS/HR; Start 05/29/18 at 07:00 Sodium Bicarbonate 100 meq/Dextrose/ Sodium Chloride 1,100 ml @ 100 mls/hr Q11H IV Last administered on 05/31/18 00:05; Admin Dose 100 MLS/HR; Start 05/30/18 at 12:30 Levetiracetam 100 ml @ 400 mls/hr Q12 IVPB Last administered on 05/31/18at 08:27; Admin Dose 400 MLS/HR; Start 05/31/18 at 09:00 Phenytoin (Dilantin) 100 mg Q8 IV ; Start 05/31/18 at 14:00 VANDA EARL May 31, 2018 10:43
--- NOTE | 2018-05-31 11:48 | CONS ---
Consult Date/Type/Reason Admit Date/Time May 26, 2018 at 15:31 Initial Consult Date 05/26/18 Type of Consult Pulmonary Requesting Provider: ALYSE KLEIN MD Date/Time of Note DATE: 05/31/18 TIME: 11:46 Subjective Patient unresponsive on mechanical ventilation with multiple vasopressors and intra-aortic balloon pump one-to-one. Objective Vital Signs Date Temp Pulse Resp B/P (MAP) Pulse Ox O2 O2 Flow FiO2 Time Delivery Rate 05/31/18 91 28 95 100 11:21 05/31/18 Mechanical 09:30 Ventilator 05/31/18 99.8 08:00 Intake and Output 05/30/18 05/30/18 05/31/18 1515:00 23:00 07:00 IntakeIntake Total 1282.2 ml 1282.82 ml 1073.34 ml OutputOutput Total 224 ml 295 ml 395 ml BalanceBalance 1058.2 ml 987.82 ml 678.34 ml Exam PHYSICAL EXAMINATION: GENERAL: Chronically ill appearing gentleman on mechanical ventilation, orally intubated. VITAL SIGNS: NECK: Supple. No JVD or lymphadenopathy. CARDIAC: S1, S2. No added sounds or murmurs. CHEST: Diminished air entry bilaterally. ABDOMEN: Soft, nontender. No guarding or rebound. EXTREMITIES: No cyanosis, clubbing. A 1+ edema. NEUROLOGIC: Unable to assess. Vent Setting Ventilator Support Mode: AC Fraction of Inspired Oxygen pe: 100 Positive End Expiratory Pressu: 10.0 Results/Medications Result Diagram: 05/31/18 0415 05/31/18 0415 Results 24 hrs Laboratory Tests Test 05/30/18 12:25 05/30/18 14:40 05/30/18 16:33 05/30/18 18:17 Bedside Glucose 124 143 144 109 Test 05/30/18 20:02 05/30/18 22:03 05/30/18 23:58 05/31/18 02:09 Bedside Glucose 126 109 118 135 Test 05/31/18 04:15 05/31/18 04:16 05/31/18 06:01 05/31/18 08:05 White Blood Count 15.5 H Red Blood Count 3.51 L Hemoglobin 10.5 L Hematocrit 30.9 L Mean Corpuscular 88.0 Volume Mean Corpuscular 29.9 Hemoglobin Mean Corpuscular 34.0 Hemoglobin Concen t Red Cell 14.0 Distribution Width Platelet Count 76 L Mean Platelet 11.6 H Volume Immature 0.900 H Granulocytes % Neutrophils % 84.8 H Segmented 81 H Neutrophils % (Manual) Band Neutrophils 6 H % (Manual) Lymphocytes % 7.9 L Lymphocytes % 8 L (Manual) Monocytes % 5.0 Monocytes % 3 (Manual) Eosinophils % 1.0 Eosinophils % 1 (Manual) Basophils % 0.4 Basophils % 1 (Manual) Nucleated Red 0.3 H Blood Cells % Immature 0.140 H Granulocytes # Neutrophils # 13.2 H Neutrophils # 12.7 H (Manual) Band Neutrophils 0.9 H # Lymphocytes 1.2 (Manual) Lymphocytes # 1.2 Monocytes # 0.8 Monocytes # 0.4 (Manual) Eosinophils # 0.2 Basophils # 0.1 Basophils # 0.1 H (Manual) Nucleated Red 0.0 Blood Cells # Platelet Estimate DECREASED Anisocytosis 1+ Sodium Level 135 Potassium Level 4.3 Chloride Level 106 Carbon Dioxide 20 L Level Anion Gap 9 Blood Urea 41 H Nitrogen Creatinine 3.17 H Est Glomerular 20 L Filtrat Rate mL/min Glucose Level 123 Calcium Level 7.0 L Phosphorus Level 4.5 # Magnesium Level 2.3 Bedside Glucose 131 116 114 Test 05/31/18 10:03 05/31/18 10:11 05/31/18 11:43 Blood Gas Blood arterial Specimen Source Arterial Blood 05/31/2018 10:13: Date Drawn 31 AM Arterial Blood pH 7.499 H (Temp corrected) Arterial Blood 22.3 L pCO2 (Temp correct) Arterial Blood 66.0 L pO2 (Temp corrected) Arterial Blood 17.0 L HCO3 Arterial Blood -4.7 L Base Excess Arterial Blood 93.4 L Oxygen Saturation Srinivas Test N/A Arterial Blood A-Line Gas Puncture Site Arterial 0.3 Blood Carboxyhemo globin Arterial Blood 0.2 Methemoglobin Blood Gas A-a O2 624.7 H Differential Oxyhemoglobin 92.9 L Percent Blood Gas 37.0 Temperature Blood Gas 30.0 Respiration Rate Blood Gas Actual 30 Respiration Rate Blood Gas VENT - PC Modality FiO2 100.0 Blood Gas Low 8.0 PEEP Setting Blood Gas TM Notified Whom Blood Gas 05/31/2018 10:23: Notified Time 10 AM Bedside Glucose 169 162 Medications Current Medications IV Flush (NS 3 ml) 3 ml PER PROTOCOL IV ; Start 05/26/18 at 15:30 Morphine Sulfate (morphine) 2 mg Q4H PRN IV .SEVERE PAIN 7-10; Start 05/26/18 at 15:30 Atorvastatin Calcium (Lipitor) 80 mg DAILY@21 PO Last administered on 05/30/18at 21:06; Admin Dose 80 MG; Start 05/26/18 at 21:00 Midazolam HCl 50 ml @ 1 mls/hr TITRATE IV Last administered on 05/28/18at 19:02; Admin Dose 10 MLS/HR; Start 05/26/18 at 19:30 Vecuronium [place] 100 mg/ Dextrose 100 ml @ 6.25 mls/hr TITRATE IV Last administered on 05/27/18 06:55; Admin Dose 6.25 MLS/HR; Start 05/26/18 at 20:00 Vasopressin 60 unit/Dextrose 60 ml @ 1.2 mls/hr Q12H IV Last administered on 05/31/18 08:37; Admin Dose 1.8 MLS/HR; Start 05/26/18 at 20:30 Fentanyl 100 ml @ 2.5 mls/hr TITRATE IV Last administered on 05/31/18 04:34; Admin Dose 2.5 MLS/HR; Start 05/26/18 at 21:00 Diagnostic Test (Pha) (Accu-Chek) 1 ea Q1H XX Last administered on 05/31/18 10:45; Admin Dose 1 EA; Start 05/26/18 at 21:00 Insulin Human Regular 100 unit/ Sodium Chloride 100 ml @ 0 mls/hr PER PROTOCOL IV Last administered on 05/30/18 08:35; Admin Dose 4 MLS/HR; Start 05/26/18 at 21:00 Miscellaneous Information (* Miscellaneous Pharmacy Order) Treatment of Hypoglycemia: 1.BG 51... Per protocol XX ; Start 05/26/18 at 20:30 Dextrose (D50w Syringe) 25 ml Q15M PRN IV .DECREASED GLUCOSE; Start 05/26/18 at 20:30 Dextrose (D50w Syringe) 50 ml Q15M PRN IV .DECREASED GLUCOSE; Start 05/26/18 at 20:30 Propofol 100 ml @ 3.75 mls/hr Q12H IV Last administered on 05/28/18at 23:47; Admin Dose 22.5 MLS/HR; Start 05/26/18 at 21:00 Phenylephrine HCl 80 mg/Dextrose 250 ml @ 18.75 mls/ hr TITRATE IV Last administered on 05/30/18 05:36; Admin Dose 28.13 MLS/HR; Start 05/26/18 at 22:30 Norepinephrine 32 mg/Dextrose 250 ml @ 0.47 mls/hr TITRATE IV Last administered on 05/31/18 09:08; Admin Dose 14.06 MLS/HR; Start 05/26/18 at 22: 30 Vancomycin HCl (Vanco Iv Per Pharmacy) VANCOMYCIN PER PHARMACY PER PROTOCOL XX ; Start 05/27/18 at 00:30 Piperacillin Sod/ Tazobactam Sod 100 ml @ 200 mls/hr Q8 IVPB Last administered on 05/31/18 05:34; Admin Dose 200 MLS/HR; Start 05/27/18 at 00:30 Acetaminophen (Tylenol Supp) 650 mg Q4H PRN [place] TEMP > 37C; Start 05/27/18 at 02:30 Acetaminophen (Tylenol Liquid) 650 mg Q4H PRN PO TEMP > 37C; Start 05/27/18 at 02:30 Meperidine HCl (Demerol) 12.5 mg Q4H PRN IV POST OPERATIVE SHIVERING Last administered on 05/27/18 22:49; Admin Dose 12.5 MG; Start 05/27/18 at 02:30 Meperidine HCl (Demerol) 25 mg Q4H PRN IV POST OPERATIVE SHIVERING Last administered on 05/27/18 03:09; Admin Dose 25 MG; Start 05/27/18 at 02:30 Eye Lubricant (Akwa Oint) 1 applic Q6 BOTH EYES Last administered on 05/31/18 06:11; Admin Dose 1 APPLIC; Start 05/27/18 at 06:00 Eye Lubricant (Artificial Tears Oph) 2 drop Q6 BOTH EYES Last administered on 05/31/18 06:11; Admin Dose 2 DROP; Start 05/27/18 at 06:00 Potassium Chloride 50 ml @ 50 mls/hr K PROTOCOL PRN IVPB PENDING LAB VALUE Last administered on 05/27/18 15:25; Admin Dose 50 MLS/HR; Start 05/27/18 at 04:00 Aspirin (Aspirin) 81 mg DAILY NGT Last administered on 05/31/18 08:25; Admin Dose 81 MG; Start 05/27/18 at 10:00 Ticagrelor (Brilinta) 90 mg BID NGT Last administered on 05/31/18 08:30; Admin Dose 90 MG; Start 05/27/18 at 21:00 Lorazepam (Ativan) 2 mg Q2H PRN IV SEIZURES Last administered on 05/31/18 02:51; Admin Dose 2 MG; Start 05/28/18 at 01:30 Acetaminophen (Tylenol Liquid) 650 mg Q6H PRN NGT MILD PAIN(1-3)OR ELEVATED TEMP; Start 05/28/18 at 03:00 Epinephrine 4 mg/ Sodium Chloride 250 ml @ 3.75 mls/hr TITRATE IV Last administered on 05/29/18 03:52; Admin Dose 3.75 MLS/HR; Start 05/29/18 at 03:30 Pantoprazole 80 mg/Sodium Chloride 100 ml @ 10 mls/hr Q10H IV Last administered on 05/31/18at 04:36; Admin Dose 10 MLS/HR; Start 05/29/18 at 05:00 Dopamine HCl 800 mg/Dextrose 250 ml @ 4.69 mls/hr TITRATE IV Last administered on 05/30/18at 21:28; Admin Dose 35.16 MLS/HR; Start 05/29/18 at 07:00 Sodium Bicarbonate 100 meq/Dextrose/ Sodium Chloride 1,100 ml @ 100 mls/hr Q11H IV Last administered on 05/31/18at 00:05; Admin Dose 100 MLS/HR; Start 05/30/18 at 12:30 Levetiracetam 100 ml @ 400 mls/hr Q12 IVPB Last administered on 05/31/18 08:27; Admin Dose 400 MLS/HR; Start 05/31/18 at 09:00 Phenytoin (Dilantin) 100 mg Q8 IV ; Start 05/31/18 at 14:00 Assessment/Plan Hospital Course (Demo Recall) IMPRESSION: 1. Cardiopulmonary arrest. Likely significant anoxic brain injury. 2. Acute myocardial infarction with stent placement to circumflex. 3. Refractory septic shock 4. Acute renal failure. 5. Likely combination of cardiogenic and septic shock on multiple vasopressors and intra-aortic balloon pump status post stent placement as noted. Plan: Continue vent continue pressors and IABP Abx Renal recs neurology evaluation Prognosis extremely poor not for extended life support if patient is not improving. Critical care time 40 minutes. Bioethics consultation for tomorrow. MIGUEL CHOWDHURY MD, [facility] May 31, 2018 11:48
[2018-05-31] MEDS: DOPamine 800 MG in DEXTROSE 5% 230 ML IV SCH ×2 (12:00→22:15)
[2018-05-31] MEDS: ACETAMINOPHEN 650MG/20.3ML CUP NGT PRN ×2 (12:11→18:11)
--- NOTE | 2018-05-31 13:14 | CONS ---
Assessment/Plan Assessment/Plan Hospital Course 68 M c/ uncertain PMHx, who initially presented w/ respiratory Sx... His hospital course is c/b cardiac arrest...with eventual ROSC.. s/p cardiac cath... s/p targeted temperature therapy The patient is persistently unresponsive, for which neurology is consulted. Of note, he is noted to have rhythmic twitching concerning for seizure. EEG was consistent w/ status epilepticus.. Now s/p Dilantin load (05/31), with clinical improvement P: Head CT for further characterization when medically able Continue Dilantin 100mg q8h for now; repeat level in am (goal ~ 10) Continue Keppra 500mg bid for now Repeat EEG to evaluate for nonconvulsive status Wean sedating medications where possible Other management per primary Will follow Consultation Date/Type/Reason Admit Date/Time May 26, 2018 at 15:31 Type of Consult Neurology Reason for Consultation coma/seizures Requesting Provider: ALYSE KLEIN MD Date/Time of Note DATE: 05/31/18 TIME: 13:14 24 HR Interval Summary Free Text/Dictation Continues icu care Rhythmic jerking noted this am... now s/p dilantin load, with cessation of twitching activity Exam Vital Signs Vitals Vital Signs Date Temp Pulse Resp B/P (MAP) Pulse Ox O2 O2 Flow FiO2 Time Delivery Rate 05/31/18 101.0 12:11 05/31/18 95 12:00 05/31/18 28 95 100 11:21 05/31/18 Mechanical 09:30 Ventilator Intake and Output 05/30/18 05/30/18 05/31/18 1515:00 23:00 07:00 IntakeIntake Total 1282.2 ml 1282.82 ml 1073.34 ml OutputOutput Total 224 ml 295 ml 395 ml BalanceBalance 1058.2 ml 987.82 ml 678.34 ml Exam PE: Gen Appearance: No Apparent Distress HEENT: Intubated Cardiovascular: Regular rate Abdomen: Soft Extremities: Dry NE: The patient was comatose. Cranial nerve examination was limited by mental status. Pupils were equal and sluggish.. There was no afferent pupillary defect. Funduscopic examination was limited. Face was grossly symmetric, w/ present corneals and absent cough reflex es. Tone was normal. Muscle bulk was normal. I did not see fasciculations. The patient without motor response to noxious stimulation. Coordination and gait testing was limited by mental status. Arm and leg reflexes were within normal limits and symmetric. Snowden's sign was absent. Plantar responses were flexor. BALDEV SALAZAR NP May 31, 2018 13:14 JESSICA WILLOUGHBY May 31, 2018 14:34
--- NOTE | 2018-05-31 13:42 | PN ---
Date/Time of Note Date/Time of Note DATE: 05/31/18 TIME: 13:41 Assessment/Plan Lines/Catheters IV Catheter Type (from Nrsg): SRIRAM CATH [place] in Place (from Nrsg): Yes Assessment/Plan Assessment/Plan Renal failure Status post cardiopulmonary arrest Status post placement of dialysis catheter We will continue dialysis May need a permacath if renal failure does not improve Subjective 24 Hr Interval Summary Constitutional: improved Pain Control: mild Exam/Review of Systems Vital Signs Vitals Vital Signs Date Temp Pulse Resp B/P (MAP) Pulse Ox O2 O2 Flow FiO2 Time Delivery Rate 05/31/18 101.0 13:31 05/31/18 98 26 95 100 13:18 05/31/18 Mechanical 09:30 Ventilator Intake and Output 05/30/18 05/30/18 05/31/18 1515:00 23:00 07:00 IntakeIntake Total 1282.2 ml 1282.82 ml 1073.34 ml OutputOutput Total 224 ml 295 ml 395 ml BalanceBalance 1058.2 ml 987.82 ml 678.34 ml Exam Eyes: nl conjunctiva, EOMI, nl lids, nl sclera ENMT: nl external ears & nose, nl lips & teeth, nl nasal mucosa & septum, mucosa pink and moist Neck: supple, non-tender Respiratory: clear to auscultation, normal air movement Cardiovascular: regular rate and rhythm, nl pulses Musculoskeletal: nl extremities to inspection, nl gait and stance Extremities: normal pulses Results Result Diagram: 05/31/18 0415 05/31/18 0415 MARICARMEN BUENO MD May 31, 2018 13:42
[2018-05-31] MEDS: PHENYTOIN 100 MG INJ IV SCH ×2 (15:23→22:08)
[2018-05-31] MEDS: INSULIN HUMAN REGULAR 100 UNIT in SOD CHLORIDE 0.9% 99 ML IV SCH (16:11)
--- NOTE | 2018-05-31 17:08 | CONS ---
Assessment/Plan Assessment/Plan Hospital Course (Demo Recall) 68 yo with witnessed cardiac arrest and STEMI inferolateral wall, with PCI to a codominant LCX. Course significant for multi organ system failure including anoxic encephalopathy. Impression: STEMI of the inferolateral wall, thrombus-filled codominant LCX, with angioplasty and only CONNIE 2 flow at the end of the procedure Septic shock on three pressors and IABP Morbid obesity Acute respiratory failure, on ventilator Anoxic encephalopathy Acute renal failure, due to shock and contrast-induced nephropathy GI bleed Recommendations: Continue ASA, ticagrelor Continue atorvastatin No beta blockade due to need for multiple pressors IABP remains in place due to need for three pressors to maintain blood pressure, and possible need for dialysis which would further lower blood pressure Very poor prognosis given multi organ failure and encephalopathy Supportive care as per nephrology and pulmonary, antibiotics Bioethics meeting tomorrow. Consultation Date/Type/Reason Admit Date/Time May 26, 2018 at 15:31 Initial Consult Date 05/26/18 Type of Consult Cardiology Requesting Provider: ALYSE KLEIN MD Date/Time of Note DATE: 05/31/18 TIME: 17:01 24 HR Interval Summary Free Text/Dictation Case discussed with Jace CESAR. Patient still on 3 pressors, has been febrile, desaturated earlier and is requiring FIO2 100%. Bioethics committee meeting tomorrow at 12:30. Exam/Review of Systems Vital Signs Vitals Vital Signs Date Temp Pulse Resp B/P (MAP) Pulse Ox O2 O2 Flow FiO2 Time Delivery Rate 05/31/18 100 26 97 100 15:25 05/31/18 101.0 13:31 05/31/18 Mechanical 09:30 Ventilator Intake and Output 05/30/18 05/30/18 05/31/18 1515:00 23:00 07:00 IntakeIntake Total 1282.2 ml 1282.82 ml 1073.34 ml OutputOutput Total 224 ml 295 ml 395 ml BalanceBalance 1058.2 ml 987.82 ml 678.34 ml Exam Constitutional: other (unresponsive, intubated) Head: normocephalic, atraumatic Eyes: other (eyes closed) ENMT: intubated Neck: No jvd, No bruits Respiratory: clear to auscultation Cardiovascular: regular rate and rhythm; No murmurs/extra sounds Gastrointestinal: soft, non-tender Genitourinary - Male: other (scrotum edematous) Musculoskeletal: nl extremities to inspection Extremities: edema (anasarca, with swelling of both arms and both legs), other (right groin site with IABP and central line intact, minimal distal ecchymosis) Neurological: unresponsive Skin: nl turgor Labs Result Diagram: 05/31/18 0415 05/31/18 0415 Results 24hrs Laboratory Tests Test 05/30/18 18:17 05/30/18 20:02 05/30/18 22:03 05/30/18 23:58 Bedside Glucose 109 126 109 118 Test 05/31/18 02:09 05/31/18 04:15 05/31/18 04:16 05/31/18 06:01 Bedside Glucose 135 131 116 White Blood Count 15.5 H Red Blood Count 3.51 L Hemoglobin 10.5 L Hematocrit 30.9 L Mean Corpuscular 88.0 Volume Mean Corpuscular 29.9 Hemoglobin Mean Corpuscular 34.0 Hemoglobin Concen t Red Cell 14.0 Distribution Width Platelet Count 76 L Mean Platelet 11.6 H Volume Immature 0.900 H Granulocytes % Neutrophils % 84.8 H Segmented 81 H Neutrophils % (Manual) Band Neutrophils 6 H % (Manual) Lymphocytes % 7.9 L Lymphocytes % 8 L (Manual) Monocytes % 5.0 Monocytes % 3 (Manual) Eosinophils % 1.0 Eosinophils % 1 (Manual) Basophils % 0.4 Basophils % 1 (Manual) Nucleated Red 0.3 H Blood Cells % Immature 0.140 H Granulocytes # Neutrophils # 13.2 H Neutrophils # 12.7 H (Manual) Band Neutrophils 0.9 H # Lymphocytes 1.2 (Manual) Lymphocytes # 1.2 Monocytes # 0.8 Monocytes # 0.4 (Manual) Eosinophils # 0.2 Basophils # 0.1 Basophils # 0.1 H (Manual) Nucleated Red 0.0 Blood Cells # Platelet Estimate DECREASED Anisocytosis 1+ Sodium Level 135 Potassium Level 4.3 Chloride Level 106 Carbon Dioxide 20 L Level Anion Gap 9 Blood Urea 41 H Nitrogen Creatinine 3.17 H Est Glomerular 20 L Filtrat Rate mL/min Glucose Level 123 Calcium Level 7.0 L Phosphorus Level 4.5 # Magnesium Level 2.3 Test 05/31/18 08:05 05/31/18 10:03 05/31/18 10:11 05/31/18 11:42 Bedside Glucose 114 169 Blood Gas Blood arterial Specimen Source Arterial Blood 05/31/2018 10:13: Date Drawn 31 AM Arterial Blood pH 7.499 H (Temp corrected) Arterial Blood 22.3 L pCO2 (Temp correct) Arterial Blood 66.0 L pO2 (Temp corrected) Arterial Blood 17.0 L HCO3 Arterial Blood -4.7 L Base Excess Arterial Blood 93.4 L Oxygen Saturation Srinivas Test N/A Arterial Blood A-Line Gas Puncture Site Arterial 0.3 Blood Carboxyhemo globin Arterial Blood 0.2 Methemoglobin Blood Gas A-a O2 624.7 H Differential Oxyhemoglobin 92.9 L Percent Blood Gas 37.0 Temperature Blood Gas 30.0 Respiration Rate Blood Gas Actual 30 Respiration Rate Blood Gas VENT - PC Modality FiO2 100.0 Blood Gas Low 8.0 PEEP Setting Blood Gas TM Notified Whom Blood Gas 05/31/2018 10:23: Notified Time 10 AM Phenytoin 8.0 L (Dilantin) Level Test 05/31/18 11:43 05/31/18 15:09 05/31/18 16:10 Bedside Glucose 162 130 117 Imaging Imaging Telemetry demonstrates NSR Medications Medications Current Medications IV Flush (NS 3 ml) 3 ml PER PROTOCOL IV ; Start 05/26/18 at 15:30 Morphine Sulfate (morphine) 2 mg Q4H PRN IV .SEVERE PAIN 7-10; Start 05/26/18 at 15:30 Atorvastatin Calcium (Lipitor) 80 mg DAILY@21 PO Last administered on 05/30/18at 21:06; Admin Dose 80 MG; Start 05/26/18 at 21:00 Midazolam HCl 50 ml @ 1 mls/hr TITRATE IV Last administered on 05/28/18at 19:02; Admin Dose 10 MLS/HR; Start 05/26/18 at 19:30 Vecuronium [place] 100 mg/ Dextrose 100 ml @ 6.25 mls/hr TITRATE IV Last administered on 05/27/18at 06:55; Admin Dose 6.25 MLS/HR; Start 05/26/18 at 20:00 Vasopressin 60 unit/Dextrose 60 ml @ 1.2 mls/hr Q12H IV Last administered on 05/31/18at 08:37; Admin Dose 1.8 MLS/HR; Start 05/26/18 at 20:30 Fentanyl 100 ml @ 2.5 mls/hr TITRATE IV Last administered on 05/31/18at 04:34; Admin Dose 2.5 MLS/HR; Start 05/26/18 at 21:00 Diagnostic Test (Pha) (Accu-Chek) 1 ea Q1H XX Last administered on 05/31/18at 16:11; Admin Dose 1 EA; Start 05/26/18 at 21:00 Insulin Human Regular 100 unit/ Sodium Chloride 100 ml @ 0 mls/hr PER PROTOCOL IV Last administered on 05/31/18at 16:11; Admin Dose 2 MLS/HR; Start 05/26/18 at 21:00 Miscellaneous Information (* Miscellaneous Pharmacy Order) Treatment of Hypoglycemia: 1.BG 51... Per protocol XX ; Start 05/26/18 at 20:30 Dextrose (D50w Syringe) 25 ml Q15M PRN IV .DECREASED GLUCOSE; Start 05/26/18 at 20:30 Dextrose (D50w Syringe) 50 ml Q15M PRN IV .DECREASED GLUCOSE; Start 05/26/18 at 20:30 Propofol 100 ml @ 3.75 mls/hr Q12H IV Last administered on 05/28/18at 23:47; Admin Dose 22.5 MLS/HR; Start 05/26/18 at 21:00 Phenylephrine HCl 80 mg/Dextrose 250 ml @ 18.75 mls/ hr TITRATE IV Last administered on 05/30/18at 05:36; Admin Dose 28.13 MLS/HR; Start 05/26/18 at 22:30 Norepinephrine 32 mg/Dextrose 250 ml @ 0.47 mls/hr TITRATE IV Last administered on 05/31/18at 09:08; Admin Dose 14.06 MLS/HR; Start 05/26/18 at 2 2:30 Vancomycin HCl (Vanco Iv Per Pharmacy) VANCOMYCIN PER PHARMACY PER PROTOCOL XX ; Start 05/27/18 at 00:30 Piperacillin Sod/ Tazobactam Sod 100 ml @ 200 mls/hr Q8 IVPB Last administered on 05/31/18at 15:23; Admin Dose 200 MLS/HR; Start 05/27/18 at 00:30 Acetaminophen (Tylenol Supp) 650 mg Q4H PRN [place] TEMP > 37C; Start 05/27/18 at 02:30 Acetaminophen (Tylenol Liquid) 650 mg Q4H PRN PO TEMP > 37C; Start 05/27/18 at 02:30 Meperidine HCl (Demerol) 12.5 mg Q4H PRN IV POST OPERATIVE SHIVERING Last administered on 05/27/18 22:49; Admin Dose 12.5 MG; Start 05/27/18 at 02:30 Meperidine HCl (Demerol) 25 mg Q4H PRN IV POST OPERATIVE SHIVERING Last administered on 05/27/18 03:09; Admin Dose 25 MG; Start 05/27/18 at 02:30 Eye Lubricant (Akwa Oint) 1 applic Q6 BOTH EYES Last administered on 05/31/18 11:44; Admin Dose 1 APPLIC; Start 05/27/18 at 06:00 Eye Lubricant (Artificial Tears Oph) 2 drop Q6 BOTH EYES Last administered on 05/31/18 11:45; Admin Dose 2 DROP; Start 05/27/18 at 06:00 Potassium Chloride 50 ml @ 50 mls/hr K PROTOCOL PRN IVPB PENDING LAB VALUE Last administered on 05/27/18 15:25; Admin Dose 50 MLS/HR; Start 05/27/18 at 04:00 Aspirin (Aspirin) 81 mg DAILY NGT Last administered on 05/31/18 08:25; Admin Dose 81 MG; Start 05/27/18 at 10:00 Ticagrelor (Brilinta) 90 mg BID NGT Last administered on 05/31/18 08:30; Admin Dose 90 MG; Start 05/27/18 at 21:00 Lorazepam (Ativan) 2 mg Q2H PRN IV SEIZURES Last administered on 05/31/18 02:51; Admin Dose 2 MG; Start 05/28/18 at 01:30 Acetaminophen (Tylenol Liquid) 650 mg Q6H PRN NGT MILD PAIN(1-3)OR ELEVATED TEMP Last administered on 05/31/18 12:11; Admin Dose 650 MG; Start 05/28/18 at 03:00 Epinephrine 4 mg/ Sodium Chloride 250 ml @ 3.75 mls/hr TITRATE IV Last administered on 05/29/18 03:52; Admin Dose 3.75 MLS/HR; Start 05/29/18 at 03:30 Dopamine HCl 800 mg/Dextrose 250 ml @ 4.69 mls/hr TITRATE IV Last administered on 05/31/18at 12:00; Admin Dose 23.44 MLS/HR; Start 05/29/18 at 07:00 Sodium Bicarbonate 100 meq/Dextrose/ Sodium Chloride 1,100 ml @ 100 mls/hr Q11H IV Last administered on 05/31/18at 11:57; Admin Dose 100 MLS/HR; Start 05/30/18 at 12:30 Levetiracetam 100 ml @ 400 mls/hr Q12 IVPB Last administered on 05/31/18at 08:27; Admin Dose 400 MLS/HR; Start 05/31/18 at 09:00 Phenytoin (Dilantin) 100 mg Q8 IV Last administered on 05/31/18at 15:23; Admin Dose 100 MG; Start 05/31/18 at 14:00 Miscellaneous Information (*Rx Drug Level Order Reminder*) RANDOM VANCOMYCIN LEVEL 2... ONCE ONCE XX ; Start 06/01/18 at 05:00; Stop 06/01/18 at 05:01 Pantoprazole (Protonix Iv) 40 mg BID@0600,1800 IV ; Start 05/31/18 at 18:00 MARIBEL MONTEZ May 31, 2018 17:08
[2018-05-31] MEDS: PANTOPRAZOLE 40 MG INJ IV SCH (18:11)
[2018-05-31] MEDS: ATORVASTATIN 80 MG TAB PO SCH (21:26)
[2018-06-01] VITALS (73 sets, daily range): BP systolic 88–125; BP diastolic 46–77; PULSE 0–101; RESP 0–34
[2018-06-01] MEDS: ARTIFICIAL TEARS 15 ML OPH BOTH EYES SCH ×3 (00:02→11:58)
[2018-06-01] MEDS: SODIUM BICARBONATE (IV ADD) 100 MEQ in DEXTROSE 5%-0.45% NACL 1,000 ML IV SCH (00:02)
[2018-06-01] MEDS: OCULAR LUBRICANT 3.5 GM OPH OINT BOTH EYES SCH ×3 (00:03→12:07)
[2018-06-01] MEDS: ACCU-CHEK XX SCH ×17 (00:08→16:00)
[2018-06-01] MEDS: NORepinephrine 32 MG in DEXTROSE 5% 218 ML IV SCH (01:14)
[2018-06-01] MEDS: ACETAMINOPHEN 650MG/20.3ML CUP NGT PRN ×3 (03:44→08:20)
[2018-06-01] MEDS: LORAZEPAM 2 MG INJ IV PRN (03:44)
[2018-06-01] MEDS: PANTOPRAZOLE 40 MG INJ IV SCH (05:28)
[2018-06-01] MEDS: PHENYTOIN 100 MG INJ IV SCH ×2 (05:28→14:31)
[2018-06-01] MEDS: PIPER-TAZO 3.375 GM IV (PMX) 100 ML IVPB SCH ×2 (05:30→14:31)
--- NOTE | 2018-06-01 06:12 | EEG ---
EEG NOTE Report Details DATE OF TEST: 05/31/18 HISTORY: The patient is a 68-year-old M who presents with altered mental status s/p cardiac arrest. This EEG is requested to rule out nonconvulsive status epilepticus. SEDATION: None. CONDITIONS OF RECORDING: This EEG was recorded digitally on the [employer] machine, using the International 10-20 System of electrodes plus anterior temporals and [place]. STATES SAMPLED: Comatose. FINDINGS: The background is discontinuous. Active intervals are brief, and consist entirely of epileptiform activity. The normal [id number] frequency-amplitude gradient was absent. Photic stimulation does not elicit any definite driving responses or epileptiform discharges. Hyperventilation was not performed. IMPRESSION: Abnormal electroencephalogram due to: discontinuity and epileptiform activity. 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 JESSICA WILLOUGHBY Jun 01, 2018 06:12
[2018-06-01] MEDS: FENTAnyl (DRIP) 1000 mcg/100mL 100 ML IV SCH (06:23)
[2018-06-01] MEDS ORDERED: SOD CHLORIDE 0.9% 1,000 ML IV SCH (08:00)
[2018-06-01] MEDS: VASOPRESSIN 60 UNIT in DEXTROSE 5% 57 ML IV SCH (08:11)
[2018-06-01] MEDS: PROPOFOL 100 ML IV SCH (08:12)
[2018-06-01] MEDS: ASPIRIN 81 MG TAB NGT SCH (08:13)
[2018-06-01] MEDS: TICAGRELOR 90 MG TABLET NGT SCH (08:13)
[2018-06-01] MEDS: LEVETIRACETAM 500 MG (PMX) 100 ML IVPB SCH (08:20)
--- NOTE | 2018-06-01 08:47 | PN ---
DATE: 06/01/2018 SUBJECTIVE: The patient is critically ill on full ventilatory support, on multiple pressor support. Urinary output remains marginal. The patient is pending bioethics evaluation today. No other event s noted. OBJECTIVE: VITAL SIGNS: Blood pressure is 98/56, respirations 30, pulse 96, temperature 101.4. HEENT: Head is normocephalic. NECK: Supple. HEART: Regular rate. LUNGS: Show diminished breath sounds at the base. ABDOMEN: Soft, nontender to palpation without rebound or guarding. EXTREMITIES: Negative for clubbing, cyanosis. Positive edema. DERMATOLOGIC: No rashes. MUSCULOSKELETAL: No joint effusion. NEUROLOGIC: No change in exam. MEDICATIONS: Reviewed. LABORATORY DATA: Shows sodium 136, potassium 4.5, chloride 105, BUN 52, creatinine 3.57 phosphorus 6 .6, calcium 6.9. White count 20.3, hemoglobin 9.9, platelet count is 89. Chest x-ray on 05/31/2018 was reviewed, showed perihilar consolidation, multifocal pneumonia. ABG shows pH 7.499, pCO2 of 22, base excess of -4. Ionized calcium was reviewed. ASSESSMENT AND PLAN: 1. Oliguric acute kidney injury, etiology is secondary to acute tubular necrosis due to ischemic hea rt perfusion shock, possible contrast nephropathy. The patient remains in injury phase of acute tubu lar necrosis. Urinary output has been marginal. At this point, the patient will likely need renal r eplacement therapy if the decision is made to continue full care. A bioethics meeting is pending. I f the decision is determined at all care and therapeutic modalities are to be provided, we then pursu e renal replacement therapy. Otherwise, continue supportive care, renally dose all medicines and armando id nephrotoxins. 2. Mixed acid base disorder. The patient has a respiratory alkalemia, metabolic alkalosis, and meta bolic acidosis. Plan at this point would be to discontinue bicarbonate drip. We will continue to mo nitor ABG levels closely. 3. Hypokalemia secondary to acute kidney injury, improved. 4. Anemia. Monitor hemoglobin and hematocrit levels. 5. Mineral bone disorder. The patient is hyperphosphatemic secondary to acute kidney injury. Dm nue to monitor. The patient is also hypocalcemic. We will monitor closely. Give calcium gluconate as needed. 6. Status post cardiac arrest secondary to ST elevated myocardial infarction. The patient is status post cardiac catheterization, PCI. Continue medical management. 7. Shock, etiology is cardiogenic, septic. The patient is on pressor support with intraaortic ballo on pump, on antibiotic therapy. Continue medical management. Follow up with Cardiology. 8. Ventilator-dependent respiratory failure. Vent settings and ABG was reviewed. Continue to monit or. 9. Morbid obesity. 10. Systemic inflammatory response syndrome. Continue antibiotic regimen. 11. Acute encephalopathy, etiology is toxic metabolic. Please note, I spent over 30 minutes of critical care time with this patient. Patient has a very poor prognosis given multiorgan failure. Pending bioethics evaluation today. Dictated By: GUERO ISAAC DO NR/NTS Conf#: [id number] DID#: [id number] CC: ELANA HARDWICK MD; VANDA EARL; GUERO ISAAC DO;*EndCC*
[2018-06-01] MEDS: DOPamine 800 MG in DEXTROSE 5% 230 ML IV SCH (08:51)
--- NOTE | 2018-06-01 08:59 | CONS ---
Assessment/Plan Assessment/Plan Hospital Course (Demo Recall) 68 yo with witnessed cardiac arrest and STEMI inferolateral wall, with PCI to a codominant LCX. Course significant for multi organ system failure including anoxic encephalopathy. Impression: STEMI of the inferolateral wall, thrombus-filled codominant LCX, with angioplasty and only CONNIE 2 flow at the end of the procedure Septic shock on three pressors, with increasing pressor need compared to yesterday, and IABP Morbid obesity Acute respiratory failure, on ventilator, with FIO2 100% Anoxic encephalopathy Acute renal failure, due to shock and contrast-induced nephropathy GI bleed Recommendations: Continue ASA, ticagrelor Continue atorvastatin No beta blockade due to need for multiple pressors IABP remains in place due to need for three pressors to maintain blood pressure, it is effectively augmenting systolic pressures Very poor prognosis given multi organ failure and encephalopathy Supportive care as per nephrology and pulmonary, antibiotics Bioethics meeting today. If decision made for comfort care measures, then it would be reasonable to remove the IABP. Consultation Date/Type/Reason Admit Date/Time May 26, 2018 at 15:31 Initial Consult Date 05/26/18 Type of Consult Cardiology Requesting Provider: ALYSE KLEIN MD Date/Time of Note DATE: 06/01/18 TIME: 08:49 24 HR Interval Summary Free Text/Dictation Course overnight significant for greater need for pressor support and witnessed seizure activity requiring ativan. Subjective hx not possible: pt non-verbal Exam/Review of Systems Vital Signs Vitals Vital Signs Date Temp Pulse Resp B/P (MAP) Pulse Ox O2 O2 Flow FiO2 Time Delivery Rate 06/01/18 101.8 08:20 06/01/18 96 30 98/56 (70) 96 [place] 07:15 l Ventilato r 06/01/18 100 05:35 Intake and Output 05/31/18 05/31/18 06/01/18 1515:00 23:00 07:00 IntakeIntake Total 1647.38 ml 1234.86 ml 1166.47 ml OutputOutput Total 300 ml 140 ml 175 ml BalanceBalance 1347.38 ml 1094.86 ml 991.47 ml Exam Constitutional: other (obese, nonverbal, intubated) Eyes: nl lids ENMT: intubated Neck: No bruits Respiratory: clear to auscultation Cardiovascular: regular rate and rhythm; No murmurs/extra sounds Gastrointestinal: soft, non-tender Musculoskeletal: swelling Extremities: edema, other (right groin site remains intact, no hematoma, IABP and central line in place) Neurological: unresponsive Skin: nl turgor Labs Result Diagram: 06/01/18 0430 06/01/18 0430 Results 24hrs Laboratory Tests Test 05/31/18 10:03 05/31/18 10:11 05/31/18 11:42 05/31/18 11:43 Blood Gas Blood arterial Specimen Source Arterial Blood 05/31/2018 10:13: Date Drawn 31 AM Arterial Blood pH 7.499 H (Temp corrected) Arterial Blood 22.3 L pCO2 (Temp correct) Arterial Blood 66.0 L pO2 (Temp corrected) Arterial Blood 17.0 L HCO3 Arterial Blood -4.7 L Base Excess Arterial Blood 93.4 L Oxygen Saturation Srinivas Test N/A Arterial Blood A-Line Gas Puncture Site Arterial 0.3 Blood Carboxyhemo globin Arterial Blood 0.2 Methemoglobin Blood Gas A-a O2 624.7 H Differential Oxyhemoglobin 92.9 L Percent Blood Gas 37.0 Temperature Blood Gas 30.0 Respiration Rate Blood Gas Actual 30 Respiration Rate Blood Gas VENT - PC Modality FiO2 100.0 Blood Gas Low 8.0 PEEP Setting Blood Gas TM Notified Whom Blood Gas 05/31/2018 10:23: Notified Time 10 AM Bedside Glucose 169 162 Phenytoin 8.0 L (Dilantin) Level Test 05/31/18 15:09 05/31/18 16:10 05/31/18 18:16 05/31/18 20:00 Bedside Glucose 130 117 112 103 Test 05/31/18 22:01 06/01/18 00:00 06/01/18 02:17 06/01/18 04:03 Bedside Glucose 94 123 122 134 Test 06/01/18 04:30 06/01/18 06:00 06/01/18 08:09 White Blood Count 20.3 #H Red Blood Count 3.34 L Hemoglobin 9.9 L Hematocrit 30.0 L Mean Corpuscular 89.8 Volume Mean Corpuscular 29.6 Hemoglobin Mean Corpuscular 33.0 Hemoglobin Concen t Red Cell 14.8 H Distribution Width Platelet Count 89 L Mean Platelet 11.5 H Volume Immature 2.000 H Granulocytes % Neutrophils % Lymphocytes % Monocytes % Eosinophils % Basophils % Nucleated Red 0.1 H Blood Cells % Immature 0.410 H Granulocytes # Neutrophils # Lymphocytes # Monocytes # Eosinophils # Basophils # Nucleated Red Blood Cells # Sodium Level 136 Potassium Level 4.5 Chloride Level 105 Carbon Dioxide 23 Level Anion Gap 8 Blood Urea 52 H Nitrogen Creatinine 3.57 H Est Glomerular 17 L Filtrat Rate mL/min Glucose Level 111 Calcium Level 6.9 L Phosphorus Level 6.6 #H Magnesium Level 2.5 Random Vancomycin 16.6 Level Phenytoin < 6.0 L (Dilantin) Level Bedside Glucose 130 99 Medications Medications Current Medications IV Flush (NS 3 ml) 3 ml PER PROTOCOL IV ; Start 05/26/18 at 15:30 Morphine Sulfate (morphine) 2 mg Q4H PRN IV .SEVERE PAIN 7-10; Start 05/26/18 at 15:30 Atorvastatin Calcium (Lipitor) 80 mg DAILY@21 PO Last administered on 05/31/18at 21:26; Admin Dose 80 MG; Start 05/26/18 at 21:00 Midazolam HCl 50 ml @ 1 mls/hr TITRATE IV Last administered on 05/28/18 19:02; Admin Dose 10 MLS/HR; Start 05/26/18 at 19:30 Vecuronium [place] 100 mg/ Dextrose 100 ml @ 6.25 mls/hr TITRATE IV Last administered on 05/27/18 06:55; Admin Dose 6.25 MLS/HR; Start 05/26/18 at 20:00 Vasopressin 60 unit/Dextrose 60 ml @ 1.2 mls/hr Q12H IV Last administered on 05/31/18 21:32; Admin Dose 1.2 MLS/HR; Start 05/26/18 at 20:30 Fentanyl 100 ml @ 2.5 mls/hr TITRATE IV Last administered on 06/01/18 06:23; Admin Dose 2.5 MLS/HR; Start 05/26/18 at 21:00 Diagnostic Test (Pha) (Accu-Chek) 1 ea Q1H XX Last administered on 06/01/18 08:29; Admin Dose 1 EA; Start 05/26/18 at 21:00 Insulin Human Regular 100 unit/ Sodium Chloride 100 ml @ 0 mls/hr PER PROTOCOL IV Last administered on 05/31/18 16:11; Admin Dose 2 MLS/HR; Start 05/26/18 at 21:00 Miscellaneous Information (* Miscellaneous Pharmacy Order) Treatment of H ypoglycemia: 1.BG 51... Per protocol XX ; Start 05/26/18 at 20:30 Dextrose (D50w Syringe) 25 ml Q15M PRN IV .DECREASED GLUCOSE; Start 05/26/18 at 20:30 Dextrose (D50w Syringe) 50 ml Q15M PRN IV .DECREASED GLUCOSE; Start 05/26/18 at 20:30 Propofol 100 ml @ 3.75 mls/hr Q12H IV Last administered on 05/28/18at 23:47; Admin Dose 22.5 MLS/HR; Start 05/26/18 at 21:00 Phenylephrine HCl 80 mg/Dextrose 250 ml @ 18.75 mls/ hr TITRATE IV Last administered on 05/30/18at 05:36; Admin Dose 28.13 MLS/HR; Start 05/26/18 at 22:30 Norepinephrine 32 mg/Dextrose 250 ml @ 0.47 mls/hr TITRATE IV Last administe red on 06/01/18at 01:14; Admin Dose 14.06 MLS/HR; Start 05/26/18 at 22:30 Vancomycin HCl (Vanco Iv Per Pharmacy) VANCOMYCIN PER PHARMACY PER PROTOCOL XX ; Start 05/27/18 at 00:30 Piperacillin Sod/ Tazobactam Sod 100 ml @ 200 mls/hr Q8 IVPB Last administered on 06/01/18at 05:30; Admin Dose 200 MLS/HR; Start 05/27/18 at 00:30 Acetaminophen (Tylenol Supp) 650 mg Q4H PRN [place] TEMP > 37C; Start 05/27/18 at 02:30 Acetaminophen (Tylenol Liquid) 650 mg Q4H PRN PO TEMP > 37C; Start 05/27/18 at 02:30 Meperidine HCl (Demerol) 12.5 mg Q4H PRN IV POST OPERATIVE SHIVERING Last administered on 05/27/18at 22:49; Admin Dose 12.5 MG; Start 05/27/18 at 02:30 Meperidine HCl (Demerol) 25 mg Q4H PRN IV POST OPERATIVE SHIVERING Last administered on 05/27/18at 03:09; Admin Dose 25 MG; Start 05/27/18 at 02:30 Eye Lubricant (Akwa Oint) 1 applic Q6 BOTH EYES Last administered on 06/01/18 05:28; Admin Dose 1 APPLIC; Start 05/27/18 at 06:00 Eye Lubricant (Artificial Tears Oph) 2 drop Q6 BOTH EYES Last administered on 06/01/18 05:28; Admin Dose 2 DROP; Start 05/27/18 at 06:00 Potassium Chloride 50 ml @ 50 mls/hr K PROTOCOL PRN IVPB PENDING LAB VALUE Last administered on 05/27/18 15:25; Admin Dose 50 MLS/HR; Start 05/27/18 at 04:00 Aspirin (Aspirin) 81 mg DAILY NGT Last administered on 06/01/18 08:13; Admin Dose 81 MG; Start 05/27/18 at 10:00 Ticagrelor (Brilinta) 90 mg BID NGT Last administered on 06/01/18 08:13; Admin Dose 90 MG; Start 05/27/18 at 21:00 Lorazepam (Ativan) 2 mg Q2H PRN IV SEIZURES Last administered on 06/01/18 03:44; Admin Dose 2 MG; Start 05/28/18 at 01:30 Acetaminophen (Tylenol Liquid) 650 mg Q6H PRN NGT MILD PAIN(1-3)OR ELEVATED TEMP Last administered on 06/01/18 08:20; Admin Dose 650 MG; Start 05/28/18 at 03:00 Epinephrine 4 mg/ Sodium Chloride 250 ml @ 3.75 mls/hr TITRATE IV Last administered on 05/29/18 03:52; Admin Dose 3.75 MLS/HR; Start 05/29/18 at 03:30 Dopamine HCl 800 mg/Dextrose 250 ml @ 4.69 mls/hr TITRATE IV Last administered on 05/31/18 22:15; Admin Dose 9.38 MLS/HR; Start 05/29/18 at 07:00 Levetiracetam 100 ml @ 400 mls/hr Q12 IVPB Last administered on 06/01/18 08:20; Admin Dose 400 MLS/HR; Start 05/31/18 at 09:00 Phenytoin (Dilantin) 100 mg Q8 IV Last administered on 06/01/18 05:28; Admin Dose 100 MG; Start 05/31/18 at 14:00 Pantoprazole (Protonix Iv) 40 mg BID@0600,1800 IV Last administered on 06/01/18at 05:28; Admin Dose 40 MG; Start 05/31/18 at 18:00 Sodium Chloride 1,000 ml @ 50 mls/hr Q20H IV Last administered on 06/01/18at 08:12; Admin Dose 50 MLS/HR; Start 06/01/18 at 08:00 MARIBEL MONTEZ Jun 01, 2018 08:59
--- NOTE | 2018-06-01 09:58 | PN ---
Date/Time of Note Date/Time of Note DATE: 06/01/18 TIME: 09:58 Assessment/Plan VTE Prophylaxis Risk score (from Ns)>0 risk: 10 SCD applied (from Ns): Yes Pharmacological prophylaxis: other Lines/Catheters IV Catheter Type (from Nrs): SRIRAM CATH Urinary Cath still in place: Yes Reason Cath still needed: urinary retention Assessment/Plan Hospital Course S: Patient still intubated, Still on pressor support x3, still on intra-aortic balloon pump. Had repeat EEG performed last night, per nursing staff still with some seizure activity but given Dilantin for that. O: VS - see below PE: Gen: Obese man intubated, sedated. Eyes: Sluggish pupils HEENT: Mild epistaxis. ET tube in place, OG tube in place clamped Card: Balloon pump audible. Cannot auscultate heart sounds. Pulm: Distant mechanical breath sounds bilaterally. Abd: Obese, soft, nondistended. Ext: No cyanosis/clubbing/edema. R fem vascular sheath with balloon pump. : Harrison in place with no urine Date/Time of Note Date/Time of Note DATE: 05/26/18 TIME: 18:10 Operative Report Procedure Date: May 26, 2018 Preoperative Diagnosis Cardiac arrest, STEMI inferolateral wall Postoperative Diagnosis Same Operation/Procedure Performed Coronary angiography Percutaneous coronary intervention to the lcx, with placement of a drug-eluting stent IABP insertion EEG 05/30: IMPRESSION: Abnormal electroencephalogram due to: discontinuity and epileptiform activity. 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 EEG 05/31: IMPRESSION: Abnormal electroencephalogram due to: discontinuity and epileptiform activity. 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 Assessment/Plan: 68 yo man no known past medical history admitted with respiratory distress proceeding to cardiac arrest. #Cardiac arrest- Likely from STEMI- s/p cardiac cath with BELLA to circumflex 05/26- Was on hypothermia protocol, with neuromuscular blockade and sedation- BP still maintained on multiple pressors. Patient appears nonresponsive-appreciate - Continue balloon pump per cardiology. - Continue pressors to maintain MAP>65 - Antiplatelets per cardiology Dr. Gamboa -Both EEG results noted, for now continue antiseizure medications as recommended by neurology team, follow-up their further recommendations -Still on insulin drip (A1c was 10.1) #Respiratory failurew/Hypoxia-patient still intubated - Pulmonary managing vent, for now continue current antibiotics -Monitor pulmonary vascular congestion #hyperkalemia -appears resolved now - monitor, follow-up BMP daily, and renal recommendations #Renal failure- Patient is oliguric with rising creatinine. Appreciate renal recommendations - Dr. Esparza consulted from renal, follow-up their recommendations, including possible need for dialysis - Continue D5 half-normal saline IV fluids with bicarb for now Dispo: Very poor prognosis given multi organ failure, pt DNR-there is strong concern of anoxic brain injury; bioethics meeting scheduled for later today since there is no family or friends available at this point. Patient is only been on fentanyl, has some sluggish pupils and some seizure activity, otherwise no other neurologic activity noted. DVT: SCDs GI: protonix Critical care time spent in patient care today equals 45 minutes. Result Diagram: 06/01/18 0430 06/01/18 0430 Results 24hrs Laboratory Tests Test 05/31/18 10:03 05/31/18 10:11 05/31/18 11:42 05/31/18 11:43 Blood Gas Blood arterial Specimen Source Arterial Blood 05/31/2018 10:13: Date Drawn 31 AM Arterial Blood pH 7.499 H (Temp corrected) Arterial Blood 22.3 L pCO2 (Temp correct) Arterial Blood 66.0 L pO2 (Temp corrected) Arterial Blood 17.0 L HCO3 Arterial Blood -4.7 L Base Excess Arterial Blood 93.4 L Oxygen Saturation Srinivas Test N/A Arterial Blood A-Line Gas Puncture Site Arterial 0.3 Blood Carboxyhemo globin Arterial Blood 0.2 Methemoglobin Blood Gas A-a O2 624.7 H Differential Oxyhemoglobin 92.9 L Percent Blood Gas 37.0 Temperature Blood Gas 30.0 Respiration Rate Blood Gas Actual 30 Respiration Rate Blood Gas VENT - PC Modality FiO2 100.0 Blood Gas Low 8.0 PEEP Setting Blood Gas TM Notified Whom Blood Gas 05/31/2018 10:23: Notified Time 10 AM Bedside Glucose 169 162 Phenytoin 8.0 L (Dilantin) Level Test 05/31/18 15:09 05/31/18 16:10 05/31/18 18:16 05/31/18 20:00 Bedside Glucose 130 117 112 103 Test 05/31/18 22:01 06/01/18 00:00 06/01/18 02:17 06/01/18 04:03 Bedside Glucose 94 123 122 134 Test 06/01/18 04:30 06/01/18 06:00 06/01/18 08:09 White Blood Count 20.3 #H Red Blood Count 3.34 L Hemoglobin 9.9 L Hematocrit 30.0 L Mean Corpuscular 89.8 Volume Mean Corpuscular 29.6 Hemoglobin Mean Corpuscular 33.0 Hemoglobin Concen t Red Cell 14.8 H Distribution Width Platelet Count 89 L Mean Platelet 11.5 H Volume Immature 2.000 H Granulocytes % Neutrophils % Lymphocytes % Monocytes % Eosinophils % Basophils % Nucleated Red 0.1 H Blood Cells % Immature 0.410 H Granulocytes # Neutrophils # Lymphocytes # Monocytes # Eosinophils # Basophils # Nucleated Red Blood Cells # Sodium Level 136 Potassium Level 4.5 Chloride Level 105 Carbon Dioxide 23 Level Anion Gap 8 Blood Urea 52 H Nitrogen Creatinine 3.57 H Est Glomerular 17 L Filtrat Rate mL/min Glucose Level 111 Calcium Level 6.9 L Phosphorus Level 6.6 #H Magnesium Level 2.5 Random Vancomycin 16.6 Level Phenytoin < 6.0 L (Dilantin) Level Bedside Glucose 130 99 Exam/Review of Systems Exam Vitals Vital Signs Date Temp Pulse Resp B/P (MAP) Pulse Ox O2 O2 Flow FiO2 Time Delivery Rate 06/01/18 96 29 97/54 (68) 93 Mechanica 09:45 l Ventilato r 06/01/18 101.8 08:20 06/01/18 100 08:00 Intake and Output 05/31/18 05/31/18 06/01/18 1515:00 23:00 07:00 IntakeIntake Total 1647.38 ml 1234.86 ml 1166.47 ml OutputOutput Total 300 ml 140 ml 175 ml BalanceBalance 1347.38 ml 1094.86 ml 991.47 ml Results Results 24hrs Laboratory Tests Test 05/31/18 10:03 05/31/18 10:11 05/31/18 11:42 05/31/18 11:43 Blood Gas Blood arterial Specimen Source Arterial Blood 05/31/2018 10:13: Date Drawn 31 AM Arterial Blood pH 7.499 H (Temp corrected) Arterial Blood 22.3 L pCO2 (Temp correct) Arterial Blood 66.0 L pO2 (Temp corrected) Arterial Blood 17.0 L HCO3 Arterial Blood -4.7 L Base Excess Arterial Blood 93.4 L Oxygen Saturation Srinivas Test N/A Arterial Blood A-Line Gas Puncture Site Arterial 0.3 Blood Carboxyhemo globin Arterial Blood 0.2 Methemoglobin Blood Gas A-a O2 624.7 H Differential Oxyhemoglobin 92.9 L Percent Blood Gas 37.0 Temperature Blood Gas 30.0 Respiration Rate Blood Gas Actual 30 Respiration Rate Blood Gas VENT - PC Modality FiO2 100.0 Blood Gas Low 8.0 PEEP Setting Blood Gas TM Notified Whom Blood Gas 05/31/2018 10:23: Notified Time 10 AM Bedside Glucose 169 162 Phenytoin 8.0 L (Dilantin) Level Test 05/31/18 15:09 05/31/18 16:10 05/31/18 18:16 05/31/18 20:00 Bedside Glucose 130 117 112 103 Test 05/31/18 22:01 06/01/18 00:00 06/01/18 02:17 06/01/18 04:03 Bedside Glucose 94 123 122 134 Test 06/01/18 04:30 06/01/18 06:00 06/01/18 08:09 White Blood Count 20.3 #H Red Blood Count 3.34 L Hemoglobin 9.9 L Hematocrit 30.0 L Mean Corpuscular 89.8 Volume Mean Corpuscular 29.6 Hemoglobin Mean Corpuscular 33.0 Hemoglobin Concen t Red Cell 14.8 H Distribution Width Platelet Count 89 L Mean Platelet 11.5 H Volume Immature 2.000 H Granulocytes % Neutrophils % Lymphocytes % Monocytes % Eosinophils % Basophils % Nucleated Red 0.1 H Blood Cells % Immature 0.410 H Granulocytes # Neutrophils # Lymphocytes # Monocytes # Eosinophils # Basophils # Nucleated Red Blood Cells # Sodium Level 136 Potassium Level 4.5 Chloride Level 105 Carbon Dioxide 23 Level Anion Gap 8 Blood Urea 52 H Nitrogen Creatinine 3.57 H Est Glomerular 17 L Filtrat Rate mL/min Glucose Level 111 Calcium Level 6.9 L Phosphorus Level 6.6 #H Magnesium Level 2.5 Random Vancomycin 16.6 Level Phenytoin < 6.0 L (Dilantin) Level Bedside Glucose 130 99 Medications Medication Current Medications IV Flush (NS 3 ml) 3 ml PER PROTOCOL IV ; Start 05/26/18 at 15:30 Morphine Sulfate (morphine) 2 mg Q4H PRN IV .SEVERE PAIN 7-10; Start 05/26/18 at 15:30 Atorvastatin Calcium (Lipitor) 80 mg DAILY@21 PO Last administered on 05/31/18at 21:26; Admin Dose 80 MG; Start 05/26/18 at 21:00 Midazolam HCl 50 ml @ 1 mls/hr TITRATE IV Last administered on 05/28/18at 19:02; Admin Dose 10 MLS/HR; Start 05/26/18 at 19:30 Vecuronium [place] 100 mg/ Dextrose 100 ml @ 6.25 mls/hr TITRATE IV Last administered on 05/27/18 06:55; Admin Dose 6.25 MLS/HR; Start 05/26/18 at 20:00 Vasopressin 60 unit/Dextrose 60 ml @ 1.2 mls/hr Q12H IV Last administered on 05/31/18 21:32; Admin Dose 1.2 MLS/HR; Start 05/26/18 at 20:30 Fentanyl 100 ml @ 2.5 mls/hr TITRATE IV Last administered on 06/01/18 06:23; Admin Dose 2.5 MLS/HR; Start 05/26/18 at 21:00 Diagnostic Test (Pha) (Accu-Chek) 1 ea Q1H XX Last administered on 06/01/18 08:29; Admin Dose 1 EA; Start 05/26/18 at 21:00 Insulin Human Regular 100 unit/ Sodium Chloride 100 ml @ 0 mls/hr PER PROTOCOL IV Last administered on 05/31/18at 16:11; Admin Dose 2 MLS/HR; Start 05/26/18 at 21:00 Miscellaneous Information (* Miscellaneous Pharmacy Order) Treatment of Hypoglycemia: 1.BG 51... Per protocol XX ; Start 05/26/18 at 20:30 Dextrose (D50w Syringe) 25 ml Q15M PRN IV .DECREASED GLUCOSE; Start 05/26/18 at 20:30 Dextrose (D50w Syringe) 50 ml Q15M PRN IV .DECREASED GLUCOSE; Start 05/26/18 at 20:30 Propofol 100 ml @ 3.75 mls/hr Q12H IV Last administered on 05/28/18at 23:47; Admin Dose 22.5 MLS/HR; Start 05/26/18 at 21:00 Phenylephrine HCl 80 mg/Dextrose 250 ml @ 18.75 mls/ hr TITRATE IV Last administered on 05/30/18 05:36; Admin Dose 28.13 MLS/HR; Start 05/26/18 at 22:30 Norepinephrine 32 mg/Dextrose 250 ml @ 0.47 mls/hr TITRATE IV Last adm inistered on 06/01/18 01:14; Admin Dose 14.06 MLS/HR; Start 05/26/18 at 22:30 Vancomycin HCl (Vanco Iv Per Pharmacy) VANCOMYCIN PER PHARMACY PER PROTOCOL XX ; Start 05/27/18 at 00:30 Piperacillin Sod/ Tazobactam Sod 100 ml @ 200 mls/hr Q8 IVPB Last administered on 06/01/18 05:30; Admin Dose 200 MLS/HR; Start 05/27/18 at 00:30 Acetaminophen (Tylenol Supp) 650 mg Q4H PRN [place] TEMP > 37C; Start 05/27/18 at 02:30 Acetaminophen (Tylenol Liquid) 650 mg Q4H PRN PO TEMP > 37C; Start 05/27/18 at 02:30 Meperidine HCl (Demerol) 12.5 mg Q4H PRN IV POST OPERATIVE SHIVERING Last administered on 05/27/18 22:49; Admin Dose 12.5 MG; Start 05/27/18 at 02:30 Meperidine HCl (Demerol) 25 mg Q4H PRN IV POST OPERATIVE SHIVERING Last administered on 05/27/18 03:09; Admin Dose 25 MG; Start 05/27/18 at 02:30 Eye Lubricant (Akwa Oint) 1 applic Q6 BOTH EYES Last administered on 06/01/18 05:28; Admin Dose 1 APPLIC; Start 05/27/18 at 06:00 Eye Lubricant (Artificial Tears Oph) 2 drop Q6 BOTH EYES Last administered on 06/01/18 05:28; Admin Dose 2 DROP; Start 05/27/18 at 06:00 Potassium Chloride 50 ml @ 50 mls/hr K PROTOCOL PRN IVPB PENDING LAB VALUE Last administered on 05/27/18 15:25; Admin Dose 50 MLS/HR; Start 05/27/18 at 04:00 Aspirin (Aspirin) 81 mg DAILY NGT Last administered on 06/01/18 08:13; Admin Dose 81 MG; Start 05/27/18 at 10:00 Ticagrelor (Brilinta) 90 mg BID NGT Last administered on 06/01/18 08:13; Admin Dose 90 MG; Start 05/27/18 at 21:00 Lorazepam (Ativan) 2 mg Q2H PRN IV SEIZURES Last administered on 06/01/18 03:44; Admin Dose 2 MG; Start 05/28/18 at 01:30 Acetaminophen (Tylenol Liquid) 650 mg Q6H PRN NGT MILD PAIN(1-3)OR ELEVATED TEMP Last administered on 06/01/18 08:20; Admin Dose 650 MG; Start 05/28/18 at 03:00 Epinephrine 4 mg/ Sodium Chloride 250 ml @ 3.75 mls/hr TITRATE IV Last administered on 05/29/18 03:52; Admin Dose 3.75 MLS/HR; Start 05/29/18 at 03:30 Dopamine HCl 800 mg/Dextrose 250 ml @ 4.69 mls/hr TITRATE IV Last administered on 06/01/18 08:51; Admin Dose 32.81 MLS/HR; Start 05/29/18 at 07:00 Levetiracetam 100 ml @ 400 mls/hr Q12 IVPB Last administered on 06/01/18 08:20; Admin Dose 400 MLS/HR; Start 05/31/18 at 09:00 Phenytoin (Dilantin) 100 mg Q8 IV Last administered on 06/01/18 05:28; Admin Dose 100 MG; Start 05/31/18 at 14:00 Pantoprazole (Protonix Iv) 40 mg BID@0600,1800 IV Last administered on 06/01/18 05:28; Admin Dose 40 MG; Start 05/31/18 at 18:00 Sodium Chloride 1,000 ml @ 50 mls/hr Q20H IV Last administered on 06/01/18 08:12; Admin Dose 50 MLS/HR; Start 06/01/18 at 08:00 VANDA EARL Jun 01, 2018 09:58
--- NOTE | 2018-06-01 11:21 | CONS ---
Consult Date/Type/Reason Admit Date/Time May 26, 2018 at 15:31 Initial Consult Date 05/26/18 Type of Consult Pulmonary Requesting Provider: ALYSE KLEIN MD Date/Time of Note DATE: 06/01/18 TIME: 11:19 Subjective Patient remains unresponsive on multiple vasopressors and intra-aortic balloon pump one-to-one. Neurologically unchanged. Objective Vital Signs Date Temp Pulse Resp B/P (MAP) Pulse Ox O2 O2 Flow FiO2 Time Delivery Rate 06/01/18 101.8 09:58 06/01/18 96 29 97/54 (68) 93 Mechanica 09:45 l Ventilato r 06/01/18 100 08:00 Intake and Output 05/31/18 05/31/18 06/01/18 1515:00 23:00 07:00 IntakeIntake Total 1647.38 ml 1234.86 ml 1166.47 ml OutputOutput Total 300 ml 140 ml 175 ml BalanceBalance 1347.38 ml 1094.86 ml 991.47 ml Exam PHYSICAL EXAMINATION: GENERAL: Chronically ill appearing gentleman on mechanical ventilation, orally intubated. VITAL SIGNS: NECK: Supple. No JVD or lymphadenopathy. CARDIAC: S1, S2. No added sounds or murmurs. CHEST: Diminished air entry bilaterally. ABDOMEN: Soft, nontender. No guarding or rebound. EXTREMITIES: No cyanosis, clubbing. A 1+ edema. NEUROLOGIC: Unable to assess. Vent Setting Ventilator Support Mode: AC, VC plus Fraction of Inspired Oxygen pe: 100 Positive End Expiratory Pressu: 10.0 Results/Medications Result Diagram: 06/01/18 0430 06/01/18 0430 Results 24 hrs Laboratory Tests Test 05/31/18 11:42 05/31/18 11:43 05/31/18 15:09 05/31/18 16:10 Phenytoin (Dilantin) 8.0 L Level Bedside Glucose 162 130 117 Test 05/31/18 18:16 05/31/18 20:00 05/31/18 22:01 06/01/18 00:00 Bedside Glucose 112 103 94 123 Test 06/01/18 02:17 06/01/18 04:03 06/01/18 04:30 06/01/18 06:00 Bedside Glucose 122 134 130 White Blood Count 20.3 #H Red Blood Count 3.34 L Hemoglobin 9.9 L Hematocrit 30.0 L Mean Corpuscular 89.8 Volume Mean Corpuscular 29.6 Hemoglobin Mean Corpuscular 33.0 Hemoglobin Concent Red Cell 14.8 H Distribution Width Platelet Count 89 L Mean Platelet Volume 11.5 H Immature 2.000 H Granulocytes % Neutrophils % Lymphocytes % Monocytes % Eosinophils % Basophils % Nucleated Red Blood 0.1 H Cells % Immature 0.410 H Granulocytes # Neutrophils # Lymphocytes # Monocytes # Eosinophils # Basophils # Nucleated Red Blood Cells # Sodium Level 136 Potassium Level 4.5 Chloride Level 105 Carbon Dioxide Level 23 Anion Gap 8 Blood Urea Nitrogen 52 H Creatinine 3.57 H Est Glomerular 17 L Filtrat Rate mL/min Glucose Level 111 Calcium Level 6.9 L Phosphorus Level 6.6 #H Magnesium Level 2.5 Random Vancomycin 16.6 Level Phenytoin (Dilantin) < 6.0 L Level Test 06/01/18 08:09 06/01/18 09:57 Bedside Glucose 99 103 Medications Current Medications IV Flush (NS 3 ml) 3 ml PER PROTOCOL IV ; Start 05/26/18 at 15:30 Morphine Sulfate (morphine) 2 mg Q4H PRN IV .SEVERE PAIN 7-10; Start 05/26/18 a t 15:30 Atorvastatin Calcium (Lipitor) 80 mg DAILY@21 PO Last administered on 05/31/18at 21:26; Admin Dose 80 MG; Start 05/26/18 at 21:00 Midazolam HCl 50 ml @ 1 mls/hr TITRATE IV Last administered on 05/28/18at 19:02; Admin Dose 10 MLS/HR; Start 05/26/18 at 19:30 Vecuronium [place] 100 mg/ Dextrose 100 ml @ 6.25 mls/hr TITRATE IV Last administered on 05/27/18at 06:55; Admin Dose 6.25 MLS/HR; Start 05/26/18 at 20:00 Vasopressin 60 unit/Dextrose 60 ml @ 1.2 mls/hr Q12H IV Last administered on 05/31/18at 21:32; Admin Dose 1.2 MLS/HR; Start 05/26/18 at 20:30 Fentanyl 100 ml @ 2.5 mls/hr TITRATE IV Last administered on 06/01/18at 06:23; Admin Dose 2.5 MLS/HR; Start 05/26/18 at 21:00 Diagnostic Test (Pha) (Accu-Chek) 1 ea Q1H XX Last administered on 06/01/18at 09:58; Admin Dose 1 EA; Start 05/26/18 at 21:00 Insulin Human Regular 100 unit/ Sodium Chloride 100 ml @ 0 mls/hr PER PROTOCOL IV Last administered on 05/31/18at 16:11; Admin Dose 2 MLS/HR; Start 05/26/18 at 21:00 Miscellaneous Information (* Miscellaneous Pharmacy Order) Treatment of Hypoglycemia: 1.BG 51... Per protocol XX ; Start 05/26/18 at 20:30 Dextrose (D50w Syringe) 25 ml Q15M PRN IV .DECREASED GLUCOSE; Start 05/26/18 at 20:30 Dextrose (D50w Syringe) 50 ml Q15M PRN IV .DECREASED GLUCOSE; Start 05/26/18 at 20:30 Propofol 100 ml @ 3.75 mls/hr Q12H IV Last administered on 05/28/18at 23:47; Admin Dose 22.5 MLS/HR; Start 05/26/18 at 21:00 Phenylephrine HCl 80 mg/Dextrose 250 ml @ 18.75 mls/ hr TITRATE IV Last admi nistered on 05/30/18at 05:36; Admin Dose 28.13 MLS/HR; Start 05/26/18 at 22:30 Norepinephrine 32 mg/Dextrose 250 ml @ 0.47 mls/hr TITRATE IV Last administered on 06/01/18at 01:14; Admin Dose 14.06 MLS/HR; Start 05/26/18 at 22:30 Vancomycin HCl (Vanco Iv Per Pharmacy) VANCOMYCIN PER PHARMACY PER PROTOCOL XX ; Start 05/27/18 at 00:30 Piperacillin Sod/ Tazobactam Sod 100 ml @ 200 mls/hr Q8 IVPB Last administered on 06/01/18at 05:30; Admin Dose 200 MLS/HR; Start 05/27/18 at 00:30 Acetaminophen (Tylenol Supp) 650 mg Q4H PRN [place] TEMP > 37C; Start 05/27/18 at 02:30 Acetaminophen (Tylenol Liquid) 650 mg Q4H PRN PO TEMP > 37C; Start 05/27/18 at 02:30 Meperidine HCl (Demerol) 12.5 mg Q4H PRN IV POST OPERATIVE SHIVERING Last administered on 05/27/18 22:49; Admin Dose 12.5 MG; Start 05/27/18 at 02:30 Meperidine HCl (Demerol) 25 mg Q4H PRN IV POST OPERATIVE SHIVERING Last administered on 05/27/18 03:09; Admin Dose 25 MG; Start 05/27/18 at 02:30 Eye Lubricant (Akwa Oint) 1 applic Q6 BOTH EYES Last administered on 06/01/18 05:28; Admin Dose 1 APPLIC; Start 05/27/18 at 06:00 Eye Lubricant (Artificial Tears Oph) 2 drop Q6 BOTH EYES Last administered on 06/01/18 05:28; Admin Dose 2 DROP; Start 05/27/18 at 06:00 Potassium Chloride 50 ml @ 50 mls/hr K PROTOCOL PRN IVPB PENDING LAB VALUE Last administered on 05/27/18 15:25; Admin Dose 50 MLS/HR; Start 05/27/18 at 04:00 Aspirin (Aspirin) 81 mg DAILY NGT Last administered on 06/01/18 08:13; Admin Dose 81 MG; Start 05/27/18 at 10:00 Ticagrelor (Brilinta) 90 mg BID NGT Last administered on 06/01/18 08:13; Admin Dose 90 MG; Start 05/27/18 at 21:00 Lorazepam (Ativan) 2 mg Q2H PRN IV SEIZURES Last administered on 06/01/18 03:44; Admin Dose 2 MG; Start 05/28/18 at 01:30 Acetaminophen (Tylenol Liquid) 650 mg Q6H PRN NGT MILD PAIN(1-3)OR ELEVATED TEMP Last administered on 06/01/18 08:20; Admin Dose 650 MG; Start 05/28/18 at 03:00 Epinephrine 4 mg/ Sodium Chloride 250 ml @ 3.75 mls/hr TITRATE IV Last administered on 05/29/18 03:52; Admin Dose 3.75 MLS/HR; Start 05/29/18 at 03:30 Dopamine HCl 800 mg/Dextrose 250 ml @ 4.69 mls/hr TITRATE IV Last administered on 06/01/18 08:51; Admin Dose 32.81 MLS/HR; Start 05/29/18 at 07:00 Levetiracetam 100 ml @ 400 mls/hr Q12 IVPB Last administered on 06/01/18 08:20; Admin Dose 400 MLS/HR; Start 05/31/18 at 09:00 Phenytoin (Dilantin) 100 mg Q8 IV Last administered on 06/01/18 05:28; Admin Dose 100 MG; Start 05/31/18 at 14:00 Pantoprazole (Protonix Iv) 40 mg BID@0600,1800 IV Last administered on 06/01/18at 05:28; Admin Dose 40 MG; Start 05/31/18 at 18:00 Sodium Chloride 1,000 ml @ 50 mls/hr Q20H IV Last administered on 06/01/18 08:12; Admin Dose 50 MLS/HR; Start 06/01/18 at 08:00 Assessment/Plan Hospital Course (Demo Recall) IMPRESSION: 1. Cardiopulmonary arrest. Likely significant anoxic brain injury. 2. Acute myocardial infarction with stent placement to circumflex. 3. Refractory septic shock 4. Acute renal failure. 5. Likely combination of cardiogenic and septic shock on multiple vasopressors and intra-aortic balloon pump status post stent placement as noted. Plan: Continue vent continue pressors and IABP Abx Renal recs neurology evaluation Bioethics consultation today. I recommend transitioning to comfort care as patient has extremely poor prognosis and long-term life support is not consistent with patient's wishes. Continued care at current level would be futile. MIGUEL CHOWDHURY MD, [facility] Jun 01, 2018 11:21
--- NOTE | 2018-06-01 13:36 | QN ---
Documentation Comment Biomedical ethics committee consultation: The biomedical ethics committee today met to discuss the case of Mr. Hanley. In addition to this we had verbal discussion with the patient elizabeth and c omer Mr. Sb Medina. The patient's medical history was presented to the committee including his hospital course. Based on the information available plus the input from the consult the patient's clinical course the biomedical ethics committee has the following recommendations. Based on his extremely poor prognosis and at this time what appears to be futile care without medical benefit we are in agreement the transition over to comfort care is in the patient's best interest. We are supportive of the primary care team and the consultants determination for this. We note that his social contacts wish to be able to initiate the comfort care measures as of tomorrow morning to allow people to come and pay their respects. They are in support of the medical team if they wish to set out this timeframe. As such it is the committee is unanimous opinion that the patient be transitioned over to comfort care as there is no meaningful medical likelihood of effective or significant recovery. Respectfully JIMBO Alvarez MD, MD Jun 01, 2018 13:36
[2018-06-01] MEDS ORDERED: VANCOMYCIN HCL 1.5 GM in SOD CHLORIDE 0.9% 250 ML IVPB SCH (14:00)
--- NOTE | 2018-06-01 14:56 | CONS ---
Assessment/Plan Assessment/Plan Hospital Course 68 M c/ uncertain PMHx, who initially presented w/ respiratory Sx... His hospital course is c/b cardiac arrest...with eventual ROSC.. s/p cardiac cath... s/p targeted temperature therapy The patient is persistently unresponsive, for which neurology is consulted. Of note, he is noted to have rhythmic twitching concerning for seizure. EEG was consistent w/ status epilepticus.. Now s/p Dilantin load (05/31), with clinical improvement P: Goals of care per primary Continue Dilantin 100mg q8h for now Continue Keppra 500mg bid for now Will follow Consultation Date/Type/Reason Admit Date/Time May 26, 2018 at 15:31 Type of Consult Neurology Reason for Consultation coma/seizures Requesting Provider: ALYSE KLEIN MD Date/Time of Note DATE: 06/01/18 TIME: 14:53 24 HR Interval Summary Free Text/Dictation Continues icu care Exam Vital Signs Vitals Vital Signs Date Temp Pulse Resp B/P (MAP) Pulse Ox O2 O2 Flow FiO2 Time Delivery Rate 06/01/18 82 29 91/55 (67) 92 12:15 06/01/18 102.0 Mechanica 12:00 l Ventilato r 06/01/18 100 08:00 Intake and Output 05/31/18 05/31/18 06/01/18 1515:00 23:00 07:00 IntakeIntake Total 1647.38 ml 1234.86 ml 1166.47 ml OutputOutput Total 300 ml 140 ml 175 ml BalanceBalance 1347.38 ml 1094.86 ml 991.47 ml Exam PE: Gen Appearance: No Apparent Distress HEENT: Intubated Cardiovascular: Regular rate Abdomen: Soft Extremities: Dry NE: The patient was comatose. Cranial nerve examination was limited by mental status. Pupils were equal and sluggish.. There was no afferent pupillary defect. Funduscopic examination was limited. Face was grossly symmetric, w/ present corneals and absent cough reflexes. Tone was normal. Muscle bulk was normal. I did not see fasciculations. The patient without motor response to noxious stimulation. Coordination and gait testing was limited by mental status. Arm and leg reflexes were within normal limits and symmetric. Snowden's sign was absent. Plantar responses were flexor. JESSICA WILLOUGHBY Jun 01, 2018 14:56
--- NOTE | 2018-06-01 15:55 | DES ---
Date/Time of Note Date/Time of Note DATE: 06/01/18 TIME: 15:49 Discharge/ Summary Admission/Discharge Info Admit Date/Time May 26, 2018 at 15:31 Final Diagnosis #Cardiac arrest- Likely from STEMI- s/p cardiac cath with BELLA to circumflex 05/26- Was on hypothermia protocol, with neuromuscular blockade and sedation- BP was maintained on multiple pressors. Also was on intra-aortic balloon pump #Respiratory failurew/Hypoxia-intubated #hyperkalemia #Renal failure- Patient is oliguric with rising creatinine. Preliminary Cause of 1. Res distress - minutes 2. Cardiac arrest with subsequent cardiogenic and septic shock: Days Admit History 68 yo man admitted after cardiac arrest. No collateral history, patient intubated and sedated. History per prior documentation. Unknown past medical history. EMS summoned to his sober living facility due to c/o respiratory distress. Patient sustained cardiac arrest in ED, with prolonged resuscitation. Upon return of spontaneous circulation, EKG demon strated afib at 96 bpm, ST elevations in II, III, AVF, V4-V6 with reciprocal depressions in V1-2, consistent with inferolateral SC. Patient brought to cardiac catheterization laboratory, underwent a prolonged procedure with ultimate angioplasty of the left circumflex and resulting CONNIE 2 flow down a codominant LCX. Balloon pump placed at the end of the procedure, and patient left on integrilin and cangrelor, and three pressors. Hospital Course Patient was admitted to the intensive care unit after undergoing left heart cath with stent placement. Placed on hypothermia protocol secondary to cardiac arrest. Seen by multiple specialists including cardiology, pulmonary, renal, and neurology team during this hospital stay. Patient required multiple drug pressor support, was on maximum ventilator settings secondary to significant respiratory distress. Also on intra-aortic balloon pump after the heart cath was placed. Patient also had some seizure activity and was placed on antiseizure medications as recommended by the neurology team. EEGs were performed and results were noted. There was very minimal response on the neurologic exam and strong suspicion of anoxic brain injury. Patient's status unfortunately did not improve, bioethics meeting was held on June 01, 2018. Shortly afterwards the same day, even though there was going to be implementation of comfort measures 24 hours after the bioethics meeting, patient unfortunately at 15:55 June 01, 2018 Date/Time of Note Date/Time of Note DATE: 05/26/18 TIME: 18:10 Operative Report Procedure Date: May 26, 2018 Preoperative Diagnosis Cardiac arrest, STEMI inferolateral wall Postoperative Diagnosis Same Operation/Procedure Performed Coronary angiography Percutaneous coronary intervention to the lcx, with placement of a drug-eluting stent IABP insertion EEG 05/30: IMPRESSION: Abnormal electroencephalogram due to: discontinuity and epileptiform activity. 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 EEG 05/31: IMPRESSION: Abnormal electroencephalogram due to: discontinuity and epileptiform activity. 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 15:55 on Jun 01, 2018 PE: Gen: Obese man intubated, nonresponsive Eyes: Nonresponsive HEENT: Pupils unresponsive, no response to sound Card: No heart sounds able to be auscultated Pulm: No lung sounds able to be auscultated Abd: No bowel sounds able to be auscultated Ext: No dorsalis pedis or posterior tibial pulses bilaterally able to be felt Neuro: No movement noted Pending Labs/Cultures Laboratory Tests Test 05/31/18 16:10 05/31/18 18:16 05/31/18 20:00 05/31/18 22:01 Bedside 117 112 103 94 Glucose mg/dL (70-220) mg/dL (70-220) mg/dL (70-220) mg/dL (70-220) Test 06/01/18 00:00 06/01/18 02:17 06/01/18 04:03 06/01/18 04:30 Bedside 123 122 134 Glucose mg/dL (70-220) mg/dL (70-220) mg/dL (70-220) White Blood 20.3 Count 10^3/ul (4.8-1 0.8) Red Blood 3.34 Count 10^6/ul (4.70- 6.10) Hemoglobin 9.9 g/dl (14.0-18. 0) Hematocrit 30.0 % (42.0-52.0) Mean 89.8 Corpuscular fl (82.0-101.0 Volume ) Mean 29.6 Corpuscular pg (29.0-33.0) Hemoglobin Mean 33.0 Corpuscular g/dl (32.0-37. Hemoglobin Conc 0) ent Red Cell 14.8 Distribution % (11.5-14.5) Width Platelet Count 89 10^3/UL (140-4 15) Mean Platelet 11.5 Volume fl (7.4-10.4) Immature 2.000 Granulocytes % % (0.001-0.429 ) Neutrophils % % (39.0-77.0) Lymphocytes % % (15.0-51.0) Monocytes % % (0.0-11.0) Eosinophils % % (0.0-7.0) Basophils % % (0.0-2.0) Nucleated Red 0.1 Blood Cells % /100WBC (0.0-0 .0) Immature 0.410 Granulocytes # 10^3/ul (0.0-0 .031) Neutrophils # 10^3/ul (1.6-7 .5) Lymphocytes # 10^3/ul (0.8-2 .9) Monocytes # 10^3/ul (0.3-0 .9) Eosinophils # 10^3/ul (0.0-0 .5) Basophils # 10^3/ul (0.0-0 .1) Nucleated Red 10^3/ul (0.0-0 Blood Cells # .0) Sodium Level 136 mmol/L (135-14 4) Potassium 4.5 Level mmol/L (3.5-5. 1) Chloride Level 105 mmol/L (97-110 ) Carbon Dioxide 23 Level mmol/L (21-31) Anion Gap 8 (5-13) Blood Urea 52 Nitrogen mg/dl (7-20) Creatinine 3.57 mg/dl (0.61-1. 24) Est Glomerular 17 Filtrat mL/min (>60) Rate mL/min Glucose Level 111 mg/dl (70-220) Calcium Level 6.9 mg/dl (8.4-10. 2) Phosphorus 6.6 Level mg/dl (2.5-4.9 ) Magnesium 2.5 Level mg/dl (1.7-2.5 ) Random 16.6 ug/ml Vancomycin Level Phenytoin < 6.0 (Dilantin) ug/ml (10.0-20 Level .0) Test 06/01/18 06:00 06/01/18 08:09 06/01/18 09:57 06/01/18 11:56 Bedside 130 99 103 102 Glucose mg/dL (70-220) mg/dL (70-220) mg/dL (70-220) mg/dL (70-220) Test 06/01/18 14:29 Bedside 88 Glucose mg/dL (70-220) VANDA EARL Jun 01, 2018 15:55
--- NOTE | 2018-06-03 13:34 | RADRPT ---
Vent Rate: 97 bpm RR Interval: 620 msec [place] Interval: 178 msec QRS Duration: 87 msec QT Interval: 307 msec QTC Interval: 390 msec P-R-T [place]: 63 - 72 - 76 degrees Sinus rhythm Low voltage Electronically Signed By: Srinivas Vaughan
--- NOTE | 2018-06-03 13:35 | RADRPT ---
Vent Rate: 73 bpm RR Interval: 0 msec [place] Interval: 98 msec QRS Duration: 90 msec QT Interval: 476 msec QTC Interval: 524 msec P-R-T [place]: -87 - 73 - 74 degrees Unusual P axis and short [place], probable junctional rhythm with premature supraventricular complexes Low voltage QRS Prolonged QT Abnormal ECG Electronically Signed By: Srinivas Vaughan
--- NOTE | 2018-06-03 13:35 | RADRPT ---
Vent Rate: 80 bpm RR Interval: 0 msec [place] Interval: 160 msec QRS Duration: 86 msec QT Interval: 436 msec QTC Interval: 502 msec P-R-T [place]: 78 - 65 - 23 degrees Sinus rhythm with premature atrial complexes Low voltage QRS Inferior-posterior infarct , age undetermined Prolonged QT Abnormal ECG Electronically Signed By: Srinivas Vaughan
--- NOTE | 2018-06-03 13:35 | RADRPT ---
Vent Rate: 99 bpm RR Interval: 0 msec [place] Interval: 116 msec QRS Duration: 82 msec QT Interval: 378 msec QTC Interval: 485 msec P-R-T [place]: 25 - 76 - 81 degrees Normal sinus rhythm Low voltage QRS Cannot rule out Inferior infarct , age undetermined Abnormal ECG Electronically Signed By: Srinivas Vaughan
--- NOTE | 2018-06-03 13:35 | RADRPT ---
Vent Rate: 113 bpm RR Interval: 0 msec [place] Interval: 146 msec QRS Duration: 82 msec QT Interval: 346 msec QTC Interval: 474 msec P-R-T [place]: 65 - 85 - 79 degrees Sinus tachycardia Low voltage QRS Nonspecific ST abnormality Abnormal ECG Electronically Signed By: Srinivas Vaughan
--- NOTE | 2018-06-03 13:35 | RADRPT ---
Vent Rate: 84 bpm RR Interval: 0 msec [place] Interval: 0 msec QRS Duration: 86 msec QT Interval: 416 msec QTC Interval: 491 msec P-R-T [place]: 0 - 69 - 82 degrees Sinus with PACs Low voltage QRS Abnormal ECG Electronically Signed By: Srinivas Vaughan
--- NOTE | 2018-06-03 13:35 | RADRPT ---
Vent Rate: 112 bpm RR Interval: 0 msec [place] Interval: 166 msec QRS Duration: 88 msec QT Interval: 376 msec QTC Interval: 513 msec P-R-T [place]: 70 - 65 - 74 degrees Sinus tachycardia with premature atrial complexes Low voltage QRS Possible Lateral infarct , age undetermined Possible Inferior infarct , age undetermined Abnormal ECG Electronically Signed By: Srinivas Vaughan
== END 2018-06-01 15:55 | disposition expired | DRG 270 ==
LOC: E/R 14:29 → ICU 15:31
PROVIDERS: ADMIT Internal Medicine; ATTEND Hospitalist
PROC: 0BH18EZ Insertion of Endotracheal Airway into Trachea, Via Natural or Artificial Opening Endoscopic (ICD-10-PCS; 2018-05-26)
PROC: 5A12012 Performance of Cardiac Output, Single, Manual (ICD-10-PCS; 2018-05-26)
PROC: 5A2204Z Restoration of Cardiac Rhythm, Single (ICD-10-PCS; 2018-05-26)
PROC: 4A023N7 Measurement of Cardiac Sampling and Pressure, Left Heart, Percutaneous Approach (ICD-10-PCS; 2018-05-26)
PROC: B211YZZ Fluoroscopy of Multiple Coronary Arteries using Other Contrast (ICD-10-PCS; 2018-05-26)
PROC: 027034Z Dilation of Coronary Artery, One Artery with Drug-eluting Intraluminal Device, Percutaneous Approach (ICD-10-PCS; principal; 2018-05-26 15:30)
PROC: 5A02210 Assistance with Cardiac Output using Balloon Pump, Continuous (ICD-10-PCS; 2018-05-26 15:30)
PROC: 06HY33Z Insertion of Infusion Device into Lower Vein, Percutaneous Approach (ICD-10-PCS; 2018-05-29)
DX: I21.21 ST elevation (STEMI) myocardial infarction involving left circumflex coronary artery (principal); N17.0 Acute kidney failure with tubular necrosis; A41.9 Sepsis, unspecified organism; R65.21 Severe sepsis with septic shock; J96.01 Acute respiratory failure with hypoxia; G92 Toxic encephalopathy; R40.20 Unspecified coma; G93.1 Anoxic brain damage, not elsewhere classified; I47.2 Ventricular tachycardia; E87.2 Acidosis; K92.2 Gastrointestinal hemorrhage, unspecified; I49.01 Ventricular fibrillation; E66.01 Morbid (severe) obesity due to excess calories; E87.6 Hypokalemia; Z66 Do not resuscitate; I46.2 Cardiac arrest due to underlying cardiac condition; E87.5 Hyperkalemia; G40.901 Epilepsy, unspecified, not intractable, with status epilepticus; I25.10 Atherosclerotic heart disease of native coronary artery without angina pectoris; Z68.38 Body mass index [BMI] 38.0-38.9, adult
CPT/HCPCS: 31500; 36415; 36600; 71045; 74018; 76775; 80048; 80053; 80061; 80185; 80202; 81001; 81003; 82043; 82150; 82330; 82803; 82962; 83036; 83605; 83690; 83735; 84100; 84132; 84155; 84300; 84484; 85025; 85384; 85610; 85730; 87081; 92950; 93005; 93306; 93454; 94002; 94003; 94770; 95819; C1725; C1726; C1751; C1752; C1757; C1887; C1894; C9113; C9460; C9606; J0171; J1165; J1265; J1327; J1644; J1815; J1953; J2060; J2175; J2250; J2310; J2370; J2543; J3010; J3370; J3475; J3480; J7030; J7040; J7042; J7050; J7070; P9047; Q9967